=== PATIENT | female | born 1955 | race Caucasian/White ===

== ENCOUNTER 2016-08-21 19:41 | Emergency (ER) | payer MEDICARE ==
[~2016-08-21] VITALS: Ht 160 cm; Wt 80.6 kg
[~2016-08-21 19:41] MED LIST: ALBU8I INH; ASPI1TAB7 PO; BUME1TAB PO; CALC0.5C6 PO; CLON0.5T PO; COZA100T PO; ERGO50000 PO; FLOV44AE INH; GABA100C4 PO; GENT0.1C TOP; ISOS60 PO; LANT500 CHEW; LEVO50TA4 PO; METO100T9 PO; OMEP20TA PO; ONDA4TAB7 PO; OXYC1SOL5 PO; RENACAP2 PO; SERT-129 PO; SODI650T PO; VERA1TAB17 PO; Z.0.OXYGENDME NC; ZOLP10TA3 PO
[2016-08-21 19:47] VITALS: BP 125/87; PULSE 85; RESP 16; TEMP 98.1; O2SAT 98
[2016-08-21] MEDS ORDERED: LANT500 CHEW (20:08)
[2016-08-21] MEDS ORDERED: LEVO50TA4 PO (20:08)
[2016-08-21] MEDS ORDERED: GABA100C4 PO (20:08)
[2016-08-21] MEDS ORDERED: OMEP20CA2 (20:08)
[2016-08-21] MEDS ORDERED: ERGO1CAP30 PO (20:08)
[2016-08-21] MEDS ORDERED: CALC0.5C6 PO (20:08)
[2016-08-21] MEDS ORDERED: VERA1TAB17 PO (20:08)
[2016-08-21] MEDS ORDERED: ASPI1TAB69 PO (20:08)
[2016-08-21] MEDS ORDERED: ZOLP10TA3 PO (20:08)
[2016-08-21] MEDS ORDERED: CLON0.5T PO (20:08)
[2016-08-21] MEDS ORDERED: ISOS60TA PO (20:08)
[2016-08-21] MEDS ORDERED: ZOFR4TAB3 SL (20:08)
[2016-08-21] MEDS ORDERED: LOSA100T PO (20:08)
[2016-08-21] MEDS ORDERED: FLUTI44I INH (20:08)
[2016-08-21] MEDS ORDERED: SODI650T PO (20:08)
[2016-08-21] MEDS ORDERED: OXYC1TAB36 PO (20:08)
[2016-08-21] MEDS ORDERED: VITACAP7 PO (20:08)
[2016-08-21] MEDS ORDERED: METO100T9 PO (20:08)
[2016-08-21] MEDS ORDERED: BUME2TAB PO (20:08)
[2016-08-21] MEDS ORDERED: SERT-129 PO (20:08)
[2016-08-21] MEDS ORDERED: ALBUAER3 INH (20:08)
[2016-08-21] MEDS ORDERED: BACT2OIN TOPICAL (20:13)
--- NOTE | 2016-08-21 20:15 | PD ---
HPI Chief Complaint: Laceration/Skin Injury Time Seen by Provider: 20:05 Travel History International Travel<30 days: No Contact w/Intl Traveler<30days: No Traveled to known affect area: No History of Present Illness HPI 61-year-old female presents to the emergency room for evaluation of dog scratch to her right dorsal forearm that occurred 2 days ago. Patient states her dog scratched her and she immediately washed it with soap and water. She has been applying leftover gentamicin ointment. States today she noticed a large black spot and some yellow pus coming out of it which concerned her. She is on dialysis every day for polycystic kidney disease. Patient denies fever, chills , nausea, and vomiting. PFSH Past Medical History Hx Anticoagulant Therapy: Yes (ASA) Asthma: No Anxiety: No Depression: No Cancer: No Cardiovascular Problems: Yes High Cholesterol: Yes Chemotherapy: No Congestive Heart Failure: Yes COPD: Yes Diabetes: No Dialysis: Yes (PERITONEAL DIALYSIS) Diminished Hearing: No Endocrine: Yes Gastrointestinal Disorders: Yes (GERD) GERD: Yes Genitourinary: No Hepatitis: No Hiatal Hernia: No Hypertension: Yes Immune Disorder: No Musculoskeletal: Yes (BACK PAIN) Neurologic: No Psychiatric: Yes (CLAUSTROPHOBIA) Reproductive: No Respiratory: No Radiation Therapy: No Renal Failure: Yes (on dialysis) Thyroid Disease: Yes Tetanus Vaccination: > 5 Years Influenza Vaccination: No ?: Not Menopausal: Yes : 2 Para: 2 Past Surgical History Abdominal Surgery: Yes (PERITONEAL DIALYSIS CATH) AICD: No Cholecystectomy: Yes Joint Replacement: No Oral Surgery: Yes (SINUS SURGERY) Pacemaker: No Tonsillectomy: Yes Other Surgery: Yes (CHIN RECONSTRUCTION) Social History Alcohol Use: No Tobacco Use: No Substance Use: No Allergies-Medications (Allergen,Severity, Reaction): Coded Allergies: No Known Allergies (Verified , 08/21/16) Reported Meds & Prescriptions Reported Meds & Active Scripts Active Ventolin Hfa (Albuterol Sulfate) 8 Gm Aero 1 Puff INH Q6 PRN * SHAKE WELL BEFORE USE * Fosrenol (Lanthanum Carbonate) 500 Mg Chew 500 Mg CHEW TID 30 Days Oxygen (O2) (Oxygendme) Device 2 L NC CONTINUOUS Oxygen Concentrator Portable Gaseous 2 L/min via Nasal Cannula Continuous For 99 months Bumetanide 1 Mg Tab 2 Mg PO BID Imdur 60 Mg (Isosorbide Mononitrate) 60 Mg Tabcr 60 Mg PO DAILY@07 Oxycodone/Acetaminophen 10 mg/325 mg 10 mg/325 mg Tab 1 Tab PO Q6H PRN Clonazepam 0.5 Mg Tab 0.5 Mg PO HS 30 Days Reported Flovent Hfa (Fluticasone Propionate) 44 Mcg Aer 2 Puff INH BID Verapamil Hcl Er (Verapamil Hcl) 240 Mg Tab 240 Mg PO DAILY Aspirin 81 mg Tab (Aspirin) 81 Mg Tab 81 Mg PO DAILY Zolpidem Tartrate 10 Mg Tab 10 Mg PO HS Omeprazole 20 mg (Omeprazole) 20 Mg Tab 20 Mg PO BID Gentamicin Sulfate (Gentamicin Sulfate (Topical)) 0.1 % Cre 1 Applic TOP DAILY Apply to port site daily with drsg change Metoprolol Succinate ER 100 mg (Metoprolol Succinate) 100 Mg Tab 100 Mg PO DAILY Rocaltrol (Calcitriol) 0.5 Mcg Cap 0.5 Mcg PO DAILY Levothyroxine 50 mcg (Levothyroxine Sodium) 50 Mcg Tab 50 Mcg PO DAILY Ondansetron Odt (Ondansetron HCl) 4 Mg Tab 4 Mg PO Q8H PRN Cozaar (Losartan Potassium) 100 Mg Tab 100 Mg PO DAILY Sodium Bicarbonate 650 Mg Tab 10 Gr PO BID Renal (B-Complex W/ C & Folic Acid) Softgel Cap 1 Cap PO DAILY Vitamin D / Drisdol 50,000 Units (Ergocalciferol) 50,000 Units Cap 1 Cap PO TWICE A MONTH & 15 Gabapentin 100 Mg Cap 100 Mg PO BID Sertraline 100 mg (Sertraline HCl) 100 Mg Tab 150 Mg PO DAILY Review of Systems Except as stated in HPI: all other systems reviewed are Neg Physical Exam Narrative GENERAL: Well-nourished, well-developed female in no acute distress. Afebrile. Ambulatory. SKIN: Focused skin assessment warm/dry. There is a 1 cm superficial laceration to the right dorsal forearm. No surrounding erythema, lymphangitis, increased warmth, or induration. No obvious drainage. There is a large blood clot at the exit of the wound. HEAD: Normocephalic. EYES: No scleral icterus. No injection or drainage. NECK: Supple, trachea midline. No JVD or lymphadenopathy. CARDIOVASCULAR: Regular rate and rhythm without murmurs, gallops, or rubs. RESPIRATORY: Breath sounds equal bilaterally. No accessory muscle use. PSYCHIATRIC: No delusional thought processes. No hallucinations. Data Data Last Documented VS Vital Signs Date Time Temp Pulse Resp B/P Pulse Ox O2 Delivery O2 Flow Rate FiO2 08/21/16 19:47 98.1 85 16 125/87 98 MDM Medical Decision Making Medical Screen Exam Complete: Yes Emergency Medical Condition: Yes Medical Record Reviewed: Yes Differential Diagnosis Dog scratch versus cellulitis versus wound infection versus laceration Narrative Course 61-year-old female presents to the emergency room for evaluation of a dog scratch to her right dorsal forearm that occurred 2 days ago. Patient is concerned for infection because she saw some yellow pus coming out of it earlier today. She is afebrile well-appearing in the emergency room. Medicine stable. There is a 1 cm superficial scratch to the right dorsal forearm without surrounding erythema, induration, edema, increased warmth, or lymphangitis. There is no obvious drainage. Patient has end-stage renal disease and is on dialysis daily. Because of this, we will avoid oral antibiotics. Patient will be placed on mupirocin and told to follow up with her primary care physician or return for worsening symptoms. She understands and agrees to plan. Diagnosis Primary Impression: Dog scratch Referrals: Primary Care Physician Patient Instructions: Cellulitis (ED), General Instructions Additional Instructions: Rest and drink plenty of fluids. Keep wound clean and dry. Apply mupirocin ointment twice daily. Follow-up with a primary care physician. Return to the emergency room for worsening symptoms. Med/Other Pt SpecificInfo: Prescription(s) given Disposition: 01 DISCHARGE HOME Condition: Stable Tamia Abbasi August 21, 2016 20:15
== END 2016-08-21 20:25 | disposition home or self-care (01) ==
LOC: PHEFT 19:41
DX: S59.911A Unspecified injury of right forearm, initial encounter (principal); I50.9 Heart failure, unspecified; I10 Essential (primary) hypertension; N19 Unspecified kidney failure; Z99.2 Dependence on renal dialysis; X58.XXXA Exposure to other specified factors, initial encounter
CPT/HCPCS: 99282

== ENCOUNTER 2016-09-12 16:37 | Inpatient (IN) | payer MEDICARE, MEDICAID ==
[~2016-09-12] VITALS: Ht 160 cm; Wt 81.4 kg
[~2016-09-12 16:37] MED LIST changes: -ALBU8I INH; +ALBUAER3 INH; +ASPI1TAB69 PO; -ASPI1TAB7 PO; +BACT2OIN TOPICAL; -BUME1TAB PO; +BUME2TAB PO; -COZA100T PO; +ERGO1CAP30 PO; -ERGO50000 PO; -FLOV44AE INH; +FLUTI44I INH; -GENT0.1C TOP; -ISOS60 PO; +ISOS60TA PO; +LOSA100T PO; +OMEP20CA2; -OMEP20TA PO; -ONDA4TAB7 PO; -OXYC1SOL5 PO; +OXYC1TAB36 PO; -RENACAP2 PO; +VITACAP7 PO; -Z.0.OXYGENDME NC; +ZOFR4TAB3 SL
[2016-09-12 16:39] VITALS: BP 162/88; PULSE 106; RESP 36; TEMP 99.3; O2SAT 97
--- NOTE | 2016-09-12 16:49 | PD ---
Physical Exam Date Seen by Provider: Sep 12, 2016 Time Seen by Provider: 16:46 Data Data Last Documented VS Vital Signs Date Time Temp Pulse Resp B/P Pulse Ox O2 Delivery O2 Flow Rate FiO2 09/12/16 16:39 99.3 106 36 162/88 97 Room Air Orders Electrocardiogram (09/12/16 ) [facility] Supervised Visit with SHILPI: No Narrative Course 61 YO F with complaint of SOB x 3 days. Endorses nonproductive cough, chest tightness with deep breathing. Speaking in full sentences, no extra work of breathing, O2 sats 97% ORA in triage. EKG ordered. Vitals reviewed. Awaiting bed placement. Peyton Javier Sep 12, 2016 16:48
[2016-09-12] MEDS ORDERED: SODIUM CHLORIDE 0.9% FLUSH 10 ML FLUSH IVF PRN (17:30)
--- NOTE | 2016-09-12 17:39 | PD ---
HPI Chief Complaint: Respiratory Symptoms Time Seen by Provider: 17:34 Travel History International Travel<30 days: No Contact w/Intl Traveler<30days: No Traveled to known affect area: No History of Present Illness HPI Patient comes in complaining of shortness of breath 3 days and chest tightness that began yesterday. Patient reports dyspnea on exertion and with laying flat. Symptoms improved with resting and sitting up. Patient states this feels similar to when she was feeling short of breath in January for missing her peritoneal dialysis, however patient denies missing any of her dialysis with the exception of one time last month. Patient reports associated mild cough. Patient reports she takes a baby aspirin night but has not took it today. Patient denies any known fevers, nausea, vomiting, diarrhea, abdominal pain, headaches, back pain. Patient reports she does not make urine. Patient is in between primary care doctors currently secondary to insurance. Patient continues to see her spare fixer Dr. Green. Patient reports she does have an old inhaler that she tried with no improvement of her symptoms, but is uncertain why she had the inhaler or how old it was. 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 Camilo. [facility] Past Medical History Hx Anticoagulant Therapy: Yes (ASA) Asthma: No Anxiety: No Depression: No Cancer: No Cardiovascular Problems: Yes High Cholesterol: Yes Chemotherapy: No Congestive Heart Failure: Yes COPD: Yes Diabetes: No Dialysis: Yes (PERITONEAL DIALYSIS) Diminished Hearing: No Endocrine: Yes Gastrointestinal Disorders: Yes (GERD) GERD: Yes Genitourinary: No Hepatitis: No Hiatal Hernia: No Hypertension: Yes Immune Disorder: No Musculoskeletal: Yes (BACK PAIN) Neurologic: No Psychiatric: Yes (CLAUSTROPHOBIA) Reproductive: No Respiratory: No Radiation Therapy: No Renal Failure: Yes (on dialysis) Thyroid Disease: Yes Menopausal: Yes : 2 Para: 2 Past Surgical History Abdominal Surgery: Yes (PERITONEAL DIALYSIS CATH) AICD: No Cholecystectomy: Yes Joint Replacement: No Oral Surgery: Yes (SINUS SURGERY) Pacemaker: No Tonsillectomy: Yes Other Surgery: Yes (CHIN RECONSTRUCTION) Social History Alcohol Use: No Tobacco Use: No Substance Use: No Allergies-Medications (Allergen,Severity, Reaction): Coded Allergies: No Known Allergies (Verified , 09/12/16) Reported Meds & Prescriptions Reported Meds & Active Scripts Active Reported Aspirin 81 Mg Chew 81 Mg CHEW DAILY Zolpidem (Zolpidem Tartrate) 10 Mg Tab 10 Mg PO HS PRN Verapamil ER 24 HR (Verapamil HCl) 240 Mg Tab 240 Mg PO HS Sodium Bicarbonate 650 Mg Tab 650 Mg PO BIDPC Sertraline (Sertraline HCl) 100 Mg Tab 100 Mg PO DAILY Oxycodone-Acetaminophen 10-325 mg Tab 1 Tab PO Q6H PRN Zofran Odt (Ondansetron Odt) 4 Mg Tab 4 Mg SL Q8HR PRN Omeprazole 20 Mg Cap Metoprolol Succinate ER 24 HR (Metoprolol Succinate) 100 Mg Tab 100 Mg PO DAILY Losartan (Losartan Potassium) 100 Mg Tab 100 Mg PO DAILY Levothyroxine (Levothyroxine Sodium) 50 Mcg Tab 50 Mcg PO DAILY Fosrenol (Lanthanum Carbonate) 500 Mg Tab 500 Mg CHEW TIDPC Isosorbide Mononitrate ER (Isosorbide Mononitrate) 60 Mg Tab 60 Mg PO DAILY Gabapentin 100 Mg Cap 100 Mg PO BID Flovent Hfa 10.6 GM Inh (Fluticasone Propionate) 44 Mcg/Act Inh 2 Puff INH BID Use daily at the same time. Ergocalciferol 50,000 Unit Cap 50,000 Units PO TWICE A MONTH Clonazepam 0.5 Mg Tab 0.5 Mg PO HS Calcitriol 0.5 Mcg Cap 0.5 Mcg PO DAILY Bumetanide 2 Mg Tab 2 Mg PO BID B Complex (B-Complex Vitamins) 1 Cap 1 Cap PO DAILY Proair Hfa 8.5 GM Inh (Albuterol Sulfate) 90 Mcg/Act Aer 2 Puff INH Q6H PRN 108 mcg/actuation Review of Systems Except as stated in HPI: all other systems reviewed are Neg Physical Exam Narrative GENERAL: Well-developed, overly nourished, in no acute distress, and non-ill appearing. SKIN: Focused skin assessment warm and dry. HEAD: Atraumatic. Normocephalic. EYES: Pupils equal and round. EOMI. No scleral icterus. No injection or drainage. ENT: No nasal bleeding or discharge. Mucous membranes pink and moist. NECK: Trachea midline. Supple. No nuclear rigidity. CARDIOVASCULAR: Regular rate and rhythm. No murmur appreciated. RESPIRATORY: No accessory muscle use. No respiratory distress. Clear to auscultation. Breath sounds equal bilaterally. Patient speaking in full sentences without difficulty. MUSCULOSKELETAL: No obvious deformities. No clubbing. No cyanosis. No edema. Full range of motion. NEUROLOGICAL: Awake and alert. No obvious cranial nerve deficits. Motor grossly within normal limits. Normal speech. PSYCHIATRIC: Appropriate mood and affect; insight and judgment normal. Data Data Last Documented VS Vital Signs Date Time Temp Pulse Resp B/P Pulse Ox O2 Delivery O2 Flow Rate FiO2 09/12/16 19:26 96 18 162/82 97 Room Air 09/12/16 18:20 2.00 09/12/16 16:39 99.3 Orders Electrocardiogram (09/12/16 ) Complete Blood Count With Diff (09/12/16 17:28) Basic Metabolic Panel (Bmp) (09/12/16 17:28) B-Type Natriuretic Peptide (09/12/16 17:28) Act Partial Throm Time (Ptt) (09/12/16 17:28) Prothrombin Time / Inr (Pt) (09/12/16 17:28) Magnesium (Mg) (09/12/16 17:28) Ckmb (Isoenzyme) Profile (09/12/16 17:28) Troponin I (09/12/16 17:28) Iv Access Insert/Monitor (09/12/16 17:28) Ecg Monitoring (09/12/16 17:28) Oximetry (09/12/16 17:28) Oxygen Administration (09/12/16 17:28) Chest, Single Ap (09/12/16 17:28) Sodium Chloride 0.9% Flush (Ns Flush) (09/12/16 17:30) Aspirin Chew (Aspirin Chew) (09/12/16 17:45) Albuterol-Ipratropium Neb (Duoneb Neb) (09/12/16 17:45) CKMB (09/12/16 17:50) CKMB% (09/12/16 17:50) Admit Order (Ed Use Only) (09/12/16 19:31) Labs Laboratory Tests Test 09/12/16 17:50 White Blood Count 7.7 TH/MM3 Red Blood Count 2.83 MIL/MM3 Hemoglobin 8.6 GM/DL Hematocrit 25.9 % Mean Corpuscular Volume 91.6 FL Mean Corpuscular Hemoglobin 30.5 PG Mean Corpuscular Hemoglobin 33.3 % Concent Red Cell Distribution Width 16.6 % Platelet Count 167 TH/MM3 Mean Platelet Volume 9.4 FL Neutrophils (%) (Auto) 64.5 % Lymphocytes (%) (Auto) 14.4 % Monocytes (%) (Auto) 8.3 % Eosinophils (%) (Auto) 11.9 % Basophils (%) (Auto) 0.9 % Neutrophils # (Auto) 4.9 TH/MM3 Lymphocytes # (Auto) 1.1 TH/MM3 Monocytes # (Auto) 0.6 TH/MM3 Eosinophils # (Auto) 0.9 TH/MM3 Basophils # (Auto) 0.1 TH/MM3 CBC Comment DIFF FINAL Differential Comment Prothrombin Time 11.2 SEC Prothromb Time International 1.0 RATIO Ratio Activated Partial 25.7 SEC Thromboplast Time Sodium Level 139 MEQ/L Potassium Level 4.0 MEQ/L Chloride Level 100 MEQ/L Carbon Dioxide Level 27.5 MEQ/L Anion Gap 12 MEQ/L Blood Urea Nitrogen 47 MG/DL Creatinine 11.63 MG/DL Estimat Glomerular Filtration 3 ML/MIN Rate Random Glucose 116 MG/DL Calcium Level 9.2 MG/DL Magnesium Level 1.9 MG/DL Total Creatine Kinase 111 U/L Creatine Kinase MB 2.4 NG/ML Troponin I 0.03 NG/ML B-Type Natriuretic Peptide 4551 PG/ML MDM Medical Decision Making Medical Screen Exam Complete: Yes Emergency Medical Condition: Yes Interpretation(s) EKG reviewed by Dr. Rosales shows sinus rhythm with ventricular rate 95. No STEMI. Chest x-ray read by radiologist shows: Cardiomegaly with small bilateral pleural effusions. Minimal basilar airspace disease. Pacer lead overlies right ventricle. Differential Diagnosis CHF exacerbation, pneumonia, acute coronary syndrome, pneumothorax, fluid overload, pleural effusion, other Narrative Course Patient was seen and examined. IV was established. Initial appropriate radiological studies were ordered. Patient was placed on a offset plate maker given baby aspirin and nebulizer treatment. 1829 patient reassessed reports improvement of symptoms status post nebulizer treatment. Discussed chest x-ray findings with patient. Awaiting lab results. Discussed all findings and plan of care with patient she was agreeable for admission to the hospital. All questions were answered. Discussed patient with Dr. Bhatia, who is in agreement with plan of care and disposition. Patient remained stable throughout ED course. Physician Communication Physician Communication [address] Forman, who is agreeable to admit the patient. [address] Cheek, spare fixer on-call for Dr. Green, states he will put in orders for peritoneal dialysis. Diagnosis Primary Impression: Dyspnea Qualified Code: R06.00 - Dyspnea, unspecified type Admitting Information Admitting Physician Requests: Observation Condition: Stable Tanner Garcia Sep 12, 2016 17:39
[2016-09-12] MEDS ORDERED: RESP: ALBUTEROL 2.5 MG/IPRATROPIUM 0.5 MG NEB (SCH) INH ONE (17:45)
[2016-09-12] MEDS ORDERED: ASPIRIN 81 MG CHEW TAB PO ONE (17:45)
[2016-09-12 17:54] VITALS: O2SAT 100
[2016-09-12] MEDS ORDERED: ASPI81CH CHEW (18:02)
[2016-09-12 18:20] VITALS: O2SAT 100
[2016-09-12 18:25] LABS: AUTOMATED NEUTROPHIL # 4.9 TH/MM3 (1.8-7.7); BASOPHIL # 0.1 TH/MM3 (0-0.2); BASOPHIL % 0.9 % (0.0-2.0); EOSINOPHIL # 0.9 TH/MM3 (0-0.4); EOSINOPHIL % 11.9 % (0.0-4.0); HEMATOCRIT 25.9 % (35.0-46.0); HEMO FLAGS DIFF FINAL; LYMPH % 14.4 % (9.0-44.0); LYMPHOCYTE # 1.1 TH/MM3 (1.0-4.8); MEAN CELL VOLUME 91.6 FL (80.0-100.0); MEAN CORPUSCULAR HEMOGLOBIN 30.5 PG (27.0-34.0); MEAN CORPUSCULAR HGB CONC 33.3 % (32.0-36.0); MONO % 8.3 % (0.0-8.0); NEUT % 64.5 % (16.0-70.0); PLATELET COUNT 167 TH/MM3 (150-450); RED BLOOD COUNT 2.83 MIL/MM3 (4.00-5.30); RED CELL DISTRIBUTION WIDTH 16.6 % (11.6-17.2); WHITE BLOOD COUNT 7.7 TH/MM3 (4.0-11.0)
[2016-09-12 18:26] LABS: APTT (PATIENT) 25.7 SEC (24.3-30.1); PROTHROMBIN TIME - PATIENT 11.2 SEC (9.8-11.6)
[2016-09-12 18:30] LABS: ANION GAP 12 MEQ/L (5-15); BICARBONATE 27.5 MEQ/L (21.0-32.0); BLOOD UREA NITROGEN 47 MG/DL (7-18); CHLORIDE 100 MEQ/L (98-107); GLOMERULAR FILTRATION RATE 3 ML/MIN (>89); MAGNESIUM 1.9 MG/DL (1.5-2.5); SODIUM (NA) 139 MEQ/L (136-145)
--- NOTE | 2016-09-12 18:30 | RADRPT ---
EXAM DATE/TIME: 09/12/2016 18:18 [place] COMPARISON: CHEST SINGLE AP, January 17, 2016, 8:08. INDICATIONS : Shortness of breath MEDICAL HISTORY : None. Hypertension. Congestive heart failure. renal failure, GERD, SURGICAL HISTORY : Defibrillator ENCOUNTER: Initial ACUITY: 1 day PAIN SCORE: 0/10 LOCATION: Bilateral chest FINDINGS: A single view of the chest demonstrates pacer lead overlying right ventricle. Cardiomegaly. Small eff usions. Minimal basilar airspace disease improved from January 2016 comparison. No pneumothorax. CONCLUSION: 1. Cardiomegaly with small bilateral pleural effusions. Minimal basilar airspace disease. Pacer lead overlies right ventricle. Lazarus Cortez MD on September 12, 2016 at 18:27 Board Certified Radiologist. This report was verified electronically.
[2016-09-12 18:32] VITALS: BP 158/85; PULSE 96; RESP 20; O2SAT 95
[2016-09-12 18:34] LABS: CREATINE KINASE 111 U/L (26-192)
[2016-09-12 18:55] LABS: CKMB 2.4 NG/ML (0.5-3.6)
[2016-09-12 19:26] VITALS: BP 162/82; PULSE 96; RESP 18; O2SAT 97
[2016-09-12] MEDS ORDERED: ACETAMINOPHEN/HYDROcodone 325 MG/5 MG TAB PO PRN (20:15)
[2016-09-12] MEDS ORDERED: LACTULOSE SYRUP 20 GM/30 ML CUP PO PRN (20:15)
[2016-09-12] MEDS ORDERED: SENNOSIDES 8.6 MG TAB PO PRN (20:15)
[2016-09-12] MEDS ORDERED: ZOLPIDEM TARTRATE 10 MG TAB PO PRN (20:15)
[2016-09-12] MEDS ORDERED: MORPHINE SULFATE 4 MG/ML INJ IV PRN (20:15)
[2016-09-12] MEDS ORDERED: BISACODYL 10 MG SUPP RECTAL PRN (20:15)
[2016-09-12] MEDS ORDERED: FUROSEMIDE 40 MG/4 ML VIAL IV PUSH ONE (20:15)
[2016-09-12] MEDS ORDERED: MAGNESIUM HYDROXIDE SUSP 30 ML CUP PO PRN (20:15)
[2016-09-12] MEDS ORDERED: SODIUM CHLORIDE 0.9% FLUSH 10 ML FLUSH IV FLUSH PRN (20:15)
[2016-09-12] MEDS ORDERED: ALBUTEROL SULFATE 90 MCG/ACT HFA 8 GM INHALER INH PRN (20:15)
--- NOTE | 2016-09-12 20:15 | HHI.HP ---
[facility] No Primary Care Physician Admission Diagnosis dyspnea Diagnoses: (1) ESRD (end stage renal disease) on dialysis Diagnosis: Principal (2) CHF (congestive heart failure) Diagnosis: Principal (3) HTN (hypertension) Diagnosis: Principal (4) COPD (chronic obstructive pulmonary disease) Diagnosis: Principal Travel History International Travel<30 Days: No Contact w/Intl Traveler <30 Da: No Traveled to Known Affected Are: No History of Present Illness This is a 61-year-old female with a PMH of HTN, Hyperlipidemia, COPD, ESRD on PD and CAD who presented to the ER with complaints of increasing SOB for approx 3 days. Denies any changes to PD regimen, compliant w/ PD, no missed dialysis. Denies fever, chills, sick contacts or chest pain, does report chest tightness however only with episodes of SOB. On arrival, BP 158/85, HR 96, O2 sat 95% on RA, Afebrile. CBC essentially unremarkable. Chemistry at baseline. Creatinine 11.63, previously 11.47 on 01/19/16. Troponin negative. BNP 4551. CXR with cardiomegaly and small bilateral pleural effusions. Follows with Dr. Green as outpatient, consult placed by ER physician to resume PD. Review of Systems Except as stated in HPI: all other systems reviewed are Neg ROS: 14 point review of systems otherwise negative. Past Family Social History Past Medical History PMH: HTN, Hyperlipidemia, COPD, ESRD on PD and CAD Past Surgical History PAST SURGICAL HISTORY: PD Catheter, Cholecystectomy, Tonsillectomy, Chin Reconstruction Allergies: Coded Allergies: No Known Allergies (Verified , 09/12/16) Family History PAST FAMILY HISTORY: Reviewed. No h/o DM or CAD Social History PAST SOCIAL HISTORY: Negative for alcohol, tobacco or drugs. Physical Exam Vital Signs Vital Signs Date Time Temp Pulse Resp B/P Pulse Ox O2 Delivery O2 Flow Rate FiO2 09/12/16 19:26 96 18 162/82 97 Room Air 09/12/16 18:32 96 20 158/85 95 09/12/16 18:20 100 Nasal Cannula 2.00 09/12/16 17:54 100 Nasal Cannula 2 09/12/16 17:54 100 Nasal Cannula 2 09/12/16 16:39 99.3 106 36 162/88 97 Room Air Physical Exam PE: GENERAL: Middle-aged female in no acute distress. HEENT: PERRLA, EOMI. No scleral icterus or conjunctival pallor. No lid lag or facial droop. CARDIOVASCULAR: Regular rate and rhythm. No obvious murmurs to auscultation. No chest tenderness to palpation. RESPIRATORY: No obvious rhonchi or wheezing. Clear to auscultation. Breath sounds equal bilaterally. GASTROINTESTINAL: Abdomen soft, non-tender, nondistended. BS normal. MUSCULOSKELETAL: Extremities without clubbing, cyanosis, or edema. No obvious deformities. NEUROLOGICAL: Awake, alert and oriented x4. No focal neurologic deficits. Moving both upper and lower extremities spontaneously. Laboratory Laboratory Tests Test 09/12/16 17:50 White Blood Count 7.7 Red Blood Count 2.83 Hemoglobin 8.6 Hematocrit 25.9 Mean Corpuscular Volume 91.6 Mean Corpuscular Hemoglobin 30.5 Mean Corpuscular Hemoglobin 33.3 Concent Red Cell Distribution Width 16.6 Platelet Count 167 Mean Platelet Volume 9.4 Neutrophils (%) (Auto) 64.5 Lymphocytes (%) (Auto) 14.4 Monocytes (%) (Auto) 8.3 Eosinophils (%) (Auto) 11.9 Basophils (%) (Auto) 0.9 Neutrophils # (Auto) 4.9 Lymphocytes # (Auto) 1.1 Monocytes # (Auto) 0.6 Eosinophils # (Auto) 0.9 Basophils # (Auto) 0.1 CBC Comment DIFF FINAL Differential Comment Prothrombin Time 11.2 Prothromb Time International 1.0 Ratio Activated Partial 25.7 Thromboplast Time Sodium Level 139 Potassium Level 4.0 Chloride Level 100 Carbon Dioxide Level 27.5 Anion Gap 12 Blood Urea Nitrogen 47 Creatinine 11.63 Estimat Glomerular Filtration 3 Rate Random Glucose 116 Calcium Level 9.2 Magnesium Level 1.9 Total Creatine Kinase 111 Creatine Kinase MB 2.4 Troponin I 0.03 B-Type Natriuretic Peptide 4551 Result Diagram: 09/12/16 17509/12/16 175 Assessment and Plan Problem List: (1) ESRD (end stage renal disease) on dialysis ICD Code: N18.6 Status: Acute (2) CHF (congestive heart failure) ICD Code: I50.9 Status: Acute (3) COPD (chronic obstructive pulmonary disease) ICD Code: J44.9 Status: Acute (4) HTN (hypertension) ICD Code: I10 Status: Acute Assessment and Plan A/P: 1. ESRD on PD: reports compliance w/ PD, progressive SOB w/ exertion, + orthopnea. Follows w/ Dr. Green as outpatient, consult placed by ER doc for continuation of PD in light of fluid overload. Creatinine at baseline. 2. CHF: Acute on Chronic. Echo 11/03/15 w/ EF 20-25%. BNP 4551. CXR w/ cardiomegaly, small bilateral pleural effusions, images reviewed by me. On Bumex at home, however pt reports minimal urine output. Will need dialysis to correct fluid overload state. Initial trop negative, check serial cardiac enzymes to eval for underlying ischemia. 3. COPD: Chronic Respiratory Failure. Resume home DuoNeb/MDI. CXR w/ no acute infiltrate. 4. HTN: Uncontrolled. BP 160-180's, likely compounded by fluid overload. Resume home medications. Monitor BP. 5. DVT Prophylaxis: SCD/Teds. 6. Social work for DC planning as needed. 7. Case discussed at length with ER physician. Problem Qualifiers (1) CHF (congestive heart failure): Qualified Code: I50.9 - Acute congestive heart failure, unspecified congestive heart failure type Felicia Forman MD Sep 12, 2016 20:15
--- NOTE | 2016-09-12 20:21 | PD ---
Physical Exam Narrative GENERAL: Well-nourished, well-developed patient. SKIN: Warm and dry. HEAD: Normocephalic and atraumatic. EYES: No injection or drainage. ENT: No nasal drainage noted. NECK: Supple, trachea midline. CARDIOVASCULAR: Regular rate and rhythm RESPIRATORY: Breath sounds equal bilaterally at apices. No accessory muscle use. GASTROINTESTINAL: Abdomen soft, non-tender, nondistended. NEUROLOGICAL: Awake and alert. Moves all extremities. Normal speech. Data Data Last Documented VS Vital Signs Date Time Temp Pulse Resp B/P Pulse Ox O2 Delivery O2 Flow Rate FiO2 09/12/16 19:26 96 18 162/82 97 Room Air 09/12/16 18:20 2.00 09/12/16 16:39 99.3 Orders Electrocardiogram (09/12/16 ) Complete Blood Count With Diff (09/12/16 17:28) Basic Metabolic Panel (Bmp) (09/12/16 17:28) B-Type Natriuretic Peptide (09/12/16 17:28) Act Partial Throm Time (Ptt) (09/12/16 17:28) Prothrombin Time / Inr (Pt) (09/12/16 17:28) Magnesium (Mg) (09/12/16 17:28) Ckmb (Isoenzyme) Profile (09/12/16 17:28) Troponin I (09/12/16 17:28) Iv Access Insert/Monitor (09/12/16 17:28) Ecg Monitoring (09/12/16 17:28) Oximetry (09/12/16 17:28) Oxygen Administration (09/12/16 17:28) Chest, Single Ap (09/12/16 17:28) Sodium Chloride 0.9% Flush (Ns Flush) (09/12/16 17:30) Aspirin Chew (Aspirin Chew) (09/12/16 17:45) Albuterol-Ipratropium Neb (Duoneb Neb) (09/12/16 17:45) CKMB (09/12/16 17:50) CKMB% (09/12/16 17:50) Admit Order (Ed Use Only) (09/12/16 19:31) Labs Laboratory Tests Test 09/12/16 17:50 White Blood Count 7.7 TH/MM3 Red Blood Count 2.83 MIL/MM3 Hemoglobin 8.6 GM/DL Hematocrit 25.9 % Mean Corpuscular Volume 91.6 FL Mean Corpuscular Hemoglobin 30.5 PG Mean Corpuscular Hemoglobin 33.3 % Concent Red Cell Distribution Width 16.6 % Platelet Count 167 TH/MM3 Mean Platelet Volume 9.4 FL Neutrophils (%) (Auto) 64.5 % Lymphocytes (%) (Auto) 14.4 % Monocytes (%) (Auto) 8.3 % Eosinophils (%) (Auto) 11.9 % Basophils (%) (Auto) 0.9 % Neutrophils # (Auto) 4.9 TH/MM3 Lymphocytes # (Auto) 1.1 TH/MM3 Monocytes # (Auto) 0.6 TH/MM3 Eosinophils # (Auto) 0.9 TH/MM3 Basophils # (Auto) 0.1 TH/MM3 CBC Comment DIFF FINAL Differential Comment Prothrombin Time 11.2 SEC Prothromb Time International 1.0 RATIO Ratio Activated Partial 25.7 SEC Thromboplast Time Sodium Level 139 MEQ/L Potassium Level 4.0 MEQ/L Chloride Level 100 MEQ/L Carbon Dioxide Level 27.5 MEQ/L Anion Gap 12 MEQ/L Blood Urea Nitrogen 47 MG/DL Creatinine 11.63 MG/DL Estimat Glomerular Filtration 3 ML/MIN Rate Random Glucose 116 MG/DL Calcium Level 9.2 MG/DL Magnesium Level 1.9 MG/DL Total Creatine Kinase 111 U/L Creatine Kinase MB 2.4 NG/ML Troponin I 0.03 NG/ML B-Type Natriuretic Peptide 4551 PG/ML [facility] Supervised Visit with SHILPI: Yes Interpretation(s) CBC & BMP Diagram 09/12/16 17:50 Last 24 hours Impressions Chest X-Ray 09/12/16 1728 Signed Impressions: Service Date/Time: Monday, September 12, 2016 18:18 - CONCLUSION: 1. Cardiomegaly with small bilateral pleural effusions. Minimal basilar airspace disease. Pacer lead overlies right ventricle. Lazarus Cortez MD Narrative Course I, Dr. kimble, have reviewed the advance practice practitioner's documentation and am in agreement, met with the patient face to face, made the diagnosis, and the medical decision making was done by me. *My assessment and Findings: 61-year-old female presents with chest pain and shortness of breath. Prior hospitalization with pulmonary edema and intubation. BNP significantly elevated. Patient agrees to admission in the hospital for further care Diagnosis Primary Impression: Chest pain Qualified Code: R07.9 - Chest pain, unspecified type Additional Impressions: ESRD (end stage renal disease) on dialysis CHF (congestive heart failure) Qualified Code: I50.9 - Acute congestive heart failure, unspecified congestive heart failure type Lety Kimble MD Sep 12, 2016 20:21
[2016-09-12] MEDS ORDERED: ALBUTEROL SULFATE 90 MCG/ACT HFA 18 GM INHALER INH PRN (21:00)
[2016-09-12] MEDS ORDERED: SODIUM CHLORIDE 0.9% 10 ML VIAL IV PRN (21:15)
[2016-09-12] MEDS ORDERED: HEPARIN SODIUM - IV 10,000 UNITS/10 ML VIAL IV FLUSH PRN (21:15)
[2016-09-12 21:30] VITALS: BP 180/91; PULSE 103; PULSE 98; RESP 20; TEMP 98.3; O2SAT 100
[2016-09-12] MEDS: FLUTICASONE PROPIONATE 44 MCG/ACT 10.6 GM INHALER INH SCH (22:36)
[2016-09-12] MEDS: clonazePAM 0.5 MG TAB PO SCH (22:37)
[2016-09-12] MEDS: SODIUM CHLORIDE 0.9% FLUSH 10 ML FLUSH IV FLUSH SCH (22:37)
[2016-09-12] MEDS: VERAPAMIL HCL 240 MG SUSTAINED RELEASE TAB PO SCH (22:37)
[2016-09-12] MEDS: DOCUSATE SODIUM 50 MG/SENNA 8.6 MG TAB PO SCH (22:37)
[2016-09-13] VITALS (9 sets, daily range): BP systolic 126–166; BP diastolic 70–100; PULSE 84–101; RESP 16–20; TEMP 96.5–98.4; O2SAT 95–100
[2016-09-13] MEDS: LEVOTHYROXINE SODIUM 50 MCG TAB PO SCH (05:12)
[2016-09-13 07:43] LABS: AUTOMATED NEUTROPHIL # 4.9 TH/MM3 (1.8-7.7); BASOPHIL # 0.1 TH/MM3 (0-0.2); EOSINOPHIL # 0.9 TH/MM3 (0-0.4); EOSINOPHIL % 11.4 % (0.0-4.0); HEMATOCRIT 24.6 % (35.0-46.0); HEMO FLAGS DIFF FINAL; LYMPH % 14.2 % (9.0-44.0); LYMPHOCYTE # 1.1 TH/MM3 (1.0-4.8); MEAN CELL VOLUME 90.5 FL (80.0-100.0); MEAN CORPUSCULAR HEMOGLOBIN 31.3 PG (27.0-34.0); MEAN CORPUSCULAR HGB CONC 34.5 % (32.0-36.0); MONO % 8.3 % (0.0-8.0); NEUT % 65.1 % (16.0-70.0); PLATELET COUNT 148 TH/MM3 (150-450); RED BLOOD COUNT 2.72 MIL/MM3 (4.00-5.30); RED CELL DISTRIBUTION WIDTH 16.9 % (11.6-17.2); WHITE BLOOD COUNT 7.6 TH/MM3 (4.0-11.0)
[2016-09-13 08:05] LABS: ANION GAP 14 MEQ/L (5-15); AST (GOT) 11 U/L (15-37); BICARBONATE 26.4 MEQ/L (21.0-32.0); BLOOD UREA NITROGEN 46 MG/DL (7-18); CHLORIDE 98 MEQ/L (98-107); GLOMERULAR FILTRATION RATE 3 ML/MIN (>89); POTASSIUM 3.5 MEQ/L (3.5-5.1); SODIUM (NA) 138 MEQ/L (136-145)
[2016-09-13 08:06] LABS: ALT (GPT) 29 U/L (10-53)
[2016-09-13 08:08] LABS: ALKALINE PHOSPHATASE 112 U/L (45-117); TOTAL BILIRUBIN ADULT 0.4 MG/DL (0.2-1.0)
[2016-09-13] MEDS ORDERED: NON-FORMULARY DRUG (Metoprolol Succinate ER 24 HR 100 MG) PO SCH (09:00)
[2016-09-13] MEDS ORDERED: NON-FORMULARY DRUG (B-Complex Vitamins (B Complex) 1 CAP) PO SCH (09:00)
[2016-09-13] MEDS: FLUTICASONE PROPIONATE 44 MCG/ACT 10.6 GM INHALER INH SCH ×2 (09:47→20:19)
[2016-09-13] MEDS: SODIUM CHLORIDE 0.9% FLUSH 10 ML FLUSH IV FLUSH SCH ×2 (09:47→21:00)
[2016-09-13] MEDS: CALCITRIOL 0.25 MCG CAP PO SCH (09:47)
[2016-09-13] MEDS: LOSARTAN 50 MG TAB PO SCH (09:48)
[2016-09-13] MEDS: SODIUM BICARBONATE 650 MG TAB PO SCH ×2 (09:48→17:39)
[2016-09-13] MEDS: ASPIRIN 81 MG CHEW TAB CHEW SCH (09:48)
[2016-09-13] MEDS: METOPROLOL SUCCINATE 50 MG EXTENDED RELEASE TAB PO SCH (09:48)
[2016-09-13] MEDS: GABAPENTIN 100 MG CAP PO SCH (09:48)
[2016-09-13] MEDS: DOCUSATE SODIUM 50 MG/SENNA 8.6 MG TAB PO SCH ×2 (09:48→20:18)
[2016-09-13] MEDS: VITAMIN B COMPLEX/VIT C TAB PO SCH (09:48)
[2016-09-13] MEDS: ISOSORBIDE MONONITRATE 60 MG TAB PO SCH (09:48)
[2016-09-13] MEDS: SERTRALINE HCL 100 MG TAB PO SCH (09:49)
--- NOTE | 2016-09-13 10:16 | HHI.PR ---
Subjective Remarks Follow up for SOB, fluid overload, CHF exacerbation. The patient reports mild improvement compared to yesterday. However she just ambulated to the restroom and now significantly short of breath. She reports a cough, occasionally productive of clear-yellow sputum. Denies fevers. She reports her entire chest just feels "sore", worse with coughing and deep inspiration. She reports orthopnea, unable to lie flat. She reports lower extremity edema which she believes is improving, however she has noticed her left leg has been more swollen than the right leg for many months now. She has never been evaluated for DVT. She has no other medical complaints at this time. Objective Vitals Vital Signs Date Time Temp Pulse Resp B/P Pulse Ox O2 Delivery O2 Flow Rate FiO2 09/13/16 08:01 97.9 98 18 137/76 100 09/13/16 04:11 98.4 101 18 166/100 100 161/84 09/13/16 01:34 20 99 09/13/16 00:24 98.4 100 19 162/88 99 09/12/16 21:30 98.3 98 20 180/91 100 09/12/16 21:30 103 09/12/16 19:26 96 18 162/82 97 Room Air 09/12/16 18:32 96 20 158/85 95 09/12/16 18:20 100 Nasal Cannula 2.00 09/12/16 17:54 100 Nasal Cannula 2 09/12/16 17:54 100 Nasal Cannula 2 09/12/16 16:39 99.3 106 36 162/88 97 Room Air I/O 09/12/16 09/12/16 09/12/16 09/13/16 09/13/16 09/13/16 07:00 15:00 23:00 07:00 15:00 23:00 Intake Total 980 ml Output Total 667 ml Balance 980 ml -667 ml Intake Oral 980 ml Output Peritoneal Fluid 667 ml # Voids 2 Result Diagram: 09/13/16 0719 09/13/16 0719 Imaging Last Impressions Chest X-Ray 09/12/16 1728 Signed Impressions: Service Date/Time: Monday, September 12, 2016 18:18 - CONCLUSION: 1. Cardiomegaly with small bilateral pleural effusions. Minimal basilar airspace disease. Pacer lead overlies right ventricle. Lazarus Cortez MD Objective Remarks GENERAL: Well-nourished, well-developed very pleasant female patient in [facility]. SKIN: Warm and dry. No rash. HEENT: Normocephalic. Atraumatic. Pupils equal and round. Mucous membranes pink and moist. NECK: Supple. Trachea midline. CARDIOVASCULAR: Regular rate and rhythm. S1, S2 noted. No murmur appreciated. RESPIRATORY: No accessory muscle use. Breath sounds diminished at bilateral bases, otherwise clear to auscultation. Breath sounds equal bilaterally. GASTROINTESTINAL: Abdomen soft, non-tender, nondistended. Normoactive bowel sounds x4. MUSCULOSKELETAL: No obvious deformities. Bilateral lower extremities with trace edema, however Left leg noticeable larger than the Right leg. Bilateral calves nontender to palpation. NEUROLOGICAL: Awake and alert. No obvious cranial nerve deficits. Motor grossly within normal limits. Normal speech. PSYCHIATRIC: Appropriate mood and affect; insight and judgment normal. Medications and IVs Current Medications Medications (Trade) Dose Ordered Sig/Emma Route Start Time Stop Time Status Last Admin (NS Flush) 2 ml UNSCH PRN IV FLUSH 09/12/16 20:15 (NS Flush) 2 ml BID IV FLUSH 09/12/16 21:00 09/12/16 22:37 (Tylenol) 650 mg Q6H PRN PO 09/12/16 20:15 ([place] 5-325 Mg) 1 tab Q4H PRN PO 09/12/16 20:15 (Morphine Inj) 2 mg Q3H PRN IV 09/12/16 20:15 (Di-Colace) 1 tab BID PO 09/12/16 21:00 09/12/16 22:37 (Milk Of Magnesia Liq) 30 ml Q12H PRN PO 09/12/16 20:15 (Senokot) 17.2 mg Q12H PRN PO 09/12/16 20:15 (Dulcolax Supp) 10 mg DAILY PRN RECTAL 09/12/16 20:15 (Lactulose Liq) 30 ml DAILY PRN PO 09/12/16 20:15 (Aspirin Chew) 81 mg DAILY CHEW 09/13/16 09:00 (Rocaltrol) 0.5 mcg DAILY PO 09/13/16 09:00 (KlonoPIN) 0.5 mg HS PO 09/12/16 21:00 09/12/16 22:37 (Flovent Hfa 44 Mcg Inh) 2 puff BID INH 09/12/16 21:00 09/12/16 22:36 (Neurontin) 100 mg DAILY PO 09/13/16 09:00 (Imdur) 60 mg DAILY PO 09/13/16 09:00 (Fosrenol Chew) 500 mg TIDPC CHEW 09/13/16 09:30 (Synthroid) 50 mcg DAILY@06 PO 09/13/16 06:00 09/13/16 05:12 (Cozaar) 100 mg DAILY PO 09/13/16 09:00 (Zoloft) 100 mg DAILY PO 09/13/16 09:00 (Sodium Bicarbonate) 650 mg BIDPC PO 09/13/16 09:00 (Isoptin Sr) 240 mg HS PO 09/12/16 21:00 09/12/16 22:37 (Ambien) 10 mg HS PRN PO 09/12/16 20:15 (Ventolin Hfa Inh) 2 puff Q6H PRN INH 09/12/16 21:00 ([place] C) 1 tab DAILY PO 09/13/16 09:00 (Toprol Xl) 100 mg DAILY PO 09/13/16 09:00 A/P Problem List: (1) ESRD (end stage renal disease) on dialysis ICD Code: N18.6 Status: Acute (2) CHF (congestive heart failure) ICD Code: I50.9 Status: Acute (3) COPD (chronic obstructive pulmonary disease) ICD Code: J44.9 Status: Acute (4) HTN (hypertension) ICD Code: I10 Status: Acute Assessment and Plan 61-year-old female with a PMH of HTN, Hyperlipidemia, COPD, ESRD on PD and CAD who presented to the ER with complaints of increasing SOB for approx 3 days. Denies any changes to PD regimen, compliant w/ PD, no missed dialysis. Fluid Overload, ESRD on PD: reports compliance w/ PD, progressive SOB w/ exertion, +orthopnea. Follows w/ Dr. Green as outpatient, consult placed by ER doc for continuation of PD in light of fluid overload. Creatinine at baseline. Acute Exacerbation of Chronic Nonischemic Systolic CHF: Echo 11/03/15 w/ EF 20-25 %. BNP 4551. CXR w/ cardiomegaly, small bilateral pleural effusions, images reviewed by me. Has AICD placed . Troponins 0.03 x2. Patient denies being on Bumex or Lasix at home. Continue dialysis to correct fluid overload state. Consider giving IV Bumex however will defer to nephrology. Patient follows with repairer [employer] systems and [employer] Dr. Jo Camilo and has upcoming appt this week. Check limited echo to assess EF. LLE Edema: Left leg > Right leg. Check Doppler U/S to rule out DVT. COPD: Chronic Respiratory Failure. Resume home DuoNeb/MDI. CXR w/ no acute infiltrate. HTN: Uncontrolled. BP 160-180's, likely compounded by fluid overload. Resume home medications. Monitor BP, improving. DVT Prophylaxis: SCD/Teds. Discharge Planning Not yet ready for discharge. Pending further clinical improvement. Discharge hopefully in 1-2 days. Problem Qualifiers (1) CHF (congestive heart failure): Qualified Code: I50.9 - Acute congestive heart failure, unspecified congestive heart failure type Laine Vines PA-C Sep 13, 2016 10:15 am
[2016-09-13] MEDS: LANTHANUM CARBONATE 500 MG CHEWABLE TABLET CHEW SCH ×3 (10:39→17:39)
--- NOTE | 2016-09-13 11:07 | RADRPT ---
EXAM DATE/TIME: 09/13/2016 10:39 [place] COMPARISON: No previous studies available for comparison. INDICATIONS : Left leg swelling. MEDICAL HISTORY : Hypercholesterolemia. Renal calculi. Thyroid disease. Left cataract. HTN. Defib. Sleep apnea. DEMARCUS D. Stage IV renal failure. Polycystic kidneys. SURGICAL HISTORY : Tonsillectomy. Cholecystectomy. Sinus surgery. Peritoneal dialysis cath. Cervical fusions. Blood tr ansfusions. ENCOUNTER: Initial ACUITY: 1 year PAIN SCORE: 4/10 LOCATION: Left leg. TECHNIQUE: Venous ultrasound of the leg was performed from the inguinal ligament to the proximal calf. Real-hilton e, color Doppler and spectral tracing, compression and augmentation techniques were used. FINDINGS: There is normal compressibility of the deep venous system from the inguinal region to the proximal ca lf. No echogenic clot is seen in the lumen of the common femoral, femoral, popliteal, and posterior tibial veins. There is a normal response of the venous system to proximal and distal augmentation an d respiration. CONCLUSION: Negative for deep venous thrombosis. Nagi Collier MD FACR on September 13, 2016 at 11:03 Board Certified Radiologist. This report was verified electronically.
--- NOTE | 2016-09-13 16:14 | ECHRPT ---
Indication: Heart failure, unspecified CONCLUSIONS Moderately dilated left ventricle. The left ventricular systolic function is severely reduced with an estimated ejection fraction less than 20%. The right ventricle is mildly dilated. The right ventricular systoilc function is mildly decreased. The left atrial size is mildly dilated. The right atrial size is mildly dilated. The interatrial septum not well visualized. Mild mitral annular calcification. Mild mitral valve regurgitation. The aortic valve is not well visualized. Aortic valve sclerosis is present. The tricuspid valve is not well visualized. There is mild tricuspid valve regurgitation. There is estimated moderate pulmonary hypertension present (range 50-60 mmHg). There is mild tricuspid valve regurgitation. The pulmonary valve is not well visualized. The inferior vena cava was not well visualized. BP: 137 / 76 HR: 89 Rhythm: MEASUREMENTS (Male / Female) Normal Values Technical Quality:Fair 2D ECHO LV Diastolic Diameter PLAX 5.7 cm 4.2 - 5.9 / 3.9 - 5.3 cm LV Systolic Diameter PLAX 5.3 cm IVS Diastolic Thickness 1.3 cm 0.6 - 1.0 / 0.6 - 0.9 cm LVPW Diastolic Thickness 1.1 cm 0.6 - 1.0 / 0.6 - 0.9 cm LV Relative Wall Thickness 0.4 RV Internal Dim ED PLAX 3.1 cm DOPPLER TR Peak Velocity 331.0 cm/s TR Peak Gradient 43.8 mmHg FINDINGS LEFT VENTRICLE Moderately dilated left ventricle. The left ventricular systolic function is severely reduced with an estimated ejection fraction less than 20%. RIGHT VENTRICLE The right ventricle is mildly dilated. The right ventricular systoilc function is mildly decreased. LEFT ATRIUM The left atrial size is mildly dilated. RIGHT ATRIUM The right atrial size is mildly dilated. ATRIAL SEPTUM The interatrial septum not well visualized. AORTA The aortic root and proximal ascending aorta are normal in size on limited imaging. MITRAL VALVE Mild mitral annular calcification. Mild mitral valve regurgitation. AORTIC VALVE The aortic valve is not well visualized. Aortic valve sclerosis is present. TRICUSPID VALVE The tricuspid valve is not well visualized. There is mild tricuspid valve regurgitation. There is estimated moderate pulmonary hypertension present (range 50-60 mmHg). There is mild tricuspid valve regurgitation. PULMONARY VALVE The pulmonary valve is not well visualized. VESSELS The inferior vena cava was not well visualized. PERICARDIUM No pericardial effusion. Dallas Ernst MD (Electronically Signed) Final Date:13 September 2016 16:13
[2016-09-13] MEDS: ACETAMINOPHEN 325 MG TAB PO PRN (19:31)
--- NOTE | 2016-09-13 19:42 | MB ---
cc: RADHA CASTELLON MD DATE OF CONSULTATION 09/13/16 REASON FOR CONSULTATION End-stage renal disease on peritoneal dialysis, came with fluid overload status. HISTORY OF PRESENT ILLNESS This is a 61-year-old female with past medical history of hypertension, ischemic heart disease, congestive heart failure, chronic obstructive pulmonary disease, end-stage renal disease on peritoneal dialysis, came to the hospital with complaint of worsening shortness of breath. I was called to see the patient because of being on peritoneal dialysis. The patient has been following with Dr. Green and she was told to call ___, was gradual worsening of her shortness of breath for the last few days associated with cough which is mainly dry. There is no chest pain. No palpitation. She claims to be compliant with her dialysis treatment and at home she has been using 2.5% solution with some time using 1.5% solution. She denies any nausea or vomiting. There is no history of diarrhea. No history of fever and she passes a very small amount of urine. She has been following with Dr. Green and he is on vacation so I am covering for him. PAST MEDICAL HISTORY Hypertension, hyperlipidemia, chronic obstructive pulmonary disease, end-stage renal disease on peritoneal dialysis, ischemic heart disease. PAST SURGICAL HISTORY Cholecystectomy, tonsillectomy, peritoneal dialysis catheter placement. REVIEW OF SYSTEMS There is no history of fever. She has gradual worsening of shortness of breath with cough which is mainly dry. There is no chest pain or palpitations. No nausea or vomiting. There is no history of diarrhea. SOCIAL HISTORY The patient is . There is no history of smoking or alcoholism. Family history Noncontributory. ALLERGIES She has no known drug allergies. MEDICATIONS Currently she is on the following medications: 1. Di-Colace 1 tablet b.i.d. 2. Fluticasone 2 puffs b.i.d. 3. Sodium bicarbonate 650 b.i.d. 4. Aspirin 81 milligrams once a day. 5. Calcitriol 0.5 micrograms daily. 6. Neurontin 100 milligrams daily. 7. Isosorbide 60 milligrams once a day. 8. Losartan 100 milligrams daily. 9. Zoloft 100 milligrams once a day. 10. Multivitamin 1 tablet daily. 11. Toprol 100 milligrams once a day. 12. Synthroid 50 micrograms daily. 13. Klonopin 0.5 milligrams daily. 14. Verapamil 240 milligrams q.h.s. 15. Fosrenol 500 milligrams t.i.d. 16. [facility] as needed. 17. Dulcolax as needed. 18. Ventolin as needed. PHYSICAL EXAMINATION GENERAL: On examination the patient is awake, alert. She is not in acute distress. VITAL SIGNS: The last blood pressure 126/80, temperature is 98, oxygen saturation 99-100%. HEENT: Pupils equally reacting to light. Nonicteric sclera, conjunctiva pale. NECK: Supple. JVD is slightly elevated. LUNGS: The patient has bilateral decreased air entry with basilar rales and scattered wheezing. CARDIOVASCULAR: S1-S2. ___ rhythm. ABDOMEN: The abdomen is distended, soft lax. There is no tenderness. Bowel sounds positive. EXTREMITIES: There is 1+ leg edema. INVESTIGATION WBC count 7.5, hemoglobin 8.5, platelet count 148, sodium 138, potassium 3.5, chloride 98, bicarb 36.4, BUN 46, creatinine 0.2, glucose 121, AST 11, ALT is 29, protein is 6.3, albumin of 2.8. Urinalysis not done during this admission. IMAGING STUDIES The patient has chest x-ray done yesterday evening which shows cardiomegaly with small pleural effusion bilaterally. Ultrasound of the lower leg was done which was negative for deep vein thrombosis, also has echocardiogram done which shows moderately dilated left ventricle with some severely reduced function. Estimated GFR of 20%. ASSESSMENT/PLAN 1. End-stage renal disease on peritoneal dialysis. 2. Fluid overload status, history of congestive heart failure. 3. Anemia. 4. Hypertension. The patient has been started on peritoneal dialysis last night and she has her breathing is slightly better but she is still orthopneic and has fluid overload status. Need to restrict the fluid intake. She is not passing much urine. on diuretics at present, will try more concentration PD solution with 4.25. I called the nurse to use 4.25% and 2.5%. Will follow the ultra filtration. Thank you for the consultation. The patient will be followed by Dr. Green from tomorrow. MD SOO Lock/MANOHAR /4:47 PM /7:07 PM MTDD
[2016-09-13] MEDS: VERAPAMIL HCL 240 MG SUSTAINED RELEASE TAB PO SCH (20:18)
[2016-09-13] MEDS: clonazePAM 0.5 MG TAB PO SCH (20:18)
[2016-09-14 00:14] VITALS: BP 100/67; PULSE 82; RESP 16; TEMP 96.8; O2SAT 99
[2016-09-14] MEDS: ACETAMINOPHEN 325 MG TAB PO PRN (02:36)
[2016-09-14] MEDS: LEVOTHYROXINE SODIUM 50 MCG TAB PO SCH (05:11)
[2016-09-14 05:17] VITALS: BP 108/58; PULSE 89; RESP 16; TEMP 97.8; O2SAT 97
[2016-09-14 08:38] VITALS: BP 125/76; PULSE 70; RESP 18; TEMP 97.8; O2SAT 96
[2016-09-14] MEDS: SODIUM CHLORIDE 0.9% FLUSH 10 ML FLUSH IV FLUSH SCH ×2 (09:03→21:59)
[2016-09-14] MEDS: ASPIRIN 81 MG CHEW TAB CHEW SCH (09:03)
[2016-09-14] MEDS: FLUTICASONE PROPIONATE 44 MCG/ACT 10.6 GM INHALER INH SCH ×2 (09:03→22:01)
[2016-09-14] MEDS: ISOSORBIDE MONONITRATE 60 MG TAB PO SCH (09:04)
[2016-09-14] MEDS: VITAMIN B COMPLEX/VIT C TAB PO SCH (09:04)
[2016-09-14] MEDS: CALCITRIOL 0.25 MCG CAP PO SCH (09:04)
[2016-09-14] MEDS: GABAPENTIN 100 MG CAP PO SCH (09:04)
[2016-09-14] MEDS: LOSARTAN 50 MG TAB PO SCH (09:04)
[2016-09-14] MEDS: DOCUSATE SODIUM 50 MG/SENNA 8.6 MG TAB PO SCH ×2 (09:04→21:55)
[2016-09-14] MEDS: SODIUM BICARBONATE 650 MG TAB PO SCH ×2 (09:05→18:48)
[2016-09-14] MEDS: SERTRALINE HCL 100 MG TAB PO SCH (09:05)
[2016-09-14] MEDS: METOPROLOL SUCCINATE 50 MG EXTENDED RELEASE TAB PO SCH (09:05)
[2016-09-14] MEDS: LANTHANUM CARBONATE 500 MG CHEWABLE TABLET CHEW SCH ×3 (09:09→18:30)
--- NOTE | 2016-09-14 10:05 | EKG ---
Date Performed: 09/12/2016 Time Performed: 16:52:44 PTAGE: 61 years EKG: Sinus rhythm ST DEVIATION AND MODERATE T-WAVE ABNORMALITY, CONSIDER LATERAL ISCHEMIA ABNORMAL ECG PREVIOUS TRACING : 01/14/2016 18.50 DOCTOR: Derrick Waters Interpretating Date/Time 09/14/2016 09:51:57
--- NOTE | 2016-09-14 11:07 | HHI.PR ---
Subjective Remarks Follow up for SOB, fluid overload, CHF exacerbation. The patient reports minimal improvement compared to yesterday, still short of breath, worse with exertion. She states she's not making much urine still however she is making more here than she did at home. Denies any chest pain. She reports a nonproductive cough. Denies fevers/chills. Leg swelling improved. O2 sat stable on room air. She has no other medical complaints at this time. Objective Vitals Vital Signs Date Time Temp Pulse Resp B/P Pulse Ox O2 Delivery O2 Flow Rate FiO2 09/14/16 08:38 97.8 70 18 125/76 96 09/14/16 05:17 97.8 89 16 108/58 97 09/14/16 00:14 96.8 82 16 100/67 99 09/13/16 20:23 96.5 87 16 139/89 100 09/13/16 19:41 84 09/13/16 16:05 98.0 90 18 126/80 95 09/13/16 11:45 97.9 90 18 126/70 96 I/O 09/13/16 09/13/16 09/13/16 09/14/16 09/14/16 09/14/16 07:00 15:00 23:00 07:00 15:00 23:00 Intake Total 980 ml Output Total 667 ml Balance 980 ml -667 ml Intake Oral 980 ml Output Peritoneal Fluid 667 ml # Voids 2 Result Diagram: 09/13/16 0719 09/13/16 0719 Imaging Last Impressions Lower Extremity Ultrasound 09/13/16 0000 Signed Impressions: Service Date/Time: Tuesday, September 13, 2016 10:39 - CONCLUSION: Negative for deep venous thrombosis. Nagi Collier MD FACR Chest X-Ray 09/12/16 4788 Signed Impressions: Service Date/Time: Monday, September 12, 2016 18:18 - CONCLUSION: 1. Cardiomegaly with small bilateral pleural effusions. Minimal basilar airspace disease. Pacer lead overlies right ventricle. Lazarus Cortez MD Objective Remarks GENERAL: Well-nourished, well-developed very pleasant female patient in [facility]. SKIN: Warm and dry. No rash. HEENT: Normocephalic. Atraumatic. Pupils equal and round. Mucous membranes pink and moist. NECK: Supple. Trachea midline. CARDIOVASCULAR: Regular rate and rhythm. S1, S2 noted. No murmur appreciated. RESPIRATORY: No accessory muscle use. Breath sounds diminished at right base today, otherwise clear to auscultation. Breath sounds equal bilaterally. GASTROINTESTINAL: Abdomen soft, non-tender, nondistended. Normoactive bowel sounds x4. MUSCULOSKELETAL: No obvious deformities. Bilateral lower extremities with trace edema, however Left leg noticeable larger than the Right leg. Bilateral calves nontender to palpation. NEUROLOGICAL: Awake and alert. No obvious cranial nerve deficits. Motor grossly within normal limits. Normal speech. PSYCHIATRIC: Appropriate mood and affect; insight and judgment normal. Medications and IVs Current Medications Medications (Trade) Dose Ordered Sig/Emma Route Start Time Stop Time Status Last Admin (NS Flush) 2 ml UNSCH PRN IV FLUSH 09/12/16 20:15 (NS Flush) 2 ml BID IV FLUSH 09/12/16 21:00 09/14/16 09:03 (Tylenol) 650 mg Q6H PRN PO 09/12/16 20:15 09/14/16 02:36 ([place] 5-325 Mg) 1 tab Q4H PRN PO 09/12/16 20:15 (Morphine Inj) 2 mg Q3H PRN IV 09/12/16 20:15 (Di-Colace) 1 tab BID PO 09/12/16 21:00 09/14/16 09:04 (Milk Of Magnesia Liq) 30 ml Q12H PRN PO 09/12/16 20:15 (Senokot) 17.2 mg Q12H PRN PO 09/12/16 20:15 (Dulcolax Supp) 10 mg DAILY PRN RECTAL 09/12/16 20:15 (Lactulose Liq) 30 ml DAILY PRN PO 09/12/16 20:15 (Aspirin Chew) 81 mg DAILY CHEW 09/13/16 09:00 09/14/16 09:03 (Rocaltrol) 0.5 mcg DAILY PO 09/13/16 09:00 09/14/16 09:04 (KlonoPIN) 0.5 mg HS PO 09/12/16 21:00 09/13/16 20:18 (Flovent Hfa 44 Mcg Inh) 2 puff BID INH 09/12/16 21:00 09/14/16 09:03 (Neurontin) 100 mg DAILY PO 09/13/16 09:00 09/14/16 09:04 (Imdur) 60 mg DAILY PO 09/13/16 09:00 09/14/16 09:04 (Fosrenol Chew) 500 mg TIDPC CHEW 09/13/16 09:30 09/14/16 09:09 (Synthroid) 50 mcg DAILY@06 PO 09/13/16 06:00 09/14/16 05:11 (Cozaar) 100 mg DAILY PO 09/13/16 09:00 09/14/16 09:04 (Zoloft) 100 mg DAILY PO 09/13/16 09:00 09/14/16 09:05 (Sodium Bicarbonate) 650 mg BIDPC PO 09/13/16 09:00 09/14/16 09:05 (Isoptin Sr) 240 mg HS PO 09/12/16 21:00 09/13/16 20:18 (Ambien) 10 mg HS PRN PO 09/12/16 20:15 (Ventolin Hfa Inh) 2 puff Q6H PRN INH 09/12/16 21:00 (Allbee C) 1 tab DAILY PO 09/13/16 09:00 09/14/16 09:04 (Toprol Xl) 100 mg DAILY PO 09/13/16 09:00 09/14/16 09:05 A/P Problem List: (1) ESRD (end stage renal disease) on dialysis ICD Code: N18.6 Status: Acute (2) CHF (congestive heart failure) ICD Code: I50.9 Status: Acute (3) COPD (chronic obstructive pulmonary disease) ICD Code: J44.9 Status: Acute (4) HTN (hypertension) ICD Code: I10 Status: Acute Assessment and Plan 61-year-old female with a PMH of HTN, Hyperlipidemia, COPD, ESRD on PD and CAD who presented to the ER with complaints of increasing SOB for approx 3 days. Denies any changes to PD regimen, compliant w/ PD, no missed dialysis. Fluid Overload, ESRD on PD: reports compliance w/ PD, progressive SOB w/ exertion, +orthopnea. Follows w/ Dr. Green as outpatient, consult placed, adjusted peritoneal dialysis. Creatinine at baseline. Acute Exacerbation of Chronic Systolic CHF: Echo 11/03/15 w/ EF 20-25%. BNP 4551. CXR w/ cardiomegaly, small bilateral pleural effusions. AICD placed . Troponins 0.03 x2. Patient denies being on Bumex or Lasix at home. Continue dialysis to correct fluid overload state. Consider giving IV Bumex however will defer to nephrology. Limited echo shows severely reduced systolic function with EF 20%. Symptoms slowly improving. Patient follows with credit card control clerk Dr. Jo Camilo and has upcoming appt this 09/17, will provide copy of echo report at discharge, discussed with the patient who agrees with the plan. 1515hrs: RN reports patient's adamant about seeing her credit card control clerk; refusing to go to inpatient room until seen by credit card control clerk. Consult placed to Dr. Camilo. LLE Edema: Left leg > Right leg. Doppler U/S negative for DVT. COPD: Chronic Respiratory Failure. Resumed home DuoNeb/MDI. CXR w/ no acute infiltrate. HTN: Uncontrolled. BP 160-180's, likely compounded by fluid overload. Resume home medications. Monitor BP, improving. DVT Prophylaxis: SCD/Teds. Discharge Planning Not yet ready for discharge. Pending further clinical improvement and clearance from nephrology. Attending Statement Seen in her bedroom in the morning, discussed with REGI Vines following specialist recommendations. Problem Qualifiers (1) CHF (congestive heart failure): Qualified Code: I50.9 - Acute congestive heart failure, unspecified congestive heart failure type Laine Vines PA-C Sep 14, 2016 11:07 Jose Pang MD Sep 14, 2016 18:09
[2016-09-14 16:00] VITALS: BP 128/86; PULSE 88; RESP 20; TEMP 96.2; O2SAT 98
--- NOTE | 2016-09-14 17:12 | HHI.NPPN ---
Subjective History of Present Illness 61-year-old female with a history of multiple medical problems including a severe cardiomyopathy, intrinsic pulmonary disease, coronary disease now presenting with shortness of breath. Ejection fraction by echocardiogram this admission appears to have deteriorated being less than 20%. Interval History Patient indicated shortness of breath has improved somewhat but still present. Review of Systems Respiratory Lungs: SOB Objective Data Data 09/13/16 09/14/16 19:00 07:00 Output Total 667 ml Balance -667 ml Output Peritoneal Fluid 667 ml Vital Signs Date Time Temp Pulse Resp B/P Pulse Ox O2 Delivery O2 Flow Rate FiO2 09/14/16 08:38 97.8 70 18 125/76 96 09/14/16 05:17 97.8 89 16 108/58 97 09/14/16 00:14 96.8 82 16 100/67 99 09/13/16 20:23 96.5 87 16 139/89 100 09/13/16 19:41 84 -: 09/13/16 0719 09/13/16 0719 Imaging Last 48 hours Impressions Lower Extremity Ultrasound 09/13/16 0000 Signed Impressions: Service Date/Time: Tuesday, September 13, 2016 10:39 - CONCLUSION: Negative for deep venous thrombosis. Nagi Collier MD FACR Chest X-Ray 09/12/16 1728 Signed Impressions: Service Date/Time: Monday, September 12, 2016 18:18 - CONCLUSION: 1. Cardiomegaly with small bilateral pleural effusions. Minimal basilar airspace disease. Pacer lead overlies right ventricle. Lazarus Cortez MD Tubes & Lines: Tenckhoff Catheter Medication Review Current Medications Sodium Chloride (NS Flush) 2 ml UNSCH PRN IVF FLUSH AFTER USING IV ACCESS; Start 09/12/16 at 17:30; Stop 09/12/16 at 20:40; Status DC Aspirin (Aspirin Chew) 81 mg ONCE ONCE PO ; Start 09/12/16 at 17:45; Stop at 17:46; Status DC Albuterol/ Ipratropium (Duoneb Neb) 1 ampule ONCE ONCE INH Last administered on 09/12/16t 18:20; Start 09/12/16 at 17:45; Stop 09/12/16 at 17:46; Status DC Furosemide (Lasix Inj) 40 mg ONCE ONCE IV PUSH ; Start 09/12/16 at 20:15; Stop 09/12/16 at 20:53; Status DC Sodium Chloride (NS Flush) 2 ml UNSCH PRN IV FLUSH FLUSH AFTER USING IV ACCESS ; Start 09/12/16 at 20:15 Sodium Chloride (NS Flush) 2 ml BID IV FLUSH Last administered on 09/14/16 09: 03; Start 09/12/16 at 21:00 Acetaminophen (Tylenol) 650 mg Q6H PRN PO FEVER/PAIN SCALE 1 TO 2 Last administered on 09/14/16 02:36; Start 09/12/16 at 20:15 Acetaminophen/ Hydrocodone Bitart ([place] 5-325 Mg) 1 tab Q4H PRN PO PAIN SCALE 3 TO 5; Start 09/12/16 at 20:15 Morphine Sulfate (Morphine Inj) 2 mg Q3H PRN IV Pain 6-10; Start 09/12/16 at 20: 15 Senna/Docusate Sodium (Di-Colace) 1 tab BID PO Last administered on 09:04; Start 09/12/16 at 21:00 Magnesium Hydroxide (Milk Of Magnesia Liq) 30 ml Q12H PRN PO MILD - MODERATE CONSTIPATION; Start 09/12/16 at 20:15 Sennosides (Senokot) 17.2 mg Q12H PRN PO MODERATE - SEVERE CONSTIPATION; Start 09/12/16 at 20:15 Bisacodyl (Dulcolax Supp) 10 mg DAILY PRN RECTAL SEVERE CONSITIPATION; Start at 20:15 Lactulose (Lactulose Liq) 30 ml DAILY PRN PO SEVERE CONSITIPATION; Start at 20:15 Albuterol Sulfate (Proair Hfa Inh) 2 puff Q6H PRN INH SHORTNESS OF BREATH; Start 09/12/16 at 20:15; Status UNV Aspirin (Aspirin Chew) 81 mg DAILY CHEW Last administered on 09/14/16 09:03; Start 09/13/16 at 09:00 Calcitriol (Rocaltrol) 0.5 mcg DAILY PO Last administered on 09/14/16 09:04; Start 09/13/16 at 09:00 Clonazepam (KlonoPIN) 0.5 mg HS PO Last administered on 09/13/16 20:18; Start 09/12/16 at 21:00 Fluticasone Propionate (Flovent Hfa 44 Mcg Inh) 2 puff BID INH Last administered on 09/14/16 09:03; Start 09/12/16 at 21:00 Gabapentin (Neurontin) 100 mg DAILY PO Last administered on 09/14/16 09:04; Start 09/13/16 at 09:00 Isosorbide Mononitrate (Imdur) 60 mg DAILY PO Last administered on 09/14/16 09 :04; Start 09/13/16 at 09:00 Lanthanum Carbonate (Fosrenol Chew) 500 mg TIDPC CHEW Last administered on 09/14 13:36; Start 09/13/16 at 09:30 Levothyroxine Sodium (Synthroid) 50 mcg DAILY@06 PO Last administered on 05:11; Start 09/13/16 at 06:00 Losartan Potassium (Cozaar) 100 mg DAILY PO Last administered on 09/14/16 09: 04; Start 09/13/16 at 09:00 Sertraline HCl (Zoloft) 100 mg DAILY PO Last administered on 09/14/16 09:05; Start 09/13/16 at 09:00 Sodium Bicarbonate (Sodium Bicarbonate) 650 mg BIDPC PO Last administered on 09:05; Start 09/13/16 at 09:00 Verapamil HCl (Isoptin Sr) 240 mg HS PO Last administered on 09/13/16 20:18; Start 09/12/16 at 21:00 Zolpidem Tartrate (Ambien) 10 mg HS PRN PO INSOMNIA; Start 09/12/16 at 20:15 Non-Formulary Medication 1 cap DAILY PO NS; Start 09/13/16 at 09:00; Status UNV Non-Formulary Medication 100 mg DAILY PO ; Start 09/13/16 at 09:00; Status UNV Albuterol Sulfate (Ventolin Hfa Inh) 2 puff Q6H PRN INH SHORTNESS OF BREATH; Start 09/12/16 at 21:00 Vitamin B Complex/ Vitamin C (Allbee C) 1 tab DAILY PO Last administered on 09:04; Start 09/13/16 at 09:00 Metoprolol Succinate (Toprol Xl) 100 mg DAILY PO Last administered on t 09:05; Start 09/13/16 at 09:00 Sodium Chloride (NS Inj) WITH DIALYSIS PRN IV SEE LABEL COMMENTS; Start at 21:15 Heparin Sodium (Porcine) (Heparin Inj) Add 1000 units of Hepa... WITH DIALYSIS PRN IV FLUSH SEE LABEL COMMENTS; Start 09/12/16 at 21:15 Physical Exam General Appearance: Well Nourished, No Acute Distress, Comfortable Pulmonary Resp Exam: Clear Bilaterally, Breath Sounds Equal, No Distress Cardiology CV Exam: Regular, Normal Sinus Rhythm Gastrointestinal/Abdomen GI Exam: Soft, Non-Tender Integumentary Skin Exam: Clear, Warm, Dry Neurologic Neuro Exam: Alert, Awake Psychiatric Psych Exam: Appropriate Responses Assessment/Plan Discussed Condition With: Patient Problem List: (1) ESRD (end stage renal disease) on dialysis Plan: Patient is ultrafiltrating well with about 3000 MLS UF overnight. Continue 4.25/2.5 solution one more night for additional ultrafiltration with last fill of icodextrin. Avoid gadolinium in the setting of end-stage renal disease. (2) CHF (congestive heart failure) Plan: Multifactorial primarily related to her severe cardiomyopathy. Await cardiology input. Patient's long-term prognosis unfortunately appears to be poor given severity of myocardial dysfunction. (3) Cardiomyopathy Plan: As above. (4) HTN (hypertension) Plan: Continue Cozaar for afterload reduction. (5) Anemia of renal disease Plan: Check iron saturation. Procrit as ordered. Problem Qualifiers (1) CHF (congestive heart failure): Qualified Code: I50.9 - Acute congestive heart failure, unspecified congestive heart failure type Chandni Green MD Sep 14, 2016 17:12
[2016-09-14] MEDS ORDERED: POTASSIUM CHLORIDE 10 MEQ CONTROLLED RELEASE TAB PO ONE (17:15)
[2016-09-14] MEDS ORDERED: EPOETIN ALFA 10,000 UNITS/ML VIAL SQ ONE (18:00)
--- NOTE | 2016-09-14 19:12 | MB ---
cc: ADRIEN OLIVA DATE OF CONSULTATION: 09/14/2016. HISTORY OF PRESENT ILLNESS: Ms. Mccord is a 61-year-old white female, a patient of Dr. Jo Camilo, with history of nonischemic cardiomyopathy and congestive heart failure. She has had increased shortness of breath and peripheral edema. She is on peritoneal dialysis. She has had mild chest tightness with shortness of breath but no clear angina. She had remote history of cardiac catheterization which reportedly showed no significant coronary artery disease. Her peritoneal dialysis was resumed here and adjusted but she is still complaining of shortness of breath. PAST MEDICAL HISTORY: Positive for: 1. Hypertension. 2. Dyslipidemia. 3. COPD. 4. End-stage renal disease on peritoneal dialysis. 5. History of cholecystectomy. 6. Tonsillectomy. 7. Facial surgery. 8. Polycystic kidney disease. MEDICATIONS: Medications include: 1. Epogen. 2. Fosrenol 3. Baby aspirin. 4. Calcitriol. 5. Gabapentin. 6. Imdur 60 milligrams a day. 7. Losartan 100 milligrams a day. 8. Zoloft. 9. Sodium bicarbonate. 10. Vitamin B. 11. Metoprolol 100 milligrams a day. 12. Synthroid. 13. Di-Colace. 14. Klonopin. 15. Verapamil. 16. Flovent. 17. Albuterol PRN. ALLERGIES: NONE. SOCIAL HISTORY: The patient does not smoke. She does not drink alcohol. FAMILY HISTORY: Negative for heart disease. REVIEW OF SYSTEMS: The review of systems is otherwise negative. PHYSICAL EXAMINATION: VITAL SIGNS: Blood pressure 128/86, pulse 88 and regular. HEAD, EYES, EARS, NOSE, THROAT: Negative. NECK: 2+ carotid upstrokes, no bruits. LUNGS: A few bibasilar crackles. HEART: Regular with no murmurs, rubs or gallops. ABDOMEN: Abdomen soft. No bruits. EXTREMITIES: With 1+ pitting pretibial edema. 1 to 2+ distal pulses. NEUROLOGIC: Grossly nonfocal. EKG was reviewed and showed normal sinus rhythm with normal axis intervals, diffuse nonspecific ST-T changes. LABORATORY DATA: Hemoglobin 8.5. Potassium 3.5, creatinine 11.2, AST 11, ALT 29. Troponin 0.03 x3. CK-MB 2.4. BNP 4051. Echocardiogram showed severe left ventricular dysfunction with an ejection fraction of less than 20%, severe global hypokinesis, mild right ventricle dysfunction, four-chamber enlargement, mild mitral regurgitation, mild tricuspid regurgitation and moderate pulmonary hypertension. DIAGNOSIS: 1. Acute exacerbation of chronic systolic congestive heart failure. 2. Nonischemic cardiomyopathy with severe left ventricular systolic dysfunction. 3. End-stage renal disease on peritoneal dialysis. 4. COPD. 5. Hypertension. 6. History of ICD placement. DISPOSITION: Ms. Mccord will be monitored on telemetry. She appears to be fluid overloaded and her peritoneal dialysis will be resumed and adjusted by Dr. Cheek. I recommend to continue therapy for congestive heart failure including beta james and ARB. Dr. Camilo, her primary assemblies and installations inspector, will take over her care tomorrow. MD OSCAR León/BRANDON /5:35 PM /7:05 PM JULIO
[2016-09-14 20:00] VITALS: BP 130/80; PULSE 83; RESP 19; TEMP 97.4; O2SAT 97
[2016-09-14 20:20] VITALS: PULSE 82
[2016-09-14] MEDS: VERAPAMIL HCL 240 MG SUSTAINED RELEASE TAB PO SCH (21:58)
[2016-09-14] MEDS: clonazePAM 0.5 MG TAB PO SCH (21:59)
[2016-09-15] VITALS (11 sets, daily range): BP systolic 97–129; BP diastolic 55–74; PULSE 75–89; RESP 18–20; TEMP 96.8–97.7; O2SAT 96–97
[2016-09-15] MEDS: LEVOTHYROXINE SODIUM 50 MCG TAB PO SCH (05:35)
[2016-09-15 08:26] LABS: AUTOMATED NEUTROPHIL # 4.4 TH/MM3 (1.8-7.7); BASOPHIL # 0.1 TH/MM3 (0-0.2); BASOPHIL % 1.2 % (0.0-2.0); EOSINOPHIL # 0.7 TH/MM3 (0-0.4); EOSINOPHIL % 9.5 % (0.0-4.0); HEMATOCRIT 25.3 % (35.0-46.0); HEMO FLAGS DIFF FINAL; LYMPHOCYTE # 1.2 TH/MM3 (1.0-4.8); MEAN CELL VOLUME 90.9 FL (80.0-100.0); MEAN CORPUSCULAR HEMOGLOBIN 30.6 PG (27.0-34.0); MEAN CORPUSCULAR HGB CONC 33.6 % (32.0-36.0); NEUT % 64.3 % (16.0-70.0); PLATELET COUNT 179 TH/MM3 (150-450); RED BLOOD COUNT 2.79 MIL/MM3 (4.00-5.30); RED CELL DISTRIBUTION WIDTH 17.4 % (11.6-17.2); WHITE BLOOD COUNT 6.9 TH/MM3 (4.0-11.0)
[2016-09-15] MEDS: CALCITRIOL 0.25 MCG CAP PO SCH (08:43)
[2016-09-15] MEDS: FLUTICASONE PROPIONATE 44 MCG/ACT 10.6 GM INHALER INH SCH ×2 (08:43→21:41)
[2016-09-15] MEDS: METOPROLOL SUCCINATE 50 MG EXTENDED RELEASE TAB PO SCH (08:43)
[2016-09-15 08:44] LABS: ANION GAP 9 MEQ/L (5-15); BICARBONATE 29.6 MEQ/L (21.0-32.0); BLOOD UREA NITROGEN 46 MG/DL (7-18); CHLORIDE 97 MEQ/L (98-107); GLOMERULAR FILTRATION RATE 4 ML/MIN (>89); MAGNESIUM 1.9 MG/DL (1.5-2.5); POTASSIUM 4.1 MEQ/L (3.5-5.1); SODIUM (NA) 136 MEQ/L (136-145)
[2016-09-15] MEDS: SODIUM BICARBONATE 650 MG TAB PO SCH ×2 (08:44→17:08)
[2016-09-15] MEDS: VITAMIN B COMPLEX/VIT C TAB PO SCH (08:44)
[2016-09-15] MEDS: DOCUSATE SODIUM 50 MG/SENNA 8.6 MG TAB PO SCH ×2 (08:44→21:00)
[2016-09-15] MEDS: LANTHANUM CARBONATE 500 MG CHEWABLE TABLET CHEW SCH ×3 (08:44→17:08)
[2016-09-15] MEDS: SERTRALINE HCL 100 MG TAB PO SCH (08:44)
[2016-09-15] MEDS: ISOSORBIDE MONONITRATE 60 MG TAB PO SCH (08:44)
[2016-09-15] MEDS: LOSARTAN 50 MG TAB PO SCH (08:45)
[2016-09-15] MEDS: GABAPENTIN 100 MG CAP PO SCH (08:45)
[2016-09-15] MEDS: ASPIRIN 81 MG CHEW TAB CHEW SCH (08:45)
[2016-09-15 08:49] LABS: FERRITIN 1272 NG/ML (8-252); TRANSFERRIN IRON PROFILE 169 MG/DL (200-360)
[2016-09-15] MEDS: SODIUM CHLORIDE 0.9% FLUSH 10 ML FLUSH IV FLUSH SCH ×2 (08:52→21:43)
--- NOTE | 2016-09-15 11:24 | HHI.NPPN ---
Subjective History of Present Illness 61-year-old female with a history of multiple medical problems including a severe cardiomyopathy, intrinsic pulmonary disease, coronary disease now presenting with shortness of breath. Ejection fraction by echocardiogram this admission appears to have deteriorated being less than 20%. Interval History Patient indicated that she was still having some shortness of breath. No chest pain. Review of Systems Respiratory Lungs: SOB Objective Data Data 09/14/16 09/15/16 18:59 06:59 Intake Total 480 ml 360 ml Output Total 3103 ml Balance -2623 ml 360 ml Intake Oral 480 ml 360 ml Output Peritoneal Fluid 3103 ml # Voids 2 2 # Bowel Movements 1 Vital Signs Date Time Temp Pulse Resp B/P Pulse Ox O2 Delivery O2 Flow Rate FiO2 09/15/16 10:16 97 09/15/16 08:23 83 09/15/16 08:00 97.0 80 20 97/64 96 09/15/16 04:00 96.8 85 19 129/66 97 09/15/16 00:00 97.1 83 18 120/70 96 09/15/16 00:00 96 09/14/16 20:20 82 09/14/16 20:00 97.4 83 19 130/80 97 09/14/16 16:00 96.2 88 20 128/86 98 -: 09/15/16 0718 09/15/16 0718 Tubes & Lines: Tenckhoff Catheter Physical Exam General Appearance: Well Nourished, No Acute Distress, Comfortable Pulmonary Resp Exam: Clear Bilaterally, Breath Sounds Equal, No Distress Cardiology CV Exam: Regular, Normal Sinus Rhythm Gastrointestinal/Abdomen GI Exam: Soft, Non-Tender Integumentary Skin Exam: Clear, Warm, Dry Neurologic Neuro Exam: Alert, Awake Psychiatric Psych Exam: Appropriate Responses Assessment/Plan Discussed Condition With: Patient Problem List: (1) ESRD (end stage renal disease) on dialysis Plan: Ultrafiltration of approximately 1800 MLS overnight. Patient's volume status appears to have improved clinically. No peripheral edema. Uncertain if the patient's dyspnea will resolve completely despite achieving euvolemic as the patient does have intrinsic pulmonary disease also. Await opinion from her primary conference manager regarding her severe cardiomyopathy with an ejection fraction said to be less than 20%. Avoid gadolinium in the setting of end-stage renal disease. (2) CHF (congestive heart failure) Plan: Multifactorial primarily related to her severe cardiomyopathy. Await cardiology input. Patient's long-term prognosis unfortunately appears to be poor given severity of myocardial dysfunction. (3) Cardiomyopathy Plan: As above. (4) HTN (hypertension) Plan: Continue Cozaar for afterload reduction. (5) Anemia of renal disease Plan: And saturation appears to be adequate. Continue Procrit. (6) Vitamin D deficiency Plan: Ergocalciferol 50,000 units weekly. (7) Malnutrition Plan: Albumin level is low. Patient encouraged to increase her dietary protein intake. We'll order Nepro also. Problem Qualifiers (1) CHF (congestive heart failure): Qualified Code: I50.9 - Acute congestive heart failure, unspecified congestive heart failure type Chandni Green MD Sep 15, 2016 11:24
--- NOTE | 2016-09-15 12:42 | HHI.PR ---
Subjective Remarks very interactive, appears comfortable but states still gets short of breath with ambulation d/w her results tolerating PD very well- very reliable Objective Vitals Vital Signs Date Time Temp Pulse Resp B/P Pulse Ox O2 Delivery O2 Flow Rate FiO2 09/15/16 10:16 97 09/15/16 08:23 83 09/15/16 08:00 97.0 80 20 97/64 96 09/15/16 04:00 96.8 85 19 129/66 97 09/15/16 00:00 97.1 83 18 120/70 96 09/15/16 00:00 96 09/14/16 20:20 82 09/14/16 20:00 97.4 83 19 130/80 97 09/14/16 16:00 96.2 88 20 128/86 98 I/O 09/14/16 09/14/16 09/14/16 09/15/16 09/15/16 09/15/16 07:00 15:00 23:00 07:00 15:00 23:00 Intake Total 480 ml 240 ml 120 ml Output Total 3103 ml 1499 ml Balance -2623 ml 240 ml 120 ml -1499 ml Intake Oral 480 ml 240 ml 120 ml Output Peritoneal Fluid 3103 ml 1499 ml # Voids 2 1 1 # Bowel Movements 1 Result Diagram: 09/15/16 0718 09/15/16 0718 Imaging Last Impressions Lower Extremity Ultrasound 09/13/16 0000 Signed Impressions: Service Date/Time: Tuesday, September 13, 2016 10:39 - CONCLUSION: Negative for deep venous thrombosis. Nagi Collier MD FACR Chest X-Ray 09/12/16 1728 Signed Impressions: Service Date/Time: Monday, September 12, 2016 18:18 - CONCLUSION: 1. Cardiomegaly with small bilateral pleural effusions. Minimal basilar airspace disease. Pacer lead overlies right ventricle. Lazarus Cortez MD Objective Remarks awake and alert, not in acute distress anicteric decreased breath sounds, no rales regular rhythm abdomen soft, nontender extremities + edema, TEDs in place neuro exam- non focal A/P Problem List: (1) ESRD (end stage renal disease) on dialysis ICD Code: N18.6 Status: Acute (2) CHF (congestive heart failure) ICD Code: I50.9 Status: Acute (3) COPD (chronic obstructive pulmonary disease) ICD Code: J44.9 Status: Acute (4) HTN (hypertension) ICD Code: I10 Status: Acute Assessment and Plan 61-year-old female with a PMH of HTN, Hyperlipidemia, COPD, ESRD on PD and CAD who presented to the ER with complaints of increasing SOB for approx 3 days. Denies any changes to PD regimen, compliant w/ PD, no missed dialysis. Fluid Overload, ESRD on PD: reports compliance w/ PD, progressive SOB w/ exertion, +orthopnea. - clinically improving continue on peritoneal dialysis. Creatinine at baseline. DR Green ff along with us. BMP in am Acute Exacerbation of Chronic Systolic CHF: Echo 11/03/15 w/ EF 20-25%. BNP 4551. CXR w/ cardiomegaly, small bilateral pleural effusions. AICD placed . Troponins 0.03 x2. Patient denies being on Bumex or Lasix at home. Continue dialysis to correct fluid overload state. . Limited echo shows severely reduced systolic function with EF 20%. Symptoms slowly improving. Patient follows with plaster mold maker Dr. Jo Camilo and has upcoming appt this 09/17, will provide copy of echo report at discharge, discussed with the patient who agrees with the plan. seen by Dr. Aguilar- over the weekend - Consult placed to Dr. Camilo. LLE Edema: Left leg > Right leg. Improved. Doppler U/S negative for DVT. COPD: Chronic Respiratory Failure. Resumed home DuoNeb/MDI. CXR w/ no acute infiltrate. HTN: better readings. continue current medications. Monitor BP, improving. Anemia of chronic kidney disease. Epogen DVT Prophylaxis: SCD/Teds. Discharge Planning Not yet ready for discharge. Pending further clinical improvement and clearance from nephrology. Problem Qualifiers (1) CHF (congestive heart failure): Qualified Code: I50.9 - Acute congestive heart failure, unspecified congestive heart failure type Francesca Oviedo MD Sep 15, 2016 12:42 Francesca Oviedo MD Sep 15, 2016 12:42
[2016-09-15] MEDS ORDERED: ERGOCALCIFEROL (VIT D2) 50,000 UNIT CAP PO SCH (13:00)
[2016-09-15] MEDS: clonazePAM 0.5 MG TAB PO SCH (21:40)
[2016-09-15] MEDS: VERAPAMIL HCL 240 MG SUSTAINED RELEASE TAB PO SCH (21:40)
[2016-09-16] VITALS (8 sets, daily range): BP systolic 108–121; BP diastolic 69–73; PULSE 71–81; RESP 18–20; TEMP 96.6–97.6; O2SAT 93–100
[2016-09-16] MEDS: LEVOTHYROXINE SODIUM 50 MCG TAB PO SCH (05:52)
[2016-09-16] MEDS: CALCITRIOL 0.25 MCG CAP PO SCH (08:20)
[2016-09-16] MEDS: LOSARTAN 50 MG TAB PO SCH (08:20)
[2016-09-16] MEDS: ISOSORBIDE MONONITRATE 60 MG TAB PO SCH (08:20)
[2016-09-16] MEDS: VITAMIN B COMPLEX/VIT C TAB PO SCH (08:20)
[2016-09-16] MEDS: DOCUSATE SODIUM 50 MG/SENNA 8.6 MG TAB PO SCH ×2 (08:20→21:00)
[2016-09-16] MEDS: ASPIRIN 81 MG CHEW TAB CHEW SCH (08:21)
[2016-09-16] MEDS: GABAPENTIN 100 MG CAP PO SCH (08:21)
[2016-09-16] MEDS: FLUTICASONE PROPIONATE 44 MCG/ACT 10.6 GM INHALER INH SCH ×2 (08:21→21:00)
[2016-09-16] MEDS: SERTRALINE HCL 100 MG TAB PO SCH (08:21)
[2016-09-16] MEDS: METOPROLOL SUCCINATE 50 MG EXTENDED RELEASE TAB PO SCH (08:21)
[2016-09-16] MEDS: SODIUM BICARBONATE 650 MG TAB PO SCH ×2 (08:21→17:31)
[2016-09-16] MEDS: SODIUM CHLORIDE 0.9% FLUSH 10 ML FLUSH IV FLUSH SCH ×2 (08:23→21:00)
[2016-09-16] MEDS: LANTHANUM CARBONATE 500 MG CHEWABLE TABLET CHEW SCH ×3 (08:26→17:32)
--- NOTE | 2016-09-16 09:05 | HHI.NPPN ---
Subjective History of Present Illness 61-year-old female with a history of multiple medical problems including a severe cardiomyopathy, intrinsic pulmonary disease, coronary disease now presenting with shortness of breath. Ejection fraction by echocardiogram this admission appears to have deteriorated being less than 20%. Interval History Pt sitting up in chair eating breakfast and watching TV. On RA. Says she is feeling about the same. Still [place], but none at rest. Reports that she had a defibrillator event last night. Confirmed with RN that she had a 10 beat run of V tach, however, the patient was asymptomatic and remained sleeping thru event. Awaiting consult with Dr. Camilo. Review of Systems Respiratory Lungs: SOB (on exertion) Objective Data Data 09/15/16 09/16/16 19:00 07:00 Intake Total 960 ml Output Total 1499 ml Balance -539 ml Intake Oral 960 ml Output Peritoneal Fluid 1499 ml # Voids 8 Vital Signs Date Time Temp Pulse Resp B/P Pulse Ox O2 Delivery O2 Flow Rate FiO2 09/16/16 04:45 97.6 79 18 121/70 93 09/16/16 00:31 97.5 77 18 113/72 96 09/15/16 21:42 89 09/15/16 21:37 75 121/72 09/15/16 21:08 21 09/15/16 20:50 97.1 75 18 109/69 96 09/15/16 20:22 75 09/15/16 16:00 97.7 81 18 110/74 96 09/15/16 12:00 97.2 81 20 102/55 96 09/15/16 10:16 97 -: 09/15/16 0718 09/15/16 0718 Imaging Last Impressions Lower Extremity Ultrasound 09/13/16 0000 Signed Impressions: Service Date/Time: Tuesday, September 13, 2016 10:39 - CONCLUSION: Negative for deep venous thrombosis. Nagi Collier MD FACR Chest X-Ray 09/12/16 1728 Signed Impressions: Service Date/Time: Monday, September 12, 2016 18:18 - CONCLUSION: 1. Cardiomegaly with small bilateral pleural effusions. Minimal basilar airspace disease. Pacer lead overlies right ventricle. Lazarus Cortez MD Tubes & Lines: Tenckhoff Catheter Medication Review Current Medications Medications (Trade) Dose Ordered Sig/Emma Route Start Time Stop Time Status Last Admin (NS Flush) 2 ml UNSCH PRN IV FLUSH 09/12/16 20:15 (NS Flush) 2 ml BID IV FLUSH 09/12/16 21:00 09/16/16 08:23 (Tylenol) 650 mg Q6H PRN PO 09/12/16 20:15 09/14/16 02:36 ([place]ford 5-325 Mg) 1 tab Q4H PRN PO 09/12/16 20:15 09/15/16 17:20 (Morphine Inj) 2 mg Q3H PRN IV 09/12/16 20:15 (Di-Colace) 1 tab BID PO 09/12/16 21:00 09/16/16 08:20 (Milk Of Magnesia Liq) 30 ml Q12H PRN PO 09/12/16 20:15 (Senokot) 17.2 mg Q12H PRN PO 09/12/16 20:15 (Dulcolax Supp) 10 mg DAILY PRN RECTAL 09/12/16 20:15 (Lactulose Liq) 30 ml DAILY PRN PO 09/12/16 20:15 (Aspirin Chew) 81 mg DAILY CHEW 09/13/16 09:00 09/16/16 08:21 (Rocaltrol) 0.5 mcg DAILY PO 09/13/16 09:00 09/16/16 08:20 (KlonoPIN) 0.5 mg HS PO 09/12/16 21:00 09/15/16 21:40 (Flovent Hfa 44 Mcg Inh) 2 puff BID INH 09/12/16 21:00 09/16/16 08:21 (Neurontin) 100 mg DAILY PO 09/13/16 09:00 09/16/16 08:21 (Imdur) 60 mg DAILY PO 09/13/16 09:00 09/16/16 08:20 (Fosrenol Chew) 500 mg TIDPC CHEW 09/13/16 09:30 09/16/16 08:26 (Synthroid) 50 mcg DAILY@06 PO 09/13/16 06:00 09/16/16 05:52 (Cozaar) 100 mg DAILY PO 09/13/16 09:00 09/16/16 08:20 (Zoloft) 100 mg DAILY PO 09/13/16 09:00 09/16/16 08:21 (Sodium Bicarbonate) 650 mg BIDPC PO 09/13/16 09:00 09/16/16 08:21 (Isoptin Sr) 240 mg HS PO 09/12/16 21:00 09/15/16 21:40 (Ambien) 10 mg HS PRN PO 09/12/16 20:15 (Ventolin Hfa Inh) 2 puff Q6H PRN INH 09/12/16 21:00 (Allbee C) 1 tab DAILY PO 09/13/16 09:00 09/16/16 08:20 (Toprol Xl) 100 mg DAILY PO 09/13/16 09:00 09/16/16 08:21 (Drisdol) 50,000 units Q7D PO 09/15/16 13:00 09/15/16 17:08 Physical Exam General Appearance: Well Nourished, No Acute Distress, Comfortable Pulmonary Resp Exam: Clear Bilaterally, Breath Sounds Equal, No Distress Cardiology CV Exam: Regular, Normal Sinus Rhythm Gastrointestinal/Abdomen GI Exam: Soft, Non-Tender Integumentary Skin Exam: Clear, Warm, Dry Extremeties Extremities Exam: No Edema Neurologic Neuro Exam: Alert, Awake Psychiatric Psych Exam: Appropriate Responses Assessment/Plan Discussed Condition With: Patient Problem List: (1) ESRD (end stage renal disease) on dialysis Plan: Patient's volume status appears to have improved clinically. No peripheral edema. Continue with daily PD of 2.5% solution with last fill of icodextrin. UF just above 500mL last evening. Avoid gadolinium in the setting of end-stage renal disease. (2) CHF (congestive heart failure) Plan: Reported EF of <20% Awaiting consultation with Dr. Camilo Volume status much improved. Patient's long-term prognosis unfortunately appears to be poor given severity of myocardial dysfunction. (3) Dyspnea Plan: Improving, but still present with exertion. As above, her volume status is euvolemic. Noted that she had 10 beat run of V tach last evening. Uncertain if the patient's dyspnea will resolve completely despite achieving euvolemia as the patient does have intrinsic pulmonary disease also. (4) HTN (hypertension) Plan: Continue Cozaar for afterload reduction. (5) Anemia of renal disease Plan: Continue Procrit. (6) Vitamin D deficiency Plan: Continue Ergocalciferol 50,000 units weekly. (7) Malnutrition Plan: Albumin level is low. Patient encouraged to increase her dietary protein intake. Nepro as supplementation Problem Qualifiers (1) CHF (congestive heart failure): Qualified Code: I50.9 - Acute congestive heart failure, unspecified congestive heart failure type Sada Izaguirre Sep 16, 2016 09:05
[2016-09-16 12:10] LABS: BICARBONATE 29.1 MEQ/L (21.0-32.0); POTASSIUM 4.2 MEQ/L (3.5-5.1)
--- NOTE | 2016-09-16 14:07 | HHI.PR ---
Subjective Remarks no complains of palpitations, nausea or vomiting last evening- fired- runs of VT- asymptomatic Objective Vitals Vital Signs Date Time Temp Pulse Resp B/P Pulse Ox O2 Delivery O2 Flow Rate FiO2 09/16/16 12:55 96.6 76 20 116/70 98 09/16/16 08:19 80 09/16/16 08:00 96.6 81 20 108/71 98 09/16/16 04:45 97.6 79 18 121/70 93 09/16/16 00:31 97.5 77 18 113/72 96 09/15/16 21:42 89 09/15/16 21:37 75 121/72 09/15/16 21:08 21 09/15/16 20:50 97.1 75 18 109/69 96 09/15/16 20:22 75 09/15/16 16:00 97.7 81 18 110/74 96 I/O 09/15/16 09/15/16 09/15/16 09/16/16 09/16/16 09/16/16 07:00 15:00 23:00 07:00 15:00 23:00 Intake Total 120 ml 960 ml Output Total 1499 ml 516 ml Balance 120 ml -1499 ml 960 ml -516 ml Intake Oral 120 ml 960 ml Output Peritoneal Fluid 1499 ml 516 ml # Voids 1 8 Result Diagram: 09/15/16 0718 09/16/16 1119 Imaging Last Impressions Lower Extremity Ultrasound 09/13/16 0000 Signed Impressions: Service Date/Time: Tuesday, September 13, 2016 10:39 - CONCLUSION: Negative for deep venous thrombosis. Nagi Collier MD FACR Chest X-Ray 09/12/16 1728 Signed Impressions: Service Date/Time: Monday, September 12, 2016 18:18 - CONCLUSION: 1. Cardiomegaly with small bilateral pleural effusions. Minimal basilar airspace disease. Pacer lead overlies right ventricle. Lazarus Cortez MD Objective Remarks awake and alert, not in acute distress anicteric decreased breath sounds, no rales regular rhythm abdomen soft, nontender, good bowel sounds extremities decreased edema- trace neuro exam- non focal A/P Problem List: (1) ESRD (end stage renal disease) on dialysis ICD Code: N18.6 Status: Acute (2) CHF (congestive heart failure) ICD Code: I50.9 Status: Acute (3) COPD (chronic obstructive pulmonary disease) ICD Code: J44.9 Status: Acute (4) HTN (hypertension) ICD Code: I10 Status: Acute Assessment and Plan 61-year-old female with a PMH of HTN, Hyperlipidemia, COPD, ESRD on PD and CAD who presented to the ER with complaints of increasing SOB for approx 3 days. Denies any changes to PD regimen, compliant w/ PD, no missed dialysis. Fluid Overload, ESRD on PD: continue on peritoneal dialysis. Creatinine at baseline. DR Green ff along with us. Acute Exacerbation of Chronic Systolic CHF: Echo 11/03/15 w/ EF 20-25%. BNP 4551. CXR w/ cardiomegaly, small bilateral pleural effusions. AICD placed . Troponins 0.03 x2. Patient denies being on Bumex or Lasix at home. Continue dialysis to correct fluid overload state. Limited echo shows severely reduced systolic function with EF 20%. Symptoms slowly improving. Patient follows with household manager Dr. Jo Camilo and has upcoming appt this 09/17, will provide copy of echo report at discharge, discussed with the patient who agrees with the plan. Episodes of firing K good, on BB. ASA Consult placed to Dr. Camilo. ? need OAC LLE Edema: Improved. Doppler U/S negative for DVT. patient up and ambulating COPD: Chronic Respiratory Failure. Resumed home DuoNeb/MDI. CXR w/ no acute infiltrate. HTN: better readings. continue current medications. Monitor BP, improving. Anemia of chronic kidney disease. Epogen DVT Prophylaxis: SCD/Teds. Discharge Planning Not yet ready for discharge. Pending further clinical improvement and clearance from nephrology. Problem Qualifiers (1) CHF (congestive heart failure): Qualified Code: I50.9 - Acute congestive heart failure, unspecified congestive heart failure type Francesca Oviedo MD Sep 16, 2016 14:07 Francesca Oviedo MD Sep 16, 2016 14:07
[2016-09-16] MEDS: VERAPAMIL HCL 240 MG SUSTAINED RELEASE TAB PO SCH (21:00)
[2016-09-16] MEDS: clonazePAM 0.5 MG TAB PO SCH (21:00)
[2016-09-17 00:27] VITALS: BP 122/62; PULSE 83; RESP 16; TEMP 98.4; O2SAT 96
[2016-09-17 04:00] VITALS: BP 119/67; PULSE 93; RESP 16; TEMP 98.4; O2SAT 96
[2016-09-17] MEDS: LEVOTHYROXINE SODIUM 50 MCG TAB PO SCH (05:22)
[2016-09-17 08:00] VITALS: PULSE 85
[2016-09-17 08:06] LABS: HEMATOCRIT 24.3 % (35.0-46.0); MEAN CELL VOLUME 91.6 FL (80.0-100.0); MEAN CORPUSCULAR HEMOGLOBIN 30.3 PG (27.0-34.0); PLATELET COUNT 157 TH/MM3 (150-450); RED BLOOD COUNT 2.66 MIL/MM3 (4.00-5.30); REVIEW FLAG FINAL; WHITE BLOOD COUNT 6.5 TH/MM3 (4.0-11.0)
[2016-09-17 08:29] LABS: BICARBONATE 27.2 MEQ/L (21.0-32.0); POTASSIUM 4.2 MEQ/L (3.5-5.1)
[2016-09-17 08:55] VITALS: BP_SYST 104; BP_SYST 141; BP_DIAS 70; BP_DIAS 72; PULSE 103; TEMP 97; O2SAT 100
[2016-09-17] MEDS: LOSARTAN 50 MG TAB PO SCH (09:21)
[2016-09-17] MEDS: GABAPENTIN 100 MG CAP PO SCH (09:21)
[2016-09-17] MEDS: SERTRALINE HCL 100 MG TAB PO SCH (09:21)
[2016-09-17] MEDS: LANTHANUM CARBONATE 500 MG CHEWABLE TABLET CHEW SCH (09:21)
[2016-09-17] MEDS: METOPROLOL SUCCINATE 50 MG EXTENDED RELEASE TAB PO SCH (09:21)
[2016-09-17] MEDS: DOCUSATE SODIUM 50 MG/SENNA 8.6 MG TAB PO SCH (09:21)
[2016-09-17] MEDS: SODIUM BICARBONATE 650 MG TAB PO SCH (09:21)
[2016-09-17] MEDS: VITAMIN B COMPLEX/VIT C TAB PO SCH (09:21)
[2016-09-17] MEDS: ISOSORBIDE MONONITRATE 60 MG TAB PO SCH (09:21)
[2016-09-17] MEDS: SODIUM CHLORIDE 0.9% FLUSH 10 ML FLUSH IV FLUSH SCH (09:22)
[2016-09-17] MEDS: ASPIRIN 81 MG CHEW TAB CHEW SCH (09:22)
[2016-09-17] MEDS: FLUTICASONE PROPIONATE 44 MCG/ACT 10.6 GM INHALER INH SCH (09:22)
[2016-09-17] MEDS: CALCITRIOL 0.25 MCG CAP PO SCH (09:22)
[2016-09-17 09:30] VITALS: BP 110/72
[2016-09-17] MEDS ORDERED: ERGO1CAP30 PO (11:14)
--- NOTE | 2016-09-17 11:16 | HHI.DS ---
Discharge Summary Admission Date Sep 14, 2016 at 12:00 Discharge Date: Sep 17, 2016 Admitting Diagnosis dyspnea (1) ESRD (end stage renal disease) on dialysis ICD Code: N18.6 Diagnosis: Principal (2) CHF (congestive heart failure) ICD Code: I50.9 Diagnosis: Principal (3) COPD (chronic obstructive pulmonary disease) ICD Code: J44.9 Diagnosis: Secondary (4) HTN (hypertension) ICD Code: I10 Diagnosis: Secondary Procedures dialysis Brief History - From Admission This is a 61-year-old female with a PMH of HTN, Hyperlipidemia, COPD, ESRD on PD and CAD who presented to the ER with complaints of increasing SOB for approx 3 days. Denies any changes to PD regimen, compliant w/ PD, no missed dialysis. Denies fever, chills, sick contacts or chest pain, does report chest tightness however only with episodes of SOB. On arrival, BP 158/85, HR 96, O2 sat 95% on RA, Afebrile. CBC essentially unremarkable. Chemistry at baseline. Creatinine 11.63, previously 11.47 on 01/19/16. Troponin negative. BNP 4551. CXR with cardiomegaly and small bilateral pleural effusions. Follows with Dr. Green as outpatient, consult placed by ER physician to resume PD. CBC/BMP: 09/17/16 0718 09/17/16 0718 Significant Findings Laboratory Tests Test 09/15/16 09/16/16 09/17/16 07:18 11:19 07:18 Red Blood Count 2.79 MIL/MM3 2.66 MIL/MM3 (4.00-5.30) (4.00-5.30) Hemoglobin 8.5 GM/DL 8.0 GM/DL (11.6-15.3) (11.6-15.3) Hematocrit 25.3 % 24.3 % (35.0-46.0) (35.0-46.0) Red Cell Distribution Width 17.4 % (11.6-17.2) Eosinophils (%) (Auto) 9.5 % (0.0-4.0) Eosinophils # (Auto) 0.7 TH/MM3 (0-0.4) Chloride Level 97 MEQ/L 93 MEQ/L 93 MEQ/L (98-107) (98-107) (98-107) Blood Urea Nitrogen 46 MG/DL (7-18) 41 MG/DL (7-18) 41 MG/DL (7-18) Creatinine 11.08 MG/DL 10.74 MG/DL 10.43 MG/DL (0.50-1.00) (0.50-1.00) (0.50-1.00) Estimat Glomerular Filtration 4 ML/MIN (>89) 4 ML/MIN (>89) 4 ML/MIN (>89) Rate Total Iron Binding Capacity 237 MCG/DL (250-450) Ferritin 1272 NG/ML (8-252) Albumin 2.9 GM/DL 2.7 GM/DL (3.4-5.0) (3.4-5.0) 25-Hydroxy Vitamin D Total 18.4 ng/ML (30-100) Parathyroid Hormone (Intact) 564.2 PG/ML (12.4-76.8) Sodium Level 133 MEQ/L 133 MEQ/L (136-145) (136-145) Random Glucose 120 MG/DL (74-106) Imaging Last Impressions Lower Extremity Ultrasound 09/13/16 0000 Signed Impressions: Service Date/Time: Tuesday, September 13, 2016 10:39 - CONCLUSION: Negative for deep venous thrombosis. Nagi Collier MD FACR Chest X-Ray 09/12/16 1728 Signed Impressions: Service Date/Time: Monday, September 12, 2016 18:18 - CONCLUSION: 1. Cardiomegaly with small bilateral pleural effusions. Minimal basilar airspace disease. Pacer lead overlies right ventricle. Lazarus Cortez MD PE at Discharge awake and alert, not in acute distress anicteric decreased breath sounds, no rales regular rhythm abdomen soft, nontender, good bowel sounds extremities decreased edema- trace neuro exam- non focal Pt update on day of discharge rate controlled, no arrhythmias overnight ambulating well, no chest pains or shortness of breath very knowledgeable with PD states ahs a very supoortive Hospital Course 61-year-old female with a PMH of HTN, Hyperlipidemia, COPD, ESRD on PD and CAD who presented to the ER with complaints of increasing SOB for approx 3 days. Denies any changes to PD regimen, compliant w/ PD, no missed dialysis. Fluid Overload, ESRD on PD: continue on peritoneal dialysis. Creatinine at baseline. DR Green ff along with us. Acute Exacerbation of Chronic Systolic CHF: Echo 11/03/15 w/ EF 20-25%. BNP 4551. CXR w/ cardiomegaly, small bilateral pleural effusions. AICD placed . Troponins 0.03 x2. Patient denies being on Bumex or Lasix at home. Continue dialysis to correct fluid overload state. Limited echo shows severely reduced systolic function with EF 20%. Symptoms slowly improving. Patient follows with electrical appliance preparer Dr. Jo Camilo and has upcoming appt this 09/17, will provide copy of echo report at discharge, discussed with the patient who agrees with the plan. Episodes of firing K good, on BB. ASA Consult placed to Dr. Camilo. ? need OAC LLE Edema: Improved. Doppler U/S negative for DVT. patient up and ambulating COPD: Chronic Respiratory Failure. Resumed home DuoNeb/MDI. CXR w/ no acute infiltrate. HTN: better readings. continue current medications. Monitor BP, improving. Anemia of chronic kidney disease. Epogen DC today if arranged Pt Condition on Discharge: Stable Discharge Disposition: Discharge Home Discharge Time: <= 30 minutes Discharge Instructions DIET: Follow Instructions for: Heart Healthy Diet, Renal Failure Diet Speech Therapy-Diet Recommends: Regular Activities you can perform: Weight Bearing as Tim Activities to Avoid: Strenuous Activity Follow up Referrals: Cardiology - Next Day with Jo Camilo MD Nephrology - 2-3 Days with CINTHIA New Medications: Ergocalciferol (Ergocalciferol) 50,000 Unit Cap 42193 UNITS PO Q7D ESRD #10 CAP Continued Medications: Albuterol 8.5 GM Inh (Proair Hfa 8.5 GM Inh) 90 Mcg/Act Aer 2 PUFF INH Q6H 108 mcg/actuation PRN SHORTNESS OF BREATH #1 Ref 0 INHALER Aspirin (Aspirin) 81 Mg Chew 81 MG CHEW DAILY Ref 0 TAB B-Complex Vitamins (B Complex) 1 Cap 1 CAP PO DAILY Nutritional Supplement #30 Ref 0 CAP Calcitriol (Calcitriol) 0.5 Mcg Cap 0.5 MCG PO DAILY Calcium Supplement #30 Ref 0 CAP Clonazepam (Clonazepam) 0.5 Mg Tab 0.5 MG PO HS #60 Ref 0 TAB Fluticasone 10.6 GM Inh (Flovent Hfa 10.6 GM Inh) 44 Mcg/Act Inh 2 PUFF INH BID Use daily at the same time. Asthma Management #1 Ref 0 INHALER Gabapentin (Gabapentin) 100 Mg Cap 100 MG PO BID #60 Ref 0 CAP Isosorbide Mononitrate ER (Isosorbide Mononitrate ER) 60 Mg Tab 60 MG PO DAILY Prevent Chest Pain #30 Ref 0 TAB Lanthanum (Fosrenol) 500 Mg Tab 500 MG CHEW TIDPC Reduce Phosphorous #90 Ref 0 TAB Levothyroxine (Levothyroxine) 50 Mcg Tab 50 MCG PO DAILY Thyroid #30 Ref 0 TAB Losartan (Losartan) 100 Mg Tab 100 MG PO DAILY Blood Pressure Management #30 Ref 0 TAB Metoprolol Succinate ER 24 HR (Metoprolol Succinate ER 24 HR) 100 Mg Tab 100 MG PO DAILY #30 Ref 0 TAB Omeprazole (Omeprazole) 20 Mg Cap Ondansetron Odt (Zofran Odt) 4 Mg Tab 4 MG SL Q8HR PRN Nausea/Vomiting #30 Ref 0 TAB Sertraline (Sertraline) 100 Mg Tab 100 MG PO DAILY #30 Ref 0 TAB Sodium Bicarbonate (Sodium Bicarbonate) 650 Mg Tab 650 MG PO BIDPC #60 Ref 0 TAB Verapamil ER 24 HR (Verapamil ER 24 HR) 240 Mg Tab 240 MG PO HS #30 Ref 0 TAB Discontinued Medications: Bumetanide (Bumetanide) 2 Mg Tab 2 MG PO BID Ref 0 TAB Ergocalciferol (Ergocalciferol) 50,000 Unit Cap 83359 UNITS PO twice a month Nutritional Supplement #30 Ref 0 CAP Oxycodone-Acetaminophen (Oxycodone-Acetaminophen) 10-325 mg Tab 1 TAB PO Q6H PRN PAIN Ref 0 TAB Zolpidem (Zolpidem) 10 Mg Tab 10 MG PO HS PRN INSOMNIA Ref 0 TAB Francesca vOiedo MD Sep 17, 2016 11:16
[2016-09-17 12:00] VITALS: BP 102/70; PULSE 81; RESP 17; TEMP 97.7; O2SAT 96
== END 2016-09-17 13:25 | disposition home or self-care (01) | DRG 291 ==
LOC: NEPC 16:37 → NEDA 19:32 → NEPHCDU 21:11 → OBSVTOIN 09-14 12:00 → HOCB 09-14 15:40
PROVIDERS: ADMIT Internal Medicine; ATTEND Internal Medicine
PROC: 3E1M39Z Irrigation of Peritoneal Cavity using Dialysate, Percutaneous Approach (ICD-10-PCS; principal; 2016-09-12)
DX: I13.2 Hypertensive heart and chronic kidney disease with heart failure and with stage 5 chronic kidney disease, or end stage renal disease (principal); N18.6 End stage renal disease; I47.2 Ventricular tachycardia; J96.10 Chronic respiratory failure, unspecified whether with hypoxia or hypercapnia; I50.23 Acute on chronic systolic (congestive) heart failure; E46 Unspecified protein-calorie malnutrition; E55.9 Vitamin D deficiency, unspecified; J44.9 Chronic obstructive pulmonary disease, unspecified; K21.9 Gastro-esophageal reflux disease without esophagitis; F40.240 Claustrophobia; E78.5 Hyperlipidemia, unspecified; I42.9 Cardiomyopathy, unspecified; D63.1 Anemia in chronic kidney disease; E07.9 Disorder of thyroid, unspecified; I25.10 Atherosclerotic heart disease of native coronary artery without angina pectoris; Z99.2 Dependence on renal dialysis; Z79.82 Long term (current) use of aspirin; Z95.810 Presence of automatic (implantable) cardiac defibrillator
CPT/HCPCS: 71010; 80048; 80053; 80069; 82040; 82306; 82550; 82552; 82728; 83540; 83550; 83735; 83880; 83970; 84484; 85025; 85027; 85610; 85730; 90935; 90945; 93005; 93308; 93971; 94620; 94664; G0257; G0378; Q4081

== ENCOUNTER → 2016-11-20 | Outpatient (CLI) | payer MEDICARE, MEDICAID ==
[~2016-11-20] MED LIST changes: +AMBI10TA PO; -ASPI1TAB69 PO; +ASPI81CH CHEW; -BACT2OIN TOPICAL; -BUME2TAB PO; +CART120C PO; +CLIN1CAP5 PO; -OMEP20CA2; +OMEP20CA2 PO; -OXYC1TAB36 PO; +POLYTRIM EACH EYE; +SEVEL800 PO; -ZOLP10TA3 PO
[2016-11-20 12:02] LABS: AUTOMATED NEUTROPHIL # 4.6 TH/MM3 (1.8-7.7); BASOPHIL # 0.1 TH/MM3 (0-0.2); BASOPHIL % 1.2 % (0.0-2.0); EOSINOPHIL # 0.8 TH/MM3 (0-0.4); EOSINOPHIL % 11.4 % (0.0-4.0); HEMATOCRIT 25.2 % (35.0-46.0); HEMO FLAGS DIFF FINAL; LYMPH % 13.5 % (9.0-44.0); MEAN CELL VOLUME 94.7 FL (80.0-100.0); MEAN CORPUSCULAR HEMOGLOBIN 31.4 PG (27.0-34.0); MEAN CORPUSCULAR HGB CONC 33.2 % (32.0-36.0); MONO % 10.6 % (0.0-8.0); NEUT % 63.3 % (16.0-70.0); PLATELET COUNT 182 TH/MM3 (150-450); RED BLOOD COUNT 2.66 MIL/MM3 (4.00-5.30); WHITE BLOOD COUNT 7.3 TH/MM3 (4.0-11.0)
[2016-11-20 12:20] LABS: APTT (PATIENT) 28.3 SEC (24.3-30.1); PROTHROMBIN TIME - PATIENT 11.5 SEC (9.8-11.6)
[2016-11-20 12:22] LABS: ANION GAP 10 MEQ/L (5-15); AST (GOT) 12 U/L (15-37); BICARBONATE 29.6 MEQ/L (21.0-32.0); BLOOD UREA NITROGEN 46 MG/DL (7-18); CHLORIDE 96 MEQ/L (98-107); GLOMERULAR FILTRATION RATE 3 ML/MIN (>89); GLUCOSE,FASTING 93 MG/DL (74-99); SODIUM (NA) 136 MEQ/L (136-145)
[2016-11-20 12:25] LABS: ALKALINE PHOSPHATASE 123 U/L (45-117); ALT (GPT) 22 U/L (10-53); TOTAL BILIRUBIN ADULT 0.5 MG/DL (0.2-1.0)
--- NOTE | 2016-11-20 13:37 | RADRPT ---
EXAM DATE/TIME: 11/20/2016 12:24 [facility] COMPARISON: CHEST PA & LAT, November 03, 2015, 13:37. INDICATIONS : Evaluate for pneumonia, pneumothorax, or communicable disease. Pre-op D&C. MEDICAL HISTORY : Hypercholesterolemia. Renal calculi. Thyroid disease. Left cataract. HTN. Defib. Sleep apnea. G ERD. Stage IV renal failure. Polycystic kidneys. SURGICAL HISTORY : Tonsillectomy. Cholecystectomy. Sinus surgery. Peritoneal dialysis cath. Cervical fusions. Blood t ransfusions. Defibrillator. ENCOUNTER: Initial ACUITY: 1 day PAIN SCORE: 0/10 LOCATION: Bilateral chest FINDINGS: The heart is mildly prominent. There is a small left pleural effusion. A left subclavian single cici d pacemaker has its tip in the right ventricle. No pneumothorax is noted. The lungs are clear. CONCLUSION: 1. Left subclavian single lead pacemaker has its tip in the right ventricle. There is no pneumothora x. 2. Small left pleural effusion. 3. Cardiomegaly. Marvin Cloud MD on November 20, 2016 at 13:10 Board Certified Radiologist. This report was verified electronically.
== END ==
LOC: CPRE 11:31
PROVIDERS: ATTEND Obstetrics & Gynecology Gynecologic Oncology
DX: R19.09 Other intra-abdominal and pelvic swelling, mass and lump (principal); Z01.812 Encounter for preprocedural laboratory examination; Z01.818 Encounter for other preprocedural examination
CPT/HCPCS: 36415; 71020; 80053; 85025; 85610; 85730

== ENCOUNTER → 2016-12-02 | Day surgery (SDC) | payer MEDICARE, MEDICAID ==
[~2016-12-02] VITALS: Ht 160 cm; Wt 77.3 kg
[~2016-12-02] MED LIST changes: +CHLORHEXIDINE GLUCONATE 2 % 1 PACK (2 CLOTHS) TOPICAL PRN; +DO NOT ADM ANY ANTICOAGULANT DRUGS PRN; +FAMOTIDINE 20 MG/2 ML VIAL ONE; +INSULIN HUMAN REGULAR 1,000 UNITS/10 ML VIAL SQ PRN; +KETAMINE HCL 500 MG/5 ML VIAL ONE; +LACTATED RINGER'S 1000 ML IV PRN; -METO100T9 PO; +ONDANSETRON HCL 4 MG/2 ML VIAL IV PUSH ONE; +POVIDONE IODINE 5% (ANTISEPSIS KIT) 4 APPLICATIONS EACH NARE PRN; +PROPOFOL 200 MG/20 ML AMP IV ONE; +SILVER NITR/POTASSIUM NITRATE APPLICATORS TOPICAL ONE; -VERA1TAB17 PO; +oxyCODONE/ACETAMINOPHEN 5 MG/325 MG TAB PO PRN
[2016-12-02 15:55] VITALS: BP 129/77; PULSE 77; RESP 16; TEMP 98.2; O2SAT 97
--- NOTE | 2016-12-02 22:35 | MP ---
cc: CHYNA MANZANARES MD, R. JOHN RAO, SURYA P. MD DATE OF SURGERY 12/02/2016 PREOPERATIVE DIAGNOSIS Postmenopausal bleeding POSTOPERATIVE DIAGNOSIS Postmenopausal bleeding PROCEDURE Examination under anesthesia, fractional dilation and curettage. SURGEON Brittney Manzanares MD [employer] [place] help desk assistant Anesthesia laryngeal mask anesthesia ESTIMATED BLOOD LOSS Less than 20 mL HISTORY A 68-year-old female who was initially referred to me for what was thought to be complex bilateral pelvic masses and also has some intermittent postmenopausal bleeding. Additional issues are her chronic disease including polycystic renal disease that requires nightly peritoneal dialysis with associated anemia of chronic illness to what extent it is worsened by postmenopausal bleeding is unclear. She has had imaging that suggests that what was initially interpreted on ultrasound as bilateral adnexal masses were actually the lower edges of her markedly enlarged and abnormal appearing polycystic kidneys and there was only a small cyst associated with an ovary that had a benign appearance. Nevertheless, she still has some intermittent postmenopausal bleeding and anemia. We recommended endometrial sampling. She is seen in the preop holding area where these findings are again reviewed. Questions were answered. She expressed good understanding and agreed. FINDINGS On exam, there is no appreciably enlarged inguinal lymph nodes. External genitalia without mass or lesion. She has a very prominent rectocele, minimal cystocele. The uterine cavity sounds to 7 cm and there is scant tissue from the endocervix and the endometrium. No polypoid tissue. No obvious neoplastic change. The cervix grossly appears normal and the cervix is small. There is no obvious parametrial nodularity or thickening. PROCEDURE IN DETAIL She was taken to the operating room placed in dorsal lithotomy position after laryngeal mask anesthesia was administered. Time-out was undertaken. She was identified by sight recognition and hospital ID bracelet and the proposed procedure was reviewed and confirmed. She was examined under anesthesia with the findings as described above. She was prepped and draped sterile fashion. Cervix was grasped, uterine cavity sounded. Cervix dilated, endocervical curetting was performed with multiple passes. Tissue combined as endocervical curetting. The amount of tissue was scant. Next, the endometrium was curetted circumferentially, multiple passes, tissue combined as endometrial curettings. Essentially all surfaces of the uterus were gritty with scant tissue obtained. No neoplastic appearing changes. No polypoid tissue. Tenaculum was removed from the cervix. The sites rendered hemostatic with silver nitrate. There were no remaining foreign objects in the vagina. Preliminary final counts were correct. She was returned to dorsal supine position and was pending reversal of anesthesia when I left the operating room to precede her to the Post Anesthesia Care Unit. MD MIHAI Monroy/ /1:50 PM /10:23 PM
== END | disposition home or self-care (01) ==
LOC: HSDC 10:36
PROVIDERS: ATTEND Obstetrics & Gynecology Gynecologic Oncology
DX: N95.0 Postmenopausal bleeding (principal); I12.9 Hypertensive chronic kidney disease with stage 1 through stage 4 chronic kidney disease, or unspecified chronic kidney disease; N18.9 Chronic kidney disease, unspecified; D63.1 Anemia in chronic kidney disease; Q61.3 Polycystic kidney, unspecified; I25.10 Atherosclerotic heart disease of native coronary artery without angina pectoris; J44.9 Chronic obstructive pulmonary disease, unspecified; K21.9 Gastro-esophageal reflux disease without esophagitis; F41.9 Anxiety disorder, unspecified; Z95.810 Presence of automatic (implantable) cardiac defibrillator; Z95.5 Presence of coronary angioplasty implant and graft; Z99.2 Dependence on renal dialysis; Z79.899 Other long term (current) drug therapy
CPT/HCPCS: 00940; 58120; 84132; 86850; 86900; 86901; 88305; J2405; J3010

== ENCOUNTER 2017-01-21 19:43 | Emergency (ER) | payer MEDICARE, MEDICAID ==
[~2017-01-21 19:43] MED LIST changes: -AMBI10TA PO; -CART120C PO; -CHLORHEXIDINE GLUCONATE 2 % 1 PACK (2 CLOTHS) TOPICAL PRN; -CLIN1CAP5 PO; -DO NOT ADM ANY ANTICOAGULANT DRUGS PRN; -FAMOTIDINE 20 MG/2 ML VIAL ONE; -INSULIN HUMAN REGULAR 1,000 UNITS/10 ML VIAL SQ PRN; -KETAMINE HCL 500 MG/5 ML VIAL ONE; -LACTATED RINGER'S 1000 ML IV PRN; -ONDANSETRON HCL 4 MG/2 ML VIAL IV PUSH ONE; -POLYTRIM EACH EYE; -POVIDONE IODINE 5% (ANTISEPSIS KIT) 4 APPLICATIONS EACH NARE PRN; -PROPOFOL 200 MG/20 ML AMP IV ONE; -SEVEL800 PO; -SILVER NITR/POTASSIUM NITRATE APPLICATORS TOPICAL ONE; -oxyCODONE/ACETAMINOPHEN 5 MG/325 MG TAB PO PRN
[2017-01-21 19:53] VITALS: BP 145/82; PULSE 84; RESP 20; TEMP 97.8; O2SAT 99
[2017-01-21] MEDS ORDERED: SEVEL800 PO (21:04)
[2017-01-21] MEDS ORDERED: AMBI10TA PO (21:04)
[2017-01-21] MEDS ORDERED: CART120C PO (21:04)
[2017-01-21] MEDS ORDERED: CLINDAMYCIN 150 MG CAP PO ONE (21:30)
[2017-01-21] MEDS ORDERED: POLYTRIM EACH EYE (21:33)
[2017-01-21] MEDS ORDERED: CLIN1CAP5 PO (21:33)
--- NOTE | 2017-01-21 21:33 | PD ---
HPI Chief Complaint: Eye Problems/Injury Time Seen by Provider: 21:18 Travel History International Travel<30 days: No Contact w/Intl Traveler<30days: No Traveled to known affect area: No History of Present Illness HPI 61-year-old female complains of pain and redness swelling around the right eye and also the left eye. Patient states that the symptoms started several days ago. Patient states that the symptoms are worse on the right eye. Patient states that she has crusty discharge from both eyes in the morning. Patient denies any visual change. Patient denies any headache. Patient denies any fever chills. Patient has history of end-stage renal disease on peritoneal dialysis daily. Patient also has history hypertension. PFSH Past Medical History Hx Anticoagulant Therapy: Yes (ASA) Asthma: No Blood Disorders: No Anxiety: No Depression: Yes Heart Rhythm Problems: Yes (defib) Cardiovascular Problems: Yes (htn/ defib/ high chloestrol,stent) High Cholesterol: Yes Chemotherapy: No Chest Pain: No Congestive Heart Failure: No COPD: No Diabetes: No Dialysis: Yes (PERITONEAL DIALYSIS) Diminished Hearing: No Endocrine: Yes Gastrointestinal Disorders: Yes (GERD) GERD: Yes Hepatitis: No Hiatal Hernia: No Hypertension: Yes Immune Disorder: Yes (FIBROMYALGIA) Implanted Vascular Access Dvce: Yes Musculoskeletal: Yes (BACK PAIN x 2 cervical & lumbar) Neurologic: Yes (NECK PAIN) Psychiatric: Yes (CLAUSTROPHOBIA) Reproductive: No Respiratory: Yes (CPAP, SLEEP APNEA , USES A MACHINE) Radiation Therapy: No Renal Failure: Yes (on dialysis) Sleep Apnea: Yes Thyroid Disease: Yes Tetanus Vaccination: < 5 Years Influenza Vaccination: No Menopausal: Yes : 2 Para: 2 Past Surgical History Abdominal Surgery: Yes (PERITONEAL DIALYSIS CATH) AICD: Yes (BIOTRONIK) Body Medical Devices: AICD, STENT, DIALYSIS CATH Cardiac Surgery: Yes (AICD, 1 CARDIAC STENT) Cholecystectomy: Yes Joint Replacement: No Oral Surgery: Yes (SINUS SURGERY) Pacemaker: Yes Tonsillectomy: Yes Other Surgery: Yes (CHIN RECONSTRUCTION/ 2back sx/ gallbladder/ port dialysis/ defib) Social History Alcohol Use: No Tobacco Use: No Substance Use: No Allergies-Medications (Allergen,Severity, Reaction): Coded Allergies: No Known Allergies (Verified , 12/02/16) Reported Meds & Prescriptions Reported Meds & Active Scripts Active Reported Ambien (Zolpidem Tartrate) 10 Mg Tab 10 Mg PO HS PRN Renvela (Sevelamer Carbonate) 800 Mg Tab 800 Mg PO TID Cartia Xt (Diltiazem ER 24 HR) 120 Mg Caper 120 Mg PO DAILY Aspirin 81 Mg Chew 81 Mg CHEW HS Sertraline (Sertraline HCl) 100 Mg Tab 100 Mg PO DAILY Zofran Odt (Ondansetron Odt) 4 Mg Tab 4 Mg SL Q8HR PRN Omeprazole 20 Mg Cap 20 Mg PO DAILY Losartan (Losartan Potassium) 100 Mg Tab 100 Mg PO DAILY Levothyroxine (Levothyroxine Sodium) 50 Mcg Tab 50 Mcg PO DAILY Isosorbide Mononitrate ER (Isosorbide Mononitrate) 60 Mg Tab 60 Mg PO DAILY Gabapentin 100 Mg Cap 100 Mg PO BID Clonazepam 0.5 Mg Tab 0.5 Mg PO HS Calcitriol 0.5 Mcg Cap 0.5 Mcg PO DAILY B Complex (B-Complex Vitamins) 1 Cap 1 Cap PO DAILY Review of Systems General / Constitutional: No: Fever Eyes: Positive: Drainage, No: Visual changes HENT: No: Headaches Cardiovascular: No: Chest Pain or Discomfort Respiratory: No: Shortness of Breath Gastrointestinal: No: Abdominal Pain Genitourinary: No: Dysuria Musculoskeletal: No: Pain Skin: No Rash Neurologic: No: Weakness Psychiatric: No: Depression Endocrine: No: Polydipsia Hematologic/Lymphatic: No: Easy Bruising Physical Exam Narrative GENERAL: Well-nourished, well-developed patient. SKIN: Focused skin assessment warm/dry. HEAD: Normocephalic. EYES: No scleral icterus. No injection or drainage. Patient has mild redness swelling tenderness periorbital area of the right eye. Patient has no redness no swelling no tenderness periorbital area of the left eye. NECK: Supple, trachea midline. No JVD or lymphadenopathy. CARDIOVASCULAR: Regular rate and rhythm without murmurs, gallops, or rubs. RESPIRATORY: Breath sounds equal bilaterally. No accessory muscle use. GASTROINTESTINAL: Abdomen soft, non-tender, nondistended. MUSCULOSKELETAL: No cyanosis, or edema. BACK: Nontender without obvious deformity. No CVA tenderness. Neurologic exam normal. Data Data Last Documented VS Vital Signs Date Time Temp Pulse Resp B/P (MAP) Pulse Ox O2 Delivery O2 Flow Rate FiO2 01/21/17 19:53 97.8 84 20 145/82 (103) 99 Orders Orders Clindamycin (Cleocin) (01/21/17 21:30) MDM Medical Decision Making Medical Screen Exam Complete: Yes Emergency Medical Condition: Yes Differential Diagnosis Differential diagnosis including conjunctivitis, preseptal cellulitis, orbital cellulitis, stye. Narrative Course 61-year-old female with bilateral eye discharge and redness swelling tenderness periorbital area right eye . Clindamycin 300 mg by mouth given. Diagnosis Primary Impression: Periorbital cellulitis Qualified Codes: L03.213 - Periorbital cellulitis Additional Impression: Conjunctivitis Qualified Codes: H10.33 - Unspecified acute conjunctivitis, bilateral Additional Instructions: Polytrim ophthalmic solution as directed. Clindamycin as directed. Follow-up with personal physician and floor coverings salesperson. Return if persistent problem or worse. Med/Other Pt SpecificInfo: Prescription(s) given Scripts Clindamycin (Clindamycin) 150 Mg Cap 150 MG PO Q6H for Infection, #40 CAP 0 Refills Prov: Joshua Mccullough MD 01/21/17 [Polytrim Ophth] No Conflict Check 1 DROP EACH EYE QID, #1 Prov: Joshua Mccullough MD 01/21/17 Disposition: 01 DISCHARGE HOME Condition: Stable Joshua Mccullough MD Jan 21, 2017 21:33
== END 2017-01-21 21:42 | disposition home or self-care (01) ==
LOC: PHED 19:43 → PHEFT 21:42
DX: L03.213 Periorbital cellulitis (principal); H10.33 Unspecified acute conjunctivitis, bilateral; I12.0 Hypertensive chronic kidney disease with stage 5 chronic kidney disease or end stage renal disease; N18.6 End stage renal disease; Z99.2 Dependence on renal dialysis
CPT/HCPCS: 99284

== ENCOUNTER 2017-01-25 08:57 | Emergency (ER) | payer MEDICARE, MEDICAID ==
[~2017-01-25] VITALS: Ht 160 cm; Wt 81.0 kg
[~2017-01-25 08:57] MED LIST changes: -ALBUAER3 INH; +AMBI10TA PO; +CART120C PO; +CLIN1CAP5 PO; -ERGO1CAP30 PO; -FLUTI44I INH; -LANT500 CHEW; +POLYTRIM EACH EYE; +SEVEL800 PO; -SODI650T PO
[2017-01-25 09:03] VITALS: BP 158/88; PULSE 84; RESP 18; TEMP 98.4; O2SAT 99
--- NOTE | 2017-01-25 09:33 | PD ---
HPI Chief Complaint: Flare Man Problem Time Seen by Provider: 09:32 Travel History International Travel<30 days: No Contact w/Intl Traveler<30days: No Traveled to known affect area: No History of Present Illness HPI 61-year-old female patient who is currently on peritoneal dialysis, did her dialysis last night, presents to the ER today because she states that her dialysis catheter had fallen apart. She denies any pain or any other issues. She states that the same thing happened [address] Green had replaced it. She had called Dr. Green's office but has not received a call back yet. Modifying Factors: None Associated Signs & Symptoms: Dialysis catheter fell apart Risk Factors: None PFSH Past Medical History Hx Anticoagulant Therapy: Yes (ASA) Asthma: No Blood Disorders: No Anxiety: No Depression: Yes Heart Rhythm Problems: Yes (defib) Cardiovascular Problems: Yes High Cholesterol: Yes Chemotherapy: No Chest Pain: No Congestive Heart Failure: No COPD: No Diabetes: No Dialysis: Yes (PERITONEAL DIALYSIS) Diminished Hearing: No Endocrine: Yes Gastrointestinal Disorders: Yes GERD: Yes Hepatitis: No Hiatal Hernia: No Hypertension: Yes Immune Disorder: Yes (FIBROMYALGIA) Implanted Vascular Access Dvce: Yes Musculoskeletal: Yes (CHRONIC PAIN, FIBROMYALGIA) Neurologic: Yes Psychiatric: Yes (CLAUSTROPHOBIA) Reproductive: No Respiratory: Yes (CPAP, SLEEP APNEA , USES A MACHINE) Radiation Therapy: No Renal Failure: Yes (on dialysis) Sleep Apnea: Yes Thyroid Disease: Yes Menopausal: Yes : 2 Para: 2 Past Surgical History Abdominal Surgery: Yes (PERITONEAL DIALYSIS CATH) AICD: Yes (BIOTRONIK) Body Medical Devices: AICD, STENT, DIALYSIS CATH Cardiac Surgery: Yes (AICD, 1 CARDIAC STENT) Cholecystectomy: Yes Joint Replacement: No Oral Surgery: Yes (SINUS SURGERY) Pacemaker: Yes Tonsillectomy: Yes Other Surgery: Yes (CHIN RECONSTRUCTION) Social History Alcohol Use: No Tobacco Use: No Substance Use: No Allergies-Medications (Allergen,Severity, Reaction): Coded Allergies: No Known Allergies (Verified , 01/25/17) Reported Meds & Prescriptions Reported Meds & Active Scripts Active Clindamycin (Clindamycin HCl) 150 Mg Cap 150 Mg PO Q6H [Polytrim Ophth] 1 Drop EACH EYE QID Reported Ambien (Zolpidem Tartrate) 10 Mg Tab 10 Mg PO HS PRN Renvela (Sevelamer Carbonate) 800 Mg Tab 800 Mg PO TID Cartia Xt (Diltiazem ER 24 HR) 120 Mg Caper 120 Mg PO DAILY Aspirin 81 Mg Chew 81 Mg CHEW HS Sertraline (Sertraline HCl) 100 Mg Tab 100 Mg PO DAILY Zofran Odt (Ondansetron Odt) 4 Mg Tab 4 Mg SL Q8HR PRN Omeprazole 20 Mg Cap 20 Mg PO DAILY Losartan (Losartan Potassium) 100 Mg Tab 100 Mg PO DAILY Levothyroxine (Levothyroxine Sodium) 50 Mcg Tab 50 Mcg PO DAILY Isosorbide Mononitrate ER (Isosorbide Mononitrate) 60 Mg Tab 60 Mg PO DAILY Gabapentin 100 Mg Cap 100 Mg PO BID Clonazepam 0.5 Mg Tab 0.5 Mg PO HS Calcitriol 0.5 Mcg Cap 0.5 Mcg PO DAILY B Complex (B-Complex Vitamins) 1 Cap 1 Cap PO DAILY Review of Systems Except as stated in HPI: all other systems reviewed are Neg Physical Exam Narrative GENERAL: Well-developed elderly white female patient currently in no acute distress. Awake and oriented 3. SKIN: Focused skin assessment warm/dry. HEAD: Atraumatic. Normocephalic. EYES: Pupils equal and round. No scleral icterus. No injection or drainage. ENT: No nasal bleeding or discharge. Mucous membranes pink and moist. NECK: Trachea midline. No JVD. CARDIOVASCULAR: Regular rate and rhythm. No murmur appreciated. RESPIRATORY: No accessory muscle use. Clear to auscultation. Breath sounds equal bilaterally. GASTROINTESTINAL: Abdomen soft, non-tender, nondistended. Hepatic and splenic margins not palpable. Peritoneal dialysis catheter appears to be in place but there is part of the catheter that the patient also brings in. MUSCULOSKELETAL: No obvious deformities. No clubbing. No cyanosis. No edema. NEUROLOGICAL: Awake and alert. No obvious cranial nerve deficits. Motor grossly within normal limits. Normal speech. PSYCHIATRIC: Appropriate mood and affect; insight and judgment normal. Data Data Last Documented VS Vital Signs Date Time Temp Pulse Resp B/P (MAP) Pulse Ox O2 Delivery O2 Flow Rate FiO2 01/25/17 09:16 Room Air 01/25/17 09:03 98.4 84 18 158/88 (111) 99 Orders Orders Vancomycin Inj (Vancomycin Inj) (01/25/17 11:30) Ceftazidime Inj (Fortaz Inj) (01/25/17 11:30) Ed Discharge Order (01/25/17 12:17) MDM Medical Decision Making Medical Screen Exam Complete: Yes Emergency Medical Condition: Yes Medical Record Reviewed: Yes Differential Diagnosis Peritoneal dialysis catheter issues Narrative Course Case was discussed with Dr. Green, patient's renal doctor, who had talked to the dialysis nurse and she was able to replace the peritoneal dialysis part. She was given antibiotics during this process and plan would be to release the patient would follow-up to Dr. Green regarding this issue. Return for new issues as needed. The plan was discussed with her and she states understanding. Diagnosis Primary Impression: Peritoneal dialysis catheter dysfunction Disposition: 01 DISCHARGE HOME Condition: Stable Kajal Nazario MD Jan 25, 2017 09:33
[2017-01-25] MEDS ORDERED: VANCOMYCIN HCL 1000 MG VIAL OTHER ONE (11:30)
== END 2017-01-25 13:03 | disposition home or self-care (01) ==
LOC: NEPE 08:57
DX: T85.898A Other specified complication of other internal prosthetic devices, implants and grafts, initial encounter (principal); N18.9 Chronic kidney disease, unspecified; I12.9 Hypertensive chronic kidney disease with stage 1 through stage 4 chronic kidney disease, or unspecified chronic kidney disease; F32.9 Major depressive disorder, single episode, unspecified; E78.00 Pure hypercholesterolemia, unspecified; K21.9 Gastro-esophageal reflux disease without esophagitis; I10 Essential (primary) hypertension; M79.7 Fibromyalgia; Z79.82 Long term (current) use of aspirin
CPT/HCPCS: 96374; 96375; 99284; J0713; J3370; 90935

== ENCOUNTER 2017-02-06 18:17 | Emergency (ER) | payer MEDICARE, MEDICAID ==
[~2017-02-06] VITALS: Ht 160 cm; Wt 80.0 kg
[~2017-02-06 18:17] MED LIST changes: +ASPI-516 CHEW; -ASPI81CH CHEW; +CALC0.5C PO; -CALC0.5C6 PO; +CLIN150C14 PO; -CLIN1CAP5 PO
[2017-02-06 18:22] VITALS: BP 139/89; PULSE 90; RESP 15; TEMP 97.8; O2SAT 97
[2017-02-06 20:11] LABS: AUTOMATED NEUTROPHIL # 3.8 TH/MM3 (1.8-7.7); BASOPHIL # 0.1 TH/MM3 (0-0.2); BASOPHIL % 1.3 % (0.0-2.0); EOSINOPHIL # 0.7 TH/MM3 (0-0.4); HEMATOCRIT 31.6 % (35.0-46.0); HEMO FLAGS DIFF FINAL; LYMPH % 19.7 % (9.0-44.0); LYMPHOCYTE # 1.3 TH/MM3 (1.0-4.8); MEAN CELL VOLUME 93.8 FL (80.0-100.0); MEAN CORPUSCULAR HEMOGLOBIN 30.8 PG (27.0-34.0); MEAN CORPUSCULAR HGB CONC 32.8 % (32.0-36.0); PLATELET COUNT 180 TH/MM3 (150-450); RED BLOOD COUNT 3.36 MIL/MM3 (4.00-5.30); WHITE BLOOD COUNT 6.5 TH/MM3 (4.0-11.0)
--- NOTE | 2017-02-06 20:20 | PD ---
HPI Chief Complaint: Cold / Flu Symptoms Time Seen by Provider: 19:41 Travel History International Travel<30 days: No Contact w/Intl Traveler<30days: No Traveled to known affect area: No History of Present Illness HPI 61-year-old white female presents to emergency department for evaluation of cough and shortness of breath. She states that she's been sick now for the past 4 days. She has had some yellow sputum. She states that she does not feel as if she is sick. She denies any lung disease. No asthma or COPD. She has never smoked. She does state that she has end-stage renal disease and is on peritoneal dialysis. She also has heart disease and arrhythmia and has a AICD. She mentioned to her doctor yesterday during her appointment that she was having the symptoms and she was told to treat it symptomatically. The patient presents today for evaluation. Patient does admit to chronic mild pedal edema which is unchanged from her usual state. She denies any fever or chills. No earache, sore throat, runny nose, chest pain, palpitations, nausea, vomiting, abdominal pain or urinary symptoms. Symptoms are [id number]. No alleviating factors. PFSH Past Medical History Hx Anticoagulant Therapy: Yes (ASA) Asthma: No Blood Disorders: No Anxiety: No Depression: Yes Heart Rhythm Problems: Yes (defib) Cardiovascular Problems: Yes High Cholesterol: Yes Chemotherapy: No Chest Pain: No Congestive Heart Failure: No COPD: No Diabetes: No Dialysis: Yes (PERITONEAL DIALYSIS) Diminished Hearing: No Endocrine: Yes Gastrointestinal Disorders: Yes GERD: Yes Hepatitis: No Hiatal Hernia: No Hypertension: Yes Immune Disorder: Yes (FIBROMYALGIA) Implanted Vascular Access Dvce: Yes Medical other: No Musculoskeletal: Yes (CHRONIC PAIN, FIBROMYALGIA) Neurologic: Yes Psychiatric: Yes (CLAUSTROPHOBIA) Reproductive: No Respiratory: Yes (CPAP, SLEEP APNEA , USES A MACHINE) Immunizations Current: Yes Radiation Therapy: No Renal Failure: Yes (on dialysis) Sleep Apnea: Yes Thyroid Disease: Yes Tetanus Vaccination: < 5 Years Influenza Vaccination: No Menopausal: Yes : 2 Para: 2 Past Surgical History Abdominal Surgery: Yes (PERITONEAL DIALYSIS CATH) AICD: Yes (BIOTRONIK) Body Medical Devices: AICD, STENT, DIALYSIS CATH Cardiac Surgery: Yes (AICD, 1 CARDIAC STENT) Cholecystectomy: Yes Joint Replacement: No Oral Surgery: Yes (SINUS SURGERY) Pacemaker: Yes Tonsillectomy: Yes Other Surgery: Yes (CHIN RECONSTRUCTION) Social History Alcohol Use: No Tobacco Use: No Substance Use: No Allergies-Medications (Allergen,Severity, Reaction): Coded Allergies: No Known Allergies (Verified Adverse Reaction, Unknown, 02/06/17) Reported Meds & Prescriptions Reported Meds & Active Scripts Active Doxycycline Hyclate 100 Mg Cap 100 Mg PO BID Clindamycin (Clindamycin HCl) 150 Mg Cap 150 Mg PO Q6H [Polytrim Ophth] 1 Drop EACH EYE QID Reported Ambien (Zolpidem Tartrate) 10 Mg Tab 10 Mg PO HS PRN Renvela (Sevelamer Carbonate) 800 Mg Tab 800 Mg PO TID Cartia Xt (Diltiazem ER 24 HR) 120 Mg Caper 120 Mg PO DAILY Aspirin 81 Mg Chew 81 Mg CHEW HS Sertraline (Sertraline HCl) 100 Mg Tab 100 Mg PO DAILY Zofran Odt (Ondansetron Odt) 4 Mg Tab 4 Mg SL Q8HR PRN Omeprazole 20 Mg Cap 20 Mg PO DAILY Losartan (Losartan Potassium) 100 Mg Tab 100 Mg PO DAILY Levothyroxine (Levothyroxine Sodium) 50 Mcg Tab 50 Mcg PO DAILY Isosorbide Mononitrate ER (Isosorbide Mononitrate) 60 Mg Tab 60 Mg PO DAILY Gabapentin 100 Mg Cap 100 Mg PO BID Clonazepam 0.5 Mg Tab 0.5 Mg PO HS Calcitriol 0.5 Mcg Cap 0.5 Mcg PO DAILY B Complex (B-Complex Vitamins) 1 Cap 1 Cap PO DAILY Review of Systems General / Constitutional: No: Fever, Chills Eyes: No: Photophobia, Visual changes HENT: No: Headaches, Sore Throat, Congestion Cardiovascular: No: Chest Pain or Discomfort, Irregular Rhythm Respiratory: Positive: Cough, Shortness of Breath, Other (yellow sputum) Gastrointestinal: No: Nausea, Vomiting, Abdominal Pain Genitourinary: No: Dysuria Musculoskeletal: No: Pain Skin: No Rash Neurologic: No: Weakness Psychiatric: No: Depression Endocrine: No: Polydipsia Hematologic/Lymphatic: No: Easy Bruising Physical Exam Narrative GENERAL: Well-developed, well-nourished in no acute distress. Nontoxic appearing. HEAD: Normocephalic, atraumatic. EYES: Pupils equal round and reactive. Extraocular motions intact. No scleral icterus. No injection or drainage. ENT: TMs clear without erythema. The external auditory canals clear. Nose: clear . Posterior pharynx is pink and moist. No tonsillar edema or exudate. Uvula midline. Airway patent. NECK: Trachea midline.Supple, nontender, moves head freely. No central bony tenderness or spasm. CARDIOVASCULAR: Regular rate and rhythm without murmurs, gallops, or rubs. RESPIRATORY: Clear to auscultation. Breath sounds equal bilaterally. No wheezes , rales, or rhonchi. GASTROINTESTINAL: Abdomen soft, non-tender, distended with apparent no fluid. Patient has a peritoneal catheter in the lower abdomen no hepato-splenomegaly, or palpable masses. No guarding. EXTREMITIES: No clubbing, cyanosis, positive +1 pedal edema. No joint tenderness , effusion noted. BACK: Nontender without deformity or crepitance. No flank tenderness. Data Data Last Documented VS Vital Signs Date Time Temp Pulse Resp B/P (MAP) Pulse Ox O2 Delivery O2 Flow Rate FiO2 02/06/17 18:22 97.8 90 15 139/89 (106) 97 Orders Orders Complete Blood Count With Diff (02/06/17 19:48) Basic Metabolic Panel (Bmp) (02/06/17 19:48) Chest, Pa & Lat (02/06/17 19:48) Ed Discharge Order (02/06/17 20:35) Doxycycline (Vibramycin) (02/06/17 20:45) Labs Laboratory Tests Test 02/06/17 20:00 White Blood Count 6.5 TH/MM3 Red Blood Count 3.36 MIL/MM3 Hemoglobin 10.4 GM/DL Hematocrit 31.6 % Mean Corpuscular Volume 93.8 FL Mean Corpuscular Hemoglobin 30.8 PG Mean Corpuscular Hemoglobin Concent 32.8 % Red Cell Distribution Width 18.0 % Platelet Count 180 TH/MM3 Mean Platelet Volume 8.4 FL Neutrophils (%) (Auto) 59.0 % Lymphocytes (%) (Auto) 19.7 % Monocytes (%) (Auto) 9.0 % Eosinophils (%) (Auto) 11.0 % Basophils (%) (Auto) 1.3 % Neutrophils # (Auto) 3.8 TH/MM3 Lymphocytes # (Auto) 1.3 TH/MM3 Monocytes # (Auto) 0.6 TH/MM3 Eosinophils # (Auto) 0.7 TH/MM3 Basophils # (Auto) 0.1 TH/MM3 CBC Comment DIFF FINAL Differential Comment Blood Urea Nitrogen 38 MG/DL Creatinine 9.73 MG/DL Random Glucose 98 MG/DL Calcium Level 9.4 MG/DL Sodium Level 134 MEQ/L Potassium Level 5.0 MEQ/L Chloride Level 95 MEQ/L Carbon Dioxide Level 30.1 MEQ/L Anion Gap 9 MEQ/L Estimat Glomerular Filtration Rate 4 ML/MIN [facility] [place] Medical Decision Making Medical Screen Exam Complete: Yes Emergency Medical Condition: Yes Medical Record Reviewed: Yes Interpretation(s) Last 24 hours Impressions Chest X-Ray 02/06/171947 Signed Impressions: CBC & BMP Diagram 02/06/17 20:00 Calcium Level 9.4 Service Date/Time: Monday, February 06, 2017 20:02 - CONCLUSION: Stable examination. Continued blunting left hemidiaphragm . Pacemaker. Derrick García MD Differential Diagnosis MDM: High Differential diagnoses: Pneumonia, bronchitis, URI, asthma, RAD, worsening electrolytes, CHF Narrative Course Patient's chest x-ray shows no acute infiltrate. Her renal function is stable. Her electrolytes are within limits. Patient is given doxycycline 100 mg by mouth. She'll be treated for bronchitis. Diagnosis Primary Impression: Bronchitis Patient Instructions: General Instructions Additional Instructions: Rest. Increase fluids. [id number] cough medicine. Contact her doctor to determine which type you can take. Doxycycline. Followup with your DrOumar in one week. Return to the ER for any problems. Med/Other Pt SpecificInfo: Prescription(s) given Scripts Doxycycline Hyclate (Doxycycline Hyclate) 100 Mg Cap 100 MG PO BID for Infection, #14 CAP 0 Refills Prov: Shaan Renee MD 02/06/17 Disposition: DISCHARGE HOME Condition: Stable Lazarus Lopez Feb 06, 2017 20:20
--- NOTE | 2017-02-06 20:26 | RADRPT ---
EXAM DATE/TIME: 02/06/2017 20:02 [facility] COMPARISON: No previous studies available for comparison. INDICATIONS : Shortness of breath. MEDICAL HISTORY : Hypertension. Hypercholesterolemia. Renal calculi. Thyroid disease. Left cataract. Defib. Sleep apnea. GERD. Stage IV renal failure. Polycystic kidneys. SURGICAL HISTORY : Tonsillectomy. Cholecystectomy. Sinus surgery. Peritoneal dialysis cath. Cervical fusions. Blood winkler sfusions. Defibrillator. ENCOUNTER: Initial ACUITY: 3 days PAIN SCORE: 0/10 LOCATION: Bilateral chest FINDINGS: PA and lateral views of the chest demonstrate the lungs to be symmetrically aerated without evidence of mass or infiltrate . Left hemidiaphragm remains blunted. The right hemidiaphragm is slightly eleva inocente. The upper lungs are clear. Left subclavian single lead pacer in good position The cardiomediasti nal contours are unremarkable. Osseous structures are intact. CONCLUSION: Stable examination. Continued blunting left hemidiaphragm . Pacemaker. Derrick García MD on February 06, 2017 at 20:23 Board Certified Radiologist. This report was verified electronically.
[2017-02-06 20:28] LABS: BICARBONATE 30.1 MEQ/L (21.0-32.0)
[2017-02-06] MEDS ORDERED: DOXY100C PO (20:37)
[2017-02-06] MEDS ORDERED: DOXYCYCLINE HYCLATE 100 MG CAP PO ONE (20:45)
== END 2017-02-06 20:54 | disposition home or self-care (01) ==
LOC: NEPK 18:17
DX: J40 Bronchitis, not specified as acute or chronic (principal); I12.0 Hypertensive chronic kidney disease with stage 5 chronic kidney disease or end stage renal disease; N18.6 End stage renal disease; E78.00 Pure hypercholesterolemia, unspecified; K21.9 Gastro-esophageal reflux disease without esophagitis; M79.7 Fibromyalgia; E07.9 Disorder of thyroid, unspecified; F40.240 Claustrophobia; Z99.2 Dependence on renal dialysis
CPT/HCPCS: 71020; 80048; 85025; 99284

== ENCOUNTER 2017-03-21 15:48 | Observation (INO) | payer MEDICARE, MEDICAID ==
[~2017-03-21] VITALS: Ht 160 cm; Wt 78.0 kg
[~2017-03-21 15:48] MED LIST changes: +DOXY100C PO
[2017-03-21 15:54] VITALS: BP 196/110; PULSE 111; RESP 26; TEMP 98.7; O2SAT 97
[2017-03-21 16:17] VITALS: BP 155/107; PULSE 104; RESP 22; O2SAT 100
[2017-03-21] MEDS ORDERED: RESP: ALBUTEROL 2.5 MG/IPRATROPIUM 0.5 MG NEB (SCH) INH ONE (16:30)
[2017-03-21] MEDS ORDERED: ASPIRIN 81 MG CHEW TAB CHEW ONE (16:30)
[2017-03-21] MEDS ORDERED: SODIUM CHLORIDE 0.9% FLUSH 10 ML FLUSH IVF PRN (16:30)
--- NOTE | 2017-03-21 16:31 | PD ---
HPI Chief Complaint: Respiratory Distress Time Seen by Provider: 16:01 Travel History International Travel<30 days: No Contact w/Intl Traveler<30days: No Traveled to known affect area: No History of Present Illness HPI 61-year-old female with a PMH of HTN, Hyperlipidemia, COPD, ESRD on PD and CAD presents to the emergency department for shortness of breath, chest pressure/ tightness, cough, congestion. Patient states her symptoms started approximately 2 weeks ago. She states that she has seen her primary care physician who did chest x-ray, did not find anything wrong. Patient states she recently had a cardiac workup by her junior network engineer. Patient states that she was sent here today due to increasing shortness of breath. Patient is tachypneic on exam. She is on peritoneal dialysis. She denies any abdominal pain. No nausea, vomiting, diarrhea. She denies any fevers or chills. She states the chest pressure is 7/10 with radiates down to the lower chest wall. No associated symptoms. Moderate severity. No exacerbating or alleviating factors. PFSH Past Medical History Hx Anticoagulant Therapy: Yes (ASA) Asthma: No Blood Disorders: No Anxiety: No Depression: Yes Heart Rhythm Problems: Yes (defib) Cardiovascular Problems: Yes High Cholesterol: Yes Chemotherapy: No Chest Pain: No Congestive Heart Failure: No COPD: No Diabetes: No Dialysis: Yes (PERITONEAL DIALYSIS) Diminished Hearing: No Endocrine: Yes Gastrointestinal Disorders: Yes GERD: Yes Hepatitis: No Hiatal Hernia: No Hypertension: Yes Immune Disorder: Yes (FIBROMYALGIA) Implanted Vascular Access Dvce: Yes Kidney Stones: Yes (POLYCYSTIC KIDNEY DISEASE) Musculoskeletal: Yes (CHRONIC PAIN, FIBROMYALGIA) Neurologic: Yes Psychiatric: Yes (CLAUSTROPHOBIA) Reproductive: No Respiratory: Yes (CPAP, SLEEP APNEA , USES A MACHINE) Immunizations Current: Yes Radiation Therapy: No Renal Failure: Yes (on dialysis) Sleep Apnea: Yes Thyroid Disease: Yes ?: Not Menopausal: Yes : 2 Para: 2 Past Surgical History Abdominal Surgery: Yes (PERITONEAL DIALYSIS CATH) AICD: Yes (BIOTRONIK) Body Medical Devices: AICD, STENT, DIALYSIS CATH Cardiac Surgery: Yes (AICD, 1 CARDIAC STENT) Cholecystectomy: Yes Joint Replacement: No Oral Surgery: Yes (SINUS SURGERY) Pacemaker: Yes Tonsillectomy: Yes Other Surgery: Yes (CHIN RECONSTRUCTION) Social History Alcohol Use: No Tobacco Use: No Substance Use: No Allergies-Medications (Allergen,Severity, Reaction): Coded Allergies: No Known Allergies (Verified Adverse Reaction, Unknown, 03/21/17) Reported Meds & Prescriptions Reported Meds & Active Scripts Active [Polytrim Ophth] 1 Drop EACH EYE QID Reported Ambien (Zolpidem Tartrate) 10 Mg Tab 10 Mg PO HS PRN Renvela (Sevelamer Carbonate) 800 Mg Tab 800 Mg PO TID Cartia Xt (Diltiazem ER 24 HR) 120 Mg Caper 120 Mg PO DAILY Aspirin 81 Mg Chew 81 Mg CHEW HS Sertraline (Sertraline HCl) 100 Mg Tab 100 Mg PO DAILY Zofran Odt (Ondansetron Odt) 4 Mg Tab 4 Mg SL Q8HR PRN Omeprazole 20 Mg Cap 20 Mg PO DAILY Losartan (Losartan Potassium) 100 Mg Tab 100 Mg PO DAILY Levothyroxine (Levothyroxine Sodium) 50 Mcg Tab 50 Mcg PO DAILY Isosorbide Mononitrate ER (Isosorbide Mononitrate) 60 Mg Tab 60 Mg PO DAILY Gabapentin 100 Mg Cap 100 Mg PO BID Clonazepam 0.5 Mg Tab 0.5 Mg PO HS Calcitriol 0.5 Mcg Cap 0.5 Mcg PO DAILY B Complex (B-Complex Vitamins) 1 Cap 1 Cap PO DAILY Review of Systems Except as stated in HPI: all other systems reviewed are Neg Physical Exam Narrative GENERAL: Well-nourished, well-developed female patient, afebrile. SKIN: Focused skin assessment warm/dry. HEAD: Normocephalic. Atraumatic. EYES: No scleral icterus. No injection or drainage. NECK: Supple, trachea midline. No JVD or lymphadenopathy. CARDIOVASCULAR: Regular rate and rhythm without murmurs, gallops, or rubs. RESPIRATORY: Breath sounds equal bilaterally. No accessory muscle use. Patient is tachypneic. Lung sounds are clear to auscultation. GASTROINTESTINAL: Abdomen soft, non-tender, nondistended. No abdominal pain to palpation. MUSCULOSKELETAL: No cyanosis, or edema. BACK: Nontender without obvious deformity. No CVA tenderness. Data Data Last Documented VS Vital Signs Date Time Temp Pulse Resp B/P (MAP) Pulse Ox O2 Delivery O2 Flow Rate FiO2 03/21/17 19:18 114 20 166/109 (128) 98 Nasal Cannula 2.00 03/21/17 15:54 98.7 Orders Orders Electrocardiogram (03/21/17 ) Complete Blood Count With Diff (03/21/17 16:22) Comprehensive Metabolic Panel (03/21/17 16:) B-Type Natriuretic Peptide (03/21/17 16:22) Act Partial Throm Time (Ptt) (03/21/17 16:22) Prothrombin Time / Inr (Pt) (03/21/17 16:22) Magnesium (Mg) (03/21/17 16:22) Ckmb (Isoenzyme) Profile (03/21/17 16:22) Troponin I (03/21/17 16:22) Iv Access Insert/Monitor (03/21/17 16:22) Electrocardiogram (03/21/17 16:22) Ecg Monitoring (03/21/17 16:) Oximetry (03/21/17 16:22) Oxygen Administration (03/21/17 16:22) Chest, Single Ap (03/21/17 16:22) Sodium Chloride 0.9% Flush (Ns Flush) (03/21/17 16:30) Albuterol-Ipratropium Neb (Duoneb Neb) (03/21/17 16:30) Aspirin Chew (Aspirin Chew) (03/21/17 16:30) Influenzae A/B Antigen (03/21/17 16:31) CKMB (03/21/17 16:53) CKMB% (03/21/17 16:53) Furosemide Inj (Lasix Inj) (03/21/17 19:30) Admit Order (Ed Use Only) (03/21/17 19:25) Labs Laboratory Tests Test 03/21/17 16:53 White Blood Count 7.3 TH/MM3 Red Blood Count 3.42 MIL/MM3 Hemoglobin 10.4 GM/DL Hematocrit 31.7 % Mean Corpuscular Volume 92.8 FL Mean Corpuscular Hemoglobin 30.6 PG Mean Corpuscular Hemoglobin Concent 32.9 % Red Cell Distribution Width 17.3 % Platelet Count 167 TH/MM3 Mean Platelet Volume 8.7 FL Neutrophils (%) (Auto) 69.2 % Lymphocytes (%) (Auto) 14.9 % Monocytes (%) (Auto) 10.0 % Eosinophils (%) (Auto) 4.7 % Basophils (%) (Auto) 1.2 % Neutrophils # (Auto) 5.0 TH/MM3 Lymphocytes # (Auto) 1.1 TH/MM3 Monocytes # (Auto) 0.7 TH/MM3 Eosinophils # (Auto) 0.3 TH/MM3 Basophils # (Auto) 0.1 TH/MM3 CBC Comment DIFF FINAL Differential Comment Prothrombin Time 11.8 SEC Prothromb Time International Ratio 1.2 RATIO Activated Partial Thromboplast Time 26.4 SEC Blood Urea Nitrogen 36 MG/DL Creatinine 9.95 MG/DL Random Glucose 97 MG/DL Total Protein 6.6 GM/DL Albumin 2.8 GM/DL Calcium Level 9.2 MG/DL Magnesium Level 1.8 MG/DL Alkaline Phosphatase 154 U/L Aspartate Amino Transf (AST/SGOT) 18 U/L Alanine Aminotransferase (ALT/SGPT) 44 U/L Total Bilirubin 0.5 MG/DL Sodium Level 136 MEQ/L Potassium Level 4.3 MEQ/L Chloride Level 98 MEQ/L Carbon Dioxide Level 30.1 MEQ/L Anion Gap 8 MEQ/L Estimat Glomerular Filtration Rate 4 ML/MIN Total Creatine Kinase 192 U/L Creatine Kinase MB 3.7 NG/ML Troponin I 0.05 NG/ML B-Type Natriuretic Peptide 4141 PG/ML MDM Medical Decision Making Medical Screen Exam Complete: Yes Emergency Medical Condition: Yes Medical Record Reviewed: Yes Interpretation(s) chest x-ray - CONCLUSION: 1. Probable mild congestive heart failure. Differential Diagnosis CHF exacerbation vs. COPD exacerbation vs. PNA vs. URI vs. ACS vs. PE Narrative Course 61 year old female presents to the emergency department for evaluation of SOB, chest pressure, cough, congestion for 2 weeks. EKG shows sinus tachycardia, HR 101, no acute ST changes. CBC, CMP, BNP, CK, Troponin, Magnesium, PTT, PT/INR, influenza are ordered and pending. Chest x-ray is ordered and pending. Patient is given DuoNeb x1, ASA 162 mg PO. CBC shows slight anemia hemoglobin 10.4, hematocrit 31.7. CMP shows elevated BUN and creatinine of 36/9.95. BNP is 4141. CK is 192. Troponin is 0.05. Magnesium is 1.8. Coags show no acute abnormality. Influenza is negative. Chest x-ray shows probable mild congestive heart failure. Upon reexamination, patient is still tachypneic and complaining of dyspnea. Patient is given Lasix 40 mg IV. [facility] is paged for admission. Patient's licensed certified orthotist, Dr. Green, will be notified. Dr. Green was notified about patient's admission. Diagnosis Primary Impression: CHF (congestive heart failure) Qualified Codes: I50.9 - Heart failure, unspecified Additional Impression: Dyspnea Qualified Codes: R06.00 - Dyspnea, unspecified Admitting Information Admitting Physician Requests: Observation Valorie Pena Mar 21, 2017 16:31
--- NOTE | 2017-03-21 17:02 | RADRPT ---
EXAM DATE/TIME: 03/21/2017 16:47 [facility] COMPARISON: CHEST SINGLE AP, September 12, 2016, 18:18. INDICATIONS : Short of breath. MEDICAL HISTORY : Cardiovascular disease. SURGICAL HISTORY : Pacemaker. ENCOUNTER: Initial ACUITY: 1 day PAIN SCORE: 7/10 LOCATION: Bilateral chest FINDINGS: There is global cardiomegaly. Pacer lead overlies right ventricle. Mild basilar edema pattern and sma ll effusions. No pneumothorax. CONCLUSION: 1. Probable mild congestive heart failure. Lazarus Cortez MD on March 21, 2017 at 16:59 Board Certified Radiologist. This report was verified electronically.
[2017-03-21 17:21] LABS: BASOPHIL # 0.1 TH/MM3 (0-0.2); BASOPHIL % 1.2 % (0.0-2.0); EOSINOPHIL # 0.3 TH/MM3 (0-0.4); EOSINOPHIL % 4.7 % (0.0-4.0); HEMATOCRIT 31.7 % (35.0-46.0); HEMO FLAGS DIFF FINAL; LYMPH % 14.9 % (9.0-44.0); LYMPHOCYTE # 1.1 TH/MM3 (1.0-4.8); MEAN CELL VOLUME 92.8 FL (80.0-100.0); MEAN CORPUSCULAR HEMOGLOBIN 30.6 PG (27.0-34.0); MEAN CORPUSCULAR HGB CONC 32.9 % (32.0-36.0); NEUT % 69.2 % (16.0-70.0); PLATELET COUNT 167 TH/MM3 (150-450); RED BLOOD COUNT 3.42 MIL/MM3 (4.00-5.30); RED CELL DISTRIBUTION WIDTH 17.3 % (11.6-17.2); WHITE BLOOD COUNT 7.3 TH/MM3 (4.0-11.0)
[2017-03-21 17:28] LABS: APTT (PATIENT) 26.4 SEC (24.3-30.1); INTERNATIONAL NORMALIZED RATIO 1.2 RATIO; PROTHROMBIN TIME - PATIENT 11.8 SEC (9.8-11.6)
[2017-03-21 17:46] LABS: ANION GAP 8 MEQ/L (5-15); AST (GOT) 18 U/L (15-37); BICARBONATE 30.1 MEQ/L (21.0-32.0); BLOOD UREA NITROGEN 36 MG/DL (7-18); CHLORIDE 98 MEQ/L (98-107); GLOMERULAR FILTRATION RATE 4 ML/MIN (>89); MAGNESIUM 1.8 MG/DL (1.5-2.5); POTASSIUM 4.3 MEQ/L (3.5-5.1); SODIUM (NA) 136 MEQ/L (136-145)
[2017-03-21 17:51] LABS: ALKALINE PHOSPHATASE 154 U/L (45-117); ALT (GPT) 44 U/L (10-53); CREATINE KINASE 192 U/L (26-192); TOTAL BILIRUBIN ADULT 0.5 MG/DL (0.2-1.0)
[2017-03-21 18:03] LABS: CKMB 3.7 NG/ML (0.5-3.6)
[2017-03-21 19:18] VITALS: BP 166/109; PULSE 114; RESP 20; O2SAT 98
[2017-03-21] MEDS ORDERED: FUROSEMIDE 40 MG/4 ML VIAL IV PUSH ONE (19:30)
[2017-03-21] MEDS ORDERED: MAGNESIUM HYDROXIDE SUSP 30 ML CUP PO PRN (19:30)
[2017-03-21] MEDS ORDERED: SENNOSIDES 8.6 MG TAB PO PRN (19:30)
[2017-03-21] MEDS ORDERED: LACTULOSE SYRUP 20 GM/30 ML CUP PO PRN (19:30)
[2017-03-21] MEDS ORDERED: ACETAMINOPHEN 325 MG TAB PO PRN (19:30)
[2017-03-21] MEDS ORDERED: SODIUM CHLORIDE 0.9% FLUSH 10 ML FLUSH IV FLUSH PRN (19:30)
[2017-03-21] MEDS ORDERED: ACETAMINOPHEN/HYDROcodone 325 MG/5 MG TAB PO PRN (19:30)
[2017-03-21] MEDS ORDERED: ZOLPIDEM TARTRATE 10 MG TAB PO PRN (19:30)
[2017-03-21] MEDS ORDERED: ONDANSETRON HCL 4 MG/2 ML VIAL IVP PRN (19:30)
[2017-03-21] MEDS ORDERED: BISACODYL 10 MG SUPP RECTAL PRN (19:30)
--- NOTE | 2017-03-21 19:33 | HHI.HP ---
[facility] Snow Capone M.D. Admission Diagnosis CHF exacerbation; dyspnea; peritoneal dialysis Diagnoses: (1) CHF (congestive heart failure) (2) Chest pain Diagnosis: Principal (3) ESRD (end stage renal disease) on dialysis Diagnosis: Principal (4) HTN (hypertension) Diagnosis: Principal Travel History International Travel<30 Days: No Contact w/Intl Traveler <30 Da: No Traveled to Known Affected Are: No History of Present Illness This is a 61-year-old female with a PMH of Depression, HTN, Hyperlipidemia, COPD , CHF (Echo 09/13/16 w/ EF 20-25%), CAD and ESRD on PD who presented to the ER w / complaints of SOB and chest pain for approx 2 wks. States symptoms have been intermittent. Was seen by PCP and had outpatient CXR which was reportedly negative. On Peritoneal Dialysis with no complications, follows w/ Dr. Cheek. Denies fever, chills or sick contacts. On arrival, BP 196/110, HR 111, O2 sat 97% on RA, Afebrile. CBC unremarkable. Chemistry essentially baseline. Creatinine 9.95, previously 9.73 on 02/06/17. Troponin 0.05. BNP 4141. INR 1.2. CXR with probable mild congestive heart failure. S/p Lasix and DuoNeb in ER w/ some improvement, however persistent SOB. Chest pain now resolved. Review of Systems Except as stated in HPI: all other systems reviewed are Neg ROS: 14 point review of systems otherwise negative. Past Family Social History Past Medical History PMH: Depression, HTN, Hyperlipidemia, COPD, CHF (Echo 09/13/16 w/ EF 20-25%), CAD and ESRD on PD Past Surgical History PAST SURGICAL HISTORY: PD Catheter, AICD (Biotronik), Cholecystectomy Suad Tonsillectomy, Chin Reconstruction Allergies: Coded Allergies: No Known Allergies (Verified Adverse Reaction, Unknown, 03/21/17) Family History PAST FAMILY HISTORY: Reviewed. No h/o DM or CAD Social History PAST SOCIAL HISTORY: Negative for alcohol, tobacco or drugs. Physical Exam Vital Signs Vital Signs Date Time Temp Pulse Resp B/P (MAP) Pulse Ox O2 Delivery O2 Flow Rate FiO2 03/21/17 19:18 114 20 166/109 (128) 98 Nasal Cannula 2.00 03/21/17 16:56 98 Nasal Cannula 2.00 03/21/17 16:17 104 22 155/107 (123) 100 Nasal Cannula 2.00 03/21/17 16:05 107 23 100 03/21/17 15:54 98.7 111 26 196/110 (138) 97 Physical Exam PE: GENERAL: Middle-aged white female in no acute distress. Some SOB with speech HEENT: PERRLA, EOMI. No scleral icterus or conjunctival pallor. No lid lag or facial droop. CARDIOVASCULAR: Regular rate and rhythm. No obvious murmurs to auscultation. No chest tenderness to palpation. RESPIRATORY: No obvious rhonchi or wheezing. Clear to auscultation. Breath sounds equal bilaterally. GASTROINTESTINAL: Abdomen soft, non-tender, nondistended. BS normal. MUSCULOSKELETAL: Extremities without clubbing, cyanosis, or edema. No obvious deformities. NEUROLOGICAL: Awake, alert and oriented x4. No focal neurologic deficits. Moving both upper and lower extremities spontaneously. Laboratory Laboratory Tests Test 03/21/17 16:53 White Blood Count 7.3 Red Blood Count 3.42 Hemoglobin 10.4 Hematocrit 31.7 Mean Corpuscular Volume 92.8 Mean Corpuscular Hemoglobin 30.6 Mean Corpuscular Hemoglobin Concent 32.9 Red Cell Distribution Width 17.3 Platelet Count 167 Mean Platelet Volume 8.7 Neutrophils (%) (Auto) 69.2 Lymphocytes (%) (Auto) 14.9 Monocytes (%) (Auto) 10.0 Eosinophils (%) (Auto) 4.7 Basophils (%) (Auto) 1.2 Neutrophils # (Auto) 5.0 Lymphocytes # (Auto) 1.1 Monocytes # (Auto) 0.7 Eosinophils # (Auto) 0.3 Basophils # (Auto) 0.1 CBC Comment DIFF FINAL Differential Comment Prothrombin Time 11.8 Prothromb Time International Ratio 1.2 Activated Partial Thromboplast Time 26.4 Blood Urea Nitrogen 36 Creatinine 9.95 Random Glucose 97 Total Protein 6.6 Albumin 2.8 Calcium Level 9.2 Magnesium Level 1.8 Alkaline Phosphatase 154 Aspartate Amino Transf (AST/SGOT) 18 Alanine Aminotransferase (ALT/SGPT) 44 Total Bilirubin 0.5 Sodium Level 136 Potassium Level 4.3 Chloride Level 98 Carbon Dioxide Level 30.1 Anion Gap 8 Estimat Glomerular Filtration Rate 4 Total Creatine Kinase 192 Creatine Kinase MB 3.7 Troponin I 0.05 B-Type Natriuretic Peptide 4141 Date/Time Source Procedure Growth Status 03/21/17 17:34 Nasal Aspirate Influenza Types A,B Antigen (ANSHU) - Final NEGATIVE FOR FLU A AND B ANTIGEN.... Complete Result Diagram: 03/21/17 16503/21/17 165 Caprini VTE Risk Assessment Caprin VTE Risk Assessment: No/Low Risk (score <= 1) Caprini Risk Assessment Model Point Value = 1 Point Value = 2 Point Value = 3 Point Value = 5 Age 41-60 Minor surgery BMI > 25 kg/m2 Swollen legs Varicose veins or History of unexplained or recurrent spontaneous Oral contraceptives or hormone replacement Sepsis (< 1 month) Serious lung disease, including pneumonia (< 1 month) Abnormal pulmonary function Acute myocardial infarction Congestive heart failure (< 1 month) History of inflammatory bowel disease Medical patient at bed rest Age 61-74 Arthroscopic surgery Major open surgery (> 45 min) Laparoscopic surgery (> 45 min) Malignancy Confined to bed (> 72 hours) Immobilizing plaster cast Central venous access Age >= 75 History of VTE Family history of VTE Factor V Leiden Prothrombin [id number] Lupus anticoagulant Anticardiolipin antibodies Elevated serum homocysteine Heparin-induced thrombocytopenia Other congenital or acquired thrombophilia Stroke (< 1 month) Elective arthroplasty Hip, pelvis, or leg fracture Acute spinal cord injury (< 1 month) Prophylaxis Regimen Total Risk Factor Score Risk Level Prophylaxis Regimen 0-1 Low Early ambulation 2 Moderate Order ONE of the following: *Sequential Compression Device (SCD) *Heparin 5000 units SQ BID 3-4 Higher Order ONE of the following medications: *Heparin 5000 units SQ TID *Enoxaparin/Lovenox 40 mg SQ daily (WT < 150 kg, CrCl > 30 mL/min) *Enoxaparin/Lovenox 30 mg SQ daily (WT < 150 kg, CrCl > 10-29 mL/min) *Enoxaparin/Lovenox 30 mg SQ BID (WT < 150 kg, CrCl > 30 mL/min) AND/OR *Sequential Compression Device (SCD) 5 or more Highest Order ONE of the following medications: *Heparin 5000 units SQ TID (Preferred with Epidurals) *Enoxaparin/Lovenox 40 mg SQ daily (WT < 150 kg, CrCl > 30 mL/min) *Enoxaparin/Lovenox 30 mg SQ daily (WT < 150 kg, CrCl > 10-29 mL/min) *Enoxaparin/Lovenox 30 mg SQ BID (WT < 150 kg, CrCl > 30 mL/min) AND *Sequential Compression Device (SCD) Assessment and Plan Problem List: (1) CHF (congestive heart failure) ICD Code: I50.9 - Heart failure, unspecified Status: Acute (2) Chest pain ICD Code: R07.9 - Chest pain, unspecified Status: Acute (3) ESRD (end stage renal disease) on dialysis ICD Code: N18.6 - End stage renal failure on dialysis; Z99.2 - Dependence on renal dialysis Status: Acute (4) HTN (hypertension) ICD Code: I10 - Essential (primary) hypertension Status: Acute Assessment and Plan A/P: 1. CHF: Acute on Chronic. Systolic. Echo 09/13/16 w/ EF 20-25%, s/p AICD. BNP 4141, CXR w/ probable mild congestive heart failure, images reviewed by me. S/p Lasix in ER, monitor I/O, continue w/ diuresis, resume home medications. 2. Chest Pain: Trop 0.05, EKG w/ no acute ischemia. Currently chest pain free. Check serial trop, resume home medications, ASA, Morphine prn. 3. ESRD on PD: Follows w/ Dr. Cheek as outpatient, will consult to resume PD. 4. HTN: BP 190's on arrival, likely compounded by SOB/chest pain, currently 160's. Monitor BP, resume home medications. 5. DVT Prophylaxis: Heparin sq 6. Social work for d/c planning as needed. 7. Case discussed w/ ER physician at length. Problem Qualifiers (1) CHF (congestive heart failure): Qualified Codes: I50.9 - Heart failure, unspecified Felicia Forman MD Mar 21, 2017 19:33
[2017-03-21] MEDS ORDERED: MORPHINE SULFATE 2 MG/ML INJ IV PRN (19:45)
[2017-03-21] MEDS: ASPIRIN 81 MG CHEW TAB CHEW SCH (21:00)
[2017-03-21] MEDS ORDERED: RESP: ALBUTEROL 2.5 MG/IPRATROPIUM 0.5 MG NEB (PRN) NEB (21:00)
[2017-03-21] MEDS: SODIUM CHLORIDE 0.9% FLUSH 10 ML FLUSH IV FLUSH SCH (21:00)
[2017-03-21] MEDS: clonazePAM 0.5 MG TAB PO SCH (21:19)
[2017-03-21] MEDS: GABAPENTIN 100 MG CAP PO SCH (21:20)
--- NOTE | 2017-03-21 21:36 | EKG ---
Date Performed: 03/21/2017 Time Performed: 16:27:17 PTAGE: 61 years EKG: SINUS TACHYCARDIA, POOR R WAVE PROGRESSION, NONSPECIFIC T WAVE ABNORMALITIES ABNORMAL ECG PREVIOUS TRACING : 09/12/2016 16.52 No significant change from previous tracing noted. DOCTOR: Ovidio Mcdonough Interpretating Date/Time 03/21/2017 21:35:29
[2017-03-21] MEDS: DOCUSATE SODIUM 50 MG/SENNA 8.6 MG TAB PO SCH (21:45)
[2017-03-21 21:54] VITALS: BP 150/99; PULSE 107; RESP 17; TEMP 98; O2SAT 98
[2017-03-21 22:15] VITALS: PULSE 111
[2017-03-22] VITALS (11 sets, daily range): BP systolic 132–166; BP diastolic 82–97; PULSE 91–106; RESP 17–24; TEMP 98–98.3; O2SAT 96–99
[2017-03-22] MEDS: LEVOTHYROXINE SODIUM 50 MCG TAB PO SCH (06:15)
[2017-03-22 07:41] LABS: AUTOMATED NEUTROPHIL # 3.3 TH/MM3 (1.8-7.7); BASOPHIL # 0.1 TH/MM3 (0-0.2); BASOPHIL % 1.3 % (0.0-2.0); EOSINOPHIL # 0.4 TH/MM3 (0-0.4); EOSINOPHIL % 6.9 % (0.0-4.0); HEMATOCRIT 31.6 % (35.0-46.0); HEMO FLAGS DIFF FINAL; LYMPH % 19.6 % (9.0-44.0); MEAN CELL VOLUME 92.9 FL (80.0-100.0); MEAN CORPUSCULAR HEMOGLOBIN 30.6 PG (27.0-34.0); MEAN CORPUSCULAR HGB CONC 32.9 % (32.0-36.0); MONO % 10.9 % (0.0-8.0); NEUT % 61.3 % (16.0-70.0); PLATELET COUNT 154 TH/MM3 (150-450); RED BLOOD COUNT 3.41 MIL/MM3 (4.00-5.30); RED CELL DISTRIBUTION WIDTH 17.3 % (11.6-17.2); WHITE BLOOD COUNT 5.3 TH/MM3 (4.0-11.0)
[2017-03-22] MEDS: SEVELAMER CARBONATE 800 MG TAB PO SCH ×3 (08:00→18:08)
[2017-03-22 08:11] LABS: ALT (GPT) 37 U/L (10-53); ANION GAP 10 MEQ/L (5-15); AST (GOT) 14 U/L (15-37); BICARBONATE 28.1 MEQ/L (21.0-32.0); BLOOD UREA NITROGEN 35 MG/DL (7-18); CHLORIDE 98 MEQ/L (98-107); GLOMERULAR FILTRATION RATE 4 ML/MIN (>89); SODIUM (NA) 136 MEQ/L (136-145)
[2017-03-22 08:14] LABS: ALKALINE PHOSPHATASE 152 U/L (45-117); TOTAL BILIRUBIN ADULT 0.6 MG/DL (0.2-1.0)
[2017-03-22] MEDS ORDERED: FUROSEMIDE 20 MG/2 ML VIAL IV PUSH SCH (09:00)
[2017-03-22] MEDS ORDERED: METOPROLOL SUCCINATE 50 MG EXTENDED RELEASE TAB PO ONE (09:30)
--- NOTE | 2017-03-22 09:36 | HHI.PR ---
Subjective Remarks Follow up on patient with CHF exacerbation, ESRD on PD. Patient seen and examined. Patient states she is breathing a little better today. Patient follows with Dr. Green as outpatient. Patient has oxygen at home but states she does not use it and she does not know why she doesn't. Reports he episodes of chest pain this morning it is since resolved. She describes the chest pain as sharp occurring midsternum radiating into left side of her chest and down her left arm as well as around to her back always proceeded with shortness of breath. Not exacerbated with exertion. Patient states she was prescribed nitroglycerin by her community service officer Dr. Tavares but has not picked up the medication as of yet. She did not receive nitroglycerin in our ED. Patient reports increased swelling in her legs and feet for the past several days but has improved since admission. She reports cough with yellowish sputum production. She states she has never smoked. Objective Vitals Vital Signs Date Time Temp Pulse Resp B/P (MAP) Pulse Ox O2 Delivery O2 Flow Rate FiO2 03/22/17 07:30 98.3 103 20 166/97 (120) 98 03/22/17 04:00 100 03/22/17 03:36 98.0 106 17 157/91 (113) 97 03/22/17 00:42 98.1 102 17 142/85 (104) 96 03/22/17 00:05 105 03/21/17 22:15 111 03/21/17 21:54 98.0 107 17 150/99 (116) 98 03/21/17 21:45 03/21/17 19:18 114 20 166/109 (128) 98 Nasal Cannula 2.00 03/21/17 16:56 98 Nasal Cannula 2.00 03/21/17 16:17 104 22 155/107 (123) 100 Nasal Cannula 2.00 03/21/17 16:05 107 23 100 03/21/17 15:54 98.7 111 26 196/110 (138) 97 Result Diagram: 03/22/17 0615 03/22/17 0615 Imaging Last Impressions Chest X-Ray 03/21/17 1622 Signed Impressions: Service Date/Time: Tuesday, March 21, 2017 16:47 - CONCLUSION: 1. Probable mild congestive heart failure. Lazarus Cortez MD Objective Remarks GENERAL: Well-nourished, well-developed female patient in NAD. Awake and alert. Sitting on side of bed eating breakfast. Does not appear dyspneic, appears comfortable. SKIN: Warm and dry. HEAD: Normocephalic. Atraumatic. EYES: EOMI. No scleral icterus. No injection or drainage. ENT: No nasal bleeding or discharge. Mucous membranes pink and moist. NECK: Trachea midline. CARDIOVASCULAR: Tachycardic. S1, S2 noted. No murmur appreciated. RESPIRATORY: Nonlabored. Fair air entry. Crackles noted left lung base. GASTROINTESTINAL: Abdomen soft, non-tender, nondistended. Normoactive bowel sounds x4. MUSCULOSKELETAL: No obvious deformities. Extremities without clubbing or cyanosis. Trace edema BLEs. NEUROLOGICAL: Awake and alert. Able to move all extremities spontaneously. Nonfocal.. Normal speech. PSYCHIATRIC: Appropriate mood and affect; insight and judgment normal. Medications and IVs Current Medications Medications (Trade) Dose Ordered Sig/Emma Route Start Time Stop Time Status Last Admin (NS Flush) 2 ml UNSCH PRN IV FLUSH 03/21/17 19:30 (NS Flush) 2 ml BID IV FLUSH 03/21/17 21:00 03/21/17 21:00 (Zofran Inj) 4 mg Q6H PRN IVP 03/21/17 19:30 (Heparin Inj) 5,000 units Q12H SQ 03/22/17 09:00 (Tylenol) 650 mg Q6H PRN PO 03/21/17 19:30 (Pyatt 5-325 Mg) 1 tab Q4H PRN PO 03/21/17 19:30 (Morphine Inj) 2 mg Q3H PRN IV 03/21/17 19:45 (Di-Colace) 1 tab BID PO 03/21/17 21:00 03/21/17 21:45 (Milk Of Magnesia Liq) 30 ml Q12H PRN PO 03/21/17 19:30 (Senokot) 17.2 mg Q12H PRN PO 03/21/17 19:30 (Dulcolax Supp) 10 mg DAILY PRN RECTAL 03/21/17 19:30 (Lactulose Liq) 30 ml DAILY PRN PO 03/21/17 19:30 (Aspirin Chew) 81 mg HS CHEW 03/21/17 21:00 (Rocaltrol) 0.5 mcg DAILY PO 03/22/17 09:00 (KlonoPIN) 0.5 mg HS PO 03/21/17 21:00 03/21/17 21:19 (Cardizem Cd) 120 mg DAILY PO 03/22/17 09:00 (Neurontin) 100 mg BID PO 03/21/17 21:00 03/21/17 21:20 (Imdur) 60 mg DAILY PO 03/22/17 09:00 (Synthroid) 50 mcg DAILY@0600 PO 03/22/17 06:00 03/22/17 06:15 (Cozaar) 100 mg DAILY PO 03/22/17 09:00 (Zoloft) 100 mg DAILY PO 03/22/17 09:00 (Renvela) 800 mg TIDAC PO 03/22/17 08:00 (Ambien) 10 mg HS PRN PO 03/21/17 19:30 (Nephrocaps) 1 cap DAILY PO 03/22/17 09:00 (Protonix) 20 mg DAILY PO 03/22/17 09:00 (Duoneb Neb) 1 ampule Q4HR NEB PRN NEB 03/21/17 21:00 (Lasix Inj) 20 mg BID@09,18 IV PUSH 03/22/17 09:00 A/P Problem List: (1) CHF (congestive heart failure) ICD Code: I50.9 - Heart failure, unspecified Status: Acute (2) Chest pain ICD Code: R07.9 - Chest pain, unspecified Status: Acute (3) ESRD (end stage renal disease) on dialysis ICD Code: N18.6 - End stage renal failure on dialysis; Z99.2 - Dependence on renal dialysis Status: Chronic (4) HTN (hypertension) ICD Code: I10 - Essential (primary) hypertension Status: Acute Assessment and Plan 61-year-old female with a PMH of Depression, HTN, Hyperlipidemia, CHF (Echo 09/13 w/ EF 20-25%), CAD and ESRD on PD who presented to the ER w/ complaints of SOB and chest pain for approx 2 wks. Acute on chronic systolic CHF - echo 09/13/16 EF 20-25%, s/p AICD - patient follows with Dr. Tavares as outpatient - CXR showing mild CHF. BNP 4141 - fluid and salt restricted diet - strict I&Os - Continue to monitor respiratory status - Patient has oxygen at home but does not use Chest pain CAD - Suspect demand ischemia - Troponins stable, 0.053. EKG with no ischemic changes noted. - Patient currently chest pain-free - ASA daily Hypertension Tachycardic - requested nursing staff update med reconciliation as patient on medications at home not listed - Continue patient on diltiazem 120 mg daily, Imdur 60 mg daily, losartan 100 mg daily - Will resume patient's Toprol-XL 100mg daily not listed on med rec - Continue to monitor BP and heart rate, adjust treatment accordingly ESRD on PD Compliance reported per patient - Nephrology consulted, appreciate assistance - Cr up today. Will defer to nephrology - Avoid nephrotoxic agents - obtain phosphorus level - continue on Renvela and Calcitriol Hypothyroidism - Continue patient on home dose of Synthroid - Check TSH level Anemia, normocytic, normochromic - Suspect secondary to chronic disease - Stable DVT prophylaxis - Heparin sq Stress with patient, nursing staff and Dr. Pina Discharge Planning Discharge pending clinical improvement and Nephrology clearance Attending Statement The exam, history, and the medical decision-making described in the above note were completed with the assistance of the mid-level provider. I reviewed and agree with the findings presented. I attest that I had a [id number] encounter with the patient on the same day, and personally performed and documented my assessment and findings in the medical record. All of her shortness of breathing Patient denies any shortness of breathing or cough. She has no complaints. Patient admits to increasing her salt her diet. Gen NAD Abd soft NDNT Resp CTA B/L Dyspnea secondary to volume overload On peritoneal dialysis Symptoms has resolved. [employer] consulted. Patient cleared by crane hoist or lift operator can be discharge to home since she is clinically stable and asymptomatic. Problem Qualifiers (1) CHF (congestive heart failure): Qualified Codes: I50.9 - Heart failure, unspecified Serenity Watt Mar 22, 2017 09:36 Lisa Pina MD Mar 22, 2017 12:05
[2017-03-22] MEDS: DILTIAZEM-CD 120 MG CAP ER PO SCH (10:35)
[2017-03-22] MEDS: ISOSORBIDE MONONITRATE 60 MG TAB PO SCH (10:36)
[2017-03-22] MEDS: PANTOPRAZOLE SOD 20 MG DELAYED RELEASE TAB PO SCH (10:37)
[2017-03-22] MEDS: DOCUSATE SODIUM 50 MG/SENNA 8.6 MG TAB PO SCH ×2 (10:37→21:57)
[2017-03-22] MEDS: SERTRALINE HCL 100 MG TAB PO SCH (10:38)
[2017-03-22] MEDS: HEPARIN SODIUM - SQ 10,000 UNITS/ML VIAL SQ SCH ×2 (10:38→21:57)
[2017-03-22] MEDS: GABAPENTIN 100 MG CAP PO SCH ×2 (10:39→21:57)
[2017-03-22] MEDS: SODIUM CHLORIDE 0.9% FLUSH 10 ML FLUSH IV FLUSH SCH ×2 (10:43→22:18)
[2017-03-22] MEDS: VITAMIN B CMPLX/VITC/FOLIC AC CAP PO SCH (10:58)
[2017-03-22] MEDS: CALCITRIOL 0.25 MCG CAP PO SCH (10:59)
[2017-03-22] MEDS: LOSARTAN 50 MG TAB PO SCH (10:59)
--- NOTE | 2017-03-22 14:40 | PD.CONS ---
HPI Consult Requested By Reason for Consult End-stage renal disease. Patient on peritoneal dialysis. Primary Care Physician Snow Capone M.D. History of Present Illness 61-year-old female with a history of multiple medical problems including severe nonischemic cardiomyopathy with an ejection fraction said to be less than 20%, intrinsic pulmonary disease not present with a history of increasing shortness of breath or lower extremity edema. Patient admits that she has been somewhat noncompliant with his sodium chloride restriction. States that she has been being compliant with her dialysis however. No chest pain. Review of Systems Constitutional: COMPLAINS OF: Fatigue, Weight gain Endocrine: DENIES: Abnorml menstrual pattern, Heat/cold intolerance, Polydipsia , Polyuria, Polyphagia Respiratory: COMPLAINS OF: Shortness of breath, DENIES: Apneas, Cough, Snoring , Wheezing, Hemoptysis, Sputum production Cardiovascular: COMPLAINS OF: Dyspnea on Exertion, Lower Extremity Edema, Orthopnea, DENIES: Chest pain, Palpitations, Syncope, PND, Claudication Gastrointestinal: DENIES: Abdominal pain, Black stools, Bloody stools, Constipation, Diarrhea, Nausea, Vomiting, Difficulty Swallowing, Anorexia Musculoskeletal: DENIES: Joint pain, Muscle aches, Stiffness, Joint Swelling, Back pain, Neck pain Past Family Social History Allergies: Coded Allergies: No Known Allergies (Verified Adverse Reaction, Unknown, 03/21/17) Past Medical History Past Medical History End-stage renal disease with patient being on peritoneal dialysis. Pancreatitis in the past. Coronary disease. Hypertension. Hypothyroidism. Depression. Anemia renal disease. Intrinsic pulmonary disease. Paralyzed vocal cord. Severe nonischemic cardiomyopathy. Echocardiogram dated September 13, 2016 indicated an ejection fraction of less than 20%. Past Surgical History ICD placement. Placement of a peritoneal dialysis catheter. Cholecystectomy and tonsillectomy per records. Reported Medications Reported Meds & Active Scripts Active [Polytrim Ophth] 1 Drop EACH EYE QID Reported Ambien (Zolpidem Tartrate) 10 Mg Tab 10 Mg PO HS PRN Renvela (Sevelamer Carbonate) 800 Mg Tab 800 Mg PO TID Cartia Xt (Diltiazem ER 24 HR) 120 Mg Caper 120 Mg PO DAILY Aspirin 81 Mg Chew 81 Mg CHEW HS Sertraline (Sertraline HCl) 100 Mg Tab 100 Mg PO DAILY Zofran Odt (Ondansetron Odt) 4 Mg Tab 4 Mg SL Q8HR PRN Omeprazole 20 Mg Cap 20 Mg PO DAILY Losartan (Losartan Potassium) 100 Mg Tab 100 Mg PO DAILY Levothyroxine (Levothyroxine Sodium) 50 Mcg Tab 50 Mcg PO DAILY Isosorbide Mononitrate ER (Isosorbide Mononitrate) 60 Mg Tab 60 Mg PO DAILY Gabapentin 100 Mg Cap 100 Mg PO BID Clonazepam 0.5 Mg Tab 0.5 Mg PO HS Calcitriol 0.5 Mcg Cap 0.5 Mcg PO DAILY B Complex (B-Complex Vitamins) 1 Cap 1 Cap PO DAILY Active Ordered Medications Current Medications Sodium Chloride (NS Flush) 2 ml UNSCH PRN IVF FLUSH AFTER USING IV ACCESS; Start 03/21/17 at 16:30; Stop 03/21/17 at 20:58; Status DC Albuterol/ Ipratropium (Duoneb Neb) 1 ampule ONCE ONCE INH Last administered on 03/21/17 16:54; Start 03/21/17 at 16:30; Stop 03/21/17 at 16:31; Status DC Aspirin (Aspirin Chew) 162 mg ONCE ONCE CHEW Last administered on 03/21/17 16:55; Start 03/21/17 at 16:30; Stop 03/21/17 at 16:31; Status DC Furosemide (Lasix Inj) 40 mg ONCE ONCE IV PUSH Last administered on 19:29; Start 03/21/17 at 19:30; Stop 03/21/17 at 19:31; Status DC Sodium Chloride (NS Flush) 2 ml UNSCH PRN IV FLUSH FLUSH AFTER USING IV ACCESS ; Start 03/21/17 at 19:30 Sodium Chloride (NS Flush) 2 ml BID IV FLUSH Last administered on 03/22/17 10 :43; Start 03/21/17 at 21:00 Ondansetron HCl (Zofran Inj) 4 mg Q6H PRN IVP NAUSEA OR VOMITING; Start at 19:30 Heparin Sodium (Porcine) (Heparin Inj) 5,000 units Q12H SQ Last administered on 03/22/17 10:38; Start 03/22/17 at 09:00 Acetaminophen (Tylenol) 650 mg Q6H PRN PO FEVER/PAIN SCALE 1 TO 2; Start 03/21 at 19:30 Acetaminophen/ Hydrocodone Bitart ([place] 5-325 Mg) 1 tab Q4H PRN PO PAIN SCALE 3 TO 5; Start 03/21/17 at 19:30 Morphine Sulfate (Morphine Inj) 2 mg Q3H PRN IV PAIN 6-10; Start 03/21/17 at 19:45 Senna/Docusate Sodium (Di-Colace) 1 tab BID PO Last administered on 10:37; Start 03/21/17 at 21:00 Magnesium Hydroxide (Milk Of Magnesia Liq) 30 ml Q12H PRN PO Mild constipation ; Start 03/21/17 at 19:30 Sennosides (Senokot) 17.2 mg Q12H PRN PO Moderate constipation; Start at 19:30 Bisacodyl (Dulcolax Supp) 10 mg DAILY PRN RECTAL SEVERE CONSITIPATION; Start 03/21/17 at 19:30 Lactulose (Lactulose Liq) 30 ml DAILY PRN PO SEVERE CONSITIPATION; Start 03/21 at 19:30 Aspirin (Aspirin Chew) 81 mg HS CHEW ; Start 03/21/17 at 21:00 Calcitriol (Rocaltrol) 0.5 mcg DAILY PO Last administered on 03/22/17 10:59; Start 03/22/17 at 09:00 Clonazepam (KlonoPIN) 0.5 mg HS PO Last administered on 03/21/17 21:19; Start 03/21/17 at 21:00 Diltiazem HCl (Cardizem Cd) 120 mg DAILY PO Last administered on 03/22/17 10: 35; Start 03/22/17 at 09:00 Gabapentin (Neurontin) 100 mg BID PO Last administered on 03/22/17 10:39; Start 03/21/17 at 21:00 Isosorbide Mononitrate (Imdur) 60 mg DAILY PO Last administered on 03/22/17 10:36; Start 03/22/17 at 09:00 Levothyroxine Sodium (Synthroid) 50 mcg DAILY@0600 PO Last administered on 06:15; Start 03/22/17 at 06:00 Losartan Potassium (Cozaar) 100 mg DAILY PO Last administered on 03/22/17 10: 59; Start 03/22/17 at 09:00 Sertraline HCl (Zoloft) 100 mg DAILY PO Last administered on 03/22/17 10:38; Start 03/22/17 at 09:00 Sevelamer Carbonate (Renvela) 800 mg TIDAC PO Last administered on 03/22/17 13:37; Start 03/22/17 at 08:00 Zolpidem Tartrate (Ambien) 10 mg HS PRN PO INSOMNIA; Start 03/21/17 at 19:30 Vitamin B Complex/ Vit C/Folic Acid (Nephrocaps) 1 cap DAILY PO Last administered on 03/22/17 10:58; Start 03/22/17 at 09:00 Pantoprazole Sodium (Protonix) 20 mg DAILY PO Last administered on 03/22/17 10:37; Start 03/22/17 at 09:00 Albuterol/ Ipratropium (Duoneb Neb) 1 ampule Q4HR NEB PRN NEB SOB/WHEEZING; Start 03/21/17 at 21:00 Furosemide (Lasix Inj) 20 mg BID@,18 IV PUSH Last administered on 03/22/17 10:35; Start 03/22/17 at 09:00; Stop 03/22/17 at 11:58; Status DC Metoprolol Succinate (Toprol Xl) 100 mg ONCE ONCE PO Last administered on 10:36; Start 03/22/17 at 09:30; Stop 03/22/17 at 09:42; Status DC Metoprolol Succinate (Toprol Xl) 100 mg DAILY PO ; Start 03/23/17 at 09:00 Family History Noncontributory to current complaint. Social History [place] history of alcohol or tobacco abuse. Physical Exam Vital Signs Vital Signs Date Time Temp Pulse Resp B/P (MAP) Pulse Ox O2 Delivery O2 Flow Rate FiO2 03/22/17 12:24 98.2 101 24 154/94 (114) 98 03/22/17 07:30 98.3 103 20 166/97 (120) 98 03/22/17 04:00 100 03/22/17 03:36 98.0 106 17 157/91 (113) 97 03/22/17 00:42 98.1 102 17 142/85 (104) 96 03/22/17 00:05 105 03/21/17 22:15 111 03/21/17 21:54 98.0 107 17 150/99 (116) 98 03/21/17 21:45 03/21/17 19:18 114 20 166/109 (128) 98 Nasal Cannula 2.00 03/21/17 16:56 98 Nasal Cannula 2.00 03/21/17 16:17 104 22 155/107 (123) 100 Nasal Cannula 2.00 03/21/17 16:05 107 23 100 03/21/17 15:54 98.7 111 26 196/110 (138) 97 Physical Exam GENERAL: Patient is a mildly dyspneic at rest. SKIN: Warm and dry. HEAD: Normocephalic. EYES: No scleral icterus. No injection or drainage. NECK: Supple, trachea midline. No JVD or lymphadenopathy. CARDIOVASCULAR: Regular rate and rhythm without murmurs, gallops, or rubs. RESPIRATORY: Breath sounds equal bilaterally. Diminished in bases. No accessory muscle use. GASTROINTESTINAL: Abdomen soft, non-tender, nondistended. MUSCULOSKELETAL: No cyanosis, 2+ pitting edema extending one third of the way the legs bilaterally. BACK: Nontender without obvious deformity. No CVA tenderness. Laboratory Laboratory Tests Test 03/21/17 16:53 03/22/17 00:25 03/22/17 06:15 White Blood Count 7.3 5.3 Red Blood Count 3.42 3.41 Hemoglobin 10.4 10.4 Hematocrit 31.7 31.6 Mean Corpuscular Volume 92.8 92.9 Mean Corpuscular Hemoglobin 30.6 30.6 Mean Corpuscular Hemoglobin Concent 32.9 32.9 Red Cell Distribution Width 17.3 17.3 Platelet Count 167 154 Mean Platelet Volume 8.7 8.8 Neutrophils (%) (Auto) 69.2 61.3 Lymphocytes (%) (Auto) 14.9 19.6 Monocytes (%) (Auto) 10.0 10.9 Eosinophils (%) (Auto) 4.7 6.9 Basophils (%) (Auto) 1.2 1.3 Neutrophils # (Auto) 5.0 3.3 Lymphocytes # (Auto) 1.1 1.0 Monocytes # (Auto) 0.7 0.6 Eosinophils # (Auto) 0.3 0.4 Basophils # (Auto) 0.1 0.1 CBC Comment DIFF FINAL DIFF FINAL Differential Comment Prothrombin Time 11.8 Prothromb Time International Ratio 1.2 Activated Partial Thromboplast Time 26.4 Blood Urea Nitrogen 36 35 Creatinine 9.95 10.15 Random Glucose 97 110 Total Protein 6.6 6.4 Albumin 2.8 2.8 Calcium Level 9.2 9.3 Magnesium Level 1.8 Alkaline Phosphatase 154 152 Aspartate Amino Transf (AST/SGOT) 18 14 Alanine Aminotransferase (ALT/SGPT) 44 37 Total Bilirubin 0.5 0.6 Sodium Level 136 136 Potassium Level 4.3 4.0 Chloride Level 98 98 Carbon Dioxide Level 30.1 28.1 Anion Gap 8 10 Estimat Glomerular Filtration Rate 4 4 Total Creatine Kinase 192 Creatine Kinase MB 3.7 Troponin I 0.05 0.05 0.05 B-Type Natriuretic Peptide 4141 Phosphorus Level 6.0 Thyroid Stimulating Hormone 3rd Gen 5.190 Date/Time Source Procedure Growth Status 03/21/17 17:34 Nasal Aspirate Influenza Types A,B Antigen (ANSHU) - Final NEGATIVE FOR FLU A AND B ANTIGEN.... Complete Result Diagram: 03/22/1761403/22/1715 Assessment and Plan Problem List: (1) ESRD (end stage renal disease) on dialysis ICD Codes: N18.6 - End stage renal failure on dialysis; Z99.2 - Dependence on renal dialysis Status: Chronic Plan: Patient still has evidence of significant fluid retention despite some ultrafiltration overnight. I will utilize 4.25% dialysis solutions tonight and icodextrin for last filled to try and improve ultrafiltration. Patient was counseled regarding need for compliance with dietary sodium chloride especially in view of her severe cardiac disease as indicated above with an ejection fraction said to be below 20% by echocardiogram last September. Avoid gadolinium. Medication should be adjusted for the patient's end-stage renal disease when indicated. (2) Cardiomyopathy, dilated, nonischemic ICD Codes: I42.0 - Dilated cardiomyopathy Status: Chronic Plan: Long-term prognosis of patient appears to be poor. (3) Anemia of renal disease ICD Codes: D63.1 - Anemia in chronic kidney disease Status: Chronic (4) Hyperphosphatemia ICD Codes: E83.39 - Other disorders of phosphorus metabolism Status: Chronic Plan: Continue phosphate binders, Renvela as ordered. (5) HTN (hypertension) ICD Codes: I10 - Essential (primary) hypertension Status: Acute (6) COPD (chronic obstructive pulmonary disease) ICD Codes: J44.9 - Chronic obstructive pulmonary disease, unspecified Status: Chronic Chandni Green MD Mar 22, 2017 14:40
[2017-03-22] MEDS ORDERED: SODIUM CHLORIDE 0.9% FLUSH 10 ML FLUSH IV FLUSH PRN (14:45)
[2017-03-22] MEDS ORDERED: HEPARIN SODIUM - IV 10,000 UNITS/10 ML VIAL XX PRN (14:45)
[2017-03-22] MEDS: clonazePAM 0.5 MG TAB PO SCH (21:57)
[2017-03-22] MEDS: ASPIRIN 81 MG CHEW TAB CHEW SCH (21:58)
[2017-03-23 03:52] VITALS: PULSE 93
[2017-03-23 04:01] VITALS: BP 150/85; PULSE 92; RESP 18; TEMP 98.1; O2SAT 96
[2017-03-23 05:37] VITALS: PULSE 93
[2017-03-23 05:39] VITALS: PULSE 84
[2017-03-23] MEDS: SEVELAMER CARBONATE 800 MG TAB PO SCH (06:05)
[2017-03-23] MEDS: LEVOTHYROXINE SODIUM 50 MCG TAB PO SCH (06:05)
--- NOTE | 2017-03-23 07:24 | HHI.PR ---
Subjective Remarks Follow up on patient with CHF exacerbation, ESRD on PD. Patient seen and examined. Patient reports feeling tired after change in PD last night. She also reports SOB with minimal exertion. Discussed with patient using her home oxygen with ambulation. Her O2 sats have been 96-97% on room air. Advised patient she may need supplemental oxygen with activity. Patient denies any complaints of chest pain. She denies any nausea, vomiting or abdominal pain. Reiterated to patient importance of maintaining a heart healthy low salt diet and weighing herself daily. Objective Vitals Vital Signs Date Time Temp Pulse Resp B/P (MAP) Pulse Ox O2 Delivery O2 Flow Rate FiO2 03/23/17 05:39 84 03/23/17 05:37 93 03/23/17 04:01 98.1 92 18 150/85 (106) 96 03/23/17 03:52 93 03/22/17 23:45 98.1 91 20 135/82 (99) 97 03/22/17 22:44 97 21 03/22/17 20:27 98.1 97 18 150/96 (114) 99 03/22/17 15:41 98.2 97 20 132/82 (99) 96 03/22/17 12:24 98.2 101 24 154/94 (114) 98 03/22/17 08:00 99 03/22/17 07:30 98.3 103 20 166/97 (120) 98 I/O 03/22/17 03/22/17 03/22/17 03/23/17 03/23/17 03/23/17 07:00 15:00 23:00 07:00 15:00 23:00 Output Total 1277 ml Balance -1277 ml Output Peritoneal Fluid 1277 ml # Voids 1 # Bowel Movements 2 Result Diagram: 03/22/17 0615 03/22/17 0615 Imaging Last Impressions Chest X-Ray 03/21/17 1622 Signed Impressions: Service Date/Time: Tuesday, March 21, 2017 16:47 - CONCLUSION: 1. Probable mild congestive heart failure. Lazarus Cortez MD Objective Remarks GENERAL: Well-nourished, well-developed female patient in NAD. Awake and alert. Sitting on side of bed. SKIN: Warm and dry. HEAD: Normocephalic. Atraumatic. EYES: EOMI. No scleral icterus. No injection or drainage. ENT: No nasal bleeding or discharge. Mucous membranes pink and moist. NECK: Trachea midline. CARDIOVASCULAR: Regular rate and rhythm. S1, S2 noted. No murmur appreciated. RESPIRATORY: Nonlabored. Fair air entry. Clear to auscultation GASTROINTESTINAL: Abdomen soft, non-tender, nondistended. Normoactive bowel sounds x4. MUSCULOSKELETAL: No obvious deformities. Extremities without clubbing, cyanosis or edema. NEUROLOGICAL: Awake and alert. Able to move all extremities spontaneously. Nonfocal. Normal speech. PSYCHIATRIC: Appropriate mood and affect; insight and judgment normal. Medications and IVs Current Medications Medications (Trade) Dose Ordered Sig/Emma Route Start Time Stop Time Status Last Admin (NS Flush) 2 ml UNSCH PRN IV FLUSH 03/21/17 19:30 (NS Flush) 2 ml BID IV FLUSH 03/21/17 21:00 03/22/17 22:18 (Zofran Inj) 4 mg Q6H PRN IVP 03/21/17 19:30 (Heparin Inj) 5,000 units Q12H SQ 03/22/17 09:00 03/22/17 21:57 (Tylenol) 650 mg Q6H PRN PO 03/21/17 19:30 ([place] 5-325 Mg) 1 tab Q4H PRN PO 03/21/17 19:30 (Morphine Inj) 2 mg Q3H PRN IV 03/21/17 19:45 (Di-Colace) 1 tab BID PO 03/21/17 21:00 03/22/17 21:57 (Milk Of Magnesia Liq) 30 ml Q12H PRN PO 03/21/17 19:30 (Senokot) 17.2 mg Q12H PRN PO 03/21/17 19:30 (Dulcolax Supp) 10 mg DAILY PRN RECTAL 03/21/17 19:30 (Lactulose Liq) 30 ml DAILY PRN PO 03/21/17 19:30 (Aspirin Chew) 81 mg HS CHEW 03/21/17 21:00 03/22/17 21:58 (Rocaltrol) 0.5 mcg DAILY PO 03/22/17 09:00 03/22/17 10:59 (KlonoPIN) 0.5 mg HS PO 03/21/17 21:00 03/22/17 21:57 (Cardizem Cd) 120 mg DAILY PO 03/22/17 09:00 03/22/17 10:35 (Neurontin) 100 mg BID PO 03/21/17 21:00 03/22/17 21:57 (Imdur) 60 mg DAILY PO 03/22/17 09:00 03/22/17 10:36 (Synthroid) 50 mcg DAILY@0600 PO 03/22/17 06:00 03/23/17 06:05 (Cozaar) 100 mg DAILY PO 03/22/17 09:00 03/22/17 10:59 (Zoloft) 100 mg DAILY PO 03/22/17 09:00 03/22/17 10:38 (Renvela) 800 mg TIDAC PO 03/22/17 08:00 03/23/17 06:05 (Ambien) 10 mg HS PRN PO 03/21/17 19:30 (Nephrocaps) 1 cap DAILY PO 03/22/17 09:00 03/22/17 10:58 (Protonix) 20 mg DAILY PO 03/22/17 09:00 03/22/17 10:37 (Duoneb Neb) 1 ampule Q4HR NEB PRN NEB 03/21/17 21:00 (Toprol Xl) 100 mg DAILY PO 03/23/17 09:00 (Heparin Inj) 1,000 units WITH DIALYSIS PRN XX 03/22/17 14:45 (NS Flush) 10 ml UNSCH PRN IV FLUSH 03/22/17 14:45 A/P Problem List: (1) CHF (congestive heart failure) ICD Code: I50.9 - Heart failure, unspecified Status: Acute (2) Chest pain ICD Code: R07.9 - Chest pain, unspecified Status: Acute (3) ESRD (end stage renal disease) on dialysis ICD Code: N18.6 - End stage renal failure on dialysis; Z99.2 - Dependence on renal dialysis Status: Chronic (4) HTN (hypertension) ICD Code: I10 - Essential (primary) hypertension Status: Acute Assessment and Plan 61-year-old female with a PMH of Depression, HTN, Hyperlipidemia, CHF (Echo 09/13 w/ EF 20-25%), CAD and ESRD on PD who presented to the ER w/ complaints of SOB and chest pain for approx 2 wks. Acute on chronic systolic CHF, improved - echo 09/13/16 EF 20-25%, s/p AICD - patient follows with Dr. Tavares as outpatient - CXR showing mild CHF. BNP 4141 - fluid and salt restricted diet - the patient importance of maintaining heart healthy salt/his fluid restricted diet. Daily weights. - strict I&Os - Continue to monitor respiratory status - Patient has oxygen at home but does not use - advised patient on using home oxygen with activity Chest pain CAD - No recurrence this morning - Suspect demand ischemia - Troponins stable, 0.053. EKG with no ischemic changes noted. - ASA daily Hypertension Tachycardia, resolved - Continue patient on diltiazem 120 mg daily, Imdur 60 mg daily, losartan 100 mg daily and Toprol XL 100mg daily - Continue to monitor BP and heart rate, adjust treatment accordingly ESRD on PD Compliance reported per patient - Nephrology consulted, appreciate assistance - Avoid nephrotoxic agents - continue on Renvela and Calcitriol Hyperphosphatemia - Deferred to nephrology Hypothyroidism - Continue patient on home dose of Synthroid - TSH level ok Anemia, normocytic, normochromic - Suspect secondary to chronic disease - Stable DVT prophylaxis - Heparin sq Discussed with patient, nursing staff and Dr. Pina Discharge patient to home Condition on discharge: Improved Heart healthy, low-salt, fluid restricted Diet as tolerated Ad Jessica activity Rx written: resume home medications Follow-up with primary care physician, wall steamer Dr. Tavares and tree scout Dr. Green Discharge Planning Discharge pending Nephrology clearance Problem Qualifiers (1) CHF (congestive heart failure): Qualified Codes: I50.9 - Heart failure, unspecified (2) HTN (hypertension): Qualified Codes: I10 - Essential (primary) hypertension Se[facility]ity [facility] Mar 23, 2017 07:24
[2017-03-23 08:12] VITALS: PULSE 90
[2017-03-23 08:50] VITALS: BP 152/95; PULSE 86; RESP 18; TEMP 97.6; O2SAT 96
[2017-03-23] MEDS ORDERED: METO1TAB9 PO (08:58)
[2017-03-23] MEDS ORDERED: METOPROLOL SUCCINATE 50 MG EXTENDED RELEASE TAB PO SCH (09:00)
--- NOTE | 2017-03-23 09:00 | HHI.DCPOC ---
Discharge Care Plan Diagnosis: (1) Anemia of renal disease (2) ESRD (end stage renal disease) on dialysis (3) Hyperphosphatemia (4) HTN (hypertension) (5) CHF (congestive heart failure) (6) Chest pain (7) Dyspnea (8) Cardiomyopathy, dilated, nonischemic Goals to Promote Your Health * To prevent worsening of your condition and complications * To maintain your health at the optimal level Directions to Meet Your Goals Recommend low salt, fluid restricted, renal failure diet Follow up with PCP, account services analyst Dr. Tavares and wad lubricator Dr. Green Take your medications as prescribed Follow your dietary instruction Follow activity as directed Keep your appointments as scheduled Take your immunizations and boosters as scheduled If your symptoms worsen call your PCP, if no PCP go to Urgent Care Center or Emergency Room Smoking is Dangerous to Your Health. Avoid second hand smoke Call the 24-hour hour crisis hotline for domestic abuse at [facility] Mar 23, 2017 09:00
[2017-03-23 09:27] LABS: BICARBONATE 29.4 MEQ/L (21.0-32.0); POTASSIUM 4.4 MEQ/L (3.5-5.1)
[2017-03-23] MEDS: SERTRALINE HCL 100 MG TAB PO SCH (09:30)
[2017-03-23] MEDS: VITAMIN B CMPLX/VITC/FOLIC AC CAP PO SCH (09:30)
[2017-03-23] MEDS: DOCUSATE SODIUM 50 MG/SENNA 8.6 MG TAB PO SCH (09:30)
[2017-03-23] MEDS: HEPARIN SODIUM - SQ 10,000 UNITS/ML VIAL SQ SCH (09:30)
[2017-03-23] MEDS: GABAPENTIN 100 MG CAP PO SCH (09:31)
[2017-03-23] MEDS: PANTOPRAZOLE SOD 20 MG DELAYED RELEASE TAB PO SCH (09:31)
[2017-03-23] MEDS: CALCITRIOL 0.25 MCG CAP PO SCH (09:31)
[2017-03-23] MEDS: ISOSORBIDE MONONITRATE 60 MG TAB PO SCH (09:31)
[2017-03-23] MEDS: LOSARTAN 50 MG TAB PO SCH (09:31)
[2017-03-23] MEDS: DILTIAZEM-CD 120 MG CAP ER PO SCH (09:31)
[2017-03-23] MEDS: SODIUM CHLORIDE 0.9% FLUSH 10 ML FLUSH IV FLUSH SCH (09:32)
--- NOTE | 2017-03-23 10:01 | HHI.NPPN ---
Subjective History of Present Illness 61-year-old female with a history of multiple medical problems including severe nonischemic cardiomyopathy with an ejection fraction said to be less than 20%, intrinsic pulmonary disease not present with a history of increasing shortness of breath or lower extremity edema. Patient admits that she has been somewhat noncompliant with his sodium chloride restriction. States that she has been being compliant with her dialysis however. No chest pain. Interval History Patient indicated that she was feeling better today. Objective Data Data 03/23/17 03/24/17 19:00 07:00 Output Total 1478 ml Balance -1478 ml Output Peritoneal Fluid 1478 ml Vital Signs Date Time Temp Pulse Resp B/P (MAP) Pulse Ox O2 Delivery O2 Flow Rate FiO2 03/23/17 08:50 97.6 86 18 152/95 (114) 96 03/23/17 05:39 84 03/23/17 05:37 93 03/23/17 04:01 98.1 92 18 150/85 (106) 96 03/23/17 03:52 93 03/22/17 23:45 98.1 91 20 135/82 (99) 97 03/22/17 22:44 97 21 03/22/17 20:27 98.1 97 18 150/96 (114) 99 03/22/17 15:41 98.2 97 20 132/82 (99) 96 03/22/17 12:24 98.2 101 24 154/94 (114) 98 -: 03/22/17 0615 03/23/17 0844 Physical Exam General Appearance: Well Nourished, No Acute Distress, Comfortable Eyes Eye Exam: Sclera White Pulmonary Resp Exam: Clear Bilaterally, Breath Sounds Equal, No Distress Cardiology CV Exam: Regular, Normal Sinus Rhythm Gastrointestinal/Abdomen GI Exam: Soft, Non-Tender Integumentary Skin Exam: Warm, Normal Turgor Extremeties Extremities Exam: Trace Edema Assessment/Plan Discussed Condition With: Patient Problem List: (1) ESRD (end stage renal disease) on dialysis ICD Codes: N18.6 - End stage renal failure on dialysis; Z99.2 - Dependence on renal dialysis Status: Chronic Plan: Patient's volume status is much improved. Patient appears to be stable for discharge from a renal point of view. I will follow up in the outpatient peritoneal dialysis clinic tomorrow as discussed with her. Patient was counseled regarding need for compliance with dietary sodium chloride especially in view of her severe cardiac disease as indicated above with an ejection fraction said to be below 20% by echocardiogram last September. Avoid gadolinium. Medication should be adjusted for the patient's end-stage renal disease when indicated. (2) Cardiomyopathy, dilated, nonischemic ICD Codes: I42.0 - Dilated cardiomyopathy Status: Chronic Plan: Long-term prognosis of patient appears to be poor. (3) Anemia of renal disease ICD Codes: D63.1 - Anemia in chronic kidney disease Status: Chronic (4) Hyperphosphatemia ICD Codes: E83.39 - Other disorders of phosphorus metabolism Status: Chronic Plan: Continue phosphate binders, Renvela as ordered. (5) HTN (hypertension) ICD Codes: I10 - Essential (primary) hypertension Status: Acute (6) COPD (chronic obstructive pulmonary disease) ICD Codes: J44.9 - Chronic obstructive pulmonary disease, unspecified Status: Chronic Problem Qualifiers (1) HTN (hypertension): Qualified Codes: I10 - Essential (primary) hypertension Chandni Green MD Mar 23, 2017 10:01
== END 2017-03-23 12:21 | disposition home or self-care (01) ==
LOC: NEPC 15:48 → NEDA 19:29 → NEPFCDU 21:29
PROVIDERS: ADMIT Family Medicine; ATTEND Family Medicine
DX: I50.23 Acute on chronic systolic (congestive) heart failure (principal); I13.2 Hypertensive heart and chronic kidney disease with heart failure and with stage 5 chronic kidney disease, or end stage renal disease; N18.6 End stage renal disease; E83.39 Other disorders of phosphorus metabolism; D63.1 Anemia in chronic kidney disease; I42.0 Dilated cardiomyopathy; I25.10 Atherosclerotic heart disease of native coronary artery without angina pectoris; J44.9 Chronic obstructive pulmonary disease, unspecified; E03.9 Hypothyroidism, unspecified; E78.5 Hyperlipidemia, unspecified; K21.9 Gastro-esophageal reflux disease without esophagitis; G47.30 Sleep apnea, unspecified; M79.7 Fibromyalgia; F40.240 Claustrophobia; Z79.82 Long term (current) use of aspirin; Z79.899 Other long term (current) drug therapy; Z87.442 Personal history of urinary calculi; Z87.891 Personal history of nicotine dependence; Z99.2 Dependence on renal dialysis; Z99.81 Dependence on supplemental oxygen; Z95.810 Presence of automatic (implantable) cardiac defibrillator
CPT/HCPCS: 71010; 80048; 80053; 82550; 82552; 83735; 83880; 84100; 84443; 84484; 85025; 85610; 85730; 87804; 93005; 94664; 96372; 96374; 96376; 97162; 99285; G0257; G0378; G8987; G8988; J1644; J1940; 90945

== ENCOUNTER 2017-04-17 18:24 | Inpatient (IN) | payer MEDICARE, MEDICAID ==
[~2017-04-17] VITALS: Ht 160 cm; Wt 82.0 kg
[~2017-04-17 18:24] MED LIST changes: -CLIN150C14 PO; -DOXY100C PO; +METO1TAB9 PO
[2017-04-17 18:29] VITALS: BP 162/106; PULSE 112; RESP 20; TEMP 100.4; O2SAT 94
--- NOTE | 2017-04-17 19:50 | RADRPT ---
EXAM DATE/TIME: 04/17/2017 18:56 [facility] COMPARISON: CHEST PA & LAT, February 06, 2017, 20:02. INDICATIONS : Patient complains of shortness of breath and wheezing. MEDICAL HISTORY : Hypertension. Chronic obstructive pulmonary disease. Cardiovascular disease. SURGICAL HISTORY : Pacemaker. Cardiac stent. ENCOUNTER: Initial ACUITY: 3 days PAIN SCORE: 0/10 LOCATION: chest FINDINGS: PA and lateral views of the chest. AICD remains in place. Mild cardiac silhouette enlargement. Mild p ulmonary vascular congestion. Small bilateral pleural effusions unchanged. Mild patchy left lung base opacity unchanged. CONCLUSION: No significant interval change with persistent mild pulmonary vascular congestion, small bilateral pl eural effusions and mild patchy left lung base opacity. Cesar Lopez MD on April 17, 2017 at 19:47 Board Certified Radiologist. This report was verified electronically.
[2017-04-17 23:04] LABS: AUTOMATED NEUTROPHIL # 4.3 TH/MM3 (1.8-7.7); BASOPHIL # 0.1 TH/MM3 (0-0.2); BASOPHIL % 1.3 % (0.0-2.0); EOSINOPHIL # 0.4 TH/MM3 (0-0.4); EOSINOPHIL % 6.8 % (0.0-4.0); HEMATOCRIT 34.6 % (35.0-46.0); HEMOGLOBIN 11.6 GM/DL (11.6-15.3); LYMPH % 12.1 % (9.0-44.0); LYMPHOCYTE # 0.8 TH/MM3 (1.0-4.8); MEAN CELL VOLUME 90.9 FL (80.0-100.0); MEAN CORPUSCULAR HEMOGLOBIN 30.4 PG (27.0-34.0); MEAN CORPUSCULAR HGB CONC 33.5 % (32.0-36.0); MEAN PLATELET VOLUME 7.8 FL (7.0-11.0); MONOCYTE # 0.7 TH/MM3 (0-0.9); NEUT % 68.8 % (16.0-70.0); PLATELET COUNT 170 TH/MM3 (150-450); RED BLOOD COUNT 3.81 MIL/MM3 (4.00-5.30); RED CELL DISTRIBUTION WIDTH 16.2 % (11.6-17.2); WHITE BLOOD COUNT 6.3 TH/MM3 (4.0-11.0)
[2017-04-17 23:07] VITALS: BP 164/96; PULSE 107; RESP 18; TEMP 98.3; O2SAT 96
[2017-04-17 23:31] LABS: INTERNATIONAL NORMALIZED RATIO 1.1 RATIO; PROTHROMBIN TIME - PATIENT 11.2 SEC (9.8-11.6)
[2017-04-17 23:32] LABS: BLOOD UREA NITROGEN 40 MG/DL (7-18); CALCIUM 9.2 MG/DL (8.5-10.1); CHLORIDE 96 MEQ/L (98-107); GLOMERULAR FILTRATION RATE 4 ML/MIN (>89); GLUCOSE,RANDOM 88 MG/DL (74-106); MAGNESIUM 1.8 MG/DL (1.5-2.5); SODIUM (NA) 134 MEQ/L (136-145)
[2017-04-17 23:34] LABS: TROPONIN I 0.06 NG/ML (0.02-0.05)
--- NOTE | 2017-04-17 23:44 | PD ---
HPI Chief Complaint: Respiratory Distress Time Seen by Provider: 23:05 Travel History International Travel<30 days: No Contact w/Intl Traveler<30days: No Traveled to known affect area: No History of Present Illness HPI 61 year-old female presents to the emergency department for complaint of shortness of breath and cough productive of yellow sputum 3 days. Patient states she was not aware she'll fever until she arrived to the emergency department was told of her temperature elevation. Patient has history of recurrent CHF ejection fraction of 15% pacemaker defibrillator and end-stage renal disease and performs peritoneal dialysis nightly. Patient does not report orthopnea but has noted lower extremity and pedal edema. No hemoptysis, no pink sputum. Patient denies any episodes of being shocked by her defibrillator. Patient states defibrillator was recently investigated during last hospitalization. Dr. Green is her bisque brusher. Patient denies chest pain. PFSH Past Medical History Narrative Medical Dyslipidemia end-stage renal disease peritoneal dialysis CHF EF 15% pacemaker defibrillator cardiac catheterization with stent times one Hx Anticoagulant Therapy: Yes (ASA) Asthma: No Blood Disorders: No Anxiety: No Depression: Yes Heart Rhythm Problems: Yes (defib) Cardiovascular Problems: Yes (HTN, CHF) High Cholesterol: Yes Chemotherapy: No Chest Pain: No Congestive Heart Failure: No COPD: No Diabetes: No Dialysis: Yes (PERITONEAL DIALYSIS) Diminished Hearing: No Endocrine: Yes Gastrointestinal Disorders: Yes GERD: Yes Hepatitis: No Hiatal Hernia: No Hypertension: Yes Immune Disorder: Yes (FIBROMYALGIA) Implanted Vascular Access Dvce: Yes Kidney Stones: Yes (POLYCYSTIC KIDNEY DISEASE) Musculoskeletal: Yes (CHRONIC PAIN, FIBROMYALGIA) Neurologic: Yes Psychiatric: Yes (CLAUSTROPHOBIA) Reproductive: No Respiratory: Yes Immunizations Current: Yes Radiation Therapy: No Renal Failure: Yes (on dialysis) Sleep Apnea: Yes (CPAP) Thyroid Disease: Yes Menopausal: Yes : 2 Para: 2 Past Surgical History Abdominal Surgery: Yes (PERITONEAL DIALYSIS CATH) AICD: Yes (BIOTRONIK) Body Medical Devices: AICD, STENT, DIALYSIS CATH Cardiac Surgery: Yes (AICD, 1 CARDIAC STENT) Cholecystectomy: Yes Joint Replacement: No Oral Surgery: Yes (SINUS SURGERY) Pacemaker: Yes Tonsillectomy: Yes Other Surgery: Yes (CHIN RECONSTRUCTION) Social History Alcohol Use: No Tobacco Use: No Substance Use: No Allergies-Medications (Allergen,Severity, Reaction): Coded Allergies: No Known Allergies (Verified Adverse Reaction, Unknown, 03/21/17) Reported Meds & Prescriptions Reported Meds & Active Scripts Active Metoprolol Succinate ER 24 HR (Metoprolol Succinate) 50 Mg Tab 100 Mg PO DAILY Reported Ambien (Zolpidem Tartrate) 10 Mg Tab 10 Mg PO HS PRN Renvela (Sevelamer Carbonate) 800 Mg Tab 800 Mg PO TID Aspirin 81 Mg Chew 81 Mg CHEW HS Sertraline (Sertraline HCl) 100 Mg Tab 100 Mg PO DAILY Zofran Odt (Ondansetron Odt) 4 Mg Tab 4 Mg SL Q8HR PRN Omeprazole 20 Mg Cap 20 Mg PO DAILY Losartan (Losartan Potassium) 100 Mg Tab 100 Mg PO DAILY Levothyroxine (Levothyroxine Sodium) 50 Mcg Tab 50 Mcg PO DAILY Isosorbide Mononitrate ER (Isosorbide Mononitrate) 60 Mg Tab 60 Mg PO DAILY Gabapentin 100 Mg Cap 100 Mg PO BID Clonazepam 0.5 Mg Tab 0.5 Mg PO HS Calcitriol 0.5 Mcg Cap 0.5 Mcg PO DAILY Review of Systems Except as stated in HPI: all other systems reviewed are Neg Physical Exam Narrative GENERAL: Well-developed pleasant female in no acute distress no respiratory distress SKIN: Warm and dry. HEAD: Normocephalic. EYES: No scleral icterus. No injection or drainage. NECK: Supple, trachea midline. No JVD or lymphadenopathy. CARDIOVASCULAR: Increased Regular rate and rhythm without murmurs, gallops, or rubs. RESPIRATORY: Breath sounds equal bilaterally. Bibasilar crackles left greater than right. No accessory muscle use. GASTROINTESTINAL: Abdomen soft, non-tender, nondistended. MUSCULOSKELETAL: No cyanosis, mild pedal edema bilaterally. BACK: Nontender without obvious deformity. No CVA tenderness. Data Data Last Documented VS Vital Signs Date Time Temp Pulse Resp B/P (MAP) Pulse Ox O2 Delivery O2 Flow Rate FiO2 04/17/17 23:07 98.3 107 18 164/96 (118) 96 Room Air Orders Orders Complete Blood Count With Diff (04/17/17 18:37) Basic Metabolic Panel (Bmp) (04/17/17 18:37) B-Type Natriuretic Peptide (04/17/17 18:37) Act Partial Throm Time (Ptt) (04/17/17 18:37) Prothrombin Time / Inr (Pt) (04/17/17 18:37) Magnesium (Mg) (04/17/17 18:37) Ckmb (Isoenzyme) Profile (04/17/17 18:37) Troponin I (04/17/17 18:37) Influenzae A/B Antigen (04/17/17 18:37) Chest, Pa & Lat (04/17/17 18:37) Lactic Acid Sepsis Protocol (04/17/17 18:37) Furosemide Inj (Lasix Inj) (04/17/17 23:45) Albuterol-Ipratropium Neb (Duoneb Neb) (04/17/17 23:45) CKMB (04/17/17 22:36) CKMB% (04/17/17 22:36) Ceftriaxone Inj (Rocephin Inj) (04/18/17 01:00) Azithromycin Inj (Zithromax Inj) (04/18/17 01:00) Admit Order (Ed Use Only) (04/18/17 ) Client Onboarding Analyst / Telemetry [id number].[id number] (04/18/17 01:14) Activity Oob With Assistance (04/18/17 01:14) Notify Dr: Other (04/18/17 01:14) Labs Laboratory Tests Test 04/17/17 22:36 White Blood Count 6.3 TH/MM3 Red Blood Count 3.81 MIL/MM3 Hemoglobin 11.6 GM/DL Hematocrit 34.6 % Mean Corpuscular Volume 90.9 FL Mean Corpuscular Hemoglobin 30.4 PG Mean Corpuscular Hemoglobin Concent 33.5 % Red Cell Distribution Width 16.2 % Platelet Count 170 TH/MM3 Mean Platelet Volume 7.8 FL Neutrophils (%) (Auto) 68.8 % Lymphocytes (%) (Auto) 12.1 % Monocytes (%) (Auto) 11.0 % Eosinophils (%) (Auto) 6.8 % Basophils (%) (Auto) 1.3 % Neutrophils # (Auto) 4.3 TH/MM3 Lymphocytes # (Auto) 0.8 TH/MM3 Monocytes # (Auto) 0.7 TH/MM3 Eosinophils # (Auto) 0.4 TH/MM3 Basophils # (Auto) 0.1 TH/MM3 CBC Comment DIFF FINAL Differential Comment Prothrombin Time 11.2 SEC Prothromb Time International Ratio 1.1 RATIO Activated Partial Thromboplast Time 26.0 SEC Blood Urea Nitrogen 40 MG/DL Creatinine 11.00 MG/DL Random Glucose 88 MG/DL Calcium Level 9.2 MG/DL Magnesium Level 1.8 MG/DL Sodium Level 134 MEQ/L Potassium Level 4.5 MEQ/L Chloride Level 96 MEQ/L Carbon Dioxide Level 30.0 MEQ/L Anion Gap 8 MEQ/L Estimat Glomerular Filtration Rate 4 ML/MIN Lactic Acid Level 1.9 mmol/L Total Creatine Kinase 155 U/L Creatine Kinase MB 2.5 NG/ML Troponin I 0.06 NG/ML B-Type Natriuretic Peptide GREATER THAN 5000 PG/ML MDM Medical Decision Making Medical Screen Exam Complete: Yes Emergency Medical Condition: Yes Medical Record Reviewed: Yes Interpretation(s) Troponin I: 0.06 mildly elevated Last Impressions Chest X-Ray 04/17/177 Signed Impressions: Service Date/Time: Monday, April 17, 2017 18:56 - CONCLUSION: No significant interval change with persistent mild pulmonary vascular congestion, small bilateral pleural effusions and mild patchy left lung base opacity. Cesar Lopez MD CBC & BMP Diagram 04/17/17 22:36 Calcium Level 9.2, Magnesium Level 1.8 Vital Signs Date Time Temp Pulse Resp B/P (MAP) Pulse Ox O2 Delivery O2 Flow Rate FiO2 04/17/17 23:07 98.3 107 18 164/96 (118) 96 Room Air 04/17/17 18:29 100.4 112 20 162/106 (124) 94 Differential Diagnosis Pneumonia, CHF, ACS, sepsis Narrative Course Patient placed on monitor with continuous pulse oximetry revealed specimens collected and sent for resulting Chest x-ray performed and is consistent with lower lobe infiltrate; concern for CHF Total white cell count is normal however patient does have fever as well as increased heart rate is regular rate and respiratory rate is not elevated however patient does meet clinical criteria for sepsis Patient will be admitted for ongoing antibiotic therapy; patient is an end- stage renal disease patient requiring hemodialysis Patient's case discussed with medicine service for admission Sepsis Criteria SIRS Criteria (2 or more): Heart rate over 90 Sepsis Criteria (SIRS+source): Infect source susp/known (lung) Physician Communication Physician Communication discussed with Dr Forman-- admit Diagnosis Primary Impression: Pulmonary infiltrate on chest x-ray Additional Impressions: CHF (congestive heart failure) ESRD (end stage renal disease) on dialysis Peritoneal dialysis catheter in place Admitting Information Admitting Physician Requests: Admit Sade Cummins MD Apr 17, 2017 23:44
[2017-04-17] MEDS ORDERED: FUROSEMIDE 40 MG/4 ML VIAL IV PUSH ONE (23:45)
[2017-04-17] MEDS ORDERED: RESP: ALBUTEROL 2.5 MG/IPRATROPIUM 0.5 MG NEB (SCH) NEB ONE (23:45)
[2017-04-18] VITALS (17 sets, daily range): BP systolic 131–163; BP diastolic 76–100; PULSE 90–120; RESP 18–20; TEMP 98–99.2; O2SAT 95–99
[2017-04-18] MEDS ORDERED: AZITHROMYCIN INJ 500 MG in SODIUM CHLOR 0.9% 250 ML INJ 250 ML IV ONE (01:00)
[2017-04-18] MEDS ORDERED: cefTRIAXone INJ 1,000 MG in SODIUM CHLORIDE 0.9% INJ 100 ML IV ONE (01:00)
[2017-04-18] MEDS ORDERED: MAGNESIUM HYDROXIDE SUSP 30 ML CUP PO PRN (01:30)
[2017-04-18] MEDS ORDERED: LACTULOSE SYRUP 20 GM/30 ML CUP PO PRN (01:30)
[2017-04-18] MEDS ORDERED: MORPHINE SULFATE 2 MG/ML INJ IV PUSH PRN (01:30)
[2017-04-18] MEDS ORDERED: BISACODYL 10 MG SUPP RECTAL PRN (01:30)
[2017-04-18] MEDS ORDERED: SODIUM CHLORIDE 0.9% FLUSH 10 ML FLUSH IV FLUSH PRN ×2 (01:30→14:15)
[2017-04-18] MEDS ORDERED: ACETAMINOPHEN 325 MG TAB PO PRN (01:30)
[2017-04-18] MEDS ORDERED: ACETAMINOPHEN/HYDROcodone 325 MG/5 MG TAB PO PRN (01:30)
[2017-04-18] MEDS ORDERED: RESP: ALBUTEROL 2.5 MG/IPRATROPIUM 0.5 MG NEB (PRN) NEB (01:30)
[2017-04-18] MEDS ORDERED: ONDANSETRON HCL 4 MG/2 ML VIAL IVP PRN (01:30)
[2017-04-18] MEDS ORDERED: SENNOSIDES 8.6 MG TAB PO PRN (01:30)
--- NOTE | 2017-04-18 03:15 | HHI.HP ---
HPI Service [facility] Primary Care Physician Snow Capone M.D. Admission Diagnosis LLL infiltrate; chf; ESRD-peritoneal dialysis Diagnoses: (1) Sepsis Diagnosis: Principal (2) PNA (pneumonia) Diagnosis: Principal (3) Elevated troponin Diagnosis: Principal (4) CHF (congestive heart failure) Diagnosis: Principal (5) ESRD on peritoneal dialysis Diagnosis: Principal Travel History International Travel<30 Days: No Contact w/Intl Traveler <30 Da: No Traveled to Known Affected Are: No History of Present Illness This is a 61-year-old female with a PMH of HTN, Hyperlipidemia, CHF (Echo w/ EF 20-25%), AICD, CAD, Fibromyalgia, PCKD, Chronic Pain and ESRD on PD who presented to the ER w/ complaints of SOB and cough x2-3 days. Notes productive cough w/ yellow-colored sputum. Denies fever, chills, chest pain or sick contacts. Reports SOB, intermittent, worse w/ exertion, moderate severity. On arrival, BP 162/106, HR 112, O2 sat 94% on RA, Temp 100.4. CBC unremarkable. Creatinine 11, producing 10.44 on 03/23/17. Lactic Acid normal. Troponin 0.06. BNP >5000. INR 1.1. CXR with persistent pulmonary vascular congestion, small bilateral pleural effusions and patchy left lung base opacity. S/p Blood Cultures, Rocephin/Zithro IV in ER. Review of Systems Except as stated in HPI: all other systems reviewed are Neg ROS: 14 point review of systems otherwise negative. Past Family Social History Past Medical History PMH: HTN, Hyperlipidemia, CHF (Echo 11/05/15 w/ EF 20-25%), AICD, CAD, Fibromyalgia, PCKD, Chronic Pain and ESRD on PD Past Surgical History PAST SURGICAL HISTORY: PD Catheter, Biotronik AICD, Cholecystectomy, Sinus Surgery, Tonsillectomy, Chin Reconstruction Allergies: Coded Allergies: No Known Allergies (Verified Adverse Reaction, Unknown, 03/21/17) Family History PAST FAMILY HISTORY: Reviewed. No h/o DM or CAD Social History PAST SOCIAL HISTORY: Negative for alcohol, tobacco or drugs. Physical Exam Vital Signs Vital Signs Date Time Temp Pulse Resp B/P (MAP) Pulse Ox O2 Delivery O2 Flow Rate FiO2 04/18/17 02:29 04/18/17 01:59 117 18 163/92 (115) 96 Room Air 04/18/17 01:48 96 04/17/17 23:07 98.3 107 18 164/96 (118) 96 Room Air 04/17/17 18:29 100.4 112 20 162/106 (124) 94 Physical Exam PE: GENERAL: Pleasant middle-aged white female in no acute distress. Intermittent hacking cough. HEENT: PERRLA, EOMI. No scleral icterus or conjunctival pallor. No lid lag or facial droop. CARDIOVASCULAR: Regular rate and rhythm. No obvious murmurs to auscultation. No chest tenderness to palpation. RESPIRATORY: No obvious rhonchi or wheezing. Crackles at bases bilaterally. Breath sounds equal bilaterally. GASTROINTESTINAL: Abdomen soft, non-tender, nondistended. BS normal. MUSCULOSKELETAL: Extremities without clubbing, cyanosis, or edema. No obvious deformities. NEUROLOGICAL: Awake, alert and oriented x4. No focal neurologic deficits. Moving both upper and lower extremities spontaneously. Laboratory Laboratory Tests Test 04/17/17 22:36 White Blood Count 6.3 Red Blood Count 3.81 Hemoglobin 11.6 Hematocrit 34.6 Mean Corpuscular Volume 90.9 Mean Corpuscular Hemoglobin 30.4 Mean Corpuscular Hemoglobin Concent 33.5 Red Cell Distribution Width 16.2 Platelet Count 170 Mean Platelet Volume 7.8 Neutrophils (%) (Auto) 68.8 Lymphocytes (%) (Auto) 12.1 Monocytes (%) (Auto) 11.0 Eosinophils (%) (Auto) 6.8 Basophils (%) (Auto) 1.3 Neutrophils # (Auto) 4.3 Lymphocytes # (Auto) 0.8 Monocytes # (Auto) 0.7 Eosinophils # (Auto) 0.4 Basophils # (Auto) 0.1 CBC Comment DIFF FINAL Differential Comment Prothrombin Time 11.2 Prothromb Time International Ratio 1.1 Activated Partial Thromboplast Time 26.0 Blood Urea Nitrogen 40 Creatinine 11.00 Random Glucose 88 Calcium Level 9.2 Magnesium Level 1.8 Sodium Level 134 Potassium Level 4.5 Chloride Level 96 Carbon Dioxide Level 30.0 Anion Gap 8 Estimat Glomerular Filtration Rate 4 Lactic Acid Level 1.9 Total Creatine Kinase 155 Creatine Kinase MB 2.5 Troponin I 0.06 B-Type Natriuretic Peptide GREATER THAN 5000 Date/Time Source Procedure Growth Status 04/18/17 01:40 Blood Peripheral Aerobic Blood Culture Pending Received 04/18/17 01:40 Blood Peripheral Anaerobic Blood Culture Pending Received 04/17/17 22:36 Nasal Aspirate Influenza Types A,B Antigen (ANSHU) - Final NEGATIVE FOR FLU A AND B ANTIGEN.... Complete Result Diagram: 04/17/17223504/17/172235 Caprini VTE Risk Assessment Caprini VTE Risk Assessment: No/Low Risk (score <= 1) Caprini Risk Assessment Model Point Value = 1 Point Value = 2 Point Value = 3 Point Value = 5 Age 41-60 Minor surgery BMI > 25 kg/m2 Swollen legs Varicose veins or History of unexplained or recurrent spontaneous Oral contraceptives or hormone replacement Sepsis (< 1 month) Serious lung disease, including pneumonia (< 1 month) Abnormal pulmonary function Acute myocardial infarction Congestive heart failure (< 1 month) History of inflammatory bowel disease Medical patient at bed rest Age 61-74 Arthroscopic surgery Major open surgery (> 45 min) Laparoscopic surgery (> 45 min) Malignancy Confined to bed (> 72 hours) Immobilizing plaster cast Central venous access Age >= 75 History of VTE Family history of VTE Factor V Leiden Prothrombin [id number] Lupus anticoagulant Anticardiolipin antibodies Elevated serum homocysteine Heparin-induced thrombocytopenia Other congenital or acquired thrombophilia Stroke (< 1 month) Elective arthroplasty Hip, pelvis, or leg fracture Acute spinal cord injury (< 1 month) Prophylaxis Regimen Total Risk Factor Score Risk Level Prophylaxis Regimen 0-1 Low Early ambulation 2 Moderate Order ONE of the following: *Sequential Compression Device (SCD) *Heparin 5000 units SQ BID 3-4 Higher Order ONE of the following medications: *Heparin 5000 units SQ TID *Enoxaparin/Lovenox 40 mg SQ daily (WT < 150 kg, CrCl > 30 mL/min) *Enoxaparin/Lovenox 30 mg SQ daily (WT < 150 kg, CrCl > 10-29 mL/min) *Enoxaparin/Lovenox 30 mg SQ BID (WT < 150 kg, CrCl > 30 mL/min) AND/OR *Sequential Compression Device (SCD) 5 or more Highest Order ONE of the following medications: *Heparin 5000 units SQ TID (Preferred with Epidurals) *Enoxaparin/Lovenox 40 mg SQ daily (WT < 150 kg, CrCl > 30 mL/min) *Enoxaparin/Lovenox 30 mg SQ daily (WT < 150 kg, CrCl > 10-29 mL/min) *Enoxaparin/Lovenox 30 mg SQ BID (WT < 150 kg, CrCl > 30 mL/min) AND *Sequential Compression Device (SCD) Assessment and Plan Problem List: (1) Sepsis ICD Code: A41.9 - Sepsis, unspecified organism (2) PNA (pneumonia) ICD Code: J18.9 - Pneumonia, unspecified organism (3) Elevated troponin ICD Code: R74.8 - Abnormal levels of other serum enzymes (4) CHF (congestive heart failure) ICD Code: I50.9 - Heart failure, unspecified (5) ESRD on peritoneal dialysis ICD Code: N18.6 - End stage renal disease; Z99.2 - Dependence on renal dialysis Assessment and Plan A/P: 1. Sepsis: Temp 100.4, HR 112, Source-PNA. S/p Blood Cultures, IV Rocephin/ Zithro. Follow up blood cultures, check Sputum cultures, continue w/ IV Abx, caution w/ IVF in light of Acute CHF 2. PNA: CXR w/ LLL PNA, images reviewed by me. Continue w/ IV Rocephin/ Zithro as above, DuoNeb prn, Mucinex. Check Sputum Cultures. 3. Elevated Trop: Trop 0.06, no c/o chest pain, possibly secondary to renal failure. Admit for further cardiac work up, place on telemetry, check w/ serial cardiac enzymes for trend, NTG/Morphine as needed. 4. CHF: Acute on Chronic. Systolic. Echo 11/05/15 w/ EF 20-25%, BNP >5000, CXR w/ bilateral pleural effusions, images reviewed by me, caution w/ IVF for Sepsis. Monitor I/O. 5. ESRD on PD: Follows w/ Dr. Green as outpatient, will consult for arrangements to continue w/ PD. 6. DVT Prophylaxis: SCD/Teds. 7. Social work for d/c planning as needed. 8. Labs/imaging/records reviewed by me, case discussed at length w/ ER physician. Physician Certification 2 Midnight Certification Type: Admission for Inpatient Services Order for Inpatient Services The services are ordered in accordance with Medicare regulations or non- Medicare payer requirements, as applicable. In the case of services not specified as inpatient-only, they are appropriately provided as inpatient services in accordance with the 2-midnight benchmark. Estimated LOS (days): 2 days is the estimated time the patient will need to remain in the hospital, assuming treatment plan goals are met and no additional complications. Post-Hospital Plan: Not yet determined Felicia Forman MD Apr 18, 2017 03:15
[2017-04-18] MEDS: LEVOTHYROXINE SODIUM 50 MCG TAB PO SCH (05:49)
[2017-04-18] MEDS: METOPROLOL SUCCINATE 50 MG EXTENDED RELEASE TAB PO SCH (08:24)
[2017-04-18] MEDS: VITAMIN B CMPLX/VITC/FOLIC AC CAP PO SCH (08:24)
[2017-04-18] MEDS: guaiFENesin E.R. 600 MG TAB PO SCH ×2 (08:24→21:05)
[2017-04-18] MEDS: CALCITRIOL 0.25 MCG CAP PO SCH (08:27)
[2017-04-18] MEDS: ISOSORBIDE MONONITRATE 60 MG TAB PO SCH (08:28)
[2017-04-18] MEDS: LOSARTAN 50 MG TAB PO SCH (08:28)
[2017-04-18] MEDS: GABAPENTIN 100 MG CAP PO SCH ×2 (08:28→21:05)
[2017-04-18] MEDS: PANTOPRAZOLE SOD 20 MG DELAYED RELEASE TAB PO SCH (08:28)
[2017-04-18] MEDS: SERTRALINE HCL 100 MG TAB PO SCH (08:29)
[2017-04-18] MEDS: SODIUM CHLORIDE 0.9% FLUSH 10 ML FLUSH IV FLUSH SCH ×2 (08:29→21:04)
[2017-04-18] MEDS: DOCUSATE SODIUM 50 MG/SENNA 8.6 MG TAB PO SCH ×2 (08:29→21:05)
[2017-04-18] MEDS: DILTIAZEM-CD 120 MG CAP ER PO SCH (08:29)
[2017-04-18] MEDS: SEVELAMER CARBONATE 800 MG TAB PO SCH ×3 (08:36→16:14)
--- NOTE | 2017-04-18 09:25 | HHI.PR ---
Subjective Remarks Patient admitted today 04/18/17 Follow up note for today. This is a pleasant 61 y/o female with Hypertension, Hyperlipidemia, CHF, Echocardiogram from November 05 2015 with EF 20-25%, AICD, CAD, Fibromyalgia, PCKD, Chronic Pain and ESRD on PD who presented to the ER w/ complaints of SOB and cough x2-3 days. Notes productive cough w/ yellow-colored sputum. Denies fever, chills, chest pain or sick contacts. Reports SOB, intermittent, worse w/ exertion, moderate severity. Creatinine 11, producing 10.44 on . Lactic Acid normal. Troponin 0.06. BNP >5000. INR 1.1. CXR with persistent pulmonary vascular congestion, small bilateral pleural effusions and patchy left lung base opacity. S/p Blood Cultures, Rocephin/Zithro IV in ER. Objective Vital Signs Date Time Temp Pulse Resp B/P (MAP) Pulse Ox O2 Delivery O2 Flow Rate FiO2 04/18/17 07:21 110 04/18/17 06:00 114 04/18/17 05:00 118 04/18/17 04:00 120 04/18/17 03:13 117 04/18/17 03:13 99.2 110 18 152/96 (114) 96 04/18/17 02:29 04/18/17 01:59 117 18 163/92 (115) 96 Room Air 04/18/17 01:48 96 04/17/17 23:07 98.3 107 18 164/96 (118) 96 Room Air 04/17/17 18:29 100.4 112 20 162/106 (124) 94 I/O 04/17/17 04/17/17 04/17/17 04/18/17 04/18/17 04/18/17 07:00 15:00 23:00 07:00 15:00 23:00 Intake Total 600 ml Output Total 0 ml Balance 600 ml Intake Oral 250 ml IV Total 350 ml Output Urine Total 0 ml # Bowel Movements 0 Result Diagram: 04/17/17223504/17/172235 Imaging Last Impressions Chest X-Ray 04/17/17 1837 Signed Impressions: Service Date/Time: Monday, April 17, 2017 18:56 - CONCLUSION: No significant interval change with persistent mild pulmonary vascular congestion, small bilateral pleural effusions and mild patchy left lung base opacity. Cesar Lopez MD Procedures None Other Results Laboratory Tests Test 04/17/17 22:36 04/18/17 08:24 White Blood Count 6.3 TH/MM3 Red Blood Count 3.81 MIL/MM3 Hemoglobin 11.6 GM/DL Hematocrit 34.6 % Mean Corpuscular Volume 90.9 FL Mean Corpuscular Hemoglobin 30.4 PG Mean Corpuscular Hemoglobin Concent 33.5 % Red Cell Distribution Width 16.2 % Platelet Count 170 TH/MM3 Mean Platelet Volume 7.8 FL Neutrophils (%) (Auto) 68.8 % Lymphocytes (%) (Auto) 12.1 % Monocytes (%) (Auto) 11.0 % Eosinophils (%) (Auto) 6.8 % Basophils (%) (Auto) 1.3 % Neutrophils # (Auto) 4.3 TH/MM3 Lymphocytes # (Auto) 0.8 TH/MM3 Monocytes # (Auto) 0.7 TH/MM3 Eosinophils # (Auto) 0.4 TH/MM3 Basophils # (Auto) 0.1 TH/MM3 CBC Comment DIFF FINAL Differential Comment Prothrombin Time 11.2 SEC Prothromb Time International Ratio 1.1 RATIO Activated Partial Thromboplast Time 26.0 SEC Blood Urea Nitrogen 40 MG/DL Creatinine 11.00 MG/DL Random Glucose 88 MG/DL Calcium Level 9.2 MG/DL Magnesium Level 1.8 MG/DL Sodium Level 134 MEQ/L Potassium Level 4.5 MEQ/L Chloride Level 96 MEQ/L Carbon Dioxide Level 30.0 MEQ/L Anion Gap 8 MEQ/L Estimat Glomerular Filtration Rate 4 ML/MIN Lactic Acid Level 1.9 mmol/L Total Creatine Kinase 155 U/L Creatine Kinase MB 2.5 NG/ML B-Type Natriuretic Peptide GREATER THAN 5000 PG/ML Objective Remarks GENERAL: Pleasant middle-aged white female in no acute distress. Intermittent hacking cough. HEENT: PERRLA, EOMI. No scleral icterus or conjunctival pallor. No lid lag or facial droop. CARDIOVASCULAR: Regular rate and rhythm. No obvious murmurs to auscultation. No chest tenderness to palpation. RESPIRATORY: No obvious rhonchi or wheezing. Crackles at bases bilaterally. Breath sounds equal bilaterally. GASTROINTESTINAL: Abdomen soft, non-tender, nondistended. BS normal. MUSCULOSKELETAL: Extremities without clubbing, cyanosis, or edema. No obvious deformities. NEUROLOGICAL: Awake, alert and oriented x4. No focal neurologic deficits. Moving both upper and lower extremities spontaneously. Medications and IVs Current Medications Medications (Trade) Dose Ordered Sig/Emma Route Start Time Stop Time Status Last Admin (Duoneb Neb) 1 ampule Q4HR NEB PRN NEB 04/18/17 01:30 (Mucinex Er) 1,200 mg BID PO 04/18/17 09:00 04/18/17 08:24 (NS Flush) 2 ml UNSCH PRN IV FLUSH 04/18/17 01:30 (NS Flush) 2 ml BID IV FLUSH 04/18/17 09:00 04/18/17 08:29 (Zofran Inj) 4 mg Q6H PRN IVP 04/18/17 01:30 (Tylenol) 650 mg Q6H PRN PO 04/18/17 01:30 (Friendly 5-325 Mg) 1 tab Q4H PRN PO 04/18/17 01:30 (Morphine Inj) 2 mg Q3H PRN IV PUSH 04/18/17 01:30 (Di-Colace) 1 tab BID PO 04/18/17 09:00 04/18/17 08:29 (Milk Of Magnesia Liq) 30 ml Q12H PRN PO 04/18/17 01:30 (Senokot) 17.2 mg Q12H PRN PO 04/18/17 01:30 (Dulcolax Supp) 10 mg DAILY PRN RECTAL 04/18/17 01:30 (Lactulose Liq) 30 ml DAILY PRN PO 04/18/17 01:30 (Aspirin Chew) 81 mg HS CHEW 04/18/17 21:00 (Rocaltrol) 0.5 mcg DAILY PO 04/18/17 09:00 04/18/17 08:27 (KlonoPIN) 0.5 mg HS PO 04/18/17 21:00 (Cardizem Cd) 120 mg DAILY PO 04/18/17 09:00 04/18/17 08:29 (Neurontin) 100 mg BID PO 04/18/17 09:00 04/18/17 08:28 (Imdur) 60 mg DAILY PO 04/18/17 09:00 04/18/17 08:28 (Synthroid) 50 mcg DAILY@0600 PO 04/18/17 06:00 04/18/17 05:49 (Cozaar) 100 mg DAILY PO 04/18/17 09:00 04/18/17 08:28 (Toprol Xl) 100 mg DAILY PO 04/18/17 09:00 04/18/17 08:24 (Zoloft) 100 mg DAILY PO 04/18/17 09:00 04/18/17 08:29 (Renvela) 800 mg TIDAC PO 04/18/17 08:00 04/18/17 08:36 (Ambien) 10 mg HS PRN PO 04/18/17 01:30 (Nephrocaps) 1 cap DAILY PO 04/18/17 09:00 04/18/17 08:24 (Protonix) 20 mg DAILY PO 04/18/17 09:00 04/18/17 08:28 A/P Assessment and Plan 1. SIRS doubt Sepsis, she had temperature of 100.4, tachycardia, S/p Blood Cultures, IV Rocephin/Zithro. Follow up blood cultures, check Sputum cultures, I think this is related to Volume Overload. 2. Questionable Pneumonia CXR w/ LLL PNA, Continue w/ IV Rocephin/Zithro as above, DuoNeb prn, Mucinex. Check Sputum Cultures. 3. Elevated Trop: Trop 0.06, no c/o chest pain, possibly secondary to renal failure. Admit for further cardiac work up, place on telemetry, check w/ serial cardiac enzymes for trend, NTG/Morphine as needed. 4. CHF: Acute on Chronic. Systolic. Echo 11/05/15 w/ EF 20-25%, BNP >5000, CXR w/ bilateral pleural effusions, secondary to volume overload. 5. ESRD on PD: Follows w/ Dr. Green as outpatient, will consult for arrangements to continue w/ PD. 6. COPD stable continue Bronchodilator, Mucinex and incentive spirometry. DVT Prophylaxis: SCD/Teds. Social work for d/c planning as needed. Discharge Planning Once cleared by nephrology specialist. Jose Pang MD Apr 18, 2017 09:25
[2017-04-18] MEDS ORDERED: HEPARIN SODIUM - IV 10,000 UNITS/10 ML VIAL XX PRN (14:15)
--- NOTE | 2017-04-18 16:41 | PD.CONS ---
HPI Consult Requested By Reason for Consult End-stage renal disease. Congestive heart failure. Primary Care Physician Snow Capone M.D. History of Present Illness 61-year-old female unfortunately has multiple medical problems including a severe cardiomyopathy, end-stage renal disease on maintenance peritoneal dialysis, intrinsic pulmonary disease now presenting with increasing shortness of breath and yellow sputum. Chest x-ray indicating mild pulmonary congestion. BNP was greater than 5000. Patient denies noncompliance with dialysis. Clear peritoneal fluid by history.. Review of Systems Constitutional: COMPLAINS OF: Fatigue, DENIES: Diaphoretic episodes, Fever, Weight gain, Weight loss, Chills, Dizziness, Change in appetite, Night Sweats Endocrine: COMPLAINS OF: Heat/cold intolerance Respiratory: COMPLAINS OF: Cough, Shortness of breath, DENIES: Apneas, Snoring , Wheezing, Hemoptysis, Sputum production Cardiovascular: COMPLAINS OF: Dyspnea on Exertion, Lower Extremity Edema, DENIES: Chest pain, Palpitations, Syncope, PND, Orthopnea, Claudication Gastrointestinal: DENIES: Abdominal pain, Black stools, Bloody stools, Constipation, Diarrhea, Nausea, Vomiting, Difficulty Swallowing, Anorexia Musculoskeletal: COMPLAINS OF: Joint pain, DENIES: Muscle aches, Stiffness, Joint Swelling, Back pain, Neck pain Neurologic: DENIES: Localized weakness Past Family Social History Allergies: Coded Allergies: No Known Allergies (Verified Adverse Reaction, Unknown, 03/21/17) Past Medical History End-stage renal disease with patient being on peritoneal dialysis. Pancreatitis in the past. Coronary disease. Hypertension. Hypothyroidism. Depression. Anemia renal disease. Intrinsic pulmonary disease. Paralyzed vocal cord. Severe nonischemic cardiomyopathy. Echocardiogram dated September 13, 2016 indicated an ejection fraction of less than 20%. Past Surgical History ICD placement. Placement of a peritoneal dialysis catheter. Cholecystectomy and tonsillectomy per records. Reported Medications Reported Meds & Active Scripts Active Metoprolol Succinate ER 24 HR (Metoprolol Succinate) 50 Mg Tab 100 Mg PO DAILY Reported Ambien (Zolpidem Tartrate) 10 Mg Tab 10 Mg PO HS PRN Renvela (Sevelamer Carbonate) 800 Mg Tab 800 Mg PO TID Aspirin 81 Mg Chew 81 Mg CHEW HS Sertraline (Sertraline HCl) 100 Mg Tab 100 Mg PO DAILY Zofran Odt (Ondansetron Odt) 4 Mg Tab 4 Mg SL Q8HR PRN Omeprazole 20 Mg Cap 20 Mg PO DAILY Losartan (Losartan Potassium) 100 Mg Tab 100 Mg PO DAILY Levothyroxine (Levothyroxine Sodium) 50 Mcg Tab 50 Mcg PO DAILY Isosorbide Mononitrate ER (Isosorbide Mononitrate) 60 Mg Tab 60 Mg PO DAILY Gabapentin 100 Mg Cap 100 Mg PO BID Clonazepam 0.5 Mg Tab 0.5 Mg PO HS Calcitriol 0.5 Mcg Cap 0.5 Mcg PO DAILY Active Ordered Medications Current Medications Furosemide (Lasix Inj) 40 mg ONCE ONCE IV PUSH Last administered on 04/18/17at 00:17; Start 04/17/17 at 23:45; Stop 04/17/17 at 23:49; Status DC Albuterol/ Ipratropium (Duoneb Neb) 1 ampule ONCE ONCE NEB Last administered on 04/18/17at 00:04; Start 04/17/17 at 23:45; Stop 04/17/17 at 23:49; Status DC Ceftriaxone Sodium 1000 mg/ Sodium Chloride 100 ml @ 200 mls/hr ONCE ONCE IV Last administered on 04/18/17at 01:59; Start 04/18/17 at 01:00; Stop 04/18/17 at 01:29; Status DC Azithromycin 500 mg/Sodium Chloride 250 ml @ 250 mls/hr ONCE ONCE IV Last administered on 04/18/17at 02:51; Start 04/18/17 at 01:00; Stop 04/18/17 at 01:59 ; Status DC Albuterol/ Ipratropium (Duoneb Neb) 1 ampule Q4HR NEB PRN NEB SOB/WHEEZING; Start 04/18/17 at 01:30 Guaifenesin (Mucinex Er) 1,200 mg BID PO Last administered on 04/18/17at 08:24; Start 04/18/17 at 09:00 Sodium Chloride (NS Flush) 2 ml UNSCH PRN IV FLUSH FLUSH AFTER USING IV ACCESS ; Start 04/18/17 at 01:30 Sodium Chloride (NS Flush) 2 ml BID IV FLUSH Last administered on 04/18/17at 08: 29; Start 04/18/17 at 09:00 Ondansetron HCl (Zofran Inj) 4 mg Q6H PRN IVP NAUSEA OR VOMITING; Start at 01:30 Acetaminophen (Tylenol) 650 mg Q6H PRN PO FEVER/PAIN SCALE 1 TO 2; Start at 01:30 Acetaminophen/ Hydrocodone Bitart ([place] 5-325 Mg) 1 tab Q4H PRN PO PAIN SCALE 3 TO 5; Start 04/18/17 at 01:30 Morphine Sulfate (Morphine Inj) 2 mg Q3H PRN IV PUSH Pain 6-10; Start 04/18/17 at 01:30 Senna/Docusate Sodium (Di-Colace) 1 tab BID PO Last administered on at 08:29; Start 04/18/17 at 09:00 Magnesium Hydroxide (Milk Of Magnesia Liq) 30 ml Q12H PRN PO Mild constipation ; Start 04/18/17 at 01:30 Sennosides (Senokot) 17.2 mg Q12H PRN PO Moderate constipation; Start 04/18/17 at 01:30 Bisacodyl (Dulcolax Supp) 10 mg DAILY PRN RECTAL SEVERE CONSITIPATION; Start at 01:30 Lactulose (Lactulose Liq) 30 ml DAILY PRN PO SEVERE CONSITIPATION; Start at 01:30 Aspirin (Aspirin Chew) 81 mg HS CHEW ; Start 04/18/17 at 21:00 Calcitriol (Rocaltrol) 0.5 mcg DAILY PO Last administered on 04/18/17at 08:27; Start 04/18/17 at 09:00 Clonazepam (KlonoPIN) 0.5 mg HS PO ; Start 04/18/17 at 21:00 Diltiazem HCl (Cardizem Cd) 120 mg DAILY PO Last administered on 04/18/17at 08: 29; Start 04/18/17 at 09:00 Gabapentin (Neurontin) 100 mg BID PO Last administered on 04/18/17at 08:28; Start 04/18/17 at 09:00 Isosorbide Mononitrate (Imdur) 60 mg DAILY PO Last administered on 04/18/17at 08 :28; Start 04/18/17 at 09:00 Levothyroxine Sodium (Synthroid) 50 mcg DAILY@0600 PO Last administered on 04/18at 05:49; Start 04/18/17 at 06:00 Losartan Potassium (Cozaar) 100 mg DAILY PO Last administered on 04/18/17at 08: 28; Start 04/18/17 at 09:00 Metoprolol Succinate (Toprol Xl) 100 mg DAILY PO Last administered on at 08:24; Start 04/18/17 at 09:00 Sertraline HCl (Zoloft) 100 mg DAILY PO Last administered on 04/18/17at 08:29; Start 04/18/17 at 09:00 Sevelamer Carbonate (Renvela) 800 mg TIDAC PO Last administered on 04/18/17at 16 :14; Start 04/18/17 at 08:00 Zolpidem Tartrate (Ambien) 10 mg HS PRN PO INSOMNIA; Start 04/18/17 at 01:30 Vitamin B Complex/ Vit C/Folic Acid (Nephrocaps) 1 cap DAILY PO Last administered on 04/18/17at 08:24; Start 04/18/17 at 09:00 Pantoprazole Sodium (Protonix) 20 mg DAILY PO Last administered on 04/18/17at 08 :28; Start 04/18/17 at 09:00 Heparin Sodium (Porcine) (Heparin Inj) 1,000 units WITH DIALYSIS PRN XX SEE LABEL COMMENTS; Start 04/18/17 at 14:15 Sodium Chloride (NS Flush) 10 ml UNSCH PRN IV FLUSH SEE LABEL COMMENTS; Start 04/18/17 at 14:15 Family History Noncontributory to current complaint. Social History No history of illicit drug use. Physical Exam Vital Signs Vital Signs Date Time Temp Pulse Resp B/P (MAP) Pulse Ox O2 Delivery O2 Flow Rate FiO2 04/18/17 15:35 90 04/18/17 12:30 98.0 95 18 149/84 (105) 96 04/18/17 12:00 90 04/18/17 08:00 98.3 110 18 160/100 (120) 96 04/18/17 07:21 110 04/18/17 06:00 114 04/18/17 05:00 118 04/18/17 04:00 120 04/18/17 03:13 117 04/18/17 03:13 99.2 110 18 152/96 (114) 96 04/18/17 02:29 04/18/17 01:59 117 18 163/92 (115) 96 Room Air 04/18/17 01:48 96 04/17/17 23:07 98.3 107 18 164/96 (118) 96 Room Air 04/17/17 18:29 100.4 112 20 162/106 (124) 94 Physical Exam GENERAL: Obese female who appears to have some mild dyspnea. SKIN: Warm and dry. HEAD: Normocephalic. EYES: No scleral icterus. No injection or drainage. NECK: Supple, trachea midline. No JVD or lymphadenopathy. CARDIOVASCULAR: Regular rate and rhythm without murmurs, gallops, or rubs. RESPIRATORY: Breath sounds equal bilaterally. No accessory muscle use. Diminished breath sounds in bases but no josué wheezing rales or rhonchi. GASTROINTESTINAL: Abdomen soft, non-tender, nondistended. Patient did not have a dressing around her PD catheter site but no drainage noted. MUSCULOSKELETAL: No cyanosis, 1+ pitting edema ankles. BACK: Nontender without obvious deformity. No CVA tenderness. Laboratory Laboratory Tests Test 04/17/17 22:36 04/18/17 08:24 04/18/17 14:33 White Blood Count 6.3 Red Blood Count 3.81 Hemoglobin 11.6 Hematocrit 34.6 Mean Corpuscular Volume 90.9 Mean Corpuscular Hemoglobin 30.4 Mean Corpuscular Hemoglobin Concent 33.5 Red Cell Distribution Width 16.2 Platelet Count 170 Mean Platelet Volume 7.8 Neutrophils (%) (Auto) 68.8 Lymphocytes (%) (Auto) 12.1 Monocytes (%) (Auto) 11.0 Eosinophils (%) (Auto) 6.8 Basophils (%) (Auto) 1.3 Neutrophils # (Auto) 4.3 Lymphocytes # (Auto) 0.8 Monocytes # (Auto) 0.7 Eosinophils # (Auto) 0.4 Basophils # (Auto) 0.1 CBC Comment DIFF FINAL Differential Comment Prothrombin Time 11.2 Prothromb Time International Ratio 1.1 Activated Partial Thromboplast Time 26.0 Blood Urea Nitrogen 40 Creatinine 11.00 Random Glucose 88 Calcium Level 9.2 Magnesium Level 1.8 Sodium Level 134 Potassium Level 4.5 Chloride Level 96 Carbon Dioxide Level 30.0 Anion Gap 8 Estimat Glomerular Filtration Rate 4 Lactic Acid Level 1.9 Total Creatine Kinase 155 Creatine Kinase MB 2.5 Troponin I 0.06 0.07 0.08 B-Type Natriuretic Peptide GREATER THAN 5000 Date/Time Source Procedure Growth Status 1/13/18 01:40 Blood Peripheral Aerobic Blood Culture Pending Received 04/18/17 01:40 Blood Peripheral Anaerobic Blood Culture Pending Received 04/18/17 12:30 Sputum Expectorated Sputum Gram Stain - Final Resulted 04/18/17 12:30 Sputum Expectorated Sputum Sputum Culture Pending Resulted Result Diagram: 04/17/17 2236 04/17/17 2236 Imaging Last 48 hours Impressions Chest X-Ray 04/17/17 1837 Signed Impressions: Service Date/Time: Monday, April 17, 2017 18:56 - CONCLUSION: No significant interval change with persistent mild pulmonary vascular congestion, small bilateral pleural effusions and mild patchy left lung base opacity. Cesar Lopez MD Assessment and Plan Problem List: (1) ESRD (end stage renal disease) on dialysis ICD Codes: N18.6 - End stage renal failure on dialysis; Z99.2 - Dependence on renal dialysis Status: Chronic Plan: There was a delay in notifying me that the patient was in the hospital as a wrong coremaker floor was consulted by the primary care physician and the nurse took it upon herself to contact me directly this afternoon. There is some evidence of fluid overload today. Suspect noncompliance with dietary salt restriction. Patient's severe cardiomyopathy the respiratory. I will continue peritoneal dialysis using a 4.25 and 2.5% solutions with icodextrin as last fill. Reassess volume status tomorrow. Peritoneal Fluid also be sent for Gram stain as well as cell count and culture. Medication should be adjusted for the patient's end-stage renal disease when indicated. Avoid gadolinium in the setting of her end-stage renal disease. (2) CHF (congestive heart failure) ICD Codes: I50.9 - Heart failure, unspecified Status: Chronic Plan: Unfortunately patient does have a severe cardiomyopathy with previous AICD placement. Patient's long-term prognosis most likely poor she also has a history of intrinsic pulmonary disease and end-stage renal disease. (3) Cardiomyopathy, dilated, nonischemic ICD Codes: I42.0 - Dilated cardiomyopathy Status: Chronic (4) HTN (hypertension) ICD Codes: I10 - Essential (primary) hypertension Status: Chronic Plan: Blood pressure will likely improve with fluid removal on dialysis however will reevaluate and adjust hypertensive medication if needed. (5) Anemia of renal disease ICD Codes: D63.1 - Anemia in chronic kidney disease Status: Chronic Plan: Patient's hemoglobin within acceptable range. Problem Qualifiers (1) CHF (congestive heart failure): (2) HTN (hypertension): Qualified Codes: I10 - Essential (primary) hypertension Chandni Green MD Apr 18, 2017 16:41
[2017-04-18 20:22] LABS: PERITONEAL LYMPHS 0 %; PERITONEAL MONOS 0 %; PERITONEAL POLYS(SEGS) 0 %; PERITONEAL RBC 0 /MM3 (0-0)
[2017-04-18] MEDS: ASPIRIN 81 MG CHEW TAB CHEW SCH (21:04)
[2017-04-18] MEDS: clonazePAM 0.5 MG TAB PO SCH (21:05)
[2017-04-19] VITALS (18 sets, daily range): BP systolic 131–148; BP diastolic 80–95; PULSE 85–94; RESP 16–20; TEMP 98.6–99; O2SAT 98–99
[2017-04-19] MEDS: ZOLPIDEM TARTRATE 10 MG TAB PO PRN ×2 (01:02→23:36)
[2017-04-19 05:26] LABS: AUTOMATED NEUTROPHIL # 3.5 TH/MM3 (1.8-7.7); BASOPHIL # 0.1 TH/MM3 (0-0.2); BASOPHIL % 1.3 % (0.0-2.0); EOSINOPHIL # 0.5 TH/MM3 (0-0.4); EOSINOPHIL % 7.9 % (0.0-4.0); HEMATOCRIT 29.8 % (35.0-46.0); HEMOGLOBIN 10.1 GM/DL (11.6-15.3); LYMPH % 13.5 % (9.0-44.0); LYMPHOCYTE # 0.8 TH/MM3 (1.0-4.8); MEAN CELL VOLUME 90.5 FL (80.0-100.0); MEAN CORPUSCULAR HEMOGLOBIN 30.8 PG (27.0-34.0); MEAN PLATELET VOLUME 8.2 FL (7.0-11.0); MONO % 15.5 % (0.0-8.0); MONOCYTE # 0.9 TH/MM3 (0-0.9); NEUT % 61.8 % (16.0-70.0); PLATELET COUNT 135 TH/MM3 (150-450); RED BLOOD COUNT 3.29 MIL/MM3 (4.00-5.30); RED CELL DISTRIBUTION WIDTH 16.1 % (11.6-17.2); WHITE BLOOD COUNT 5.7 TH/MM3 (4.0-11.0)
[2017-04-19 05:30] LABS: ALBUMIN 2.5 GM/DL (3.4-5.0); AST (GOT) 12 U/L (15-37); BICARBONATE 27.4 MEQ/L (21.0-32.0); BLOOD UREA NITROGEN 44 MG/DL (7-18); CALCIUM 8.7 MG/DL (8.5-10.1); CHLORIDE 96 MEQ/L (98-107); GLOMERULAR FILTRATION RATE 3 ML/MIN (>89); GLUCOSE,RANDOM 87 MG/DL (74-106); SODIUM (NA) 135 MEQ/L (136-145)
[2017-04-19 05:34] LABS: ALKALINE PHOSPHATASE 96 U/L (45-117); ALT (GPT) 15 U/L (10-53); TOTAL BILIRUBIN ADULT 0.6 MG/DL (0.2-1.0); TOTAL PROTEIN 6.4 GM/DL (6.4-8.2)
[2017-04-19 05:45] LABS: CREATININE 11.63 MG/DL (0.50-1.00)
[2017-04-19] MEDS: LEVOTHYROXINE SODIUM 50 MCG TAB PO SCH (06:14)
[2017-04-19] MEDS: CALCITRIOL 0.25 MCG CAP PO SCH (08:37)
[2017-04-19] MEDS: DOCUSATE SODIUM 50 MG/SENNA 8.6 MG TAB PO SCH ×2 (08:38→19:59)
[2017-04-19] MEDS: METOPROLOL SUCCINATE 50 MG EXTENDED RELEASE TAB PO SCH (08:38)
[2017-04-19] MEDS: guaiFENesin E.R. 600 MG TAB PO SCH ×2 (08:38→19:59)
[2017-04-19] MEDS: SERTRALINE HCL 100 MG TAB PO SCH (08:38)
[2017-04-19] MEDS: PANTOPRAZOLE SOD 20 MG DELAYED RELEASE TAB PO SCH (08:38)
[2017-04-19] MEDS: LOSARTAN 50 MG TAB PO SCH (08:38)
[2017-04-19] MEDS: GABAPENTIN 100 MG CAP PO SCH ×2 (08:38→19:59)
[2017-04-19] MEDS: ISOSORBIDE MONONITRATE 60 MG TAB PO SCH (08:38)
[2017-04-19] MEDS: SEVELAMER CARBONATE 800 MG TAB PO SCH ×3 (08:39→17:02)
[2017-04-19] MEDS: DILTIAZEM-CD 120 MG CAP ER PO SCH (08:39)
[2017-04-19] MEDS: VITAMIN B CMPLX/VITC/FOLIC AC CAP PO SCH (08:39)
--- NOTE | 2017-04-19 15:17 | HHI.PR ---
Subjective Remarks This is a pleasant 61 y/o female with Hypertension, Hyperlipidemia, CHF, Echocardiogram from November 05 2015 with EF 20-25%, AICD, CAD, Fibromyalgia, PCKD, Chronic Pain and ESRD on PD who presented to the ER w/ complaints of SOB and cough x2-3 days. Notes productive cough w/ yellow-colored sputum. Denies fever, chills, chest pain or sick contacts. Reports SOB, intermittent, worse w/ exertion, moderate severity. Creatinine 11, producing 10.44 on . Lactic Acid normal. Troponin 0.06. BNP >5000. INR 1.1. CXR with persistent pulmonary vascular congestion, small bilateral pleural effusions and patchy left lung base opacity. S/p Blood Cultures, Rocephin/Zithro IV in ER. 04/20: Stable in her bedroom, no nausea, vomit or diarrhea, improving Shortness of breath after initiating her peritoneal dialysis, nephrology specialist following Objective Vital Signs Date Time Temp Pulse Resp B/P (MAP) Pulse Ox O2 Delivery O2 Flow Rate FiO2 04/19/17 12:41 98.8 85 18 131/80 (97) 98 04/19/17 11:00 88 04/19/17 08:00 98.6 94 16 137/85 (102) 99 04/19/17 06:03 94 04/19/17 05:03 92 04/19/17 04:00 90 04/19/17 03:00 90 04/19/17 03:00 98.9 94 16 137/88 (104) 98 04/19/17 02:05 90 04/19/17 01:00 88 04/19/17 00:00 90 04/18/17 23:00 98.6 96 20 143/93 (110) 97 04/18/17 23:00 92 04/18/17 22:00 94 04/18/17 21:00 96 04/18/17 20:00 94 04/18/17 19:00 100 04/18/17 19:00 98.4 95 18 131/76 (94) 99 04/18/17 16:00 98.8 98 18 150/92 (111) 95 04/18/17 15:35 90 I/O 04/18/17 04/18/17 04/18/17 04/19/17 04/19/17 04/19/17 07:00 15:00 23:00 07:00 15:00 23:00 Intake Total 600 ml 240 ml Output Total 0 ml 0 ml 3718 ml Balance 600 ml 240 ml -3718 ml Intake Oral 250 ml 240 ml IV Total 350 ml Output Urine Total 0 ml 0 ml Hemodialysis 3718 ml # Bowel Movements 0 Result Diagram: 04/19/17 0433 04/19/17 0433 Imaging Last Impressions Chest X-Ray 04/17/17 1837 Signed Impressions: Service Date/Time: Monday, April 17, 2017 18:56 - CONCLUSION: No significant interval change with persistent mild pulmonary vascular congestion, small bilateral pleural effusions and mild patchy left lung base opacity. Cesar Lopez MD Procedures Peritoneal Dialysis. Other Results Laboratory Tests Test 04/17/17 22:36 04/18/17 14:33 04/18/17 16:50 04/19/17 04:33 Prothrombin Time 11.2 SEC Prothromb Time International Ratio 1.1 RATIO Activated Partial Thromboplast Time 26.0 SEC Lactic Acid Level 1.9 mmol/L Blood Urea Nitrogen 40 MG/DL 44 MG/DL Creatinine 11.00 MG/DL 11.63 MG/DL Random Glucose 88 MG/DL 87 MG/DL Calcium Level 9.2 MG/DL 8.7 MG/DL Magnesium Level 1.8 MG/DL Sodium Level 134 MEQ/L 135 MEQ/L Potassium Level 4.5 MEQ/L 4.5 MEQ/L Chloride Level 96 MEQ/L 96 MEQ/L Carbon Dioxide Level 30.0 MEQ/L 27.4 MEQ/L Total Creatine Kinase 155 U/L Creatine Kinase MB 2.5 NG/ML B-Type Natriuretic Peptide GREATER THAN 5000 PG/ML Troponin I 0.08 NG/ML Peritoneal Fluid WBC 0 /MM3 Peritoneal Fluid RBC 0 /MM3 Peritoneal Fluid Neutrophils 0 % Peritoneal Fluid Lymphocytes 0 % Peritoneal Fluid Monocytes 0 % White Blood Count 5.7 TH/MM3 Red Blood Count 3.29 MIL/MM3 Hemoglobin 10.1 GM/DL Hematocrit 29.8 % Mean Corpuscular Volume 90.5 FL Mean Corpuscular Hemoglobin 30.8 PG Mean Corpuscular Hemoglobin Concent 34.0 % Red Cell Distribution Width 16.1 % Platelet Count 135 TH/MM3 Mean Platelet Volume 8.2 FL Neutrophils (%) (Auto) 61.8 % Lymphocytes (%) (Auto) 13.5 % Monocytes (%) (Auto) 15.5 % Eosinophils (%) (Auto) 7.9 % Basophils (%) (Auto) 1.3 % Neutrophils # (Auto) 3.5 TH/MM3 Lymphocytes # (Auto) 0.8 TH/MM3 Monocytes # (Auto) 0.9 TH/MM3 Eosinophils # (Auto) 0.5 TH/MM3 Basophils # (Auto) 0.1 TH/MM3 CBC Comment DIFF FINAL Differential Comment Total Protein 6.4 GM/DL Albumin 2.5 GM/DL Alkaline Phosphatase 96 U/L Aspartate Amino Transf (AST/SGOT) 12 U/L Alanine Aminotransferase (ALT/SGPT) 15 U/L Total Bilirubin 0.6 MG/DL Anion Gap 12 MEQ/L Estimat Glomerular Filtration Rate 3 ML/MIN Objective Remarks GENERAL: Pleasant middle-aged white female in no acute distress. Intermittent hacking cough. HEENT: PERRLA, EOMI. No scleral icterus or conjunctival pallor. No lid lag or facial droop. CARDIOVASCULAR: Regular rate and rhythm. No obvious murmurs to auscultation. No chest tenderness to palpation. RESPIRATORY: No obvious rhonchi or wheezing. Crackles at bases bilaterally. Breath sounds equal bilaterally. GASTROINTESTINAL: Abdomen soft, non-tender, nondistended. BS normal. MUSCULOSKELETAL: Extremities without clubbing, cyanosis, or edema. No obvious deformities. NEUROLOGICAL: Awake, alert and oriented x4. No focal neurologic deficits. Moving both upper and lower extremities spontaneously. Medications and IVs Current Medications Medications (Trade) Dose Ordered Sig/Emma Route Start Time Stop Time Status Last Admin (Duoneb Neb) 1 ampule Q4HR NEB PRN NEB 04/18/17 01:30 (Mucinex Er) 1,200 mg BID PO 04/18/17 09:00 04/19/17 08:38 (NS Flush) 2 ml UNSCH PRN IV FLUSH 04/18/17 01:30 (NS Flush) 2 ml BID IV FLUSH 04/18/17 09:00 04/18/17 21:04 (Zofran Inj) 4 mg Q6H PRN IVP 04/18/17 01:30 (Tylenol) 650 mg Q6H PRN PO 04/18/17 01:30 ([place] 5-325 Mg) 1 tab Q4H PRN PO 04/18/17 01:30 (Morphine Inj) 2 mg Q3H PRN IV PUSH 04/18/17 01:30 (Di-Colace) 1 tab BID PO 04/18/17 09:00 04/19/17 08:38 (Milk Of Magnesia Liq) 30 ml Q12H PRN PO 04/18/17 01:30 (Senokot) 17.2 mg Q12H PRN PO 04/18/17 01:30 (Dulcolax Supp) 10 mg DAILY PRN RECTAL 04/18/17 01:30 (Lactulose Liq) 30 ml DAILY PRN PO 04/18/17 01:30 (Aspirin Chew) 81 mg HS CHEW 04/18/17 21:00 04/18/17 21:04 (Rocaltrol) 0.5 mcg DAILY PO 04/18/17 09:00 04/19/17 08:37 (KlonoPIN) 0.5 mg HS PO 04/18/17 21:00 04/18/17 21:05 (Cardizem Cd) 120 mg DAILY PO 04/18/17 09:00 04/19/17 08:39 (Neurontin) 100 mg BID PO 04/18/17 09:00 04/19/17 08:38 (Imdur) 60 mg DAILY PO 04/18/17 09:00 04/19/17 08:38 (Synthroid) 50 mcg DAILY@0600 PO 04/18/17 06:00 04/19/17 06:14 (Cozaar) 100 mg DAILY PO 04/18/17 09:00 04/19/17 08:38 (Toprol Xl) 100 mg DAILY PO 04/18/17 09:00 04/19/17 08:38 (Zoloft) 100 mg DAILY PO 04/18/17 09:00 04/19/17 08:38 (Renvela) 800 mg TIDAC PO 04/18/17 08:00 04/19/17 13:06 (Ambien) 10 mg HS PRN PO 04/18/17 01:30 04/19/17 01:02 (Nephrocaps) 1 cap DAILY PO 04/18/17 09:00 04/19/17 08:39 (Protonix) 20 mg DAILY PO 04/18/17 09:00 04/19/17 08:38 (Heparin Inj) 1,000 units WITH DIALYSIS PRN XX 04/18/17 14:15 (NS Flush) 10 ml UNSCH PRN IV FLUSH 04/18/17 14:15 A/P Assessment and Plan 1. SIRS doubt Sepsis, she had temperature of 100.4, tachycardia, S/p Blood Cultures, IV Rocephin/Zithro. cultures negative off antibiotics. 2. Questionable Pneumonia CXR w/ LLL PNA, Continue w/ IV Rocephin/Zithro as above, DuoNeb prn, Mucinex. Check Sputum Cultures. OFF antibiotics. 3. Equivocal Troponin elevation trending down with peritoneal dialysis. 4. CHF: Acute on Chronic. Systolic. Echo 11/05/15 w/ EF 20-25%, BNP >5000, CXR w/ bilateral pleural effusions, secondary to volume overload. Improving. 5. ESRD on PD: Follows w/ Dr. Green as outpatient, on Peritoneal Dialysis. 6. COPD stable continue Bronchodilator, Mucinex and incentive spirometry. DVT Prophylaxis: SCD/Teds. Social work for d/c planning as needed. Discharge Planning Once cleared by nephrology specialist. Jose Pang MD Apr 19, 2017 15:17
--- NOTE | 2017-04-19 17:38 | EKG ---
Date Performed: 04/18/2017 Time Performed: 17:17:34 PTAGE: 61 years EKG: Sinus rhythm Rightward axis Lateral ST-T changes may be due to myocardial ischemia Low QRS voltages in limb leads Abnormal ECG PREVIOUS TRACING 03/21/17 @ 16.27.17 DOCTOR: Diogenes Linares Interpretating Date/Time 04/19/2017 17:38:19
--- NOTE | 2017-04-19 18:19 | HHI.NPPN ---
Subjective History of Present Illness 61-year-old female unfortunately has multiple medical problems including a severe cardiomyopathy, end-stage renal disease on maintenance peritoneal dialysis, intrinsic pulmonary disease now presenting with increasing shortness of breath and yellow sputum. Chest x-ray indicating mild pulmonary congestion. BNP was greater than 5000. Interval History Sliding some shortness of breath. Tolerating dialysis well. Review of Systems Respiratory Lungs: SOB, Wheeze Objective Data Data 04/19/17 04/20/17 19:00 07:00 Output Total 3718 ml Balance -3718 ml Hemodialysis 3718 ml Vital Signs Date Time Temp Pulse Resp B/P (MAP) Pulse Ox O2 Delivery O2 Flow Rate FiO2 04/19/17 17:03 98.7 86 18 142/95 (111) 98 04/19/17 12:41 98.8 85 18 131/80 (97) 98 04/19/17 11:00 88 04/19/17 08:00 98.6 94 16 137/85 (102) 99 04/19/17 06:03 94 04/19/17 05:03 92 04/19/17 04:00 90 04/19/17 03:00 90 04/19/17 03:00 98.9 94 16 137/88 (104) 98 04/19/17 02:05 90 04/19/17 01:00 88 04/19/17 00:00 90 04/18/17 23:00 98.6 96 20 143/93 (110) 97 04/18/17 23:00 92 04/18/17 22:00 94 04/18/17 21:00 96 04/18/17 20:00 94 04/18/17 19:00 100 04/18/17 19:00 98.4 95 18 131/76 (94) 99 -: 04/19/17 0433 04/19/17 0433 Laboratory Tests Test 04/19/17 04:33 Red Blood Count 3.29 MIL/MM3 Hemoglobin 10.1 GM/DL Hematocrit 29.8 % Platelet Count 135 TH/MM3 Monocytes (%) (Auto) 15.5 % Eosinophils (%) (Auto) 7.9 % Lymphocytes # (Auto) 0.8 TH/MM3 Eosinophils # (Auto) 0.5 TH/MM3 Blood Urea Nitrogen 44 MG/DL Creatinine 11.63 MG/DL Albumin 2.5 GM/DL Aspartate Amino Transf (AST/SGOT) 12 U/L Sodium Level 135 MEQ/L Chloride Level 96 MEQ/L Estimat Glomerular Filtration Rate 3 ML/MIN Tubes & Lines: Tenckhoff Catheter Physical Exam General Appearance: No Acute Distress, Comfortable Pulmonary Resp Exam: No Distress, Decreased Bases (a few low pitched expiratory wheezes mid and lower zone.) Cardiology CV Exam: Regular, Normal Sinus Rhythm Gastrointestinal/Abdomen GI Exam: Soft, Non-Tender Integumentary Skin Exam: Clear, Warm, Normal Turgor Extremeties Extremities Exam: Trace Edema (ankles.) Assessment/Plan Discussed Condition With: Patient Problem List: (1) ESRD (end stage renal disease) on dialysis ICD Codes: N18.6 - End stage renal failure on dialysis; Z99.2 - Dependence on renal dialysis Status: Chronic Plan: Patient's volume status has improved. She also has some intrinsic pulmonary issues 2. Agree with initiating therapy with else all treatments. I will continue peritoneal dialysis using a 4.25 and 2.5% solutions with icodextrin as last fill. Reassess volume status tomorrow. No clinical signs of peritonitis with a 0 WBC count and no growth to date in the peritoneal dialysis fluid. Medication should be adjusted for the patient's end-stage renal disease when indicated. Avoid gadolinium in the setting of her end-stage renal disease. (2) CHF (congestive heart failure) ICD Codes: I50.9 - Heart failure, unspecified Status: Chronic Plan: Unfortunately patient does have a severe cardiomyopathy with previous AICD placement. Patient's long-term prognosis most likely poor she also has a history of intrinsic pulmonary disease and end-stage renal disease. (3) Cardiomyopathy, dilated, nonischemic ICD Codes: I42.0 - Dilated cardiomyopathy Status: Chronic (4) HTN (hypertension) ICD Codes: I10 - Essential (primary) hypertension Status: Chronic Plan: Blood pressure will likely improve with fluid removal on dialysis however will reevaluate and adjust hypertensive medication if needed. (5) Anemia of renal disease ICD Codes: D63.1 - Anemia in chronic kidney disease Status: Chronic Plan: Patient's hemoglobin within acceptable range. Plan Reassess volume status tomorrow. If improving respiratory status patient clear for discharge from a renal point of view tomorrow with follow-up with me in the peritoneal dialysis clinic. She will also require follow-up with a trail maintenance worker. Her current current trail maintenance worker apparently no longer has an office in [place] and she wishes to change providers. Problem Qualifiers (1) CHF (congestive heart failure): (2) HTN (hypertension): Qualified Codes: I10 - Essential (primary) hypertension Chandni Green MD Apr 19, 2017 18:19
[2017-04-19] MEDS: SODIUM CHLORIDE 0.9% FLUSH 10 ML FLUSH IV FLUSH SCH (19:58)
[2017-04-19] MEDS: clonazePAM 0.5 MG TAB PO SCH (19:59)
[2017-04-19] MEDS: ASPIRIN 81 MG CHEW TAB CHEW SCH (19:59)
[2017-04-20] VITALS (22 sets, daily range): BP systolic 129–148; BP diastolic 78–99; PULSE 84–101; RESP 18–22; TEMP 98.1–98.9; O2SAT 97–100
[2017-04-20] MEDS: LEVOTHYROXINE SODIUM 50 MCG TAB PO SCH (05:43)
[2017-04-20 07:32] LABS: ALBUMIN 2.5 GM/DL (3.4-5.0); BICARBONATE 25.1 MEQ/L (21.0-32.0); CALCIUM 9.2 MG/DL (8.5-10.1)
[2017-04-20 07:33] LABS: PHOSPHORUS 6.5 MG/DL (2.5-4.9)
[2017-04-20 07:42] LABS: CREATININE 11.7 MG/DL (0.50-1.00)
[2017-04-20] MEDS: RESP: ALBUTEROL 2.5 MG/IPRATROPIUM 0.5 MG NEB (SCH) NEB ×4 (08:06→19:37)
[2017-04-20] MEDS: guaiFENesin E.R. 600 MG TAB PO SCH ×2 (08:27→20:38)
[2017-04-20] MEDS: ISOSORBIDE MONONITRATE 60 MG TAB PO SCH (08:28)
[2017-04-20] MEDS: CALCITRIOL 0.25 MCG CAP PO SCH (08:28)
[2017-04-20] MEDS: LOSARTAN 50 MG TAB PO SCH (08:28)
[2017-04-20] MEDS: SERTRALINE HCL 100 MG TAB PO SCH (08:28)
[2017-04-20] MEDS: GABAPENTIN 100 MG CAP PO SCH ×2 (08:28→20:39)
[2017-04-20] MEDS: PANTOPRAZOLE SOD 20 MG DELAYED RELEASE TAB PO SCH (08:29)
[2017-04-20] MEDS: DILTIAZEM-CD 120 MG CAP ER PO SCH (08:29)
[2017-04-20] MEDS: METOPROLOL SUCCINATE 50 MG EXTENDED RELEASE TAB PO SCH (08:29)
[2017-04-20] MEDS: SEVELAMER CARBONATE 800 MG TAB PO SCH ×3 (09:06→16:13)
[2017-04-20] MEDS: VITAMIN B CMPLX/VITC/FOLIC AC CAP PO SCH (09:08)
[2017-04-20] MEDS: SODIUM CHLORIDE 0.9% FLUSH 10 ML FLUSH IV FLUSH SCH ×2 (09:09→20:38)
[2017-04-20] MEDS: DOCUSATE SODIUM 50 MG/SENNA 8.6 MG TAB PO SCH ×2 (09:16→20:38)
--- NOTE | 2017-04-20 12:11 | HHI.NPPN ---
Subjective History of Present Illness 61-year-old female unfortunately has multiple medical problems including a severe cardiomyopathy, end-stage renal disease on maintenance peritoneal dialysis, intrinsic pulmonary disease now presenting with increasing shortness of breath and yellow sputum. Chest x-ray indicating mild pulmonary congestion. BNP was greater than 5000. Interval History Patient still complaining of cough and yellow phlegm and some shortness of breath. Review of Systems Respiratory Lungs: SOB, Wheeze Objective Data Data 04/20/17 04/21/17 18:59 06:59 Output Total 763 ml Balance -763 ml Peritoneal Fluid 763 ml Vital Signs Date Time Temp Pulse Resp B/P (MAP) Pulse Ox O2 Delivery O2 Flow Rate FiO2 04/20/17 08:06 97 Nasal Cannula 2.00 04/20/17 07:41 97 Nasal Cannula 2.00 04/20/17 07:41 98.1 93 22 148/99 (115) 97 04/20/17 07:05 92 04/20/17 06:13 95 04/20/17 05:09 91 04/20/17 04:50 87 04/20/17 03:29 89 04/20/17 03:15 98.3 86 21 139/81 (100) 97 04/20/17 01:12 84 04/20/17 00:03 86 04/19/17 23:43 86 04/19/17 23:37 99.0 85 16 134/81 (98) 99 04/19/17 22:07 98 Room Air 04/19/17 22:02 90 04/19/17 21:36 87 04/19/17 20:22 86 04/19/17 19:57 98.7 87 20 148/92 (110) 99 04/19/17 17:03 98.7 86 18 142/95 (111) 98 04/19/17 13:00 92 04/19/17 12:41 98.8 85 18 131/80 (97) 98 -: 04/19/17 0433 04/20/17 0635 Tubes & Lines: Tenckhoff Catheter Physical Exam General Appearance: No Acute Distress, Comfortable Pulmonary Resp Exam: No Distress, Rhonchi (with coarse crackles primarily in the left base although per also present to lesser extent right base.), Decreased Bases ( a few low pitched expiratory wheezes mid and lower zone.) Cardiology CV Exam: Regular, Normal Sinus Rhythm Gastrointestinal/Abdomen GI Exam: Soft, Non-Tender Integumentary Skin Exam: Clear, Warm, Normal Turgor Extremeties Extremities Exam: Trace Edema (ankles.) Assessment/Plan Discussed Condition With: Patient Problem List: (1) ESRD (end stage renal disease) on dialysis ICD Codes: N18.6 - End stage renal failure on dialysis; Z99.2 - Dependence on renal dialysis Status: Chronic Plan: Patient's volume status has improved. She still has however significant pulmonary findings on clinical exam. Ultrafiltration rate marginal given tonicity of fluids being used. I will use all 4.25% solutions tonight to improve ultrafiltration with 1 dose of IV furosemide today. Await results of chest x-ray. Suspect patient has a combination of fluid retention with a pulmonary infection. Medication should be adjusted for the patient's end-stage renal disease when indicated. Avoid gadolinium in the setting of her end-stage renal disease. (2) CHF (congestive heart failure) ICD Codes: I50.9 - Heart failure, unspecified Status: Chronic Plan: Unfortunately patient does have a severe cardiomyopathy with previous AICD placement. Patient's long-term prognosis most likely poor she also has a history of intrinsic pulmonary disease and end-stage renal disease. (3) Cardiomyopathy, dilated, nonischemic ICD Codes: I42.0 - Dilated cardiomyopathy Status: Chronic (4) HTN (hypertension) ICD Codes: I10 - Essential (primary) hypertension Status: Chronic Plan: Blood pressure will likely improve with fluid removal on dialysis however will reevaluate and adjust hypertensive medication if needed. (5) Anemia of renal disease ICD Codes: D63.1 - Anemia in chronic kidney disease Status: Chronic Plan: Patient's hemoglobin within acceptable range. Plan Reassess volume status tomorrow. If improving respiratory status patient clear for discharge from a renal point of view tomorrow with follow-up with me in the peritoneal dialysis clinic. 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 Problem Qualifiers (1) CHF (congestive heart failure): (2) HTN (hypertension): Qualified Codes: I10 - Essential (primary) hypertension Chandni Green MD Apr 20, 2017 12:11
[2017-04-20] MEDS ORDERED: FUROSEMIDE 40 MG/4 ML VIAL IV PUSH ONE (12:15)
--- NOTE | 2017-04-20 14:35 | HHI.PR ---
Subjective Remarks This is a pleasant 61 y/o female with Hypertension, Hyperlipidemia, CHF, Echocardiogram from November 05 2015 with EF 20-25%, AICD, CAD, Fibromyalgia, PCKD, Chronic Pain and ESRD on PD who presented to the ER w/ complaints of SOB and cough x2-3 days. Notes productive cough w/ yellow-colored sputum. Denies fever, chills, chest pain or sick contacts. Reports SOB, intermittent, worse w/ exertion, moderate severity. Creatinine 11, producing 10.44 on . Lactic Acid normal. Troponin 0.06. BNP >5000. INR 1.1. CXR with persistent pulmonary vascular congestion, small bilateral pleural effusions and patchy left lung base opacity. S/p Blood Cultures, Rocephin/Zithro IV in ER. 04/20: Stable in her bedroom, no nausea, vomit or diarrhea, improving Shortness of breath after initiating her peritoneal dialysis, nephrology specialist following has crackles on left base, patient is afebrile with No Leukocytosis will re start antibiotics, Cefepime and Azithromycin and follow CXR to be done this afternoon as per Nephrology specialist recommended to optimize ultrafiltration and IV furosemide. no nausea, vomit or diarrhea. Objective Vital Signs Date Time Temp Pulse Resp B/P (MAP) Pulse Ox O2 Delivery O2 Flow Rate FiO2 04/20/17 13:00 90 04/20/17 12:00 86 04/20/17 12:00 98.4 99 21 137/90 (106) 99 04/20/17 10:29 88 04/20/17 09:00 90 04/20/17 08:06 97 Nasal Cannula 2.00 04/20/17 08:00 88 04/20/17 07:41 97 Nasal Cannula 2.00 04/20/17 07:41 98.1 93 22 148/99 (115) 97 04/20/17 07:05 92 04/20/17 06:13 95 04/20/17 05:09 91 04/20/17 04:50 87 04/20/17 03:29 89 04/20/17 03:15 98.3 86 21 139/81 (100) 97 04/20/17 01:12 84 04/20/17 00:03 86 04/19/17 23:43 86 04/19/17 23:37 99.0 85 16 134/81 (98) 99 04/19/17 22:07 98 Room Air 04/19/17 22:02 90 04/19/17 21:36 87 04/19/17 20:22 86 04/19/17 19:57 98.7 87 20 148/92 (110) 99 04/19/17 17:03 98.7 86 18 142/95 (111) 98 I/O 04/19/17 04/19/17 04/19/17 04/20/17 04/20/17 04/20/17 07:00 15:00 23:00 07:00 15:00 23:00 Intake Total 240 ml 480 ml Output Total 0 ml 3718 ml 1 ml 763 ml Balance 240 ml -3718 ml 479 ml -763 ml Intake Oral 240 ml 480 ml Output Urine Total 0 ml Stool Total 1 ml Peritoneal Fluid 763 ml Hemodialysis 3718 ml # Voids 3 Result Diagram: 04/19/17 0433 04/20/17 0635 Imaging Last Impressions Chest X-Ray 04/17/17 1837 Signed Impressions: Service Date/Time: Monday, April 17, 2017 18:56 - CONCLUSION: No significant interval change with persistent mild pulmonary vascular congestion, small bilateral pleural effusions and mild patchy left lung base opacity. Cesar Lopez MD Procedures Peritoneal Dialysis. Other Results Laboratory Tests Test 04/17/17 22:36 04/18/17 14:33 04/18/17 16:50 04/19/17 04:33 Prothrombin Time 11.2 SEC Prothromb Time International Ratio 1.1 RATIO Activated Partial Thromboplast Time 26.0 SEC Lactic Acid Level 1.9 mmol/L Blood Urea Nitrogen 40 MG/DL 44 MG/DL Creatinine 11.00 MG/DL 11.63 MG/DL Random Glucose 88 MG/DL 87 MG/DL Calcium Level 9.2 MG/DL 8.7 MG/DL Magnesium Level 1.8 MG/DL Sodium Level 134 MEQ/L 135 MEQ/L Potassium Level 4.5 MEQ/L 4.5 MEQ/L Chloride Level 96 MEQ/L 96 MEQ/L Carbon Dioxide Level 30.0 MEQ/L 27.4 MEQ/L Total Creatine Kinase 155 U/L Creatine Kinase MB 2.5 NG/ML B-Type Natriuretic Peptide GREATER THAN 5000 PG/ML Troponin I 0.08 NG/ML Peritoneal Fluid WBC 0 /MM3 Peritoneal Fluid RBC 0 /MM3 Peritoneal Fluid Neutrophils 0 % Peritoneal Fluid Lymphocytes 0 % Peritoneal Fluid Monocytes 0 % White Blood Count 5.7 TH/MM3 Red Blood Count 3.29 MIL/MM3 Hemoglobin 10.1 GM/DL Hematocrit 29.8 % Mean Corpuscular Volume 90.5 FL Mean Corpuscular Hemoglobin 30.8 PG Mean Corpuscular Hemoglobin Concent 34.0 % Red Cell Distribution Width 16.1 % Platelet Count 135 TH/MM3 Mean Platelet Volume 8.2 FL Neutrophils (%) (Auto) 61.8 % Lymphocytes (%) (Auto) 13.5 % Monocytes (%) (Auto) 15.5 % Eosinophils (%) (Auto) 7.9 % Basophils (%) (Auto) 1.3 % Neutrophils # (Auto) 3.5 TH/MM3 Lymphocytes # (Auto) 0.8 TH/MM3 Monocytes # (Auto) 0.9 TH/MM3 Eosinophils # (Auto) 0.5 TH/MM3 Basophils # (Auto) 0.1 TH/MM3 CBC Comment DIFF FINAL Differential Comment Total Protein 6.4 GM/DL Albumin 2.5 GM/DL Alkaline Phosphatase 96 U/L Aspartate Amino Transf (AST/SGOT) 12 U/L Alanine Aminotransferase (ALT/SGPT) 15 U/L Total Bilirubin 0.6 MG/DL Test 04/20/17 06:35 Blood Urea Nitrogen 43 MG/DL Creatinine 11.70 MG/DL Random Glucose 94 MG/DL Albumin 2.5 GM/DL Calcium Level 9.2 MG/DL Phosphorus Level 6.5 MG/DL Sodium Level 133 MEQ/L Potassium Level 4.4 MEQ/L Chloride Level 95 MEQ/L Carbon Dioxide Level 25.1 MEQ/L Anion Gap 13 MEQ/L Estimat Glomerular Filtration Rate 3 ML/MIN Objective Remarks GENERAL: No acute distress. HEENT: PERRLA, EOMI. No scleral icterus or conjunctival pallor. No lid lag or facial droop. CARDIOVASCULAR: Regular rate and rhythm. No obvious murmurs to auscultation. No chest tenderness to palpation. RESPIRATORY: decreased breath sounds bilateral, no wheezing, but has Crackles on left base. GASTROINTESTINAL: Abdomen soft, non-tender, nondistended. BS normal. MUSCULOSKELETAL: Extremities without clubbing, cyanosis,has Edema 2+ NEUROLOGICAL: Awake, alert and oriented, no focal deficits. Medications and IVs Current Medications Medications (Trade) Dose Ordered Sig/Emma Route Start Time Stop Time Status Last Admin (Mucinex Er) 1,200 mg BID PO 04/18/17 09:00 04/20/17 08:27 (NS Flush) 2 ml UNSCH PRN IV FLUSH 04/18/17 01:30 (NS Flush) 2 ml BID IV FLUSH 04/18/17 09:00 04/20/17 09:09 (Zofran Inj) 4 mg Q6H PRN IVP 04/18/17 01:30 (Tylenol) 650 mg Q6H PRN PO 04/18/17 01:30 ([place] 5-325 Mg) 1 tab Q4H PRN PO 04/18/17 01:30 (Morphine Inj) 2 mg Q3H PRN IV PUSH 04/18/17 01:30 (Di-Colace) 1 tab BID PO 04/18/17 09:00 04/20/17 09:16 (Milk Of Magnesia Liq) 30 ml Q12H PRN PO 04/18/17 01:30 (Senokot) 17.2 mg Q12H PRN PO 04/18/17 01:30 (Dulcolax Supp) 10 mg DAILY PRN RECTAL 04/18/17 01:30 (Lactulose Liq) 30 ml DAILY PRN PO 04/18/17 01:30 (Aspirin Chew) 81 mg HS CHEW 04/18/17 21:00 04/19/17 19:59 (Rocaltrol) 0.5 mcg DAILY PO 04/18/17 09:00 04/20/17 08:28 (KlonoPIN) 0.5 mg HS PO 04/18/17 21:00 04/19/17 19:59 (Cardizem Cd) 120 mg DAILY PO 04/18/17 09:00 04/20/17 08:29 (Neurontin) 100 mg BID PO 04/18/17 09:00 04/20/17 08:28 (Imdur) 60 mg DAILY PO 04/18/17 09:00 04/20/17 08:28 (Synthroid) 50 mcg DAILY@0600 PO 04/18/17 06:00 04/20/17 05:43 (Cozaar) 100 mg DAILY PO 04/18/17 09:00 04/20/17 08:28 (Toprol Xl) 100 mg DAILY PO 04/18/17 09:00 04/20/17 08:29 (Zoloft) 100 mg DAILY PO 04/18/17 09:00 04/20/17 08:28 (Renvela) 800 mg TIDAC PO 04/18/17 08:00 04/20/17 12:14 (Ambien) 10 mg HS PRN PO 04/18/17 01:30 04/19/17 23:36 (Nephrocaps) 1 cap DAILY PO 04/18/17 09:00 04/20/17 09:08 (Protonix) 20 mg DAILY PO 04/18/17 09:00 04/20/17 08:29 (Heparin Inj) 1,000 units WITH DIALYSIS PRN XX 04/18/17 14:15 (NS Flush) 10 ml UNSCH PRN IV FLUSH 04/18/17 14:15 (Duoneb Neb) 1 ampule QID NEB NEB 04/19/17 20:00 04/20/17 12:00 A/P Assessment and Plan 1. SIRS doubt Sepsis, but today has crackles on left base will ask for new CXR and re start antibiotics, Cefepime and Azithromycin, and follow. 2. Questionable Pneumonia CXR w/ LLL PNA, Continue w/ IV Rocephin/Zithro as above, DuoNeb prn, Mucinex. all cultures negative, re started antibiotics due to left lower crackles present, afebrile, no leukocytosis, asked for new CXR. 3. Equivocal Troponin elevation trending down with peritoneal dialysis. 4. CHF: Acute on Chronic. Systolic. Echo 11/05/15 w/ EF 20-25%, BNP >5000, CXR w/ bilateral pleural effusions, secondary to volume overload. Improving. 5. ESRD on PD: Follows w/ Dr. Green as outpatient, on Peritoneal Dialysis. optimized ultrafiltration and given Furosemide today. 6. COPD stable continue Bronchodilator, Mucinex and incentive spirometry. DVT Prophylaxis: SCD/Teds. Social work for d/c planning as needed. Discharge Planning Once cleared by nephrology specialist. Jose Pang MD Apr 20, 2017 14:35
--- NOTE | 2017-04-20 15:30 | RADRPT ---
EXAM DATE/TIME: 04/20/2017 15:02 [facility] COMPARISON: CHEST PA & LAT, April 17, 2017, 18:56. INDICATIONS : Evaluate pneumonia MEDICAL HISTORY : Hypertension. Chronic obstructive pulmonary disease. CardiovascularHypertension. Chronic obstructive pulmonary disease. Cardiovascular SURGICAL HISTORY : Pacemaker. Cardiac stent. ENCOUNTER: Subsequent ACUITY: 3 days PAIN SCORE: 0/10 LOCATION: Bilateral chest FINDINGS: Stable chest with unipolar pacemaker overlying left hemithorax and atherosclerotic cardiovascular dis ease with mild pulmonary vascular congestion and small bilateral pleural effusions. CONCLUSION: Stable chest Teddy Rm MD on April 20, 2017 at 15:26 Board Certified Radiologist. This report was verified electronically.
[2017-04-20] MEDS: CEFEPIME INJ 1,000 MG in SODIUM CHLORIDE 0.9% INJ 100 ML IV SCH (15:38)
[2017-04-20] MEDS: AZITHROMYCIN INJ 500 MG in SODIUM CHLOR 0.9% 250 ML INJ 250 ML IV SCH (16:13)
[2017-04-20] MEDS: clonazePAM 0.5 MG TAB PO SCH (20:39)
[2017-04-20] MEDS: ASPIRIN 81 MG CHEW TAB CHEW SCH (20:39)
[2017-04-20] MEDS: ZOLPIDEM TARTRATE 10 MG TAB PO PRN (22:35)
[2017-04-21] VITALS (10 sets, daily range): BP systolic 121–151; BP diastolic 73–97; PULSE 85–106; RESP 18–20; TEMP 97.6–98.5; O2SAT 94–99
[2017-04-21] MEDS: LEVOTHYROXINE SODIUM 50 MCG TAB PO SCH (06:30)
[2017-04-21] MEDS: RESP: ALBUTEROL 2.5 MG/IPRATROPIUM 0.5 MG NEB (SCH) NEB ×4 (08:53→20:50)
[2017-04-21] MEDS: CALCITRIOL 0.25 MCG CAP PO SCH (10:00)
[2017-04-21] MEDS: PANTOPRAZOLE SOD 20 MG DELAYED RELEASE TAB PO SCH (10:00)
[2017-04-21] MEDS: guaiFENesin E.R. 600 MG TAB PO SCH ×2 (10:00→20:43)
[2017-04-21] MEDS: LOSARTAN 50 MG TAB PO SCH (10:00)
[2017-04-21] MEDS: SEVELAMER CARBONATE 800 MG TAB PO SCH ×3 (10:00→18:16)
[2017-04-21] MEDS: METOPROLOL SUCCINATE 50 MG EXTENDED RELEASE TAB PO SCH (10:01)
[2017-04-21] MEDS: GABAPENTIN 100 MG CAP PO SCH ×2 (10:01→20:43)
[2017-04-21] MEDS: VITAMIN B CMPLX/VITC/FOLIC AC CAP PO SCH (10:01)
[2017-04-21] MEDS: ISOSORBIDE MONONITRATE 60 MG TAB PO SCH (10:01)
[2017-04-21] MEDS: DILTIAZEM-CD 120 MG CAP ER PO SCH (10:01)
[2017-04-21] MEDS: SERTRALINE HCL 100 MG TAB PO SCH (10:01)
[2017-04-21] MEDS: DOCUSATE SODIUM 50 MG/SENNA 8.6 MG TAB PO SCH ×2 (10:01→20:43)
[2017-04-21] MEDS: SODIUM CHLORIDE 0.9% FLUSH 10 ML FLUSH IV FLUSH SCH ×2 (10:02→20:44)
[2017-04-21] MEDS: CEFEPIME INJ 1,000 MG in SODIUM CHLORIDE 0.9% INJ 100 ML IV SCH (10:11)
--- NOTE | 2017-04-21 10:34 | HHI.NPPN ---
Subjective History of Present Illness 61-year-old female unfortunately has multiple medical problems including a severe cardiomyopathy, end-stage renal disease on maintenance peritoneal dialysis, intrinsic pulmonary disease now presenting with increasing shortness of breath and yellow sputum. Chest x-ray indicating mild pulmonary congestion. BNP was greater than 5000. Interval History Pt states she is feeling about the same today. UF last night was just above 1L. Started on abx yesterday as per primary team. (Sada Izaguirre) Review of Systems Respiratory Lungs: SOB, Cough, Wheeze (Sada Izaguirre) Objective Data Data 04/21/17 04/22/17 19:00 07:00 Output Total 1054 ml Balance -1054 ml Peritoneal Fluid 1054 ml Vital Signs Date Time Temp Pulse Resp B/P (MAP) Pulse Ox O2 Delivery O2 Flow Rate FiO2 04/21/17 08:56 99 Nasal Cannula 2.00 04/21/17 08:00 97.9 106 20 151/97 (115) 94 04/21/17 04:42 97.6 91 18 134/84 (101) 98 04/21/17 04:01 85 04/21/17 00:56 98.0 94 18 121/73 (89) 98 04/21/17 00:03 94 04/20/17 22:12 98 04/20/17 21:00 99 Nasal Cannula 2.00 04/20/17 20:51 98.3 100 18 129/78 (95) 99 04/20/17 20:00 98.9 101 20 144/96 (112) 100 04/20/17 20:00 100 04/20/17 19:37 99 Nasal Cannula 2.00 04/20/17 19:00 92 04/20/17 16:00 88 04/20/17 15:39 98.7 87 21 147/92 (110) 98 04/20/17 13:00 90 04/20/17 12:00 86 04/20/17 12:00 98.4 99 21 137/90 (106) 99 (Sada Izaguirre) -: 04/19/17 0433 04/20/17 0635 Imaging Last Impressions Chest X-Ray 04/20/17 0000 Signed Impressions: Service Date/Time: Thursday, April 20, 2017 15:02 - CONCLUSION: Stable chest Teddy Rm MD Tubes & Lines: Tenckhoff Catheter Medication Review Current Medications Medications (Trade) Dose Ordered Sig/Emma Route Start Time Stop Time Status Last Admin (Mucinex Er) 1,200 mg BID PO 04/18/17 09:00 04/21/17 10:00 (NS Flush) 2 ml UNSCH PRN IV FLUSH 04/18/17 01:30 (NS Flush) 2 ml BID IV FLUSH 04/18/17 09:00 04/21/17 10:02 (Zofran Inj) 4 mg Q6H PRN IVP 04/18/17 01:30 (Tylenol) 650 mg Q6H PRN PO 04/18/17 01:30 ([place] 5-325 Mg) 1 tab Q4H PRN PO 04/18/17 01:30 (Morphine Inj) 2 mg Q3H PRN IV PUSH 04/18/17 01:30 (Di-Colace) 1 tab BID PO 04/18/17 09:00 04/21/17 10:01 (Milk Of Magnesia Liq) 30 ml Q12H PRN PO 04/18/17 01:30 (Senokot) 17.2 mg Q12H PRN PO 04/18/17 01:30 (Dulcolax Supp) 10 mg DAILY PRN RECTAL 04/18/17 01:30 (Lactulose Liq) 30 ml DAILY PRN PO 04/18/17 01:30 (Aspirin Chew) 81 mg HS CHEW 04/18/17 21:00 04/20/17 20:39 (Rocaltrol) 0.5 mcg DAILY PO 04/18/17 09:00 04/21/17 10:00 (KlonoPIN) 0.5 mg HS PO 04/18/17 21:00 04/20/17 20:39 (Cardizem Cd) 120 mg DAILY PO 04/18/17 09:00 04/21/17 10:01 (Neurontin) 100 mg BID PO 04/18/17 09:00 04/21/17 10:01 (Imdur) 60 mg DAILY PO 04/18/17 09:00 04/21/17 10:01 (Synthroid) 50 mcg DAILY@0600 PO 04/18/17 06:00 04/21/17 06:30 (Cozaar) 100 mg DAILY PO 04/18/17 09:00 04/21/17 10:00 (Toprol Xl) 100 mg DAILY PO 04/18/17 09:00 04/21/17 10:01 (Zoloft) 100 mg DAILY PO 04/18/17 09:00 04/21/17 10:01 (Renvela) 800 mg TIDAC PO 04/18/17 08:00 04/21/17 10:00 (Ambien) 10 mg HS PRN PO 04/18/17 01:30 04/20/17 22:35 (Nephrocaps) 1 cap DAILY PO 04/18/17 09:00 04/21/17 10:01 (Protonix) 20 mg DAILY PO 04/18/17 09:00 04/21/17 10:00 (Heparin Inj) 1,000 units WITH DIALYSIS PRN XX 04/18/17 14:15 (NS Flush) 10 ml UNSCH PRN IV FLUSH 04/18/17 14:15 (Duoneb Neb) 1 ampule QID NEB NEB 04/19/17 20:00 04/21/17 08:53 Cefepime HCl 1000 mg/Sodium Chloride 100 ml @ 200 mls/hr DAILY IV 04/20/17 14:30 04/21/17 10:11 Azithromycin 500 mg/Sodium Chloride 250 ml @ 250 mls/hr Q24H IV 04/20/17 16:00 04/20/17 16:13 (Sada Izaguirre) Physical Exam General Appearance: No Acute Distress, Comfortable (Sada Izaguirre) Pulmonary Resp Exam: No Distress, Decreased Bases (exp wheezing appreciated throughout) (Sada Izaguirre) Cardiology CV Exam: Regular, Normal Sinus Rhythm (Sada Izaguirre) Gastrointestinal/Abdomen GI Exam: Soft, Non-Tender, Distended (but soft) (Sada Izaguirre) Integumentary Skin Exam: Clear, Warm, Normal Turgor (Sada Izaguirre) Extremeties Extremities Exam: No Edema (Sada Izaguirre) Neurologic Neuro Exam: Alert, Awake, Oriented (Sada Izaguirre) Psychiatric Psych Exam: Appropriate Responses (Sada Izaguirre) Assessment/Plan Discussed Condition With: Patient Problem List: (1) ESRD (end stage renal disease) on dialysis ICD Codes: N18.6 - End stage renal failure on dialysis; Z99.2 - Dependence on renal dialysis Status: Chronic Plan: Patient's volume status has improved with UF last night ~1L. Will change PD solutions to 2.5/2.5/4.25% tonight. Continue on abx as per primary team as appears she has some infection. On nebulizers as well. Resume Renvela with meals Medication should be adjusted for the patient's end-stage renal disease when indicated. Avoid gadolinium in the setting of her end-stage renal disease. (2) CHF (congestive heart failure) ICD Codes: I50.9 - Heart failure, unspecified Status: Chronic Plan: Unfortunately patient does have a severe cardiomyopathy with previous AICD placement. Patient's long-term prognosis most likely poor she also has a history of intrinsic pulmonary disease and end-stage renal disease. Volume status acceptable (3) Cardiomyopathy, dilated, nonischemic ICD Codes: I42.0 - Dilated cardiomyopathy Status: Chronic (4) HTN (hypertension) ICD Codes: I10 - Essential (primary) hypertension Status: Chronic Plan: BP improved. Monitor and adjust if needed (5) Anemia of renal disease ICD Codes: D63.1 - Anemia in chronic kidney disease Status: Chronic Plan: Patient's hemoglobin within acceptable range. (Sada Izaguirre) Plan The exam, history, and the medical decision-making described in the above note were completed with the assistance of the PAWei. I reviewed and agree with the findings presented. (Chandni Green MD) Problem Qualifiers (1) CHF (congestive heart failure): (2) HTN (hypertension): Qualified Codes: I10 - Essential (primary) hypertension Sada Izaguirre Apr 21, 2017 10:34 Chandni Green MD Apr 21, 2017 14:37
[2017-04-21] MEDS ORDERED: SEVELAMER CARBONATE 800 MG TAB PO SCH (12:00)
[2017-04-21 13:20] LABS: BICARBONATE 29.4 MEQ/L (21.0-32.0)
[2017-04-21 13:32] LABS: CREATININE 11.28 MG/DL (0.50-1.00)
--- NOTE | 2017-04-21 18:00 | HHI.PR ---
Subjective Remarks Patient still sob. c/o BL lower extremity edema still present. Denies fevers or chills Still coughing. Objective Vitals Vital Signs Date Time Temp Pulse Resp B/P (MAP) Pulse Ox O2 Delivery O2 Flow Rate FiO2 04/21/17 17:01 Nasal Cannula 2.00 04/21/17 16:56 85 04/21/17 12:00 98.5 104 20 138/88 (105) 99 04/21/17 08:56 99 Nasal Cannula 2.00 04/21/17 08:00 97.9 106 20 151/97 (115) 94 04/21/17 04:42 97.6 91 18 134/84 (101) 98 04/21/17 04:01 85 04/21/17 00:56 98.0 94 18 121/73 (89) 98 04/21/17 00:03 94 04/20/17 22:12 98 04/20/17 21:00 99 Nasal Cannula 2.00 04/20/17 20:51 98.3 100 18 129/78 (95) 99 04/20/17 20:00 98.9 101 20 144/96 (112) 100 04/20/17 20:00 100 04/20/17 19:37 99 Nasal Cannula 2.00 04/20/17 19:00 92 I/O 04/20/17 04/20/17 04/20/17 04/21/17 04/21/17 04/21/17 07:00 15:00 23:00 07:00 15:00 23:00 Intake Total 480 ml 1070 ml 240 ml Output Total 1 ml 763 ml 1054 ml Balance 479 ml -763 ml 1070 ml 240 ml -1054 ml Intake Oral 480 ml 720 ml 240 ml IV Total 350 ml Stool Total 1 ml Peritoneal Fluid 763 ml 1054 ml # Voids 2 # Bowel Movements 0 Result Diagram: 04/19/17 0433 04/21/17 1143 Imaging Last Impressions Chest X-Ray 04/20/17 0000 Signed Impressions: Service Date/Time: Thursday, April 20, 2017 15:02 - CONCLUSION: Stable chest Teddy Rm MD Objective Remarks GENERAL: No acute distress. HEENT: PERRLA, EOMI. No scleral icterus or conjunctival pallor. No lid lag or facial droop. CARDIOVASCULAR: Regular rate and rhythm. No obvious murmurs to auscultation. No chest tenderness to palpation. RESPIRATORY: decreased breath sounds bilateral, no wheezing, but has Crackles on left base. GASTROINTESTINAL: Abdomen soft, non-tender, nondistended. BS normal. MUSCULOSKELETAL: Extremities without clubbing, cyanosis,has Edema 2+ NEUROLOGICAL: Awake, alert and oriented, no focal deficits. Medications and IVs Current Medications Medications (Trade) Dose Ordered Sig/Emma Route Start Time Stop Time Status Last Admin (Mucinex Er) 1,200 mg BID PO 04/18/17 09:00 04/21/17 10:00 (NS Flush) 2 ml UNSCH PRN IV FLUSH 04/18/17 01:30 (NS Flush) 2 ml BID IV FLUSH 04/18/17 09:00 04/21/17 10:02 (Zofran Inj) 4 mg Q6H PRN IVP 04/18/17 01:30 (Tylenol) 650 mg Q6H PRN PO 04/18/17 01:30 ([place] 5-325 Mg) 1 tab Q4H PRN PO 04/18/17 01:30 (Morphine Inj) 2 mg Q3H PRN IV PUSH 04/18/17 01:30 (Di-Colace) 1 tab BID PO 04/18/17 09:00 04/21/17 10:01 (Milk Of Magnesia Liq) 30 ml Q12H PRN PO 04/18/17 01:30 (Senokot) 17.2 mg Q12H PRN PO 04/18/17 01:30 (Dulcolax Supp) 10 mg DAILY PRN RECTAL 04/18/17 01:30 (Lactulose Liq) 30 ml DAILY PRN PO 04/18/17 01:30 (Aspirin Chew) 81 mg HS CHEW 04/18/17 21:00 04/20/17 20:39 (Rocaltrol) 0.5 mcg DAILY PO 04/18/17 09:00 04/21/17 10:00 (KlonoPIN) 0.5 mg HS PO 04/18/17 21:00 04/20/17 20:39 (Cardizem Cd) 120 mg DAILY PO 04/18/17 09:00 04/21/17 10:01 (Neurontin) 100 mg BID PO 04/18/17 09:00 04/21/17 10:01 (Imdur) 60 mg DAILY PO 04/18/17 09:00 04/21/17 10:01 (Synthroid) 50 mcg DAILY@0600 PO 04/18/17 06:00 04/21/17 06:30 (Cozaar) 100 mg DAILY PO 04/18/17 09:00 04/21/17 10:00 (Toprol Xl) 100 mg DAILY PO 04/18/17 09:00 04/21/17 10:01 (Zoloft) 100 mg DAILY PO 04/18/17 09:00 04/21/17 10:01 (Renvela) 800 mg TIDAC PO 04/18/17 08:00 04/21/17 12:27 (Ambien) 10 mg HS PRN PO 04/18/17 01:30 04/20/17 22:35 (Nephrocaps) 1 cap DAILY PO 04/18/17 09:00 04/21/17 10:01 (Protonix) 20 mg DAILY PO 04/18/17 09:00 04/21/17 10:00 (Heparin Inj) 1,000 units WITH DIALYSIS PRN XX 04/18/17 14:15 (NS Flush) 10 ml UNSCH PRN IV FLUSH 04/18/17 14:15 (Duoneb Neb) 1 ampule QID NEB NEB 04/19/17 20:00 04/21/17 16:00 Cefepime HCl 1000 mg/Sodium Chloride 100 ml @ 200 mls/hr DAILY IV 04/20/17 14:30 04/21/17 10:11 Azithromycin 500 mg/Sodium Chloride 250 ml @ 250 mls/hr Q24H IV 04/20/17 16:00 04/20/17 16:13 A/P Problem List: (1) Sepsis ICD Code: A41.9 - Sepsis, unspecified organism (2) PNA (pneumonia) ICD Code: J18.9 - Pneumonia, unspecified organism (3) Elevated troponin ICD Code: R74.8 - Abnormal levels of other serum enzymes (4) CHF (congestive heart failure) ICD Code: I50.9 - Heart failure, unspecified Status: Chronic (5) ESRD on peritoneal dialysis ICD Code: N18.6 - End stage renal disease; Z99.2 - Dependence on renal dialysis Assessment and Plan 1. Sepsis: Temp 100.4, HR 112, Source-PNA. S/p Blood Cultures, IV Rocephin/ Zithro. Follow up blood cultures, check Sputum cultures, continue w/ IV Abx, caution w/ IVF in light of Acute CHF 04/21 sepsis clinically improving. Continue IV antibiotics, supplemental o2, duonebs. Sputum culture negative, blood culture is negative to date. 2. PNA: CXR w/ LLL PNA, images reviewed by me. Continue w/ IV Rocephin/ Zithro as above, DuoNeb prn, Mucinex. Check Sputum Cultures. 3. Elevated Trop: Trop 0.06, no c/o chest pain, possibly secondary to renal failure. Admit for further cardiac work up, place on telemetry, check w/ serial cardiac enzymes for trend, NTG/Morphine as needed. 04/21 Elevated troponin likely in the setting of renal failure. Patient is chest pain free. 4. CHF: Acute on Chronic. Systolic. Echo 11/05/15 w/ EF 20-25%, BNP >5000, CXR w/ bilateral pleural effusions, images reviewed by me, caution w/ IVF for Sepsis. Monitor I/O. 5. ESRD on PD: Follows w/ Dr. Green as outpatient, will consult for arrangements to continue w/ PD. 04/21 Patient undergoing PD with signs of volume overload still present. PD as per nephrology. 6. DVT Prophylaxis: SCD/Teds. Problem Qualifiers (1) CHF (congestive heart failure): Efe Acevedo MD Apr 21, 2017 18:00
[2017-04-21] MEDS: AZITHROMYCIN INJ 500 MG in SODIUM CHLOR 0.9% 250 ML INJ 250 ML IV SCH (18:16)
[2017-04-21] MEDS: ASPIRIN 81 MG CHEW TAB CHEW SCH (20:43)
[2017-04-21] MEDS: clonazePAM 0.5 MG TAB PO SCH (20:43)
[2017-04-22] VITALS (8 sets, daily range): BP systolic 121–141; BP diastolic 62–82; PULSE 85–105; RESP 16–21; TEMP 97.6–98.3; O2SAT 94–99
[2017-04-22] MEDS: LEVOTHYROXINE SODIUM 50 MCG TAB PO SCH (06:13)
[2017-04-22] MEDS: RESP: ALBUTEROL 2.5 MG/IPRATROPIUM 0.5 MG NEB (SCH) NEB ×4 (08:12→19:46)
[2017-04-22] MEDS: PANTOPRAZOLE SOD 20 MG DELAYED RELEASE TAB PO SCH (08:50)
[2017-04-22] MEDS: METOPROLOL SUCCINATE 50 MG EXTENDED RELEASE TAB PO SCH (08:50)
[2017-04-22] MEDS: guaiFENesin E.R. 600 MG TAB PO SCH ×2 (08:50→20:49)
[2017-04-22] MEDS: LOSARTAN 50 MG TAB PO SCH (08:50)
[2017-04-22] MEDS: CALCITRIOL 0.25 MCG CAP PO SCH (08:50)
[2017-04-22] MEDS: VITAMIN B CMPLX/VITC/FOLIC AC CAP PO SCH (08:50)
[2017-04-22] MEDS: SEVELAMER CARBONATE 800 MG TAB PO SCH ×3 (08:50→17:13)
[2017-04-22] MEDS: SERTRALINE HCL 100 MG TAB PO SCH (08:51)
[2017-04-22] MEDS: DILTIAZEM-CD 120 MG CAP ER PO SCH (08:51)
[2017-04-22] MEDS: CEFEPIME INJ 1,000 MG in SODIUM CHLORIDE 0.9% INJ 100 ML IV SCH (08:51)
[2017-04-22] MEDS: ISOSORBIDE MONONITRATE 60 MG TAB PO SCH (08:51)
[2017-04-22] MEDS: GABAPENTIN 100 MG CAP PO SCH ×2 (08:51→20:49)
[2017-04-22] MEDS: DOCUSATE SODIUM 50 MG/SENNA 8.6 MG TAB PO SCH ×2 (08:51→20:49)
[2017-04-22] MEDS: SODIUM CHLORIDE 0.9% FLUSH 10 ML FLUSH IV FLUSH SCH ×2 (08:51→20:50)
--- NOTE | 2017-04-22 15:28 | HHI.PR ---
Subjective Remarks patient c/o sob. Denies cp. afebrile. Objective Vitals Vital Signs Date Time Temp Pulse Resp B/P (MAP) Pulse Ox O2 Delivery O2 Flow Rate FiO2 04/22/17 12:00 97.7 104 20 123/75 (91) 94 04/22/17 08:45 Nasal Cannula 2.00 04/22/17 08:13 99 Nasal Cannula 2.00 04/22/17 08:00 98.3 94 20 125/62 (83) 98 04/22/17 04:00 98.0 88 19 139/69 (92) 97 04/22/17 04:00 87 04/22/17 00:00 97.7 87 21 141/82 (101) 94 04/22/17 00:00 85 04/21/17 20:00 Nasal Cannula 2.00 04/21/17 20:00 97.8 94 19 121/82 (95) 99 04/21/17 20:00 93 04/21/17 20:00 Nasal Cannula 2.00 04/21/17 17:01 Nasal Cannula 2.00 04/21/17 16:56 85 04/21/17 16:00 97.9 98 20 130/79 (96) 98 I/O 04/21/17 04/21/17 04/21/17 04/22/17 04/22/17 04/22/17 06:59 14:59 22:59 06:59 14:59 22:59 Intake Total 240 ml 600 ml 280 ml Output Total 1054 ml 1249 ml Balance 240 ml -1054 ml 600 ml 280 ml -1249 ml Intake Oral 240 ml 600 ml 280 ml Peritoneal Fluid 1054 ml Hemodialysis 1249 ml # Voids 2 2 4 # Bowel Movements 0 1 1 Result Diagram: 04/19/17 0433 04/21/17 1143 Imaging Last Impressions Chest X-Ray 04/20/17 0000 Signed Impressions: Service Date/Time: Thursday, April 20, 2017 15:02 - CONCLUSION: Stable chest Teddy Rm MD Objective Remarks GENERAL: No acute distress. HEENT: PERRLA, EOMI. No scleral icterus or conjunctival pallor. No lid lag or facial droop. CARDIOVASCULAR: Regular rate and rhythm. No obvious murmurs to auscultation. No chest tenderness to palpation. RESPIRATORY: Rales on the left base with diffuse bilateral expiratory wheezing on exam. GASTROINTESTINAL: Abdomen soft, non-tender, nondistended. BS normal. MUSCULOSKELETAL: Extremities without clubbing, cyanosis,has Edema 2+ NEUROLOGICAL: Awake, alert and oriented, no focal deficits. Procedures none Medications and IVs Current Medications Medications (Trade) Dose Ordered Sig/Emma Route Start Time Stop Time Status Last Admin (Mucinex Er) 1,200 mg BID PO 04/18/17 09:00 04/22/17 08:50 (NS Flush) 2 ml UNSCH PRN IV FLUSH 04/18/17 01:30 (NS Flush) 2 ml BID IV FLUSH 04/18/17 09:00 04/22/17 08:51 (Zofran Inj) 4 mg Q6H PRN IVP 04/18/17 01:30 (Tylenol) 650 mg Q6H PRN PO 04/18/17 01:30 ([place] 5-325 Mg) 1 tab Q4H PRN PO 04/18/17 01:30 (Morphine Inj) 2 mg Q3H PRN IV PUSH 04/18/17 01:30 (Di-Colace) 1 tab BID PO 04/18/17 09:00 04/22/17 08:51 (Milk Of Magnesia Liq) 30 ml Q12H PRN PO 04/18/17 01:30 (Senokot) 17.2 mg Q12H PRN PO 04/18/17 01:30 (Dulcolax Supp) 10 mg DAILY PRN RECTAL 04/18/17 01:30 (Lactulose Liq) 30 ml DAILY PRN PO 04/18/17 01:30 (Aspirin Chew) 81 mg HS CHEW 04/18/17 21:00 04/21/17 20:43 (Rocaltrol) 0.5 mcg DAILY PO 04/18/17 09:00 04/22/17 08:50 (KlonoPIN) 0.5 mg HS PO 04/18/17 21:00 04/21/17 20:43 (Cardizem Cd) 120 mg DAILY PO 04/18/17 09:00 04/22/17 08:51 (Neurontin) 100 mg BID PO 04/18/17 09:00 04/22/17 08:51 (Imdur) 60 mg DAILY PO 04/18/17 09:00 04/22/17 08:51 (Synthroid) 50 mcg DAILY@0600 PO 04/18/17 06:00 04/22/17 06:13 (Cozaar) 100 mg DAILY PO 04/18/17 09:00 04/22/17 08:50 (Toprol Xl) 100 mg DAILY PO 04/18/17 09:00 04/22/17 08:50 (Zoloft) 100 mg DAILY PO 04/18/17 09:00 04/22/17 08:51 (Renvela) 800 mg TIDAC PO 04/18/17 08:00 04/22/17 12:48 (Ambien) 10 mg HS PRN PO 04/18/17 01:30 04/20/17 22:35 (Nephrocaps) 1 cap DAILY PO 04/18/17 09:00 04/22/17 08:50 (Protonix) 20 mg DAILY PO 04/18/17 09:00 04/22/17 08:50 (Heparin Inj) 1,000 units WITH DIALYSIS PRN XX 04/18/17 14:15 (NS Flush) 10 ml UNSCH PRN IV FLUSH 04/18/17 14:15 (Duoneb Neb) 1 ampule QID NEB NEB 04/19/17 20:00 04/22/17 11:18 Cefepime HCl 1000 mg/Sodium Chloride 100 ml @ 200 mls/hr DAILY IV 04/20/17 14:30 04/22/17 08:51 Azithromycin 500 mg/Sodium Chloride 250 ml @ 250 mls/hr Q24H IV 04/20/17 16:00 04/21/17 18:16 A/P Problem List: (1) Sepsis ICD Code: A41.9 - Sepsis, unspecified organism (2) PNA (pneumonia) ICD Code: J18.9 - Pneumonia, unspecified organism (3) Elevated troponin ICD Code: R74.8 - Abnormal levels of other serum enzymes (4) CHF (congestive heart failure) ICD Code: I50.9 - Heart failure, unspecified Status: Chronic (5) ESRD on peritoneal dialysis ICD Code: N18.6 - End stage renal disease; Z99.2 - Dependence on renal dialysis (6) Reactive airway disease ICD Code: J45.909 - Unspecified asthma, uncomplicated Status: Acute Assessment and Plan 1. Sepsis: Temp 100.4, HR 112, Source-PNA. S/p Blood Cultures, IV Rocephin/ Zithro. Follow up blood cultures, check Sputum cultures, continue w/ IV Abx, caution w/ IVF in light of Acute CHF 04/22 sepsis clinically improving. Continue IV antibiotics, supplemental o2, duonebs. Sputum culture negative, blood culture is negative to date. 2. PNA: CXR w/ LLL PNA, images reviewed by me. Continue w/ IV Rocephin/ Zithro as above, DuoNeb prn, Mucinex. Check Sputum Cultures. 04/22 Patient is c/o sob and is wheezing. Will start on IV Solumedrol since there is BL wheezing on lung exam. Suspect reactive airay disease. 3. Elevated Trop: Trop 0.06, no c/o chest pain, possibly secondary to renal failure. Admit for further cardiac work up, place on telemetry, check w/ serial cardiac enzymes for trend, NTG/Morphine as needed. Elevated troponin likely in the setting of renal failure. Patient is chest pain free. 4. CHF: Acute on Chronic. Systolic. Echo 11/05/15 w/ EF 20-25%, BNP >5000, CXR w/ bilateral pleural effusions, images reviewed by me, caution w/ IVF for Sepsis. Monitor I/O. 5. ESRD on PD: Follows w/ Dr. Green as outpatient, will consult for arrangements to continue w/ PD. 04/21 Patient undergoing PD with signs of volume overload still present. PD as per nephrology. 6. DVT Prophylaxis: SCD/Teds. Discharge Planning Continue to monitor in the medical floor. Patient with wheezing and c/o sob. Started on IV Solumedrol. DC pending clinical improvement. Problem Qualifiers (1) CHF (congestive heart failure): (2) Reactive airway disease: Qualified Codes: J45.41 - Moderate persistent asthma with (acute) exacerbation Efe Acevedo MD Apr 22, 2017 15:28
--- NOTE | 2017-04-22 16:19 | HHI.NPPN ---
Subjective History of Present Illness 61-year-old female unfortunately has multiple medical problems including a severe cardiomyopathy, end-stage renal disease on maintenance peritoneal dialysis, intrinsic pulmonary disease now presenting with increasing shortness of breath and yellow sputum. Chest x-ray indicating mild pulmonary congestion. BNP was greater than 5000. Interval History Patient still experiencing some shortness of breath and wheezing. Review of Systems Respiratory Lungs: SOB, Cough, Wheeze Objective Data Data 04/22/17 04/23/17 19:00 07:00 Output Total 1249 ml Balance -1249 ml Hemodialysis 1249 ml Vital Signs Date Time Temp Pulse Resp B/P (MAP) Pulse Ox O2 Delivery O2 Flow Rate FiO2 04/22/17 16:06 94 Nasal Cannula 2.00 04/22/17 12:00 97.7 104 20 123/75 (91) 94 04/22/17 08:45 Nasal Cannula 2.00 04/22/17 08:13 99 Nasal Cannula 2.00 04/22/17 08:00 98.3 94 20 125/62 (83) 98 04/22/17 04:00 98.0 88 19 139/69 (92) 97 04/22/17 04:00 87 04/22/17 00:00 97.7 87 21 141/82 (101) 94 04/22/17 00:00 85 04/21/17 20:00 Nasal Cannula 2.00 04/21/17 20:00 97.8 94 19 121/82 (95) 99 04/21/17 20:00 93 04/21/17 20:00 Nasal Cannula 2.00 04/21/17 17:01 Nasal Cannula 2.00 04/21/17 16:56 85 -: 04/19/17 0433 04/21/17 1143 Tubes & Lines: Tenckhoff Catheter Physical Exam General Appearance: No Acute Distress, Comfortable Pulmonary Resp Exam: No Distress, Decreased Bases (few expiratory wheezes. Improved since yesterday.), Diminished Breath Sounds Cardiology CV Exam: Regular, Normal Sinus Rhythm Gastrointestinal/Abdomen GI Exam: Soft, Non-Tender, Distended (but soft) Integumentary Skin Exam: Clear, Warm, Normal Turgor Extremeties Extremities Exam: No Edema Neurologic Neuro Exam: Alert, Awake, Oriented Psychiatric Psych Exam: Appropriate Responses Assessment/Plan Discussed Condition With: Patient Problem List: (1) ESRD (end stage renal disease) on dialysis ICD Codes: N18.6 - End stage renal failure on dialysis; Z99.2 - Dependence on renal dialysis Status: Chronic Plan: Ultrafiltration improved however she does have 2+ pitting edema in the posterior leg. Will use all 4.5% solutions today to improve ultrafiltration further. Fluid restriction by mouth. Resume Renvela with meals Medication should be adjusted for the patient's end-stage renal disease when indicated. Avoid gadolinium in the setting of her end-stage renal disease. (2) CHF (congestive heart failure) ICD Codes: I50.9 - Heart failure, unspecified Status: Chronic Plan: Unfortunately patient does have a severe cardiomyopathy with previous AICD placement. Patient's long-term prognosis most likely poor she also has a history of intrinsic pulmonary disease and end-stage renal disease. Volume status acceptable (3) Cardiomyopathy, dilated, nonischemic ICD Codes: I42.0 - Dilated cardiomyopathy Status: Chronic (4) HTN (hypertension) ICD Codes: I10 - Essential (primary) hypertension Status: Chronic Plan: BP improved. Monitor and adjust if needed (5) Anemia of renal disease ICD Codes: D63.1 - Anemia in chronic kidney disease Status: Chronic Plan: Patient's hemoglobin within acceptable range. Problem Qualifiers (1) CHF (congestive heart failure): (2) HTN (hypertension): Qualified Codes: I10 - Essential (primary) hypertension Chandni Green MD Apr 22, 2017 16:19
[2017-04-22] MEDS: AZITHROMYCIN INJ 500 MG in SODIUM CHLOR 0.9% 250 ML INJ 250 ML IV SCH (17:13)
[2017-04-22] MEDS ORDERED: methylPREDNISolone SOD SUCC 125 MG/2 ML VIAL IV PUSH ONE (17:15)
[2017-04-22] MEDS: ASPIRIN 81 MG CHEW TAB CHEW SCH (20:49)
[2017-04-22] MEDS: clonazePAM 0.5 MG TAB PO SCH (20:49)
[2017-04-22] MEDS: ZOLPIDEM TARTRATE 10 MG TAB PO PRN (23:23)
[2017-04-22] MEDS: methylPREDNISolone SOD SUCC 40 MG/1 ML VIAL IV PUSH SCH (23:23)
[2017-04-23] VITALS (8 sets, daily range): BP systolic 104–151; BP diastolic 68–90; PULSE 87–100; RESP 16–20; TEMP 97.2–98.4; O2SAT 96–100
[2017-04-23] MEDS: methylPREDNISolone SOD SUCC 40 MG/1 ML VIAL IV PUSH SCH ×3 (06:06→21:01)
[2017-04-23] MEDS: LEVOTHYROXINE SODIUM 50 MCG TAB PO SCH (06:06)
[2017-04-23 08:10] LABS: AUTOMATED NEUTROPHIL # 4.5 TH/MM3 (1.8-7.7); BASOPHIL % 0.4 % (0.0-2.0); EOSINOPHIL % 0.1 % (0.0-4.0); HEMATOCRIT 30.8 % (35.0-46.0); HEMOGLOBIN 10.3 GM/DL (11.6-15.3); LYMPH % 7.7 % (9.0-44.0); LYMPHOCYTE # 0.4 TH/MM3 (1.0-4.8); MEAN CELL VOLUME 89.4 FL (80.0-100.0); MEAN CORPUSCULAR HEMOGLOBIN 29.9 PG (27.0-34.0); MEAN CORPUSCULAR HGB CONC 33.4 % (32.0-36.0); MEAN PLATELET VOLUME 8.5 FL (7.0-11.0); MONO % 1.9 % (0.0-8.0); MONOCYTE # 0.1 TH/MM3 (0-0.9); NEUT % 89.9 % (16.0-70.0); PLATELET COUNT 162 TH/MM3 (150-450); RED BLOOD COUNT 3.44 MIL/MM3 (4.00-5.30)
[2017-04-23 08:49] LABS: ALBUMIN 2.8 GM/DL (3.4-5.0); ALKALINE PHOSPHATASE 113 U/L (45-117); ALT (GPT) 21 U/L (10-53); AST (GOT) 11 U/L (15-37); BICARBONATE 27.3 MEQ/L (21.0-32.0); BLOOD UREA NITROGEN 42 MG/DL (7-18); CALCIUM 8.9 MG/DL (8.5-10.1); CHLORIDE 96 MEQ/L (98-107); GLOMERULAR FILTRATION RATE 4 ML/MIN (>89); GLUCOSE,RANDOM 128 MG/DL (74-106); MAGNESIUM 2.1 MG/DL (1.5-2.5); PHOSPHORUS 4.5 MG/DL (2.5-4.9); SODIUM (NA) 134 MEQ/L (136-145); TOTAL PROTEIN 6.7 GM/DL (6.4-8.2)
[2017-04-23] MEDS: LOSARTAN 50 MG TAB PO SCH (08:50)
[2017-04-23] MEDS: SERTRALINE HCL 100 MG TAB PO SCH (08:50)
[2017-04-23] MEDS: PANTOPRAZOLE SOD 20 MG DELAYED RELEASE TAB PO SCH (08:50)
[2017-04-23] MEDS: DOCUSATE SODIUM 50 MG/SENNA 8.6 MG TAB PO SCH ×2 (08:50→21:01)
[2017-04-23] MEDS: SEVELAMER CARBONATE 800 MG TAB PO SCH ×3 (08:51→17:08)
[2017-04-23] MEDS: VITAMIN B CMPLX/VITC/FOLIC AC CAP PO SCH (08:51)
[2017-04-23] MEDS: CALCITRIOL 0.25 MCG CAP PO SCH (08:51)
[2017-04-23] MEDS: GABAPENTIN 100 MG CAP PO SCH ×2 (08:51→21:00)
[2017-04-23] MEDS: guaiFENesin E.R. 600 MG TAB PO SCH ×2 (08:51→21:00)
[2017-04-23] MEDS: METOPROLOL SUCCINATE 50 MG EXTENDED RELEASE TAB PO SCH (08:51)
[2017-04-23] MEDS: DILTIAZEM-CD 120 MG CAP ER PO SCH (08:51)
[2017-04-23] MEDS: ISOSORBIDE MONONITRATE 60 MG TAB PO SCH (08:51)
[2017-04-23] MEDS: CEFEPIME INJ 1,000 MG in SODIUM CHLORIDE 0.9% INJ 100 ML IV SCH (08:52)
[2017-04-23] MEDS: SODIUM CHLORIDE 0.9% FLUSH 10 ML FLUSH IV FLUSH SCH ×2 (08:52→21:00)
[2017-04-23 08:54] LABS: CREATININE 10.45 MG/DL (0.50-1.00)
[2017-04-23] MEDS: RESP: ALBUTEROL 2.5 MG/IPRATROPIUM 0.5 MG NEB (SCH) NEB ×3 (09:08→16:25)
--- NOTE | 2017-04-23 09:40 | HHI.PR ---
Subjective Remarks in no acute distress. sob improving. no fever. denies pain. d/w the RN. Objective Vitals Vital Signs Date Time Temp Pulse Resp B/P (MAP) Pulse Ox O2 Delivery O2 Flow Rate FiO2 04/23/17 04:00 97.4 94 16 144/81 (102) 98 04/23/17 04:00 Nasal Cannula 2.00 04/23/17 04:00 94 04/23/17 00:00 98.2 87 18 147/85 (105) 97 04/23/17 00:00 98 04/23/17 00:00 Nasal Cannula 2.00 04/22/17 20:00 98 04/22/17 20:00 Nasal Cannula 2.00 04/22/17 20:00 97.9 105 16 141/79 (99) 97 04/22/17 16:06 94 Nasal Cannula 2.00 04/22/17 16:00 97.6 90 20 121/78 (92) 97 04/22/17 12:00 97.7 104 20 123/75 (91) 94 I/O 04/22/17 04/22/17 04/22/17 04/23/17 04/23/17 04/23/17 07:00 15:00 23:00 07:00 15:00 23:00 Intake Total 280 ml 480 ml Output Total 1249 ml 1824 ml Balance 280 ml -1249 ml 480 ml -1824 ml Intake Oral 280 ml 480 ml Peritoneal Fluid 1824 ml Hemodialysis 1249 ml # Voids 4 3 # Bowel Movements 1 2 Result Diagram: 04/23/17 0628 04/23/17 0628 Imaging Last Impressions Chest X-Ray 04/20/17 0000 Signed Impressions: Service Date/Time: Thursday, April 20, 2017 15:02 - CONCLUSION: Stable chest Teddy Rm MD Objective Remarks GENERAL: This is a well-nourished, well-developed patient, in no apparent distress. CARDIOVASCULAR: Regular rate and regular rhythm without murmurs, gallops, or rubs. RESPIRATORY: Clear to auscultation. Breath sounds equal bilaterally. No wheezes , rales, or rhonchi. GASTROINTESTINAL: Abdomen soft, non-tender, nondistended. Normal, active bowel sounds MUSCULOSKELETAL: Extremities without clubbing, cyanosis, or edema. NEURO: Alert & Oriented x4 to person, place, time, situation. Moves all ext x4 Procedures none Medications and IVs Inpatient Medications Acetaminophen (Tylenol) 650 mg Q6H PRN PO FEVER/PAIN SCALE 1 TO 2; Start at 01:30 Acetaminophen/ Hydrocodone Bitart ([place] 5-325 Mg) 1 tab Q4H PRN PO PAIN SCALE 3 TO 5; Start 04/18/17 at 01:30 Albuterol/ Ipratropium (Duoneb Neb) 1 ampule QID NEB NEB Last administered on 04/23/17at 09:08; Start 04/19/17 at 20:00 Aspirin (Aspirin Chew) 81 mg HS CHEW Last administered on 04/22/17at 20:49; Start 04/18/17 at 21:00 Azithromycin 500 mg/Sodium Chloride 250 ml @ 250 mls/hr Q24H IV Last administered on 04/22/17at 17:13; Start 04/20/17 at 16:00 Bisacodyl (Dulcolax Supp) 10 mg DAILY PRN RECTAL SEVERE CONSITIPATION; Start at 01:30 Calcitriol (Rocaltrol) 0.5 mcg DAILY PO Last administered on 04/23/17at 08:51; Start 04/18/17 at 09:00 Cefepime HCl 1000 mg/Sodium Chloride 100 ml @ 200 mls/hr DAILY IV Last administered on 04/23/17at 08:52; Start 04/20/17 at 14:30 Ceftriaxone Sodium 1000 mg/ Sodium Chloride 100 ml @ 200 mls/hr ONCE ONCE IV Last administered on 04/18/17at 01:59; Start 04/18/17 at 01:00; Stop 04/18/17 at 01:29; Status DC Clonazepam (KlonoPIN) 0.5 mg HS PO Last administered on 04/22/17at 20:49; Start 04/18/17 at 21:00 Diltiazem HCl (Cardizem Cd) 120 mg DAILY PO Last administered on 04/23/17at 08: 51; Start 04/18/17 at 09:00 Furosemide (Lasix Inj) 40 mg ONCE ONCE IV PUSH Last administered on 04/20/17at 12:15; Start 04/20/17 at 12:15; Stop 04/20/17 at 12:16; Status DC Gabapentin (Neurontin) 100 mg BID PO Last administered on 04/23/17at 08:51; Start 04/18/17 at 09:00 Guaifenesin (Mucinex Er) 1,200 mg BID PO Last administered on 04/23/17at 08:51; Start 04/18/17 at 09:00 Heparin Sodium (Porcine) (Heparin Inj) 1,000 units WITH DIALYSIS PRN XX SEE LABEL COMMENTS; Start 04/18/17 at 14:15 Isosorbide Mononitrate (Imdur) 60 mg DAILY PO Last administered on 04/23/17at 08 :51; Start 04/18/17 at 09:00 Lactulose (Lactulose Liq) 30 ml DAILY PRN PO SEVERE CONSITIPATION; Start at 01:30 Levothyroxine Sodium (Synthroid) 50 mcg DAILY@0600 PO Last administered on 04/23at 06:06; Start 04/18/17 at 06:00 Losartan Potassium (Cozaar) 100 mg DAILY PO Last administered on 04/23/17at 08: 50; Start 04/18/17 at 09:00 Magnesium Hydroxide (Milk Of Magnesia Liq) 30 ml Q12H PRN PO Mild constipation ; Start 04/18/17 at 01:30 Methylprednisolone Sodium Succinate (SoluMEDROL INJ) 40 mg Q6HR IV PUSH Last administered on 04/23/17at 06:06; Start 04/23/17 at 00:00 Metoprolol Succinate (Toprol Xl) 100 mg DAILY PO Last administered on at 08:51; Start 04/18/17 at 09:00 Morphine Sulfate (Morphine Inj) 2 mg Q3H PRN IV PUSH Pain 6-10; Start 04/18/17 at 01:30 Ondansetron HCl (Zofran Inj) 4 mg Q6H PRN IVP NAUSEA OR VOMITING; Start at 01:30 Pantoprazole Sodium (Protonix) 20 mg DAILY PO Last administered on 04/23/17at 08 :50; Start 04/18/17 at 09:00 Senna/Docusate Sodium (Di-Colace) 1 tab BID PO Last administered on at 08:50; Start 04/18/17 at 09:00 Sennosides (Senokot) 17.2 mg Q12H PRN PO Moderate constipation; Start 04/18/17 at 01:30 Sertraline HCl (Zoloft) 100 mg DAILY PO Last administered on 04/23/17at 08:50; Start 04/18/17 at 09:00 Sevelamer Carbonate (Renvela) 800 mg TIDAC PO ; Start 04/21/17 at 12:00; Stop at 12:00; Status DC Sodium Chloride (NS Flush) 10 ml UNSCH PRN IV FLUSH SEE LABEL COMMENTS; Start 04/18/17 at 14:15 Vitamin B Complex/ Vit C/Folic Acid (Nephrocaps) 1 cap DAILY PO Last administered on 04/23/17at 08:51; Start 04/18/17 at 09:00 Zolpidem Tartrate (Ambien) 10 mg HS PRN PO INSOMNIA Last administered on at 23:23; Start 04/18/17 at 01:30 A/P Problem List: (1) Sepsis ICD Code: A41.9 - Sepsis, unspecified organism (2) PNA (pneumonia) ICD Code: J18.9 - Pneumonia, unspecified organism (3) Elevated troponin ICD Code: R74.8 - Abnormal levels of other serum enzymes (4) CHF (congestive heart failure) ICD Code: I50.9 - Heart failure, unspecified Status: Chronic (5) ESRD on peritoneal dialysis ICD Code: N18.6 - End stage renal disease; Z99.2 - Dependence on renal dialysis (6) Reactive airway disease ICD Code: J45.909 - Unspecified asthma, uncomplicated Status: Acute Assessment and Plan A/P 1. Sepsis: Temp 100.4, HR 112, Source-PNA. continue with IV antibiotics- will taper down the IV steroids- blood and sputum cultures negative so far. 2. Elevated Trop: Trop 0.06, no c/o chest pain, possibly secondary to renal failure. Elevated troponin likely in the setting of renal failure. Patient is chest pain free. 3. CHF: Acute on Chronic. Systolic. Echo 11/05/15 w/ EF 20-25%. Monitor I/O. 4. ESRD on PD: Follows w/ Dr. Green as outpatient. nephrology following. PD as per nephrology. 5. DVT Prophylaxis: SCD/Teds. Discharge Planning IV steroids is being tapered down. dc home tomorrow if stable. Problem Qualifiers (1) CHF (congestive heart failure): (2) Reactive airway disease: Qualified Codes: J45.41 - Moderate persistent asthma with (acute) exacerbation Evin Atkinson MD Apr 23, 2017 09:40
[2017-04-23] MEDS: AZITHROMYCIN INJ 500 MG in SODIUM CHLOR 0.9% 250 ML INJ 250 ML IV SCH (15:35)
[2017-04-23] MEDS: ASPIRIN 81 MG CHEW TAB CHEW SCH (21:00)
[2017-04-23] MEDS: clonazePAM 0.5 MG TAB PO SCH (21:02)
[2017-04-23] MEDS: ZOLPIDEM TARTRATE 10 MG TAB PO PRN (23:48)
[2017-04-24] VITALS: PULSE 93
[2017-04-24 04:00] VITALS: BP 158/84; PULSE 88; RESP 16; TEMP 97.8; O2SAT 97
[2017-04-24] MEDS: methylPREDNISolone SOD SUCC 40 MG/1 ML VIAL IV PUSH SCH (05:38)
[2017-04-24] MEDS: LEVOTHYROXINE SODIUM 50 MCG TAB PO SCH (05:38)
[2017-04-24 08:00] VITALS: BP 149/88; PULSE 92; PULSE 93; RESP 18; TEMP 97.8; O2SAT 98
[2017-04-24] MEDS: SEVELAMER CARBONATE 800 MG TAB PO SCH (09:04)
[2017-04-24] MEDS: guaiFENesin E.R. 600 MG TAB PO SCH (09:05)
[2017-04-24] MEDS: DOCUSATE SODIUM 50 MG/SENNA 8.6 MG TAB PO SCH (09:05)
[2017-04-24] MEDS: SERTRALINE HCL 100 MG TAB PO SCH (09:05)
[2017-04-24] MEDS: ISOSORBIDE MONONITRATE 60 MG TAB PO SCH (09:05)
[2017-04-24] MEDS: CALCITRIOL 0.25 MCG CAP PO SCH (09:05)
[2017-04-24] MEDS: LOSARTAN 50 MG TAB PO SCH (09:05)
[2017-04-24] MEDS: PANTOPRAZOLE SOD 20 MG DELAYED RELEASE TAB PO SCH (09:05)
[2017-04-24] MEDS: DILTIAZEM-CD 120 MG CAP ER PO SCH (09:05)
[2017-04-24] MEDS: CEFEPIME INJ 1,000 MG in SODIUM CHLORIDE 0.9% INJ 100 ML IV SCH (09:06)
[2017-04-24] MEDS: VITAMIN B CMPLX/VITC/FOLIC AC CAP PO SCH (09:06)
[2017-04-24] MEDS: SODIUM CHLORIDE 0.9% FLUSH 10 ML FLUSH IV FLUSH SCH (09:06)
[2017-04-24] MEDS: GABAPENTIN 100 MG CAP PO SCH (09:06)
[2017-04-24] MEDS: METOPROLOL SUCCINATE 50 MG EXTENDED RELEASE TAB PO SCH (09:06)
--- NOTE | 2017-04-24 09:51 | HHI.PR ---
Subjective Remarks in no acute distress. afebrile. no sob or wheezing. no new complaints. Objective Vitals Vital Signs Date Time Temp Pulse Resp B/P (MAP) Pulse Ox O2 Delivery O2 Flow Rate FiO2 04/24/17 08:00 97.8 93 18 149/88 (108) 98 04/24/17 07:00 Nasal Cannula 2.00 04/24/17 04:00 88 04/24/17 04:00 Nasal Cannula 2.00 04/24/17 04:00 97.8 88 16 158/84 (108) 97 04/24/17 00:00 93 04/24/17 00:00 Nasal Cannula 2.00 04/23/17 20:00 94 04/23/17 20:00 98.2 95 16 137/86 (103) 100 04/23/17 20:00 Nasal Cannula 2.00 04/23/17 16:28 98 04/23/17 16:00 92 04/23/17 16:00 97.8 100 20 104/73 (83) 99 04/23/17 12:23 99 Nasal Cannula 2.00 04/23/17 12:00 95 04/23/17 12:00 98.4 97 20 129/75 (93) 98 I/O 04/23/17 04/23/17 04/23/17 04/24/17 04/24/17 04/24/17 07:00 15:00 23:00 07:00 15:00 23:00 Intake Total 100 ml 1200 ml Output Total 1824 ml 1540 ml Balance -1724 ml 1200 ml -1540 ml Intake Oral 600 ml IV Total 100 ml 600 ml Peritoneal Fluid 1824 ml 1540 ml # Voids 2 3 # Bowel Movements 1 Result Diagram: 04/23/17 0628 04/23/17 0628 Imaging Last Impressions Chest X-Ray 04/20/17 0000 Signed Impressions: Service Date/Time: Thursday, April 20, 2017 15:02 - CONCLUSION: Stable chest Teddy Rm MD Objective Remarks GENERAL: This is a well-nourished, well-developed patient, in no apparent distress. CARDIOVASCULAR: Regular rate and regular rhythm without murmurs, gallops, or rubs. RESPIRATORY: Clear to auscultation. Breath sounds equal bilaterally. No wheezes , rales, or rhonchi. GASTROINTESTINAL: Abdomen soft, non-tender, nondistended. Normal, active bowel sounds MUSCULOSKELETAL: Extremities without clubbing, cyanosis, or edema. NEURO: Alert & Oriented x4 to person, place, time, situation. Moves all ext x4 Procedures none Medications and IVs Inpatient Medications Acetaminophen (Tylenol) 650 mg Q6H PRN PO FEVER/PAIN SCALE 1 TO 2; Start at 01:30 Acetaminophen/ Hydrocodone Bitart (Baring 5-325 Mg) 1 tab Q4H PRN PO PAIN SCALE 3 TO 5; Start 04/18/17 at 01:30 Albuterol/ Ipratropium (Duoneb Neb) 1 ampule QID NEB NEB Last administered on 04/23/17at 16:25; Start 04/19/17 at 20:00; Stop 04/23/17 at 19:59; Status DC Aspirin (Aspirin Chew) 81 mg HS CHEW Last administered on 04/23/17at 21:00; Start 04/18/17 at 21:00 Azithromycin 500 mg/Sodium Chloride 250 ml @ 250 mls/hr Q24H IV Last administered on 04/23/17at 15:35; Start 04/20/17 at 16:00 Bisacodyl (Dulcolax Supp) 10 mg DAILY PRN RECTAL SEVERE CONSITIPATION; Start at 01:30 Calcitriol (Rocaltrol) 0.5 mcg DAILY PO Last administered on 04/24/17at 09:05; Start 04/18/17 at 09:00 Cefepime HCl 1000 mg/Sodium Chloride 100 ml @ 200 mls/hr DAILY IV Last administered on 04/24/17at 09:06; Start 04/20/17 at 14:30 Ceftriaxone Sodium 1000 mg/ Sodium Chloride 100 ml @ 200 mls/hr ONCE ONCE IV Last administered on 04/18/17at 01:59; Start 04/18/17 at 01:00; Stop 04/18/17 at 01:29; Status DC Clonazepam (KlonoPIN) 0.5 mg HS PO Last administered on 04/23/17at 21:02; Start 04/18/17 at 21:00 Diltiazem HCl (Cardizem Cd) 120 mg DAILY PO Last administered on 04/24/17at 09: 05; Start 04/18/17 at 09:00 Furosemide (Lasix Inj) 40 mg ONCE ONCE IV PUSH Last administered on 04/20/17at 12:15; Start 04/20/17 at 12:15; Stop 04/20/17 at 12:16; Status DC Gabapentin (Neurontin) 100 mg BID PO Last administered on 04/24/17at 09:06; Start 04/18/17 at 09:00 Guaifenesin (Mucinex Er) 1,200 mg BID PO Last administered on 04/24/17at 09:05; Start 04/18/17 at 09:00 Heparin Sodium (Porcine) (Heparin Inj) 1,000 units WITH DIALYSIS PRN XX SEE LABEL COMMENTS; Start 04/18/17 at 14:15 Isosorbide Mononitrate (Imdur) 60 mg DAILY PO Last administered on 04/24/17at 09 :05; Start 04/18/17 at 09:00 Lactulose (Lactulose Liq) 30 ml DAILY PRN PO SEVERE CONSITIPATION; Start at 01:30 Levothyroxine Sodium (Synthroid) 50 mcg DAILY@0600 PO Last administered on 04/24at 05:38; Start 04/18/17 at 06:00 Losartan Potassium (Cozaar) 100 mg DAILY PO Last administered on 04/24/17at 09: 05; Start 04/18/17 at 09:00 Magnesium Hydroxide (Milk Of Magnesia Liq) 30 ml Q12H PRN PO Mild constipation ; Start 04/18/17 at 01:30 Methylprednisolone Sodium Succinate (SoluMEDROL INJ) 40 mg Q8HR IV PUSH Last administered on 04/24/17at 05:38; Start 04/23/17 at 14:00 Metoprolol Succinate (Toprol Xl) 100 mg DAILY PO Last administered on at 09:06; Start 04/18/17 at 09:00 Morphine Sulfate (Morphine Inj) 2 mg Q3H PRN IV PUSH Pain 6-10; Start 04/18/17 at 01:30 Ondansetron HCl (Zofran Inj) 4 mg Q6H PRN IVP NAUSEA OR VOMITING; Start at 01:30 Pantoprazole Sodium (Protonix) 20 mg DAILY PO Last administered on 04/24/17at 09 :05; Start 04/18/17 at 09:00 Senna/Docusate Sodium (Di-Colace) 1 tab BID PO Last administered on at 09:05; Start 04/18/17 at 09:00 Sennosides (Senokot) 17.2 mg Q12H PRN PO Moderate constipation; Start 04/18/17 at 01:30 Sertraline HCl (Zoloft) 100 mg DAILY PO Last administered on 04/24/17at 09:05; Start 04/18/17 at 09:00 Sevelamer Carbonate (Renvela) 800 mg TIDAC PO ; Start 04/21/17 at 12:00; Stop at 12:00; Status DC Sodium Chloride (NS Flush) 10 ml UNSCH PRN IV FLUSH SEE LABEL COMMENTS; Start 04/18/17 at 14:15 Vitamin B Complex/ Vit C/Folic Acid (Nephrocaps) 1 cap DAILY PO Last administered on 04/24/17at 09:06; Start 04/18/17 at 09:00 Zolpidem Tartrate (Ambien) 10 mg HS PRN PO INSOMNIA Last administered on at 23:48; Start 04/18/17 at 01:30 A/P Problem List: (1) Sepsis ICD Code: A41.9 - Sepsis, unspecified organism (2) PNA (pneumonia) ICD Code: J18.9 - Pneumonia, unspecified organism (3) Elevated troponin ICD Code: R74.8 - Abnormal levels of other serum enzymes (4) CHF (congestive heart failure) ICD Code: I50.9 - Heart failure, unspecified Status: Chronic (5) ESRD on peritoneal dialysis ICD Code: N18.6 - End stage renal disease; Z99.2 - Dependence on renal dialysis (6) Reactive airway disease ICD Code: J45.909 - Unspecified asthma, uncomplicated Status: Acute Assessment and Plan A/P 1. Sepsis: Temp 100.4, HR 112, Source-PNA. continue with IV antibiotics- blood and sputum cultures negative so far. will switch to po antibiotics and steroid upon discharge. she's on home oxygen. 2. Elevated Trop: Trop 0.06, no c/o chest pain, possibly secondary to renal failure. Elevated troponin likely in the setting of renal failure. Patient is chest pain free. 3. CHF: Acute on Chronic. Systolic. Echo 11/05/15 w/ EF 20-25%. Monitor I/O. 4. ESRD on PD: Follows w/ Dr. Green as outpatient. nephrology following. PD as per nephrology. 5. DVT Prophylaxis: SCD/Teds. Discharge Planning dc home today if ok with nephrology. see med list. f/u; pcp and nephrology. d/w the patient and RN. Problem Qualifiers (1) CHF (congestive heart failure): (2) Reactive airway disease: Qualified Codes: J45.41 - Moderate persistent asthma with (acute) exacerbation Evin Atkinson MD Apr 24, 2017 09:51
[2017-04-24] MEDS ORDERED: PRED20 PO (09:58)
[2017-04-24] MEDS ORDERED: LEVA250T14 PO (09:58)
--- NOTE | 2017-04-24 10:01 | HHI.DS ---
Discharge Summary Admission Date Apr 18, 2017 at 01:16 Discharge Date: Apr 24, 2017 Admitting Diagnosis LLL infiltrate; chf; ESRD-peritoneal dialysis (1) Sepsis ICD Code: A41.9 - Sepsis, unspecified organism Diagnosis: Principal (2) PNA (pneumonia) ICD Code: J18.9 - Pneumonia, unspecified organism Diagnosis: Principal (3) Elevated troponin ICD Code: R74.8 - Abnormal levels of other serum enzymes Diagnosis: Secondary (4) CHF (congestive heart failure) ICD Code: I50.9 - Heart failure, unspecified Diagnosis: Secondary Status: Chronic (5) ESRD on peritoneal dialysis ICD Code: N18.6 - End stage renal disease; Z99.2 - Dependence on renal dialysis Diagnosis: Secondary (6) Reactive airway disease ICD Code: J45.909 - Unspecified asthma, uncomplicated Diagnosis: Secondary Status: Acute Procedures none Brief History - From Admission This is a 61-year-old female with a PMH of HTN, Hyperlipidemia, CHF (Echo w/ EF 20-25%), AICD, CAD, Fibromyalgia, PCKD, Chronic Pain and ESRD on PD who presented to the ER w/ complaints of SOB and cough x2-3 days. Notes productive cough w/ yellow-colored sputum. Denies fever, chills, chest pain or sick contacts. Reports SOB, intermittent, worse w/ exertion, moderate severity. On arrival, BP 162/106, HR 112, O2 sat 94% on RA, Temp 100.4. CBC unremarkable. Creatinine 11, producing 10.44 on 03/23/17. Lactic Acid normal. Troponin 0.06. BNP >5000. INR 1.1. CXR with persistent pulmonary vascular congestion, small bilateral pleural effusions and patchy left lung base opacity. S/p Blood Cultures, Rocephin/Zithro IV in ER. CBC/BMP: 04/23/17 0628 04/23/17 0628 Significant Findings Laboratory Tests Test 04/21/17 11:43 04/23/17 06:28 Blood Urea Nitrogen 45 MG/DL (7-18) 42 MG/DL (7-18) Creatinine 11.28 MG/DL (0.50-1.00) 10.45 MG/DL (0.50-1.00) Sodium Level 135 MEQ/L (136-145) 134 MEQ/L (136-145) Chloride Level 96 MEQ/L (98-107) 96 MEQ/L (98-107) Estimat Glomerular Filtration Rate 3 ML/MIN (>89) 4 ML/MIN (>89) Red Blood Count 3.44 MIL/MM3 (4.00-5.30) Hemoglobin 10.3 GM/DL (11.6-15.3) Hematocrit 30.8 % (35.0-46.0) Neutrophils (%) (Auto) 89.9 % (16.0-70.0) Lymphocytes (%) (Auto) 7.7 % (9.0-44.0) Lymphocytes # (Auto) 0.4 TH/MM3 (1.0-4.8) Random Glucose 128 MG/DL (74-106) Albumin 2.8 GM/DL (3.4-5.0) Aspartate Amino Transf (AST/SGOT) 11 U/L (15-37) Imaging Last Impressions Chest X-Ray 04/20/17 0000 Signed Impressions: Service Date/Time: Thursday, April 20, 2017 15:02 - CONCLUSION: Stable chest Teddy Rm MD PE at Discharge GENERAL: This is a well-nourished, well-developed patient, in no apparent distress. CARDIOVASCULAR: Regular rate and regular rhythm without murmurs, gallops, or rubs. RESPIRATORY: Clear to auscultation. Breath sounds equal bilaterally. No wheezes , rales, or rhonchi. GASTROINTESTINAL: Abdomen soft, non-tender, nondistended. Normal, active bowel sounds MUSCULOSKELETAL: Extremities without clubbing, cyanosis, or edema. NEURO: Alert & Oriented x4 to person, place, time, situation. Moves all ext x4 Hospital Course patient was admitted with sepsis and pneumonia. she was started on antibiotics and IV steroids. blood cultures remain negative. she's on peritoneal dialysis per nephrology. she 's on home oxygen. she will be discharged home with f/u by her PCP and nephrology. Pt Condition on Discharge: Fair Discharge Disposition: Discharge Home Discharge Time: <= 30 minutes Discharge Instructions DIET: Follow Instructions for: Renal Failure Diet Activities you can perform: Regular-No Restrictions Follow up Referrals: Nephrology PCP Follow-up New Medications: Albuterol 18 GM Inh (Ventolin Hfa 18 GM Inh) 90 Mcg/Act Aer 2 PUFF INH Q6H PRN for SHORTNESS OF BREATH, #1 INHALER 0 Refills Ipratropium-Albuterol Neb (Duoneb) 0.5-2.5 Mg/3 Ml Neb 1 NEBULE INH Q6HR NEB for Breathing Treatment, #120 NEBULE 0 Refills Levofloxacin (Levaquin) 250 Mg Tablet 250 MG PO EVERY OTHER DAY for Infection, #2 TAB 0 Refills Nebulizer (Nebulizer) 1 Mis Mis EA .ROUTE DIRECTED for Breathing Treatment, #1 0 Refills Prednisone (Prednisone) 20 Mg Tab 40 MG PO DAILY for Shortness of Breath for 5 Days, #10 TAB 0 Refills Take 40 mg (2 tablets) daily for 5 days Continued Medications: Aspirin (Aspirin) 81 Mg Chew 81 MG CHEW HS, TAB 0 Refills Calcitriol (Calcitriol) 0.5 Mcg Cap 0.5 MCG PO DAILY for Calcium Supplement, #30 CAP 0 Refills Clonazepam (Clonazepam) 0.5 Mg Tab 0.5 MG PO HS, #60 TAB 0 Refills Diltiazem ER 24 HR (Cartia Xt) 120 Mg Caper 120 MG PO DAILY, #30 CAP 0 Refills Gabapentin (Gabapentin) 100 Mg Cap 100 MG PO BID, #60 CAP 0 Refills Isosorbide Mononitrate ER (Isosorbide Mononitrate ER) 60 Mg Tab 60 MG PO DAILY for Prevent Chest Pain, #30 TAB 0 Refills Levothyroxine (Levothyroxine) 50 Mcg Tab 50 MCG PO DAILY for Thyroid, #30 TAB 0 Refills Losartan (Losartan) 100 Mg Tab 100 MG PO DAILY for Blood Pressure Management, #30 TAB 0 Refills Metoprolol Succinate ER 24 HR (Metoprolol Succinate ER 24 HR) 50 Mg Tab 100 MG PO DAILY for Blood Pressure Management, #30 TAB Omeprazole (Omeprazole) 20 Mg Cap 20 MG PO DAILY Ondansetron Odt (Zofran Odt) 4 Mg Tab 4 MG SL Q8HR PRN for Nausea/Vomiting, #30 TAB 0 Refills Sertraline (Sertraline) 100 Mg Tab 100 MG PO DAILY, #30 TAB 0 Refills Sevelamer Carbonate (Renvela) 800 Mg Tab 800 MG PO TID for Control phosphorous levels, #90 TAB 0 Refills Zolpidem (Ambien) 10 Mg Tab 10 MG PO HS PRN for INSOMNIA, TAB 0 Refills Evin Atkinson MD Apr 24, 2017 10:00
[2017-04-24] MEDS ORDERED: NEBULIZER1 MI1 (10:21)
[2017-04-24] MEDS ORDERED: IPRASOL INH (10:21)
[2017-04-24] MEDS ORDERED: VENTAER INH (10:24)
[2017-04-24 12:00] VITALS: BP 159/91; PULSE 90; RESP 18; TEMP 97.5; O2SAT 99
== END 2017-04-24 13:27 | disposition home or self-care (01) | DRG 871 ==
LOC: NEPC 18:24 → NEDA 04-18 01:16 → HCIS 04-18 02:29 → N04B 04-20 21:08
PROVIDERS: ADMIT Internal Medicine; ATTEND Internal Medicine
PROC: 3E1M39Z Irrigation of Peritoneal Cavity using Dialysate, Percutaneous Approach (ICD-10-PCS; principal; 2017-04-18)
DX: A41.9 Sepsis, unspecified organism (principal); J18.9 Pneumonia, unspecified organism; I50.23 Acute on chronic systolic (congestive) heart failure; N18.6 End stage renal disease; I42.0 Dilated cardiomyopathy; Q61.3 Polycystic kidney, unspecified; I13.2 Hypertensive heart and chronic kidney disease with heart failure and with stage 5 chronic kidney disease, or end stage renal disease; Z95.810 Presence of automatic (implantable) cardiac defibrillator; J38.00 Paralysis of vocal cords and larynx, unspecified; Z99.2 Dependence on renal dialysis; M79.7 Fibromyalgia; E78.5 Hyperlipidemia, unspecified; I25.10 Atherosclerotic heart disease of native coronary artery without angina pectoris; G89.29 Other chronic pain; E03.9 Hypothyroidism, unspecified; F32.9 Major depressive disorder, single episode, unspecified; D63.1 Anemia in chronic kidney disease; Z91.11 Patient's noncompliance with dietary regimen
CPT/HCPCS: 71046; 80048; 80053; 80069; 82550; 82552; 83605; 83735; 83880; 84100; 84484; 85025; 85610; 85730; 87040; 87070; 87205; 87804; 89051; 90935; 93005; 94640; 94664; 96374; J0456; J0692; J0696; J1940; J2920; J2930; J7050

== ENCOUNTER 2017-06-01 19:16 | Inpatient (IN) | payer MEDICARE, MEDICAID ==
[~2017-06-01] VITALS: Ht 160 cm; Wt 75.5 kg
[~2017-06-01 19:16] MED LIST changes: +IPRASOL INH; +LEVA250T14 PO; +NEBULIZER1 MI1; -POLYTRIM EACH EYE; +PRED20 PO; +VENTAER INH; -VITACAP7 PO
[2017-06-01 19:20] VITALS: BP 176/104; PULSE 119; RESP 28; TEMP 99.5; O2SAT 97
[2017-06-01] MEDS ORDERED: FUROSEMIDE 40 MG/4 ML VIAL IV PUSH ONE (20:30)
--- NOTE | 2017-06-01 20:35 | RADRPT ---
EXAM DATE/TIME: 06/01/2017 20:04 [facility] COMPARISON: CHEST SINGLE AP, March 21, 2017, 16:47. INDICATIONS : Chest pain. MEDICAL HISTORY : Hypertension. Hypertension. Chronic obstructive pulmonary disease. SURGICAL HISTORY : Pacemaker. Cardiac stent. ENCOUNTER: Initial ACUITY: 1 day PAIN SCORE: 5/10 LOCATION: Bilateral chest FINDINGS: A single view of the chest demonstrates cardiomegaly. Mild basilar airspace disease. Trace pleural fl uid. Pacer lead in right ventricle. CONCLUSION: 1. Cardiomegaly with small bilateral effusions and questionable minimal edema. Lazarus Cortez MD on June 01, 2017 at 20:32 Board Certified Radiologist. This report was verified electronically.
[2017-06-01] MEDS ORDERED: RESP: ALBUTEROL 2.5 MG/IPRATROPIUM 0.5 MG NEB (SCH) NEB ONE (21:30)
[2017-06-01 21:31] VITALS: BP 166/97; PULSE 115; RESP 18; O2SAT 100
[2017-06-01 22:25] LABS: AUTOMATED NEUTROPHIL # 4.2 TH/MM3 (1.8-7.7); BASOPHIL # 0.1 TH/MM3 (0-0.2); BASOPHIL % 0.9 % (0.0-2.0); EOSINOPHIL # 0.1 TH/MM3 (0-0.4); EOSINOPHIL % 2.1 % (0.0-4.0); HEMATOCRIT 30.1 % (35.0-46.0); HEMOGLOBIN 10.3 GM/DL (11.6-15.3); LYMPH % 11.5 % (9.0-44.0); LYMPHOCYTE # 0.7 TH/MM3 (1.0-4.8); MEAN CELL VOLUME 90.8 FL (80.0-100.0); MEAN CORPUSCULAR HGB CONC 34.1 % (32.0-36.0); MEAN PLATELET VOLUME 8.5 FL (7.0-11.0); MONO % 16.6 % (0.0-8.0); NEUT % 68.9 % (16.0-70.0); PLATELET COUNT 215 TH/MM3 (150-450); RED BLOOD COUNT 3.32 MIL/MM3 (4.00-5.30); RED CELL DISTRIBUTION WIDTH 17.7 % (11.6-17.2); WHITE BLOOD COUNT 6.2 TH/MM3 (4.0-11.0)
--- NOTE | 2017-06-01 22:28 | PD ---
HPI Chief Complaint: Respiratory Symptoms Time Seen by Provider: 20:23 Travel History International Travel<30 days: No Contact w/Intl Traveler<30days: No Traveled to known affect area: No History of Present Illness HPI 62-year-old female presents to the emergency department from home for complaint of progressively worsening shortness of breath over the past few days. Patient was hospitalized in April with exacerbation of CHF and pneumonia. Patient has end-stage renal disease and is followed by Dr. Green and undergoes peritoneal dialysis daily. Patient states she is already infused the back of her dialysate this evening. Patient states she has noticed progressively worsening shortness of breath at rest as well as orthopnea. No fever or chills. Patient denies any abdominal pain. Patient's had no productive cough. Patient denies any lower extremity pain or swelling. PFSH Past Medical History Narrative Medical CHF with EF of 15%, cardiomegaly/cardiomyopathy, reactive airways disease, end- stage renal disease with peritoneal dialysis, pneumonia, fibromyalgia, dyslipidemia, hypertension; AICD/pacemaker, PD catheter; no tobacco use alcohol use; nursing notes reviewed Hx Anticoagulant Therapy: Yes (ASA) Asthma: No Blood Disorders: No Anxiety: No Depression: Yes Heart Rhythm Problems: Yes (defib) Cancer: No Cardiovascular Problems: Yes High Cholesterol: Yes Chemotherapy: No Chest Pain: No Congestive Heart Failure: No COPD: No Diabetes: No Dialysis: Yes (PERITONEAL DIALYSIS) Diminished Hearing: No Endocrine: Yes Gastrointestinal Disorders: Yes (GERD) GERD: Yes Hepatitis: No Hiatal Hernia: No Hypertension: Yes Immune Disorder: Yes (FIBROMYALGIA) Implanted Vascular Access Dvce: Yes Kidney Stones: Yes (POLYCYSTIC KIDNEY DISEASE) Musculoskeletal: Yes (CHRONIC PAIN, FIBROMYALGIA) Neurologic: No Psychiatric: Yes (CLAUSTROPHOBIA) Reproductive: No Respiratory: Yes Immunizations Current: Yes Radiation Therapy: No Renal Failure: Yes (on PD dialysis) Sickle Cell Disease: No Sleep Apnea: No Thyroid Disease: Yes Menopausal: Yes : 2 Para: 2 Past Surgical History Abdominal Surgery: Yes (PERITONEAL DIALYSIS CATH) AICD: Yes (BIOTRONIK) Body Medical Devices: AICD, STENT, DIALYSIS CATH Cardiac Surgery: Yes (AICD, 1 CARDIAC STENT) Cholecystectomy: Yes Joint Replacement: No Oral Surgery: Yes (SINUS SURGERY) Pacemaker: Yes Tonsillectomy: Yes Other Surgery: Yes (CHIN RECONSTRUCTION) Social History Alcohol Use: No Tobacco Use: No Substance Use: No Allergies-Medications (Allergen,Severity, Reaction): Coded Allergies: No Known Allergies (Verified Adverse Reaction, Unknown, 06/01/17) Reported Meds & Prescriptions Reported Meds & Active Scripts Active Ventolin Hfa 18 GM Inh (Albuterol Sulfate) 90 Mcg/Act Aer 2 Puff INH Q6H PRN Duoneb (Ipratropium-Albuterol Neb) 0.5-2.5 Mg/3 Ml Neb 1 Nebule INH Q6HR NEB Nebulizer 1 Mis Mis Ea .ROUTE DIRECTED Metoprolol Succinate ER 24 HR (Metoprolol Succinate) 50 Mg Tab 100 Mg PO DAILY Reported Ambien (Zolpidem Tartrate) 10 Mg Tab 10 Mg PO HS PRN Renvela (Sevelamer Carbonate) 800 Mg Tab 800 Mg PO TID Cartia Xt (Diltiazem ER 24 HR) 120 Mg Caper 120 Mg PO DAILY Aspirin 81 Mg Chew 81 Mg CHEW HS Sertraline (Sertraline HCl) 100 Mg Tab 100 Mg PO DAILY Omeprazole 20 Mg Cap 20 Mg PO DAILY Losartan (Losartan Potassium) 100 Mg Tab 100 Mg PO DAILY Levothyroxine (Levothyroxine Sodium) 50 Mcg Tab 50 Mcg PO DAILY Isosorbide Mononitrate ER (Isosorbide Mononitrate) 60 Mg Tab 60 Mg PO DAILY Gabapentin 100 Mg Cap 100 Mg PO BID Clonazepam 0.5 Mg Tab 0.5 Mg PO HS Calcitriol 0.5 Mcg Cap 0.5 Mcg PO DAILY Review of Systems Except as stated in HPI: all other systems reviewed are Neg Physical Exam Narrative GENERAL: Well-developed well-nourished female no acute distress mild respiratory distress SKIN: Warm and dry. HEAD: Normocephalic. EYES: No scleral icterus. No injection or drainage. NECK: Supple, trachea midline. No JVD or lymphadenopathy. CARDIOVASCULAR: Increased regular rate and rhythm without murmurs, gallops, or rubs. RESPIRATORY: Breath sounds equal bilaterally. No accessory muscle use. GASTROINTESTINAL: Abdomen soft, non-tender, nondistended. MUSCULOSKELETAL: No cyanosis, or edema. BACK: Nontender without obvious deformity. No CVA tenderness. Data Data Last Documented VS Vital Signs Date Time Temp Pulse Resp B/P (MAP) Pulse Ox O2 Delivery O2 Flow Rate FiO2 06/01/17 23:40 115 16 154/88 (110) 100 Nasal Cannula 2.00 06/01/17 19:20 99.5 Orders Orders Electrocardiogram (06/01/17 19:22) Basic Metabolic Panel (Bmp) (06/01/17 19:22) B-Type Natriuretic Peptide (06/01/17 19:22) Ckmb (Isoenzyme) Profile (06/01/17 19:22) Complete Blood Count With Diff (06/01/17 19:22) Magnesium (Mg) (06/01/17 19:22) Prothrombin Time / Inr (Pt) (06/01/17 19:22) Act Partial Throm Time (Ptt) (06/01/17 19:22) Troponin I (06/01/17 19:22) Chest, Single Ap (06/01/17 19:22) Furosemide Inj (Lasix Inj) (06/01/17 20:30) Albuterol-Ipratropium Neb (Duoneb Neb) (06/01/17 21:30) CKMB (06/01/17 21:58) CKMB% (06/01/17 21:58) Admit Order (Ed Use Only) (06/02/17 ) Buggy Ladle Tender / Telemetry JOESPH.Q8H (06/02/17 00:07) Diet Renal (06/02/17 Breakfast) Activity Oob With Assistance (06/02/17 00:07) Notify Dr: Other (06/02/17 00:07) Labs Laboratory Tests Test 06/01/17 21:58 White Blood Count 6.2 TH/MM3 Red Blood Count 3.32 MIL/MM3 Hemoglobin 10.3 GM/DL Hematocrit 30.1 % Mean Corpuscular Volume 90.8 FL Mean Corpuscular Hemoglobin 31.0 PG Mean Corpuscular Hemoglobin Concent 34.1 % Red Cell Distribution Width 17.7 % Platelet Count 215 TH/MM3 Mean Platelet Volume 8.5 FL Neutrophils (%) (Auto) 68.9 % Lymphocytes (%) (Auto) 11.5 % Monocytes (%) (Auto) 16.6 % Eosinophils (%) (Auto) 2.1 % Basophils (%) (Auto) 0.9 % Neutrophils # (Auto) 4.2 TH/MM3 Lymphocytes # (Auto) 0.7 TH/MM3 Monocytes # (Auto) 1.0 TH/MM3 Eosinophils # (Auto) 0.1 TH/MM3 Basophils # (Auto) 0.1 TH/MM3 CBC Comment DIFF FINAL Differential Comment Prothrombin Time 11.0 SEC Prothromb Time International Ratio 1.1 RATIO Activated Partial Thromboplast Time 26.1 SEC Blood Urea Nitrogen 45 MG/DL Creatinine 10.96 MG/DL Random Glucose 76 MG/DL Calcium Level 9.6 MG/DL Magnesium Level 1.7 MG/DL Sodium Level 134 MEQ/L Potassium Level 5.0 MEQ/L Chloride Level 96 MEQ/L Carbon Dioxide Level 30.1 MEQ/L Anion Gap 8 MEQ/L Estimat Glomerular Filtration Rate 4 ML/MIN Total Creatine Kinase 102 U/L Creatine Kinase MB 2.7 NG/ML Troponin I 0.03 NG/ML B-Type Natriuretic Peptide 4747 PG/ML MDM Medical Decision Making Medical Screen Exam Complete: Yes Emergency Medical Condition: Yes Medical Record Reviewed: Yes Interpretation(s) EKG sinus tachycardia occasional PAC ST segment depression for lateral ischemia no acute ST elevation Differential Diagnosis Dyspnea CHF COPD pneumonia PE ACS FL anemia Narrative Course Patient placed on monitor worker IV access obtained specimens collected and sent for resulting; patient administered Lasix 40 mg IV and DuoNeb updraft 1 Patient resting comfortably after updraft treatment and Lasix Patient noted to have increasing heart rate and repeat EKG performed showing her to be in atrial fibrillation with RVR Cardizem administered Patient's case discussed with medicine service for admission and discussed with her audio/video engineer for peritoneal dialysis Dialysis nurse notified with plan to come in and dialyze patient Patient markedly improved after rate control of atrial fibrillation resting comfortably patient is aware of plan for admission for volume overload CHF atrial fibrillation with RVR and dialysis. Critical Care Narrative Aggregate critical care time was 35 minutes. Time to perform other separately billable procedures was not included in the critical care time. My time did not include minutes spent treating any other patients simultaneously or on activities that did not directly contribute to the patient's treatment. The services I provided to this patient were to treat and/or prevent clinically significant deterioration that could result in: Respiratory failure cardiogenic shock I provided critical care services requiring my management, as noted below: Chart data review, documentation time, medication orders and management, vital sign assessments/reviewing monitor data, ordering and reviewing lab tests, ordering and interpreting/reviewing x-rays and diagnostic studies, care of the patient and discussion of the patient with the admitting physicians. Physician Communication Physician Communication patient discussed with Dr Rodriguez; patient discussed with Dr Green --hydrographer Diagnosis Primary Impression: CHF (congestive heart failure) Additional Impressions: ESRD (end stage renal disease) on dialysis Atrial fibrillation with RVR Admitting Information Admitting Physician Requests: Admit Sade Cummins MD Jun 01, 2017 22:28
[2017-06-01 22:42] LABS: INTERNATIONAL NORMALIZED RATIO 1.1 RATIO
[2017-06-01 22:54] LABS: BICARBONATE 30.1 MEQ/L (21.0-32.0); BLOOD UREA NITROGEN 45 MG/DL (7-18); CALCIUM 9.6 MG/DL (8.5-10.1); CHLORIDE 96 MEQ/L (98-107); GLOMERULAR FILTRATION RATE 4 ML/MIN (>89); GLUCOSE,RANDOM 76 MG/DL (74-106); MAGNESIUM 1.7 MG/DL (1.5-2.5); SODIUM (NA) 134 MEQ/L (136-145); TROPONIN I 0.03 NG/ML (0.02-0.05)
[2017-06-01 23:13] LABS: CREATININE 10.96 MG/DL (0.50-1.00)
[2017-06-01 23:40] VITALS: BP 154/88; PULSE 115; RESP 16; O2SAT 100
[2017-06-02] VITALS (30 sets, daily range): BP systolic 121–156; BP diastolic 65–98; PULSE 86–156; RESP 16–21; TEMP 98–98.9; O2SAT 95–100
[2017-06-02] MEDS ORDERED: MAGNESIUM HYDROXIDE SUSP 30 ML CUP PO PRN (00:30)
[2017-06-02] MEDS ORDERED: SODIUM CHLORIDE 0.9% FLUSH 10 ML FLUSH IV FLUSH PRN ×3 (00:30→02:00)
[2017-06-02] MEDS ORDERED: LACTULOSE SYRUP 20 GM/30 ML CUP PO PRN (00:30)
[2017-06-02] MEDS ORDERED: ONDANSETRON HCL 4 MG/2 ML VIAL IVP PRN (00:30)
[2017-06-02] MEDS ORDERED: NALOXONE HCL 0.4 MG/ML AMP IV PUSH PRN (00:30)
[2017-06-02] MEDS ORDERED: ACETAMINOPHEN 325 MG TAB PO PRN (00:30)
[2017-06-02] MEDS ORDERED: BISACODYL 10 MG SUPP RECTAL PRN (00:30)
[2017-06-02] MEDS ORDERED: SENNOSIDES 8.6 MG TAB PO PRN (00:30)
[2017-06-02] MEDS ORDERED: FUROSEMIDE 40 MG/4 ML VIAL IV PUSH ONE (01:15)
[2017-06-02] MEDS ORDERED: HEPARIN SODIUM - IV 10,000 UNITS/10 ML VIAL XX PRN (01:30)
[2017-06-02] MEDS ORDERED: NITROGLYCERIN 2% OINT 1 GM PACKET TOPICAL ONE ×2 (01:30→01:45)
--- NOTE | 2017-06-02 01:50 | HHI.HP ---
[facility] Primary [facility] Physician Snow Capone M.D. Admission Diagnosis dyspnea/chf; CRF w/ peritoneal dialysis Diagnoses: Travel History International Travel<30 Days: No Contact w/Intl Traveler <30 Da: No Traveled to Known Affected Are: No History of Present Illness 62-year-old female with a past medical history significant for end-stage renal disease on peritoneal dialysis, coronary artery disease, CHF (EF 15%), hypertension, COPD presents to the emergency department for increasing shortness of breath. Patient was recently treated for pneumonia. She states that she was doing well until 3 days ago when she started to have a cough productive of yellow sputum. She reports paroxysmal nocturnal dyspnea and dyspnea on exertion. She also complains of chest pain that is worse with a cough. Vital signs: Temperature 99.5, pulse 119, respirations 28, blood pressure 176/104, pulse ox 97% on room air. Patient denies nausea/vomiting/ diarrhea. No fatigue or dizziness. No lateralizing signs/symptoms. Review of Systems Except as stated in HPI: all other systems reviewed are Neg Past Family Social History Past Medical History end-stage renal disease on peritoneal dialysis, coronary artery disease, CHF ( EF 15%), hypertension, COPD Past Surgical History AICD placement Stent 1 Cholecystectomy Unspecified chin surgery PD catheter placement Reported Medications Reported Meds & Active Scripts Active Ventolin Hfa 18 GM Inh (Albuterol Sulfate) 90 Mcg/Act Aer 2 Puff INH Q6H PRN Duoneb (Ipratropium-Albuterol Neb) 0.5-2.5 Mg/3 Ml Neb 1 Nebule INH Q6HR NEB Nebulizer 1 Mis Mis Ea .ROUTE DIRECTED Metoprolol Succinate ER 24 HR (Metoprolol Succinate) 50 Mg Tab 100 Mg PO DAILY Reported Ambien (Zolpidem Tartrate) 10 Mg Tab 10 Mg PO HS PRN Renvela (Sevelamer Carbonate) 800 Mg Tab 800 Mg PO TID Cartia Xt (Diltiazem ER 24 HR) 120 Mg Caper 120 Mg PO DAILY Aspirin 81 Mg Chew 81 Mg CHEW HS Sertraline (Sertraline HCl) 100 Mg Tab 100 Mg PO DAILY Omeprazole 20 Mg Cap 20 Mg PO DAILY Losartan (Losartan Potassium) 100 Mg Tab 100 Mg PO DAILY Levothyroxine (Levothyroxine Sodium) 50 Mcg Tab 50 Mcg PO DAILY Isosorbide Mononitrate ER (Isosorbide Mononitrate) 60 Mg Tab 60 Mg PO DAILY Gabapentin 100 Mg Cap 100 Mg PO BID Clonazepam 0.5 Mg Tab 0.5 Mg PO HS Calcitriol 0.5 Mcg Cap 0.5 Mcg PO DAILY Allergies: Coded Allergies: No Known Allergies (Verified Adverse Reaction, Unknown, 06/01/17) Family History Mother with diabetes mellitus Social History Denies alcohol, tobacco and illicit drugs Physical Exam Vital Signs Vital Signs Date Time Temp Pulse Resp B/P (MAP) Pulse Ox O2 Delivery O2 Flow Rate FiO2 06/02/17 00:55 99 Nasal Cannula 2.00 06/01/17 23:40 115 16 154/88 (110) 100 Nasal Cannula 2.00 06/01/17 21:31 115 18 166/97 (120) 100 Nasal Cannula 2.00 06/01/17 20:31 19 06/01/17 19:20 99.5 119 28 176/104 (128) 97 Physical Exam GENERAL: female sitting up in bed in mild distress SKIN: No rashes, ecchymoses or lesions. Cool and dry. HEAD: Atraumatic. Normocephalic. No temporal or scalp tenderness. EYES: Pupils equal round and reactive. Extraocular motions intact. No scleral icterus. No injection or drainage. ENT: Nose without bleeding, purulent drainage or septal hematoma. Throat without erythema, tonsillar hypertrophy or exudate. Uvula midline. Airway patent. NECK: Trachea midline. No JVD or lymphadenopathy. Supple, nontender, no meningeal signs. CARDIOVASCULAR: Regular rate and rhythm without murmurs, gallops, or rubs. RESPIRATORY: Bilateral wheezes and crackles throughout GASTROINTESTINAL: Abdomen soft, non-tender, nondistended. No hepato-splenomegaly , or palpable masses. No guarding. MUSCULOSKELETAL: Extremities without clubbing, cyanosis, or edema. No joint tenderness, effusion, or edema noted. No calf tenderness. NEUROLOGICAL: Awake and alert. Cranial nerves II through XII intact. Motor and sensory grossly within normal limits. Normal speech. Laboratory Laboratory Tests Test 06/01/17 21:58 White Blood Count 6.2 Red Blood Count 3.32 Hemoglobin 10.3 Hematocrit 30.1 Mean Corpuscular Volume 90.8 Mean Corpuscular Hemoglobin 31.0 Mean Corpuscular Hemoglobin Concent 34.1 Red Cell Distribution Width 17.7 Platelet Count 215 Mean Platelet Volume 8.5 Neutrophils (%) (Auto) 68.9 Lymphocytes (%) (Auto) 11.5 Monocytes (%) (Auto) 16.6 Eosinophils (%) (Auto) 2.1 Basophils (%) (Auto) 0.9 Neutrophils # (Auto) 4.2 Lymphocytes # (Auto) 0.7 Monocytes # (Auto) 1.0 Eosinophils # (Auto) 0.1 Basophils # (Auto) 0.1 CBC Comment DIFF FINAL Differential Comment Prothrombin Time 11.0 Prothromb Time International Ratio 1.1 Activated Partial Thromboplast Time 26.1 Blood Urea Nitrogen 45 Creatinine 10.96 Random Glucose 76 Calcium Level 9.6 Magnesium Level 1.7 Sodium Level 134 Potassium Level 5.0 Chloride Level 96 Carbon Dioxide Level 30.1 Anion Gap 8 Estimat Glomerular Filtration Rate 4 Total Creatine Kinase 102 Creatine Kinase MB 2.7 Troponin I 0.03 B-Type Natriuretic Peptide 4747 Result Diagram: 06/01/17215706/01/172157 Caprini VTE Risk Assessment Caprini VTE Risk Assessment: Mod/High Risk (score >= 2) Caprini Risk Assessment Model Point Value = 1 Point Value = 2 Point Value = 3 Point Value = 5 Age 41-60 Minor surgery BMI > 25 kg/m2 Swollen legs Varicose veins or History of unexplained or recurrent spontaneous Oral contraceptives or hormone replacement Sepsis (< 1 month) Serious lung disease, including pneumonia (< 1 month) Abnormal pulmonary function Acute myocardial infarction Congestive heart failure (< 1 month) History of inflammatory bowel disease Medical patient at bed rest Age 61-74 Arthroscopic surgery Major open surgery (> 45 min) Laparoscopic surgery (> 45 min) Malignancy Confined to bed (> 72 hours) Immobilizing plaster cast Central venous access Age >= 75 History of VTE Family history of VTE Factor V Leiden Prothrombin [id number] Lupus anticoagulant Anticardiolipin antibodies Elevated serum homocysteine Heparin-induced thrombocytopenia Other congenital or acquired thrombophilia Stroke (< 1 month) Elective arthroplasty Hip, pelvis, or leg fracture Acute spinal cord injury (< 1 month) Prophylaxis Regimen Total Risk Factor Score Risk Level Prophylaxis Regimen 0-1 Low Early ambulation 2 Moderate Order ONE of the following: *Sequential Compression Device (SCD) *Heparin 5000 units SQ BID 3-4 Higher Order ONE of the following medications: *Heparin 5000 units SQ TID *Enoxaparin/Lovenox 40 mg SQ daily (WT < 150 kg, CrCl > 30 mL/min) *Enoxaparin/Lovenox 30 mg SQ daily (WT < 150 kg, CrCl > 10-29 mL/min) *Enoxaparin/Lovenox 30 mg SQ BID (WT < 150 kg, CrCl > 30 mL/min) AND/OR *Sequential Compression Device (SCD) 5 or more Highest Order ONE of the following medications: *Heparin 5000 units SQ TID (Preferred with Epidurals) *Enoxaparin/Lovenox 40 mg SQ daily (WT < 150 kg, CrCl > 30 mL/min) *Enoxaparin/Lovenox 30 mg SQ daily (WT < 150 kg, CrCl > 10-29 mL/min) *Enoxaparin/Lovenox 30 mg SQ BID (WT < 150 kg, CrCl > 30 mL/min) AND *Sequential Compression Device (SCD) Assessment and Plan Assessment and Plan Assessment/plan: 1. CHF exacerbation/shortness of breath/chest pain Patient with crackles on exam Chest x-ray significant for cardiomegaly with small bilateral effusions and mild pulmonary edema, personally reviewed BNP 4747 Peritoneal dialysis pending - shortness of breath likely secondary to volume overload VQ scan pending to rule out PE ACS rule out pending; serial ultrasounds/EKGs 2. ESRD on PD Last dialyzed last night Patient's ctc operator, Dr. 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 Appreciate recommendations 3. HypertensionCOPD/CAD Continue home medications FEN Renal diet Hyperkalemia, dialysis pending Heparin Lisa Rodriguez MD Jun 02, 2017 01:50
[2017-06-02] MEDS ORDERED: DILTIAZEM HCL 25 MG/5 ML VIAL IV PUSH ONE (02:00)
[2017-06-02] MEDS ORDERED: DILTIAZEM INJ 125 MG in SODIUM CHLORIDE 0.9% INJ 100 ML IV PRN (02:00)
--- NOTE | 2017-06-02 04:18 | RADRPT ---
EXAM DATE/TIME: 06/02/2017 02:39 [place] COMPARISON: CHEST SINGLE AP, June 01, 2017, 20:04. INDICATIONS : Shortness of breath for three days. DOSE: 8.8 mCi Tc99m MAA IV 1.1 mCi Tc99m DTPA aerosol MEDICAL HISTORY : Renal disease, end stage. Hypertension. Cardiovascular disease SURGICAL HISTORY : Coronary artery stent. Cholecystectomy. Pacemaker. ENCOUNTER: Initial ACUITY: 3 days PAIN SCALE: 2/10 LOCATION: chest TECHNIQUE: Following five minutes of tidal breathing of DTPA aerosol, planar images of the lungs were performed in eight projections. The patient was then injected with MAA, and eight-view perfusion scan was perf ormed. FINDINGS: There is a homogeneous pattern of aerosol delivery to the periphery of both lungs. No focal ventilat ory defects are seen. The perfusion lung scan demonstrates a homogenous pattern of uptake in both lungs. No segmental or s ubsegmental defects are seen. CONCLUSION: 1. Normal V/Q scan. Art Fraire MD on June 02, 2017 at 4:15 Board Certified Radiologist. This report was verified electronically.
[2017-06-02 05:21] LABS: TROPONIN I 0.05 NG/ML (0.02-0.05)
[2017-06-02] MEDS: LEVOTHYROXINE SODIUM 50 MCG TAB PO SCH (06:00)
[2017-06-02] MEDS: HEPARIN SODIUM - SQ 10,000 UNITS/ML VIAL SQ SCH ×3 (06:04→20:27)
[2017-06-02] MEDS: PANTOPRAZOLE SOD 20 MG DELAYED RELEASE TAB PO SCH (09:44)
[2017-06-02] MEDS: ISOSORBIDE MONONITRATE 60 MG CR TAB (IMDUR) PO SCH (09:44)
[2017-06-02] MEDS: LOSARTAN 50 MG TAB PO SCH (09:44)
[2017-06-02] MEDS: DOCUSATE SODIUM 50 MG/SENNA 8.6 MG TAB PO SCH ×2 (09:44→20:26)
[2017-06-02] MEDS: SEVELAMER CARBONATE 800 MG TAB PO SCH ×3 (09:45→17:32)
[2017-06-02] MEDS: GABAPENTIN 100 MG CAP PO SCH ×2 (09:45→20:26)
[2017-06-02] MEDS: DILTIAZEM-CD 120 MG CAP ER PO SCH (09:45)
[2017-06-02] MEDS: METOPROLOL SUCCINATE 50 MG EXTENDED RELEASE TAB PO SCH (09:45)
[2017-06-02] MEDS: SODIUM CHLORIDE 0.9% FLUSH 10 ML FLUSH IV FLUSH SCH ×2 (09:45→20:27)
[2017-06-02] MEDS: CALCITRIOL 0.25 MCG CAP PO SCH (09:59)
[2017-06-02] MEDS: SERTRALINE HCL 100 MG TAB PO SCH (09:59)
[2017-06-02 10:46] LABS: PERITONEAL HISTIOCYTES 30 %; PERITONEAL LYMPHS 70 %; PERITONEAL POLYS(SEGS) 0 %; PERITONEAL RBC 105 /MM3 (0-0)
[2017-06-02] MEDS ORDERED: VANCOMYCIN HCL 1000 MG VIAL IP SCH (12:00)
--- NOTE | 2017-06-02 12:33 | PD.CONS ---
[facility] Service Nephrology Consult Requested By Dr. Rodriguez Reason for Consult ESRD on PD. Known to our services Primary Care Physician Snow Capone M.D. History of Present Illness The patient is a 62 yo [place] female with a complicated PMHx of ESRD on PD, CAD, cardiomyopathy s/p AICD placement, HTN, recent PNA, and COPD presented to the ED last evening with complaints of acute SOB. States she has been compliant with her home dialysis. Has been on Vanomycin IP for the past week as she contaminated her system. Denies any fever, nausea, vomiting. Has had productive cough and wheezing for the past 2 days. Uses albuterol inhaler at home, but says she cannot afford prescribed nebulizer medications. Does follow with pulmo as outpatient. Noted that she was in A. fib RVR on admission and was on IV Cardizem that has now been converted to po. PD started this AM. (Sada Izaguirre) Review of Systems Respiratory: COMPLAINS OF: Cough, Sputum production, Shortness of breath ( Sada Izaguirre) Past Family Social History Allergies: Coded Allergies: No Known Allergies (Verified Adverse Reaction, Unknown, 06/01/17) Past Medical History End-stage renal disease with patient being on peritoneal dialysis. Pancreatitis in the past. Coronary disease. Hypertension. Hypothyroidism. Depression. Anemia renal disease. Intrinsic pulmonary disease. Paralyzed vocal cord. Severe nonischemic cardiomyopathy. Echocardiogram dated September 13, 2016 indicated an ejection fraction of less than 20%. Past Surgical History AICD placement Placement of a peritoneal dialysis catheter. Cholecystectomy and tonsillectomy per records. Reported Medications Ventolin Hfa 18 GM Inh (Albuterol Sulfate) 90 Mcg/Act Aer 2 Puff INH Q6H PRN Duoneb (Ipratropium-Albuterol Neb) 0.5-2.5 Mg/3 Ml Neb 1 Nebule INH Q6HR NEB Nebulizer 1 Mis Mis Ea .ROUTE DIRECTED Metoprolol Succinate ER 24 HR (Metoprolol Succinate) 50 Mg Tab 100 Mg PO DAILY Ambien (Zolpidem Tartrate) 10 Mg Tab 10 Mg PO HS PRN Renvela (Sevelamer Carbonate) 800 Mg Tab 800 Mg PO TID Cartia Xt (Diltiazem ER 24 HR) 120 Mg Caper 120 Mg PO DAILY Aspirin 81 Mg Chew 81 Mg CHEW HS Sertraline (Sertraline HCl) 100 Mg Tab 100 Mg PO DAILY Omeprazole 20 Mg Cap 20 Mg PO DAILY Losartan (Losartan Potassium) 100 Mg Tab 100 Mg PO DAILY Levothyroxine (Levothyroxine Sodium) 50 Mcg Tab 50 Mcg PO DAILY Isosorbide Mononitrate ER (Isosorbide Mononitrate) 60 Mg Tab 60 Mg PO DAILY Gabapentin 100 Mg Cap 100 Mg PO BID Clonazepam 0.5 Mg Tab 0.5 Mg PO HS Calcitriol 0.5 Mcg Cap 0.5 Mcg PO DAILY Active Ordered Medications Current Medications Medications (Trade) Dose Ordered Sig/Emma Route Start Time Stop Time Status Last Admin (NS Flush) 2 ml UNSCH PRN IV FLUSH 06/02/17 00:30 (NS Flush) 2 ml BID IV FLUSH 06/02/17 09:00 06/02/17 09:45 (Tylenol) 650 mg Q4H PRN PO 06/02/17 00:30 (Zofran Inj) 4 mg Q6H PRN IVP 06/02/17 00:30 (Heparin Inj) 5,000 units Q8HR SQ 06/02/17 06:00 06/02/17 06:04 (Narcan Inj) 0.4 mg UNSCH PRN IV PUSH 06/02/17 00:30 (Di-Colace) 1 tab BID PO 06/02/17 09:00 06/02/17 09:44 (Milk Of Magnesia Liq) 30 ml Q12H PRN PO 06/02/17 00:30 (Senokot) 17.2 mg Q12H PRN PO 06/02/17 00:30 (Dulcolax Supp) 10 mg DAILY PRN RECTAL 06/02/17 00:30 (Lactulose Liq) 30 ml DAILY PRN PO 06/02/17 00:30 (Duoneb Neb) 1 ampule Q4HR NEB PRN NEB 06/02/17 00:30 (Aspirin Chew) 81 mg HS CHEW 06/02/17 21:00 (Rocaltrol) 0.5 mcg DAILY PO 06/02/17 09:00 06/02/17 09:59 (KlonoPIN) 0.5 mg HS PO 06/02/17 21:00 (Cardizem Cd) 120 mg DAILY PO 06/02/17 09:00 06/02/17 09:45 (Neurontin) 100 mg BID PO 06/02/17 09:00 06/02/17 09:45 (Imdur) 60 mg DAILY PO 06/02/17 09:00 06/02/17 09:44 (Synthroid) 50 mcg DAILY@0600 PO 06/02/17 06:00 06/02/17 06:00 (Cozaar) 100 mg DAILY PO 06/02/17 09:00 06/02/17 09:44 (Toprol Xl) 100 mg DAILY PO 06/02/17 09:00 06/02/17 09:45 (Zoloft) 100 mg DAILY PO 06/02/17 09:00 06/02/17 09:59 (Renvela) 800 mg TID PO 06/02/17 09:00 06/02/17 09:45 (Ambien) 10 mg HS PRN PO 06/02/17 00:45 (Protonix) 20 mg DAILY PO 06/02/17 09:00 06/02/17 09:44 (Heparin Inj) 1,000 units WITH DIALYSIS PRN XX 06/02/17 01:30 (NS Flush) 10 ml UNSCH PRN IV FLUSH 06/02/17 01:30 (NS Flush) 2 ml UNSCH PRN IV FLUSH 06/02/17 02:00 Family History NC Social History Denies tobacco use, no EtOH, no illicits (Sada Izaguirre) Physical Exam Vital Signs Vital Signs Date Time Temp Pulse Resp B/P (MAP) Pulse Ox O2 Delivery O2 Flow Rate FiO2 06/02/17 11:35 98.1 95 20 130/79 (96) 98 06/02/17 11:35 100 Nasal Cannula 2.00 06/02/17 11:00 96 06/02/17 10:00 100 06/02/17 09:00 90 06/02/17 08:23 100 Nasal Cannula 2.00 06/02/17 08:23 98.0 103 20 150/86 (107) 100 06/02/17 08:05 97 20 133/72 (92) 100 Nasal Cannula 2.00 06/02/17 08:00 102 06/02/17 07:29 98.1 97 20 133/72 (92) 100 Nasal Cannula 2.00 06/02/17 07:15 97 20 100 Nasal Cannula 2.00 06/02/17 06:52 100 16 121/69 (86) 98 Nasal Cannula 2.00 06/02/17 06:19 99 16 146/86 (106) 100 Nasal Cannula 2.00 06/02/17 05:49 106 135/73 06/02/17 04:47 103 16 136/81 (99) 100 Nasal Cannula 2.00 06/02/17 03:28 116 19 136/81 (99) 98 Nasal Cannula 2.00 06/02/17 02:13 119 16 150/96 (114) 06/02/17 01:45 156 19 156/98 (117) 98 Nasal Cannula 2.00 06/02/17 00:55 99 Nasal Cannula 2.00 06/01/17 23:40 115 16 154/88 (110) 100 Nasal Cannula 2.00 06/01/17 21:31 115 18 166/97 (120) 100 Nasal Cannula 2.00 06/01/17 20:31 19 06/01/17 19:20 99.5 119 28 176/104 (128) 97 Physical Exam GENERAL: Laying in bed on PD. NAD, but notable SOB SKIN: Warm and dry. HEAD: Atraumatic. Normocephalic. EYES: Pupils equal and round. No scleral icterus. No injection or drainage. ENT: No nasal bleeding or discharge. Mucous membranes pink and moist. NECK: Trachea midline. No JVD. CARDIOVASCULAR: Mild tachycardia, murmur RESPIRATORY: Mild tachypnea. Exp wheezing throughout and diminished bases. No crackles or rales. GASTROINTESTINAL: Abdomen soft, non-tender, nondistended. MUSCULOSKELETAL: Extremities without clubbing, cyanosis, trace edema bilat ankles R>L NEUROLOGICAL: Awake and alert. No obvious cranial nerve deficits. Normal speech. PSYCHIATRIC: Appropriate mood and affect; insight and judgment normal. Laboratory Laboratory Tests Test 06/01/17 21:58 06/02/17 04:07 06/02/17 07:30 White Blood Count 6.2 Red Blood Count 3.32 Hemoglobin 10.3 Hematocrit 30.1 Mean Corpuscular Volume 90.8 Mean Corpuscular Hemoglobin 31.0 Mean Corpuscular Hemoglobin Concent 34.1 Red Cell Distribution Width 17.7 Platelet Count 215 Mean Platelet Volume 8.5 Neutrophils (%) (Auto) 68.9 Lymphocytes (%) (Auto) 11.5 Monocytes (%) (Auto) 16.6 Eosinophils (%) (Auto) 2.1 Basophils (%) (Auto) 0.9 Neutrophils # (Auto) 4.2 Lymphocytes # (Auto) 0.7 Monocytes # (Auto) 1.0 Eosinophils # (Auto) 0.1 Basophils # (Auto) 0.1 CBC Comment DIFF FINAL Differential Comment Prothrombin Time 11.0 Prothromb Time International Ratio 1.1 Activated Partial Thromboplast Time 26.1 Blood Urea Nitrogen 45 Creatinine 10.96 Random Glucose 76 Calcium Level 9.6 Magnesium Level 1.7 Sodium Level 134 Potassium Level 5.0 Chloride Level 96 Carbon Dioxide Level 30.1 Anion Gap 8 Estimat Glomerular Filtration Rate 4 Total Creatine Kinase 102 52 Creatine Kinase MB 2.7 Troponin I 0.03 0.05 B-Type Natriuretic Peptide 4747 Peritoneal Fluid WBC 115 Peritoneal Fluid RBC 105 Peritoneal Fluid Neutrophils 0 Peritoneal Fluid Lymphocytes 70 Peritoneal Fluid Histiocytes 30 Date/Time Source Procedure Growth Status 06/02/17 07:30 Fluid Peritoneal Fluid Gram Stain Pending Received 06/02/17 07:30 Fluid Peritoneal Fluid Body Fluid Culture Pending Received (Sada Izaguirre) Result Diagram: 06/01/17215706/01/172157 Imaging Last Impressions Lung Scan-VQ Nuclear Medicine 06/02/17 0000 Signed Impressions: Service Date/Time: Friday, June 02, 2017 02:39 - CONCLUSION: 1. Normal V/Q scan. Art Fraire MD Chest X-Ray 06/01/17 192 Signed Impressions: Service Date/Time: Thursday, June 01, 2017 20:04 - CONCLUSION: 1. Cardiomegaly with small bilateral effusions and questionable minimal edema. Lazarus Cortez MD (Sada Izaguirre) Assessment and Plan Problem List: (1) ESRD (end stage renal disease) on dialysis ICD Codes: N18.6 - End stage renal failure on dialysis; Z99.2 - Dependence on renal dialysis Status: Chronic Plan: Pt seen during dialysis. Will use all 4.25% solutions today with last fill of icodextrin to improve ultrafiltration. Will continue on Vancomycin IP x3 more doses (06/02, 06/05, and 06/08). Cx with gram stain ordered. Medications should be adjusted for ESRD. Avoid gadolinium. (2) CHF (congestive heart failure) ICD Codes: I50.9 - Heart failure, unspecified Status: Chronic Plan: No overt CHF on CXR and edema not indicative of fluid overload. Will ultrafiltrate to improve dyspnea. (3) COPD (chronic obstructive pulmonary disease) ICD Codes: J44.9 - Chronic obstructive pulmonary disease, unspecified Status: Chronic Plan: Suspected some degree of COPD exacerbation contributing to her dyspnea. Management as per primary (4) Atrial fibrillation with RVR ICD Codes: I48.91 - Unspecified atrial fibrillation Status: Acute Plan: Noted A fib RVR on admission that improved with Cardizem. Management as per primary (5) HTN (hypertension) ICD Codes: I10 - Essential (primary) hypertension Status: Chronic Plan: Continue on home regimen (Sada Izaguirre) Assessment and Plan The exam, history, and the medical decision-making described in the above note were completed with the assistance of the PA-C. I reviewed and agree with the findings presented. I attest that I had a [id number] encounter with the patient . (Chandni Green MD) Sada Izaguirre Jun 02, 2017 12:33 Chandni Green MD Jun 03, 2017 09:24
[2017-06-02 12:59] LABS: TROPONIN I 0.05 NG/ML (0.02-0.05)
[2017-06-02] MEDS: guaiFENesin SOLUTION 200 MG/10 ML CUP PO PRN (17:43)
[2017-06-02] MEDS: ASPIRIN 81 MG CHEW TAB CHEW SCH (20:26)
[2017-06-02] MEDS: ZOLPIDEM TARTRATE 10 MG TAB PO PRN (20:26)
[2017-06-02] MEDS: clonazePAM 0.5 MG TAB PO SCH (20:26)
--- NOTE | 2017-06-02 22:13 | EKG ---
Date Performed: 06/02/2017 Time Performed: 01:58:54 PTAGE: 62 years EKG: ATRIAL FIBRILLATION WITH RAPID VENTRICULAR RESPONSE MARKED LEFT AXIS DEVIATION ST DEVIATION AND MODERATE T-WAVE ABNORMALITY ABNORMAL ECG PREVIOUS TRACING : 06/01/2017 19.49 Compared to prior tracing, Aleida Pitt RVR PRESENT DOCTOR: Fidelina Aguilar Interpretating Date/Time 06/02/2017 22:12:31
--- NOTE | 2017-06-02 22:36 | EKG ---
Date Performed: 06/01/2017 Time Performed: 19:49:08 PTAGE: 62 years EKG: SINUS TACHYCARDIA WITH OCCASIONAL SUPRAVENTRICULAR PREMATURE COMPLEXES ST DEVIATION AND MOD ERATE T-WAVE ABNORMALITY ABNORMAL ECG PREVIOUS TRACING : 04/18/2017 17.17 Since the prior tracing, there has been no significant malagon DOCTOR: Fidelina Aguilar Interpretating Date/Time 06/02/2017 22:33:58
[2017-06-03] VITALS (31 sets, daily range): BP systolic 118–151; BP diastolic 66–78; PULSE 81–104; RESP 16–25; TEMP 98.2–99.1; O2SAT 96–100
[2017-06-03 05:37] LABS: AUTOMATED NEUTROPHIL # 2.9 TH/MM3 (1.8-7.7); BASOPHIL # 0.1 TH/MM3 (0-0.2); BASOPHIL % 1.1 % (0.0-2.0); EOSINOPHIL # 0.3 TH/MM3 (0-0.4); EOSINOPHIL % 5.7 % (0.0-4.0); HEMOGLOBIN 9.4 GM/DL (11.6-15.3); LYMPH % 13.9 % (9.0-44.0); LYMPHOCYTE # 0.7 TH/MM3 (1.0-4.8); MEAN CELL VOLUME 90.5 FL (80.0-100.0); MEAN CORPUSCULAR HEMOGLOBIN 30.3 PG (27.0-34.0); MEAN CORPUSCULAR HGB CONC 33.4 % (32.0-36.0); MEAN PLATELET VOLUME 8.1 FL (7.0-11.0); MONO % 18.9 % (0.0-8.0); MONOCYTE # 0.9 TH/MM3 (0-0.9); NEUT % 60.4 % (16.0-70.0); PLATELET COUNT 168 TH/MM3 (150-450); RED BLOOD COUNT 3.09 MIL/MM3 (4.00-5.30); RED CELL DISTRIBUTION WIDTH 17.2 % (11.6-17.2); WHITE BLOOD COUNT 4.8 TH/MM3 (4.0-11.0)
[2017-06-03] MEDS: HEPARIN SODIUM - SQ 10,000 UNITS/ML VIAL SQ SCH ×3 (05:57→21:00)
[2017-06-03] MEDS: LEVOTHYROXINE SODIUM 50 MCG TAB PO SCH (05:57)
[2017-06-03 05:58] LABS: BICARBONATE 30.5 MEQ/L (21.0-32.0); CALCIUM 9.2 MG/DL (8.5-10.1)
[2017-06-03] MEDS: RESP: ALBUTEROL 2.5 MG/IPRATROPIUM 0.5 MG NEB (PRN) NEB (06:06)
[2017-06-03] MEDS: guaiFENesin SOLUTION 200 MG/10 ML CUP PO PRN ×2 (06:12→14:47)
[2017-06-03 06:17] LABS: CREATININE 10.89 MG/DL (0.50-1.00)
[2017-06-03 06:32] LABS: ALBUMIN 2.6 GM/DL (3.4-5.0); PHOSPHORUS 5.6 MG/DL (2.5-4.9)
[2017-06-03] MEDS: CALCITRIOL 0.25 MCG CAP PO SCH (09:12)
[2017-06-03] MEDS: GABAPENTIN 100 MG CAP PO SCH ×2 (09:12→20:59)
[2017-06-03] MEDS: DOCUSATE SODIUM 50 MG/SENNA 8.6 MG TAB PO SCH ×2 (09:12→21:00)
[2017-06-03] MEDS: SERTRALINE HCL 100 MG TAB PO SCH (09:13)
[2017-06-03] MEDS: DILTIAZEM-CD 120 MG CAP ER PO SCH (09:13)
[2017-06-03] MEDS: ISOSORBIDE MONONITRATE 60 MG CR TAB (IMDUR) PO SCH (09:13)
[2017-06-03] MEDS: PANTOPRAZOLE SOD 20 MG DELAYED RELEASE TAB PO SCH (09:13)
[2017-06-03] MEDS: LOSARTAN 50 MG TAB PO SCH (09:14)
[2017-06-03] MEDS: SEVELAMER CARBONATE 800 MG TAB PO SCH ×3 (09:14→17:39)
[2017-06-03] MEDS: FUROSEMIDE 40 MG/4 ML VIAL IV PUSH SCH (09:15)
[2017-06-03] MEDS: SODIUM CHLORIDE 0.9% FLUSH 10 ML FLUSH IV FLUSH SCH ×2 (09:16→21:00)
[2017-06-03] MEDS: METOPROLOL SUCCINATE 50 MG EXTENDED RELEASE TAB PO SCH (09:18)
--- NOTE | 2017-06-03 09:29 | HHI.NPPN ---
Subjective History of Present Illness The patient is a 62 yo [place] female with a complicated PMHx of ESRD on PD, CAD, cardiomyopathy s/p AICD placement, HTN, recent PNA, and COPD presented to the ED last evening with complaints of acute SOB. States she has been compliant with her home dialysis. Has been on Vanomycin IP for the past week as she contaminated her system. Denies any fever, nausea, vomiting. Has had productive cough and wheezing for the past 2 days. Uses albuterol inhaler at home, but says she cannot afford prescribed nebulizer medications. Does follow with pulmo as outpatient. Noted that she was in A. fib RVR on admission and was on IV Cardizem that has now been converted to po. PD started this AM. Interval History Patient indicating shortness of breath has improved but still has significant wheezing. Review of Systems General Constitutional: Fatigue Respiratory Lungs: SOB, Cough, Wheeze Objective Data Data Vital Signs Date Time Temp Pulse Resp B/P (MAP) Pulse Ox O2 Delivery O2 Flow Rate FiO2 06/03/17 09:00 90 06/03/17 08:00 85 06/03/17 08:00 84 06/03/17 07:15 98.2 85 25 131/73 (92) 99 06/03/17 07:13 100 Nasal Cannula 2.00 06/03/17 07:00 87 06/03/17 07:00 88 06/03/17 07:00 98.7 87 18 146/77 (100) 99 06/03/17 06:19 83 06/03/17 05:06 81 06/03/17 04:15 81 06/03/17 03:51 100 Nasal Cannula 2.00 06/03/17 03:51 81 06/03/17 03:51 98.5 84 21 118/66 (83) 96 06/03/17 02:20 81 06/03/17 01:23 85 06/03/17 00:13 83 06/02/17 23:34 89 06/02/17 23:34 98.3 90 21 122/65 (84) 98 06/02/17 23:34 100 Nasal Cannula 2.00 06/02/17 22:20 88 06/02/17 21:55 87 06/02/17 20:12 95 Nasal Cannula 2.00 06/02/17 20:00 86 06/02/17 19:20 87 06/02/17 19:20 98.4 95 19 146/86 (106) 100 06/02/17 19:20 100 Nasal Cannula 2.00 06/02/17 18:00 87 06/02/17 17:00 88 06/02/17 16:24 95 Nasal Cannula 2.00 06/02/17 16:00 90 06/02/17 15:12 98.9 90 20 146/84 (104) 100 06/02/17 15:12 100 Nasal Cannula 2.00 06/02/17 15:00 88 06/02/17 14:00 93 06/02/17 13:00 95 06/02/17 12:00 94 06/02/17 11:35 98.1 95 20 130/79 (96) 98 06/02/17 11:35 100 Nasal Cannula 2.00 06/02/17 11:00 96 06/02/17 10:00 100 -: 06/03/17 0411 06/03/17 0411 Tubes & Lines: Tenckhoff Catheter Physical Exam General Appearance: Well Developed, Well Nourished, No Acute Distress Eyes Eye Exam: Sclera White Pulmonary Resp Exam: Breath Sounds Equal Resp Remarks No rales or rhonchi however bilateral expiratory wheezing. Cardiology CV Exam: Regular Gastrointestinal/Abdomen GI Exam: Soft, Non-Tender Neurologic Neuro Exam: Alert, Awake Psychiatric Psych Exam: Appropriate Responses Assessment/Plan Discussed Condition With: Patient Problem List: (1) ESRD (end stage renal disease) on dialysis ICD Codes: N18.6 - End stage renal failure on dialysis; Z99.2 - Dependence on renal dialysis Status: Chronic Plan: Patient's shortness of breath appears to be primarily related to exacerbation of intrinsic pulmonary disease with some degree of fluid retention on presentation improved with dialysis. The patient has a history of a severe cardiomyopathy combined with significant intrinsic pulmonary disease making management difficult. Patient has not yet received an outpatient nebulizer but also indicating the expense of albuterol solution is a difficulty for her. Will continue using 4.25% solutions for the present. Medications should be adjusted for ESRD. Avoid gadolinium. (2) CHF (congestive heart failure) ICD Codes: I50.9 - Heart failure, unspecified Status: Chronic Plan: Volume status has improved since admission. (3) COPD (chronic obstructive pulmonary disease) ICD Codes: J44.9 - Chronic obstructive pulmonary disease, unspecified Status: Chronic Plan: Believe primary issue at this point in time is related to the patient's COPD in intrinsic pulmonary disease. Would recommend pulmonary consultation while in house. Placed consultation if okay with primary care physician. (4) Atrial fibrillation with RVR ICD Codes: I48.91 - Unspecified atrial fibrillation Status: Acute Plan: Noted A fib RVR on admission that improved with Cardizem. Management as per primary (5) HTN (hypertension) ICD Codes: I10 - Essential (primary) hypertension Status: Chronic Plan: Continue on home regimen Chandni Green MD Jun 03, 2017 09:29
[2017-06-03] MEDS ORDERED: EPOETIN ALFA 10,000 UNITS/ML VIAL SQ ONE (09:30)
[2017-06-03] MEDS: RESP: ALBUTEROL 2.5 MG/IPRATROPIUM 0.5 MG NEB (SCH) NEB ×3 (11:08→21:44)
--- NOTE | 2017-06-03 11:36 | EKG ---
Date Performed: 06/02/2017 Time Performed: 10:19:06 PTAGE: 62 years EKG: Sinus rhythm Lateral T wave changes are nonspecific Poor R wave progression, cannot rule out old inferior myocard ial infarction Borderline ECG Since the prior tracing, there has been no significant change DOCTOR: Brian Roman Interpretating Date/Time 06/03/2017 12:01:58
--- NOTE | 2017-06-03 15:53 | HHI.PR ---
Subjective Remarks Patient says she is feeling a little better today, however shortness of breath continues. Denies any chest pain. Objective Vital Signs Date Time Temp Pulse Resp B/P (MAP) Pulse Ox O2 Delivery O2 Flow Rate FiO2 06/03/17 15:02 98 Nasal Cannula 2.00 06/03/17 15:01 98.6 93 18 140/77 (98) 98 06/03/17 15:00 90 06/03/17 14:00 90 06/03/17 13:00 91 06/03/17 12:00 95 06/03/17 12:00 97 06/03/17 11:02 98.2 94 18 146/78 (100) 100 06/03/17 11:01 100 Nasal Cannula 2.00 06/03/17 11:00 93 06/03/17 10:57 94 06/03/17 10:53 98.2 94 16 146/78 (100) 98 06/03/17 10:00 87 06/03/17 10:00 87 06/03/17 09:00 90 06/03/17 08:00 85 06/03/17 08:00 84 06/03/17 07:46 97 Nasal Cannula 2.00 06/03/17 07:15 98.2 85 25 131/73 (92) 99 06/03/17 07:13 100 Nasal Cannula 2.00 06/03/17 07:00 87 06/03/17 07:00 88 06/03/17 07:00 98.7 87 18 146/77 (100) 99 06/03/17 06:19 83 06/03/17 05:06 81 06/03/17 04:15 81 06/03/17 03:51 100 Nasal Cannula 2.00 06/03/17 03:51 81 06/03/17 03:51 98.5 84 21 118/66 (83) 96 06/03/17 02:20 81 06/03/17 01:23 85 06/03/17 00:13 83 06/02/17 23:34 89 06/02/17 23:34 98.3 90 21 122/65 (84) 98 06/02/17 23:34 100 Nasal Cannula 2.00 06/02/17 22:20 88 06/02/17 21:55 87 06/02/17 20:12 95 Nasal Cannula 2.00 06/02/17 20:00 86 06/02/17 19:20 87 06/02/17 19:20 98.4 95 19 146/86 (106) 100 06/02/17 19:20 100 Nasal Cannula 2.00 06/02/17 18:00 87 06/02/17 17:00 88 06/02/17 16:24 95 Nasal Cannula 2.00 06/02/17 16:00 90 I/O 06/02/17 06/02/17 06/02/17 06/03/17 06/03/17 06/03/17 07:00 15:00 23:00 07:00 15:00 23:00 Intake Total 720 ml 240 ml Balance 720 ml 240 ml Intake Oral 720 ml 240 ml # Voids 1 0 # Bowel Movements 1 Result Diagram: 06/03/1741006/03/17410 Objective Remarks GENERAL: Chair at bedside. SKIN: Warm and dry. HEAD: Normocephalic. EYES: No scleral icterus. No injection or drainage. NECK: Supple, trachea midline. JVD assessment difficult secondary to body habitus. CARDIOVASCULAR: Regular rate and rhythm without murmurs, gallops, or rubs. RESPIRATORY: Breath sounds equal bilaterally. No accessory muscle use. Patient has crackles bilaterally. GASTROINTESTINAL: Abdomen soft, non-tender, nondistended. MUSCULOSKELETAL: No cyanosis. Trace bilateral lower extremity edema. BACK: Nontender without obvious deformity. No CVA tenderness. A/P Assessment and Plan Assessment/plan: // CHF exacerbation/shortness of breath/chest pain Patient with crackles on exam Chest x-ray significant for cardiomegaly with small bilateral effusions and mild pulmonary edema, personally reviewed BNP 4747 Peritoneal dialysis pending - shortness of breath likely secondary to volume overload VQ scan pending to rule out PE= negative ACS rule out pending; serial ultrasounds/EKGs = Improving CHF exacerbation with increased diuresis from peritoneal dialysis. Troponin negative at 0.05. Will order echocardiogram and cardiology consult //ESRD on PD Last dialyzed last night Patient's railroad accountant, Dr. 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 Appreciate recommendations = Appreciate nephrology assistance. Continue peritoneal dialysis as ordered. // HypertensionCOPD/CAD Continue home medications FEN Renal diet. Have added fluid restrictions of 1500 mL. Heparin Discharge Planning Pending cardiology evaluation Pending further improvement in CHF exacerbation. Garrett Witt MD Jun 03, 2017 15:53
--- NOTE | 2017-06-03 19:17 | MB ---
cc: Lee Guerra MD DATE OF CONSULT: Anne Marie is a very pleasant 62-year-old lady followed by Dr. Tavares, previously had PCI with stent placement, past history of congestive heart failure, presents with chief complaint of shortness of breath occurring for several days prior to admission. She has a history of end-stage renal failure, followed by Dr. Green. Currently, she states she feels better since admission. She otherwise denies any fevers, chills, cough, GI or bleeding, PND, orthopnea, syncope or dizziness. PAST MEDICAL HISTORY: As per history of present illness. She has an EF of 15%, cardiomegaly, cardiomyopathy, history of reactive airway disease, on peritoneal dialysis, history of pneumonia, fibromyalgia, dyslipidemia, hypertension, status post ICD pacemaker placement, history of depression, hyperlipidemia, polycystic kidney disease, claustrophobia, cholecystectomy, sinus surgery. SOCIAL HISTORY: Denies tobacco, alcohol use. ALLERGIES: NONE. MEDICATIONS PRIOR TO ADMISSION: Ventolin, DuoNeb nebulizer, metoprolol extended release 50 mg daily, Ambien, Renvela, Cardizem 120, aspirin 81 mg a day, sertraline, omeprazole 20 daily, losartan 100 daily, levothyroxine, isosorbide extended release 60 daily, gabapentin, clonazepam, calcitriol. MEDICATIONS IN THE HOSPITAL: Albuterol, Lasix 40 IV daily, aspirin 81 mg daily, clonazepam, guaifenesin, vancomycin 1000 with dialysis, Cardizem CD 120, Rocaltrol, gabapentin 100 b.i.d., isosorbide 60 daily, losartan 100 daily, Toprol XL 100 daily, Zoloft 100 daily, Renvela 20 daily, heparin 5000 q. 8 hours subcutaneous, levothyroxine 50 mcg daily. PHYSICAL EXAMINATION: Pulse 95, blood pressure 140/77, respiratory rate 18, temperature 98.6, sat 98% on nasal cannula. GENERAL: She is alert and oriented x 3, in no acute distress. NECK: Supple, no JVD, no bruits. CARDIOVASCULAR: S1, S2, no murmurs, rubs or gallops. LUNGS: Notable for decreased air movement bilaterally. Decreased breath sounds at the bases. ABDOMEN: Soft, nontender, nondistended with positive bowel sounds. EXTREMITIES: Warm with 2+ lower extremity edema. Chest x-ray shows cardiomegaly with small bilateral effusion, questionable minimal edema. V/Q scan is normal. EKG on admission, sinus tachycardia at 115 beats per minute, anterolateral ischemia. Repeat EKG shows AFib at a rate of 148 beats per minute with anterolateral ischemic changes and third EKG shows normal sinus rhythm at 98 beats per minute, late R-wave transition. LABORATORIES: White count , hemoglobin 9.4, hematocrit 28.0, platelet count 168. Sodium 136, potassium 3.6, chloride 95, BUN 43, creatinine 10.89, phosphorus . Troponin is 0.05 x 2. Albumin 2.6. INR is 1.1. FINAL DIAGNOSES: 1. Paroxysmal atrial fibrillation. 2. Cardiomyopathy. 3. Coronary artery disease. 4. Status post implantable cardioverter defibrillator. 5. Congestive heart failure exacerbation. 6. End-stage renal failure. 7. Pleural effusion. 8. Hypoalbuminemia. 9. Anemia. DISCUSSION: The patient's CHADS-VASc score is 2. She should be on Coumadin or novel oral anticoagulant agent. She is currently on subcutaneous heparin. Will discuss risks and benefits of Coumadin or novel oral anticoagulant agent with the patient tomorrow. Agree with diuresis. Although the EKG appears ischemic, the troponins are negative and I think given the profoundly low ejection fraction, left heart catheterization would be high risk. Therefore, recommend medical management. She appears to be on optimal medical therapy with Toprol and losartan, which I will continue. Further recommendations pending patient's decision regarding anticoagulation, heart rate and rhythm and response to Lasix. MD JULIAN Montez/SB , 06:33 PM , 07:15 PM
[2017-06-03] MEDS: ASPIRIN 81 MG CHEW TAB CHEW SCH (20:59)
[2017-06-03] MEDS: clonazePAM 0.5 MG TAB PO SCH (20:59)
[2017-06-03] MEDS: ZOLPIDEM TARTRATE 10 MG TAB PO PRN (22:08)
[2017-06-04] VITALS (29 sets, daily range): BP systolic 111–157; BP diastolic 60–79; PULSE 87–104; RESP 22–26; TEMP 98.3–99.4; O2SAT 94–100
[2017-06-04] MEDS: RESP: ALBUTEROL 2.5 MG/IPRATROPIUM 0.5 MG NEB (SCH) NEB ×4 (03:00→19:48)
[2017-06-04] MEDS: HEPARIN SODIUM - SQ 10,000 UNITS/ML VIAL SQ SCH (05:09)
[2017-06-04] MEDS: LEVOTHYROXINE SODIUM 50 MCG TAB PO SCH (05:09)
[2017-06-04 05:14] LABS: CALCIUM 8.9 MG/DL (8.5-10.1)
[2017-06-04 05:15] LABS: CREATININE 10.35 MG/DL (0.50-1.00)
[2017-06-04] MEDS: GABAPENTIN 100 MG CAP PO SCH ×2 (09:29→20:47)
[2017-06-04] MEDS: FUROSEMIDE 40 MG/4 ML VIAL IV PUSH SCH (09:29)
[2017-06-04] MEDS: SERTRALINE HCL 100 MG TAB PO SCH (09:29)
[2017-06-04] MEDS: SODIUM CHLORIDE 0.9% FLUSH 10 ML FLUSH IV FLUSH SCH ×2 (09:29→20:48)
[2017-06-04] MEDS: DOCUSATE SODIUM 50 MG/SENNA 8.6 MG TAB PO SCH ×2 (09:30→20:48)
[2017-06-04] MEDS: DILTIAZEM-CD 120 MG CAP ER PO SCH (09:31)
[2017-06-04] MEDS: PANTOPRAZOLE SOD 20 MG DELAYED RELEASE TAB PO SCH (09:31)
[2017-06-04] MEDS: METOPROLOL SUCCINATE 50 MG EXTENDED RELEASE TAB PO SCH (09:31)
[2017-06-04] MEDS: ISOSORBIDE MONONITRATE 60 MG CR TAB (IMDUR) PO SCH (09:31)
[2017-06-04] MEDS: SEVELAMER CARBONATE 800 MG TAB PO SCH ×3 (09:31→17:18)
[2017-06-04] MEDS: LOSARTAN 50 MG TAB PO SCH (09:31)
[2017-06-04] MEDS: CALCITRIOL 0.25 MCG CAP PO SCH (09:31)
--- NOTE | 2017-06-04 10:57 | HHI.PR ---
Subjective Remarks The patient had some shortness of breath. She said she was going to see a lung doctor. She also mentioned she was going to see the metropolitan editor. She had no acute complaints. Discussed with nursing at the bedside. Objective Vitals Vital Signs Date Time Temp Pulse Resp B/P (MAP) Pulse Ox O2 Delivery O2 Flow Rate FiO2 06/04/17 10:00 95 06/04/17 09:00 103 06/04/17 08:47 99 Nasal Cannula 3.00 06/04/17 08:00 93 06/04/17 07:00 95 Nasal Cannula 2.00 06/04/17 07:00 98.5 92 22 111/60 (77) 95 06/04/17 07:00 102 06/04/17 06:16 99 06/04/17 05:25 100 06/04/17 04:18 99 06/04/17 03:25 99.4 100 23 157/77 (103) 98 06/04/17 03:25 98 Nasal Cannula 2.00 06/04/17 03:09 101 06/04/17 02:05 104 06/04/17 01:02 100 06/04/17 00:47 104 06/04/17 00:46 99.2 104 25 149/79 (102) 98 06/04/17 00:46 98 Nasal Cannula 2.00 06/03/17 23:06 104 06/03/17 22:37 100 06/03/17 21:44 98 Nasal Cannula 3.00 06/03/17 21:10 99 06/03/17 20:15 98 06/03/17 19:20 95 06/03/17 19:20 98 Nasal Cannula 2.00 06/03/17 19:20 99.1 98 22 151/77 (101) 98 06/03/17 18:00 95 06/03/17 17:00 92 06/03/17 16:00 95 06/03/17 15:02 98 Nasal Cannula 2.00 06/03/17 15:01 98.6 93 18 140/77 (98) 98 06/03/17 15:00 90 06/03/17 14:00 90 06/03/17 13:00 91 06/03/17 12:00 95 06/03/17 12:00 97 06/03/17 11:02 98.2 94 18 146/78 (100) 100 06/03/17 11:01 100 Nasal Cannula 2.00 06/03/17 11:00 93 06/03/17 10:57 94 06/03/17 10:53 98.2 94 16 146/78 (100) 98 I/O 06/03/17 06/03/17 06/03/17 06/04/17 06/04/17 06/04/17 07:00 15:00 23:00 07:00 15:00 23:00 Intake Total 240 ml 480 ml 360 ml Output Total 200 ml 0 ml 1362 ml Balance 240 ml 280 ml 360 ml -1362 ml Intake Oral 240 ml 480 ml 360 ml Output Urine Total 200 ml 0 ml Peritoneal Fluid 1362 ml # Voids 0 # Bowel Movements 1 Result Diagram: 06/03/17 0411 06/04/17 0433 Imaging Last Impressions Lung Scan-VQ Nuclear Medicine 06/02/17 0000 Signed Impressions: Service Date/Time: Friday, June 02, 2017 02:39 - CONCLUSION: 1. Normal V/Q scan. Art Fraire MD Chest X-Ray 06/01/171921 Signed Impressions: Service Date/Time: Thursday, June 01, 2017 20:04 - CONCLUSION: 1. Cardiomegaly with small bilateral effusions and questionable minimal edema. Lazarus Cortez MD Objective Remarks GENERAL: Resting comfortably. SKIN: Warm and dry. HEAD: Normocephalic. EYES: No scleral icterus. No injection or drainage. NECK: Supple, trachea midline. JVD assessment difficult secondary to body habitus. CARDIOVASCULAR: Tachycardic without murmurs, gallops, or rubs. RESPIRATORY: Diffuse wheezing. GASTROINTESTINAL: Abdomen soft, non-tender, nondistended. MUSCULOSKELETAL: No cyanosis. Trace bilateral lower extremity edema. BACK: Nontender without obvious deformity. No CVA tenderness. PSYCH: Mood and affect appropriate. Medications and IVs Current Medications Medications (Trade) Dose Ordered Sig/Emma Route Start Time Stop Time Status Last Admin (NS Flush) 2 ml UNSCH PRN IV FLUSH 06/02/17 00:30 (NS Flush) 2 ml BID IV FLUSH 06/02/17 09:00 06/04/17 09:29 (Tylenol) 650 mg Q4H PRN PO 06/02/17 00:30 (Zofran Inj) 4 mg Q6H PRN IVP 06/02/17 00:30 (Heparin Inj) 5,000 units Q8HR SQ 06/02/17 06:00 06/04/17 05:09 (Narcan Inj) 0.4 mg UNSCH PRN IV PUSH 06/02/17 00:30 (Di-Colace) 1 tab BID PO 06/02/17 09:00 06/04/17 09:30 (Milk Of Magnesia Liq) 30 ml Q12H PRN PO 06/02/17 00:30 (Senokot) 17.2 mg Q12H PRN PO 06/02/17 00:30 (Dulcolax Supp) 10 mg DAILY PRN RECTAL 06/02/17 00:30 (Lactulose Liq) 30 ml DAILY PRN PO 06/02/17 00:30 (Duoneb Neb) 1 ampule Q4HR NEB PRN NEB 06/02/17 00:30 06/03/17 06:06 (Aspirin Chew) 81 mg HS CHEW 06/02/17 21:00 06/03/17 20:59 (Rocaltrol) 0.5 mcg DAILY PO 06/02/17 09:00 06/04/17 09:31 (KlonoPIN) 0.5 mg HS PO 06/02/17 21:00 06/03/17 20:59 (Cardizem Cd) 120 mg DAILY PO 06/02/17 09:00 06/04/17 09:31 (Neurontin) 100 mg BID PO 06/02/17 09:00 06/04/17 09:29 (Imdur) 60 mg DAILY PO 06/02/17 09:00 06/04/17 09:31 (Synthroid) 50 mcg DAILY@0600 PO 06/02/17 06:00 06/04/17 05:09 (Cozaar) 100 mg DAILY PO 06/02/17 09:00 06/04/17 09:31 (Toprol Xl) 100 mg DAILY PO 06/02/17 09:00 06/04/17 09:31 (Zoloft) 100 mg DAILY PO 06/02/17 09:00 06/04/17 09:29 (Renvela) 800 mg TID PO 2/27/18 09:00 3/1/18 09:31 (Ambien) 10 mg HS PRN PO 06/02/17 00:45 06/03/17 22:08 (Protonix) 20 mg DAILY PO 06/02/17 09:00 06/04/17 09:31 (Heparin Inj) 1,000 units WITH DIALYSIS PRN XX 06/02/17 01:30 (NS Flush) 10 ml UNSCH PRN IV FLUSH 06/02/17 01:30 (NS Flush) 2 ml UNSCH PRN IV FLUSH 06/02/17 02:00 (Vancomycin Inj) 1,000 mg WITH DIALYSIS IP 06/02/17 12:00 (Lasix Inj) 40 mg DAILY IV PUSH 06/03/17 09:00 06/04/17 09:29 (Robitussin Liq) 200 mg Q4H PRN PO 06/02/17 16:15 06/03/17 14:47 (Duoneb Neb) 1 ampule Q6HR NEB NEB 06/03/17 10:00 06/04/17 08:47 A/P Assessment and Plan Acute on chronic systolic CHF exacerbation/ Shortness of breath/ COPD Chest x-ray significant for cardiomegaly with small bilateral effusions and mild pulmonary edema. BNP 4747. VQ scan pending to rule out PE= negative. Cardiology consult appreciated. - continue cardiac regimen. - follow up with cardiology. - dialysis for volume management. - pulmonology consult pending. - oxygen and nebs as needed. - continue Lasix. ESRD on PD Patient's network systems consultant, Dr. 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 Appreciate recommendations - Continue peritoneal dialysis as ordered. Hypertension Well controlled at this time. - Continue home medications. PPx: Heparin Ernie Rawls DO Jun 04, 2017 10:57
[2017-06-04] MEDS ORDERED: POTASSIUM CHLORIDE 25 MEQ EFFERVESCENT TAB PO ONE (11:00)
[2017-06-04] MEDS ORDERED: HEPARIN SODIUM - IV 10,000 UNITS/10 ML VIAL IV ONE (14:30)
[2017-06-04] MEDS ORDERED: HEPARIN 25,000 UNITS-D5W 250 ML - PREMIX IV PRN (14:30)
--- NOTE | 2017-06-04 17:43 | ECHRPT ---
Indication: HEART FAILURE CONCLUSIONS Mildly dilated left ventricle. Wall thickness is normal. The left ventricular systolic function is bqfvrxgc-fg-kyjnaru reduced with an estimated ejection fra ction in the range of 35-40%. The left atrial size is mcdkzmli-wf-ugaycjeq dilated. The right atrial size is vpyf-rx-sryhfwjavn dilated. A possible atrial level shunt is demonstrated by color flow Doppler interrogation, clinical correlat ion recommended. mild to Moderate mitral valve regurgitation. Mild mitral annular calcification. Aortic valve sclerosis is present. There is mild to moderate tricuspid valve regurgitation. The estimated pulmonary arterial pressure is 52.5 mmHg. Mild pulmonary valve regurgitation. A right sided pleural effusion is present. BP: 157 / 77 HR: 100 Rhythm: Sinus MEASUREMENTS (Male / Female) Normal Values Technical Quality:Fair 2D ECHO LV Diastolic Diameter PLAX 6.5 cm 4.2 - 5.9 / 3.9 - 5.3 cm LV Systolic Diameter PLAX 5.6 cm IVS Diastolic Thickness 0.8 cm 0.6 - 1.0 / 0.6 - 0.9 cm LVPW Diastolic Thickness 0.8 cm 0.6 - 1.0 / 0.6 - 0.9 cm LV Relative Wall Thickness 0.3 RV Internal Dim ED PLAX 3.0 cm LVOT Diameter 1.9 cm Aortic Root Diameter 3.0 cm LA Systolic Diameter LX 4.5 cm 3.0 - 4.0 / 2.7 - 3.8 cm M-MODE AV Cusp Separation MM 1.9 cm DOPPLER AV Peak Velocity 158.0 cm/s AV Peak Gradient 10.0 mmHg AV Mean Gradient 6.0 mmHg AV Velocity Time Integral 28.5 cm LVOT Peak Velocity 67.7 cm/s LVOT Peak Gradient 1.8 mmHg LVOT Velocity Time Integral 11.1 cm AV Area Cont Eq vti 1.1 cm AV Area Cont Eq pk 1.2 cm Mitral E Point Velocity 79.5 cm/s TR Peak Velocity 326.0 cm/s TR Peak Gradient 42.5 mmHg Right Atrial Pressure 10.0 mmHg Pulmonary Artery Systolic Pressu 52.5 mmHg Right Ventricular Systolic Press 52.5 mmHg PV Peak Velocity 80.5 cm/s PV Peak Gradient 2.6 mmHg FINDINGS LEFT VENTRICLE Mildly dilated left ventricle. Wall thickness is normal. The left ventricular systolic function is udvvizlg-hw-cxmtjeb reduced with an estimated ejection fra ction in the range of 35-40%. RIGHT VENTRICLE Normal right ventricular size and systolic function. LEFT ATRIUM The left atrial size is urksmheg-qa-bzjuqeoc dilated. RIGHT ATRIUM The right atrial size is krio-az-nqqwcbgusr dilated. ATRIAL SEPTUM A possible atrial level shunt is demonstrated by color flow Doppler interrogation, clinical correlat ion recommended. AORTA The aortic root and proximal ascending aorta are normal in size on limited imaging. MITRAL VALVE Moderate mitral valve regurgitation. Mild mitral annular calcification. AORTIC VALVE Aortic valve sclerosis is present. TRICUSPID VALVE There is mild to moderate tricuspid valve regurgitation. The estimated pulmonary arterial pressure is 52.5 mmHg. PULMONARY VALVE Mild pulmonary valve regurgitation. VESSELS The inferior vena cava is normal in size. PERICARDIUM A right sided pleural effusion is present. Lee Guerra MD, FACC, FSCAI (Electronically Signed) Final Date:04 June 2017 17:42
--- NOTE | 2017-06-04 18:30 | HHI.NPPN ---
Subjective History of Present Illness The patient is a 62 yo [place] female with a complicated PMHx of ESRD on PD, CAD, cardiomyopathy s/p AICD placement, HTN, recent PNA, and COPD presented to the ED last evening with complaints of acute SOB. States she has been compliant with her home dialysis. Has been on Vanomycin IP for the past week as she contaminated her system. Denies any fever, nausea, vomiting. Has had productive cough and wheezing for the past 2 days. Uses albuterol inhaler at home, but says she cannot afford prescribed nebulizer medications. Does follow with pulmo as outpatient. Noted that she was in A. fib RVR on admission and was on IV Cardizem that has now been converted to po. PD started this AM. Interval History Patient still having some shortness of breath and wheezing. Review of Systems General Constitutional: Fatigue Respiratory Lungs: SOB, Cough, Wheeze Objective Data Data 06/04/17 06/05/17 19:00 07:00 Intake Total 750 ml Output Total 1362 ml Balance -612 ml Intake Oral 720 ml IV Total 30 ml Peritoneal Fluid 1362 ml # Voids 3 Vital Signs Date Time Temp Pulse Resp B/P (MAP) Pulse Ox O2 Delivery O2 Flow Rate FiO2 06/04/17 18:00 95 06/04/17 17:00 90 06/04/17 16:00 87 06/04/17 15:00 98.8 90 26 130/70 (90) 100 06/04/17 15:00 88 06/04/17 15:00 100 Nasal Cannula 2.00 06/04/17 14:00 89 06/04/17 13:00 89 06/04/17 12:00 101 06/04/17 11:00 93 06/04/17 11:00 99 Nasal Cannula 2.00 06/04/17 11:00 99.1 96 26 116/70 (85) 99 06/04/17 10:00 95 06/04/17 09:00 103 06/04/17 08:47 99 Nasal Cannula 3.00 06/04/17 08:00 93 06/04/17 07:00 95 Nasal Cannula 2.00 06/04/17 07:00 98.5 92 22 111/60 (77) 95 06/04/17 07:00 102 06/04/17 06:16 99 06/04/17 05:25 100 06/04/17 04:18 99 06/04/17 03:25 99.4 100 23 157/77 (103) 98 06/04/17 03:25 98 Nasal Cannula 2.00 06/04/17 03:09 101 06/04/17 02:05 104 06/04/17 01:02 100 06/04/17 00:47 104 06/04/17 00:46 99.2 104 25 149/79 (102) 98 06/04/17 00:46 98 Nasal Cannula 2.00 06/03/17 23:06 104 06/03/17 22:37 100 06/03/17 21:44 98 Nasal Cannula 3.00 06/03/17 21:10 99 06/03/17 20:15 98 06/03/17 19:20 95 06/03/17 19:20 98 Nasal Cannula 2.00 06/03/17 19:20 99.1 98 22 151/77 (101) 98 -: 06/03/17 0411 06/04/17 0433 Tubes & Lines: Tenckhoff Catheter Physical Exam General Appearance: Well Developed, Well Nourished, No Acute Distress Eyes Eye Exam: Sclera White Pulmonary Resp Exam: Breath Sounds Equal Resp Remarks No rales or rhonchi however bilateral expiratory wheezing. Cardiology CV Exam: Regular Gastrointestinal/Abdomen GI Exam: Soft, Non-Tender Neurologic Neuro Exam: Alert, Awake Psychiatric Psych Exam: Appropriate Responses Assessment/Plan Discussed Condition With: Patient Problem List: (1) ESRD (end stage renal disease) on dialysis ICD Codes: N18.6 - End stage renal failure on dialysis; Z99.2 - Dependence on renal dialysis Status: Chronic Plan: Patient's volume status is much improved with no peripheral edema yet she still has significant wheezing. Believe that dyspnea at this point in time is primarily related to intrinsic pulmonary disease. Continue nebulizer treatments. Appreciate pulmonary consultation. Will continue using 4.25% solutions for the present. Medications should be adjusted for ESRD. Avoid gadolinium. (2) CHF (congestive heart failure) ICD Codes: I50.9 - Heart failure, unspecified Status: Chronic Plan: Ejection fraction appears to be somewhat improved by echocardiogram this admission. Noted cardiology recommending anticoagulation. Defer the patient in cardiology regarding which anticoagulant will be considered i.e. Coumadin versus Eliquis. (3) COPD (chronic obstructive pulmonary disease) ICD Codes: J44.9 - Chronic obstructive pulmonary disease, unspecified Status: Chronic Plan: Believe primary issue at this point in time is related to the patient's COPD in intrinsic pulmonary disease. Would recommend pulmonary consultation while in house. Placed consultation if okay with primary care physician. (4) Atrial fibrillation with RVR ICD Codes: I48.91 - Unspecified atrial fibrillation Status: Acute Plan: Noted A fib RVR on admission that improved with Cardizem. Management as per primary (5) HTN (hypertension) ICD Codes: I10 - Essential (primary) hypertension Status: Chronic Plan: Continue on home regimen Chandni Green MD Jun 04, 2017 18:30
--- NOTE | 2017-06-04 18:32 | PD.CARD.PN ---
Subjective Subjective Remarks alert in nad Objective Medications Current Medications Medications (Trade) Dose Ordered Sig/Emma Route Start Time Stop Time Status Last Admin (NS Flush) 2 ml UNSCH PRN IV FLUSH 06/02/17 00:30 (NS Flush) 2 ml BID IV FLUSH 06/02/17 09:00 06/04/17 09:29 (Tylenol) 650 mg Q4H PRN PO 06/02/17 00:30 (Zofran Inj) 4 mg Q6H PRN IVP 06/02/17 00:30 (Narcan Inj) 0.4 mg UNSCH PRN IV PUSH 06/02/17 00:30 (Di-Colace) 1 tab BID PO 06/02/17 09:00 06/04/17 09:30 (Milk Of Magnesia Liq) 30 ml Q12H PRN PO 06/02/17 00:30 (Senokot) 17.2 mg Q12H PRN PO 06/02/17 00:30 (Dulcolax Supp) 10 mg DAILY PRN RECTAL 06/02/17 00:30 (Lactulose Liq) 30 ml DAILY PRN PO 06/02/17 00:30 (Duoneb Neb) 1 ampule Q4HR NEB PRN NEB 06/02/17 00:30 06/03/17 06:06 (Aspirin Chew) 81 mg HS CHEW 06/02/17 21:00 06/03/17 20:59 (Rocaltrol) 0.5 mcg DAILY PO 06/02/17 09:00 06/04/17 09:31 (KlonoPIN) 0.5 mg HS PO 06/02/17 21:00 06/03/17 20:59 (Cardizem Cd) 120 mg DAILY PO 06/02/17 09:00 06/04/17 09:31 (Neurontin) 100 mg BID PO 06/02/17 09:00 06/04/17 09:29 (Imdur) 60 mg DAILY PO 06/02/17 09:00 06/04/17 09:31 (Synthroid) 50 mcg DAILY@0600 PO 06/02/17 06:00 06/04/17 05:09 (Cozaar) 100 mg DAILY PO 06/02/17 09:00 06/04/17 09:31 (Toprol Xl) 100 mg DAILY PO 06/02/17 09:00 06/04/17 09:31 (Zoloft) 100 mg DAILY PO 06/02/17 09:00 06/04/17 09:29 (Renvela) 800 mg TID PO 06/02/17 09:00 06/04/17 17:18 (Ambien) 10 mg HS PRN PO 06/02/17 00:45 06/03/17 22:08 (Protonix) 20 mg DAILY PO 06/02/17 09:00 06/04/17 09:31 (Heparin Inj) 1,000 units WITH DIALYSIS PRN XX 06/02/17 01:30 (NS Flush) 10 ml UNSCH PRN IV FLUSH 06/02/17 01:30 (NS Flush) 2 ml UNSCH PRN IV FLUSH 06/02/17 02:00 (Vancomycin Inj) 1,000 mg WITH DIALYSIS IP 06/02/17 12:00 (Lasix Inj) 40 mg DAILY IV PUSH 06/03/17 09:00 06/04/17 09:29 (Robitussin Liq) 200 mg Q4H PRN PO 06/02/17 16:15 06/03/17 14:47 (Duoneb Neb) 1 ampule Q6HR NEB NEB 06/03/17 10:00 06/04/17 14:34 Heparin Sodium/ Dextrose 250 ml @ 14 mls/hr TITRATE PRN IV 06/04/17 14:30 06/04/17 14:42 Vital Signs / I&O Vital Signs Date Time Temp Pulse Resp B/P (MAP) Pulse Ox O2 Delivery O2 Flow Rate FiO2 06/04/17 18:00 95 06/04/17 17:00 90 06/04/17 16:00 87 06/04/17 15:00 98.8 90 26 130/70 (90) 100 06/04/17 15:00 88 06/04/17 15:00 100 Nasal Cannula 2.00 06/04/17 14:00 89 06/04/17 13:00 89 06/04/17 12:00 101 06/04/17 11:00 93 06/04/17 11:00 99 Nasal Cannula 2.00 06/04/17 11:00 99.1 96 26 116/70 (85) 99 06/04/17 10:00 95 06/04/17 09:00 103 06/04/17 08:47 99 Nasal Cannula 3.00 06/04/17 08:00 93 06/04/17 07:00 95 Nasal Cannula 2.00 06/04/17 07:00 98.5 92 22 111/60 (77) 95 06/04/17 07:00 102 06/04/17 06:16 99 06/04/17 05:25 100 06/04/17 04:18 99 06/04/17 03:25 99.4 100 23 157/77 (103) 98 06/04/17 03:25 98 Nasal Cannula 2.00 06/04/17 03:09 101 06/04/17 02:05 104 06/04/17 01:02 100 06/04/17 00:47 104 06/04/17 00:46 99.2 104 25 149/79 (102) 98 06/04/17 00:46 98 Nasal Cannula 2.00 06/03/17 23:06 104 06/03/17 22:37 100 06/03/17 21:44 98 Nasal Cannula 3.00 06/03/17 21:10 99 06/03/17 20:15 98 06/03/17 19:20 95 06/03/17 19:20 98 Nasal Cannula 2.00 06/03/17 19:20 99.1 98 22 151/77 (101) 98 I/O 06/03/17 06/03/17 06/03/17 06/04/17 06/04/17 06/04/17 07:00 15:00 23:00 07:00 15:00 23:00 Intake Total 240 ml 480 ml 360 ml 750 ml Output Total 200 ml 0 ml 1362 ml Balance 240 ml 280 ml 360 ml -1362 ml 750 ml Intake Oral 240 ml 480 ml 360 ml 720 ml IV Total 30 ml Output Urine Total 200 ml 0 ml Peritoneal Fluid 1362 ml # Voids 0 3 # Bowel Movements 1 Laboratory GENERAL: SKIN: Warm and dry. HEAD: Normocephalic. EYES: No scleral icterus. No injection or drainage. NECK: Supple, trachea midline. No JVD or lymphadenopathy. CARDIOVASCULAR: Regular rate and rhythm without murmurs, gallops, or rubs. RESPIRATORY: Breath sounds equal bilaterally. No accessory muscle use. GASTROINTESTINAL: Abdomen soft, non-tender, nondistended. MUSCULOSKELETAL: No cyanosis, or edema. BACK: Nontender without obvious deformity. No CVA tenderness. Laboratory Tests Test 06/04/17 04:33 06/04/17 10:54 Blood Urea Nitrogen 37 MG/DL Creatinine 10.35 MG/DL Random Glucose 109 MG/DL Calcium Level 8.9 MG/DL Sodium Level 137 MEQ/L Potassium Level 3.3 MEQ/L Chloride Level 97 MEQ/L Carbon Dioxide Level 29.0 MEQ/L Anion Gap 11 MEQ/L Estimat Glomerular Filtration Rate 4 ML/MIN B-Type Natriuretic Peptide 2931 PG/ML Assessment and Plan Problem List: (1) CAD (coronary artery disease) ICD Codes: I25.10 - Atherosclerotic heart disease of [place] coronary artery without angina pectoris (2) End stage renal disease ICD Codes: N18.6 - End stage renal disease Status: Acute (3) Cardiomyopathy, dilated, nonischemic ICD Codes: I42.9 - Cardiomyopathy, unspecified Status: Chronic (4) Shortness of breath ICD Codes: R06.02 - Shortness of breath Status: Acute (5) Dyspnea ICD Codes: R06.00 - Dyspnea, unspecified Status: Acute (6) Anemia of renal disease ICD Codes: D63.1 - Anemia in chronic kidney disease Status: Chronic (7) Atrial fibrillation with RVR ICD Codes: I48.91 - Unspecified atrial fibrillation Status: Acute (8) HTN (hypertension) ICD Codes: I10 - Essential (primary) hypertension Status: Chronic Assessment and Plan 1.) Cardiomyopathy - on omt, ef=35-40% on echo, may need more fluid removed with dialysis, f/u bnp 2.) PAF - [id number] score =3, i advised her take coumadin or noac to lower risk of cva, she is undecided, will start heparin bolus and drip, f/u cbc 3.) CAD - continue aspirin, statin Lee Guerra MD Jun 04, 2017 18:32
[2017-06-04] MEDS: guaiFENesin SOLUTION 200 MG/10 ML CUP PO PRN (20:47)
[2017-06-04] MEDS: clonazePAM 0.5 MG TAB PO SCH (20:48)
[2017-06-04] MEDS: ASPIRIN 81 MG CHEW TAB CHEW SCH (20:48)
[2017-06-04] MEDS: ZOLPIDEM TARTRATE 10 MG TAB PO PRN (20:52)
[2017-06-05] VITALS (29 sets, daily range): BP systolic 118–154; BP diastolic 61–87; PULSE 76–102; RESP 18–22; TEMP 97.5–98.6; O2SAT 94–100
[2017-06-05] MEDS: RESP: ALBUTEROL 2.5 MG/IPRATROPIUM 0.5 MG NEB (SCH) NEB ×4 (03:48→20:10)
[2017-06-05 06:07] LABS: HEMATOCRIT 28.1 % (35.0-46.0); HEMOGLOBIN 9.6 GM/DL (11.6-15.3); MEAN CORPUSCULAR HEMOGLOBIN 30.4 PG (27.0-34.0); MEAN CORPUSCULAR HGB CONC 34.1 % (32.0-36.0); MEAN PLATELET VOLUME 8.1 FL (7.0-11.0); PLATELET COUNT 172 TH/MM3 (150-450); RED BLOOD COUNT 3.16 MIL/MM3 (4.00-5.30); RED CELL DISTRIBUTION WIDTH 17.5 % (11.6-17.2); WHITE BLOOD COUNT 4.1 TH/MM3 (4.0-11.0)
[2017-06-05 06:32] LABS: ALBUMIN 2.3 GM/DL (3.4-5.0); BICARBONATE 28.3 MEQ/L (21.0-32.0); CALCIUM 9.1 MG/DL (8.5-10.1); CREATININE 10.46 MG/DL (0.50-1.00); MAGNESIUM 1.8 MG/DL (1.5-2.5)
[2017-06-05 06:33] LABS: DIRECT BILIRUBIN ADULT 0.1 MG/DL (0.0-0.2)
[2017-06-05 06:35] LABS: CHOLESTEROL/ HDL RATIO 3.45 RATIO; HDL CHOLESTEROL 41.1 MG/DL (40.0-60.0); INDIRECT BILIRUBIN 0.4 MG/DL (0.0-0.8); TOTAL BILIRUBIN ADULT 0.5 MG/DL (0.2-1.0); TOTAL PROTEIN 5.8 GM/DL (6.4-8.2)
[2017-06-05] MEDS: LEVOTHYROXINE SODIUM 50 MCG TAB PO SCH (06:37)
[2017-06-05] MEDS: SODIUM CHLORIDE 0.9% FLUSH 10 ML FLUSH IV FLUSH SCH ×2 (09:00→20:58)
--- NOTE | 2017-06-05 09:49 | HHI.PR ---
Subjective Remarks The patient was complaining of shortness of breath. She said she had 9 hours of dialysis yesterday. She has not had much of an appetite. She has not been ambulating that much. Objective Vitals Vital Signs Date Time Temp Pulse Resp B/P (MAP) Pulse Ox O2 Delivery O2 Flow Rate FiO2 06/05/17 09:09 Nasal Cannula 2.00 06/05/17 06:00 92 06/05/17 05:00 97 06/05/17 04:00 86 06/05/17 03:00 95 Nasal Cannula 2.00 06/05/17 03:00 98.1 86 20 154/75 (101) 100 06/05/17 03:00 83 06/05/17 02:00 89 06/05/17 01:00 91 06/05/17 00:00 95 06/04/17 23:50 98.3 97 22 141/67 (91) 95 06/04/17 23:45 94 Nasal Cannula 2.00 06/04/17 23:00 97 06/04/17 22:00 91 06/04/17 21:00 97 06/04/17 20:00 98.3 93 22 136/78 (97) 94 06/04/17 20:00 93 06/04/17 19:51 97 Nasal Cannula 3.00 06/04/17 19:00 98 06/04/17 18:00 95 06/04/17 17:00 90 06/04/17 16:00 87 06/04/17 15:00 98.8 90 26 130/70 (90) 100 06/04/17 15:00 88 06/04/17 15:00 100 Nasal Cannula 2.00 06/04/17 14:00 89 06/04/17 13:00 89 06/04/17 12:00 101 06/04/17 11:00 93 06/04/17 11:00 99 Nasal Cannula 2.00 06/04/17 11:00 99.1 96 26 116/70 (85) 99 06/04/17 10:00 95 I/O 06/04/17 06/04/17 06/04/17 06/05/17 06/05/17 06/05/17 07:00 15:00 23:00 07:00 15:00 23:00 Intake Total 360 ml 750 ml 240 ml Output Total 0 ml 1362 ml 325 ml Balance 360 ml -1362 ml 750 ml -85 ml Intake Oral 360 ml 720 ml 240 ml IV Total 30 ml Output Urine Total 0 ml 325 ml Stool Total 0 ml Peritoneal Fluid 1362 ml # Voids 3 Result Diagram: 06/05/17 0424 06/05/17 0424 Imaging Last Impressions Lung Scan-VQ Nuclear Medicine 06/02/17 0000 Signed Impressions: Service Date/Time: Friday, June 02, 2017 02:39 - CONCLUSION: 1. Normal V/Q scan. Art Fraire MD Chest X-Ray 06/01/[id number] Signed Impressions: Service Date/Time: Thursday, June 01, 2017 20:04 - CONCLUSION: 1. Cardiomegaly with small bilateral effusions and questionable minimal edema. Lazarus Cortez MD Objective Remarks GENERAL: Resting comfortably. SKIN: Warm and dry. HEAD: Normocephalic. EYES: No scleral icterus. No injection or drainage. NECK: Supple, trachea midline. JVD assessment difficult secondary to body habitus. CARDIOVASCULAR: Tachycardic without murmurs, gallops, or rubs. RESPIRATORY: Diffuse wheezing. GASTROINTESTINAL: Abdomen soft, non-tender, nondistended. MUSCULOSKELETAL: No cyanosis. Trace bilateral lower extremity edema. BACK: Nontender without obvious deformity. No CVA tenderness. PSYCH: Mood and affect appropriate. Medications and IVs Current Medications Medications (Trade) Dose Ordered Sig/Emma Route Start Time Stop Time Status Last Admin (NS Flush) 2 ml UNSCH PRN IV FLUSH 06/02/17 00:30 (NS Flush) 2 ml BID IV FLUSH 06/02/17 09:00 06/04/17 09:29 (Tylenol) 650 mg Q4H PRN PO 06/02/17 00:30 (Zofran Inj) 4 mg Q6H PRN IVP 06/02/17 00:30 (Narcan Inj) 0.4 mg UNSCH PRN IV PUSH 06/02/17 00:30 (Di-Colace) 1 tab BID PO 06/02/17 09:00 06/04/17 09:30 (Milk Of Magnesia Liq) 30 ml Q12H PRN PO 06/02/17 00:30 (Senokot) 17.2 mg Q12H PRN PO 06/02/17 00:30 (Dulcolax Supp) 10 mg DAILY PRN RECTAL 06/02/17 00:30 (Lactulose Liq) 30 ml DAILY PRN PO 06/02/17 00:30 (Duoneb Neb) 1 ampule Q4HR NEB PRN NEB 06/02/17 00:30 06/03/17 06:06 (Aspirin Chew) 81 mg HS CHEW 06/02/17 21:00 06/04/17 20:48 (Rocaltrol) 0.5 mcg DAILY PO 06/02/17 09:00 06/04/17 09:31 (KlonoPIN) 0.5 mg HS PO 06/02/17 21:00 06/04/17 20:48 (Cardizem Cd) 120 mg DAILY PO 06/02/17 09:00 06/04/17 09:31 (Neurontin) 100 mg BID PO 06/02/17 09:00 06/04/17 20:47 (Imdur) 60 mg DAILY PO 06/02/17 09:00 06/04/17 09:31 (Synthroid) 50 mcg DAILY@0600 PO 06/02/17 06:00 06/05/17 06:37 (Cozaar) 100 mg DAILY PO 06/02/17 09:00 06/04/17 09:31 (Toprol Xl) 100 mg DAILY PO 06/02/17 09:00 06/04/17 09:31 (Zoloft) 100 mg DAILY PO 06/02/17 09:00 06/04/17 09:29 (Renvela) 800 mg TID PO 06/02/17 09:00 06/04/17 17:18 (Ambien) 10 mg HS PRN PO 06/02/17 00:45 06/04/17 20:52 (Protonix) 20 mg DAILY PO 06/02/17 09:00 06/04/17 09:31 (Heparin Inj) 1,000 units WITH DIALYSIS PRN XX 06/02/17 01:30 (NS Flush) 10 ml UNSCH PRN IV FLUSH 06/02/17 01:30 (NS Flush) 2 ml UNSCH PRN IV FLUSH 06/02/17 02:00 (Vancomycin Inj) 1,000 mg WITH DIALYSIS IP 06/02/17 12:00 (Lasix Inj) 40 mg DAILY IV PUSH 06/03/17 09:00 06/04/17 09:29 (Robitussin Liq) 200 mg Q4H PRN PO 06/02/17 16:15 06/04/17 20:47 (Duoneb Neb) 1 ampule Q6HR NEB NEB 06/03/17 10:00 06/05/17 09:09 Heparin Sodium/ Dextrose 250 ml @ 14 mls/hr TITRATE PRN IV 06/04/17 14:30 06/04/17 14:42 (SoluMEDROL INJ) 40 mg Q8HR IV PUSH 06/05/17 09:45 UNV A/P Assessment and Plan Acute on chronic systolic CHF exacerbation/ Shortness of breath/ COPD Chest x-ray significant for cardiomegaly with small bilateral effusions and mild pulmonary edema. BNP 4747. VQ scan pending to rule out PE= negative. Cardiology consult appreciated. - continue cardiac regimen. - follow up with cardiology. - dialysis for volume management. - pulmonology consult pending. - oxygen and nebs as needed. - Start IV Solu-Medrol. - Physical therapy. - Incentive spirometry. - Repeat chest x-ray. ESRD on PD Patient's damage inside adjuster, Dr. 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 Appreciate recommendations - Continue peritoneal dialysis as ordered. Hypertension Relatively well controlled at this time. - Continue home medications. PPx: Ernie Hutton DO Jun 05, 2017 09:49
[2017-06-05] MEDS: DILTIAZEM-CD 120 MG CAP ER PO SCH (09:52)
[2017-06-05] MEDS: GABAPENTIN 100 MG CAP PO SCH ×2 (09:53→20:57)
[2017-06-05] MEDS: ISOSORBIDE MONONITRATE 60 MG CR TAB (IMDUR) PO SCH (09:53)
[2017-06-05] MEDS: SEVELAMER CARBONATE 800 MG TAB PO SCH ×3 (09:54→17:46)
[2017-06-05] MEDS: LOSARTAN 50 MG TAB PO SCH (09:55)
[2017-06-05] MEDS: DOCUSATE SODIUM 50 MG/SENNA 8.6 MG TAB PO SCH ×2 (09:56→20:58)
[2017-06-05] MEDS: SERTRALINE HCL 100 MG TAB PO SCH (09:56)
[2017-06-05] MEDS: METOPROLOL SUCCINATE 50 MG EXTENDED RELEASE TAB PO SCH (09:56)
[2017-06-05] MEDS: PANTOPRAZOLE SOD 20 MG DELAYED RELEASE TAB PO SCH (09:56)
[2017-06-05] MEDS: CALCITRIOL 0.25 MCG CAP PO SCH (09:57)
[2017-06-05] MEDS: FUROSEMIDE 40 MG/4 ML VIAL IV PUSH SCH (10:45)
--- NOTE | 2017-06-05 11:10 | RADRPT ---
EXAM DATE/TIME: 06/05/2017 10:32 [facility] COMPARISON: CHEST SINGLE AP, June 01, 2017, 20:04. INDICATIONS : Short of breath. MEDICAL HISTORY : Renal disease, end stage. Hypertension Cardiovascular disease. SURGICAL HISTORY : Coronary artery stent. Cholecystectomy. Pacemaker. ENCOUNTER: Initial ACUITY: 4 - 6 days PAIN SCORE: 0/10 LOCATION: Bilateral chest FINDINGS: Cardiomegaly. Blunting of the right lateral costophrenic angle and left lateral aspect angle may burt jose small effusions. No consolidation. Aortic calcification. Pacing device from a left subclavian tr ansvenous approach. CONCLUSION: Blunting of bilateral costophrenic angles may represent small effusions. Mauricio Jc MD on June 05, 2017 at 11:08 Board Certified Radiologist. This report was verified electronically.
[2017-06-05] MEDS: methylPREDNISolone SOD SUCC 40 MG/1 ML VIAL IV PUSH SCH ×2 (11:26→17:47)
--- NOTE | 2017-06-05 11:30 | HHI.NPPN ---
Subjective History of Present Illness The patient is a 62 yo [place] female with a complicated PMHx of ESRD on PD, CAD, cardiomyopathy s/p AICD placement, HTN, recent PNA, and COPD presented to the ED last evening with complaints of acute SOB. States she has been compliant with her home dialysis. Has been on Vanomycin IP for the past week as she contaminated her system. Denies any fever, nausea, vomiting. Has had productive cough and wheezing for the past 2 days. Uses albuterol inhaler at home, but says she cannot afford prescribed nebulizer medications. Does follow with pulmo as outpatient. Noted that she was in A. fib RVR on admission and was on IV Cardizem that has now been converted to po. PD started this AM. Interval History Patient complaining of fatigue. Shortness of breath has improved overnight somewhat. Review of Systems General Constitutional: Fatigue Respiratory Lungs: SOB, Cough, Wheeze Objective Data Data Vital Signs Date Time Temp Pulse Resp B/P (MAP) Pulse Ox O2 Delivery O2 Flow Rate FiO2 06/05/17 09:42 98.0 102 18 145/85 (105) 97 06/05/17 09:42 97 Nasal Cannula 2.00 06/05/17 09:09 Nasal Cannula 2.00 06/05/17 07:00 93 06/05/17 06:00 92 06/05/17 05:00 97 06/05/17 04:00 86 06/05/17 03:00 95 Nasal Cannula 2.00 06/05/17 03:00 98.1 86 20 154/75 (101) 100 06/05/17 03:00 83 06/05/17 02:00 89 06/05/17 01:00 91 06/05/17 00:00 95 06/04/17 23:50 98.3 97 22 141/67 (91) 95 06/04/17 23:45 94 Nasal Cannula 2.00 06/04/17 23:00 97 06/04/17 22:00 91 06/04/17 21:00 97 06/04/17 20:00 98.3 93 22 136/78 (97) 94 06/04/17 20:00 93 06/04/17 19:51 97 Nasal Cannula 3.00 06/04/17 19:00 98 06/04/17 18:00 95 06/04/17 17:00 90 06/04/17 16:00 87 06/04/17 15:00 98.8 90 26 130/70 (90) 100 06/04/17 15:00 88 06/04/17 15:00 100 Nasal Cannula 2.00 06/04/17 14:00 89 06/04/17 13:00 89 06/04/17 12:00 101 -: 06/05/17 0424 06/05/17 0424 Tubes & Lines: Tenckhoff Catheter Physical Exam General Appearance: Well Developed, Well Nourished, No Acute Distress Eyes Eye Exam: Sclera White Pulmonary Resp Exam: Clear Bilaterally, Breath Sounds Equal Cardiology CV Exam: Regular Gastrointestinal/Abdomen GI Exam: Soft, Non-Tender Neurologic Neuro Exam: Alert, Awake Psychiatric Psych Exam: Appropriate Responses Assessment/Plan Discussed Condition With: Patient Problem List: (1) ESRD (end stage renal disease) on dialysis ICD Codes: N18.6 - End stage renal failure on dialysis; Z99.2 - Dependence on renal dialysis Status: Chronic Plan: Patient's volume status is much improved with no peripheral edema . Believe that dyspnea at this point in time is primarily related to intrinsic pulmonary disease. Continue nebulizer treatments. Discontinue dietary potassium restriction in view of hypokalemia yesterday. Will use 2.5% /4.25% solutions as the patient's volume status has improved and she appears to be clinically euvolemic presently. Medications should be adjusted for ESRD. Avoid gadolinium. (2) CHF (congestive heart failure) ICD Codes: I50.9 - Heart failure, unspecified Status: Chronic Plan: Ejection fraction appears to be somewhat improved by echocardiogram this admission. Noted cardiology recommending anticoagulation. Defer the patient in cardiology regarding which anticoagulant will be considered i.e. Coumadin versus Eliquis. (3) COPD (chronic obstructive pulmonary disease) ICD Codes: J44.9 - Chronic obstructive pulmonary disease, unspecified Status: Chronic Plan: Await input from pulmonary. Bronchospasm has improved significantly since yesterday. Chest x-ray reviewed. Appears clear but await report. (4) Atrial fibrillation with RVR ICD Codes: I48.91 - Unspecified atrial fibrillation Status: Acute Plan: Noted A fib RVR on admission that improved with Cardizem. Management as per primary (5) HTN (hypertension) ICD Codes: I10 - Essential (primary) hypertension Status: Chronic Plan: Continue on home regimen Chandni Green MD Jun 05, 2017 11:30
--- NOTE | 2017-06-05 18:48 | PD.CARD.PN ---
Subjective Subjective Remarks Still has cough. Painful around AICD. No bleeding Objective Medications Current Medications Medications (Trade) Dose Ordered Sig/Emma Route Start Time Stop Time Status Last Admin (NS Flush) 2 ml UNSCH PRN IV FLUSH 06/02/17 00:30 (NS Flush) 2 ml BID IV FLUSH 06/02/17 09:00 06/04/17 09:29 (Tylenol) 650 mg Q4H PRN PO 06/02/17 00:30 (Zofran Inj) 4 mg Q6H PRN IVP 06/02/17 00:30 (Narcan Inj) 0.4 mg UNSCH PRN IV PUSH 06/02/17 00:30 (Di-Colace) 1 tab BID PO 06/02/17 09:00 06/05/17 09:56 (Milk Of Magnesia Liq) 30 ml Q12H PRN PO 06/02/17 00:30 (Senokot) 17.2 mg Q12H PRN PO 06/02/17 00:30 (Dulcolax Supp) 10 mg DAILY PRN RECTAL 06/02/17 00:30 (Lactulose Liq) 30 ml DAILY PRN PO 06/02/17 00:30 (Duoneb Neb) 1 ampule Q4HR NEB PRN NEB 06/02/17 00:30 06/03/17 06:06 (Aspirin Chew) 81 mg HS CHEW 06/02/17 21:00 06/04/17 20:48 (Rocaltrol) 0.5 mcg DAILY PO 06/02/17 09:00 06/05/17 09:57 (KlonoPIN) 0.5 mg HS PO 06/02/17 21:00 06/04/17 20:48 (Cardizem Cd) 120 mg DAILY PO 06/02/17 09:00 06/05/17 09:52 (Neurontin) 100 mg BID PO 06/02/17 09:00 06/05/17 09:53 (Imdur) 60 mg DAILY PO 06/02/17 09:00 06/05/17 09:53 (Synthroid) 50 mcg DAILY@0600 PO 06/02/17 06:00 06/05/17 06:37 (Cozaar) 100 mg DAILY PO 06/02/17 09:00 06/05/17 09:55 (Toprol Xl) 100 mg DAILY PO 06/02/17 09:00 06/05/17 09:56 (Zoloft) 100 mg DAILY PO 06/02/17 09:00 06/05/17 09:56 (Renvela) 800 mg TID PO 06/02/17 09:00 06/05/17 17:46 (Ambien) 10 mg HS PRN PO 06/02/17 00:45 06/04/17 20:52 (Protonix) 20 mg DAILY PO 06/02/17 09:00 06/05/17 09:56 (Heparin Inj) 1,000 units WITH DIALYSIS PRN XX 06/02/17 01:30 (NS Flush) 10 ml UNSCH PRN IV FLUSH 06/02/17 01:30 (NS Flush) 2 ml UNSCH PRN IV FLUSH 06/02/17 02:00 (Vancomycin Inj) 1,000 mg WITH DIALYSIS IP 06/02/17 12:00 (Robitussin Liq) 200 mg Q4H PRN PO 06/02/17 16:15 06/04/17 20:47 (Duoneb Neb) 1 ampule Q6HR NEB NEB 06/03/17 10:00 06/05/17 16:25 Heparin Sodium/ Dextrose 250 ml @ 14 mls/hr TITRATE PRN IV 06/04/17 14:30 06/04/17 14:42 (SoluMEDROL INJ) 40 mg Q8H IV PUSH 06/05/17 10:00 06/05/17 17:47 Vital Signs / I&O Vital Signs Date Time Temp Pulse Resp B/P (MAP) Pulse Ox O2 Delivery O2 Flow Rate FiO2 06/05/17 18:00 95 06/05/17 17:00 94 06/05/17 16:00 97 06/05/17 15:21 98.2 93 21 146/87 (106) 96 06/05/17 15:21 96 Nasal Cannula 2.00 06/05/17 15:00 98 06/05/17 14:00 93 06/05/17 13:00 99 06/05/17 12:00 101 06/05/17 11:29 95 Room Air 06/05/17 11:28 98.0 91 20 131/69 (89) 95 06/05/17 11:00 91 06/05/17 10:00 101 06/05/17 09:42 98.0 102 18 145/85 (105) 97 06/05/17 09:42 97 Nasal Cannula 2.00 06/05/17 09:09 Nasal Cannula 2.00 06/05/17 09:00 93 06/05/17 08:00 95 06/05/17 07:00 93 06/05/17 06:00 92 06/05/17 05:00 97 06/05/17 04:00 86 06/05/17 03:00 95 Nasal Cannula 2.00 06/05/17 03:00 98.1 86 20 154/75 (101) 100 06/05/17 03:00 83 06/05/17 02:00 89 06/05/17 01:00 91 06/05/17 00:00 95 06/04/17 23:50 98.3 97 22 141/67 (91) 95 06/04/17 23:45 94 Nasal Cannula 2.00 06/04/17 23:00 97 06/04/17 22:00 91 06/04/17 21:00 97 06/04/17 20:00 98.3 93 22 136/78 (97) 94 06/04/17 20:00 93 06/04/17 19:51 97 Nasal Cannula 3.00 06/04/17 19:00 98 I/O 06/04/17 06/04/17 06/04/17 06/05/17 06/05/17 06/05/17 07:00 15:00 23:00 07:00 15:00 23:00 Intake Total 360 ml 750 ml 240 ml 600 ml Output Total 0 ml 1362 ml 325 ml 0 ml Balance 360 ml -1362 ml 750 ml -85 ml 600 ml Intake Oral 360 ml 720 ml 240 ml 600 ml IV Total 30 ml Output Urine Total 0 ml 325 ml 0 ml Stool Total 0 ml Peritoneal Fluid 1362 ml # Voids 3 Physical Exam Alert Chest Decreased BS at bases CV S1S2 RRR no edema. Varicose veins on left Laboratory Laboratory Tests Test 06/04/17 21:03 06/05/17 00:25 06/05/17 04:24 Activated Partial Thromboplast Time 106.9 SEC 56.2 SEC 57.2 SEC White Blood Count 4.1 TH/MM3 Red Blood Count 3.16 MIL/MM3 Hemoglobin 9.6 GM/DL Hematocrit 28.1 % Mean Corpuscular Volume 89.0 FL Mean Corpuscular Hemoglobin 30.4 PG Mean Corpuscular Hemoglobin Concent 34.1 % Red Cell Distribution Width 17.5 % Platelet Count 172 TH/MM3 Mean Platelet Volume 8.1 FL Blood Urea Nitrogen 35 MG/DL Creatinine 10.46 MG/DL Random Glucose 140 MG/DL Total Protein 5.8 GM/DL Albumin 2.3 GM/DL Calcium Level 9.1 MG/DL Magnesium Level 1.8 MG/DL Alkaline Phosphatase 94 U/L Aspartate Amino Transf (AST/SGOT) 8 U/L Alanine Aminotransferase (ALT/SGPT) 12 U/L Total Bilirubin 0.5 MG/DL Direct Bilirubin 0.1 MG/DL Sodium Level 137 MEQ/L Potassium Level 3.2 MEQ/L Chloride Level 96 MEQ/L Carbon Dioxide Level 28.3 MEQ/L Anion Gap 13 MEQ/L Estimat Glomerular Filtration Rate 4 ML/MIN Indirect Bilirubin 0.4 MG/DL B-Type Natriuretic Peptide 2662 PG/ML Triglycerides Level 75 MG/DL Cholesterol Level 142 MG/DL LDL Cholesterol 86 MG/DL HDL Cholesterol 41.1 MG/DL Cholesterol/HDL Ratio 3.45 RATIO Imaging Last 24 hours Impressions Chest X-Ray 06/05/17 0000 Signed Impressions: Service Date/Time: Monday, June 05, 2017 10:32 - CONCLUSION: Blunting of bilateral costophrenic angles may represent small effusions. Mauricio Jc MD Assessment and Plan Problem List: (1) CAD (coronary artery disease) ICD Codes: I25.10 - Atherosclerotic heart disease of [place] coronary artery without angina pectoris Plan: Cath 01/10/2017 showed 60% PDA lesion, other vessels OK (2) End stage renal disease ICD Codes: N18.6 - End stage renal disease Status: Acute (3) Cardiomyopathy, dilated, nonischemic ICD Codes: I42.9 - Cardiomyopathy, unspecified Status: Chronic Plan: needs more fluid taken off (4) Dyspnea ICD Codes: R06.00 - Dyspnea, unspecified Status: Acute (5) Anemia of renal disease ICD Codes: D63.1 - Anemia in chronic kidney disease Status: Chronic (6) HTN (hypertension) ICD Codes: I10 - Essential (primary) hypertension Status: Chronic (7) Paroxysmal atrial fibrillation with rapid ventricular response ICD Codes: I48.0 - Paroxysmal atrial fibrillation Plan: Recommend Eliquis. Assessment and Plan start Eliquis 5mg bid PO. Diogenes Linares MD Jun 05, 2017 18:48
[2017-06-05] MEDS: clonazePAM 0.5 MG TAB PO SCH (20:57)
[2017-06-05] MEDS: APIXABAN 5 MG TABLET PO SCH (20:57)
[2017-06-05] MEDS: ASPIRIN 81 MG CHEW TAB CHEW SCH (20:58)
[2017-06-05] MEDS: guaiFENesin SOLUTION 200 MG/10 ML CUP PO PRN (20:58)
[2017-06-05] MEDS: ZOLPIDEM TARTRATE 10 MG TAB PO PRN (23:10)
[2017-06-06] VITALS (31 sets, daily range): BP systolic 126–147; BP diastolic 61–82; PULSE 80–96; RESP 16–22; TEMP 97.6–98.6; O2SAT 92–100
[2017-06-06] MEDS: methylPREDNISolone SOD SUCC 40 MG/1 ML VIAL IV PUSH SCH ×2 (02:27→09:41)
[2017-06-06] MEDS: RESP: ALBUTEROL 2.5 MG/IPRATROPIUM 0.5 MG NEB (SCH) NEB ×4 (04:25→20:54)
[2017-06-06 05:33] LABS: HEMATOCRIT 30.1 % (35.0-46.0); HEMOGLOBIN 10.2 GM/DL (11.6-15.3); MEAN CELL VOLUME 89.6 FL (80.0-100.0); MEAN CORPUSCULAR HEMOGLOBIN 30.5 PG (27.0-34.0); MEAN PLATELET VOLUME 8.2 FL (7.0-11.0); PLATELET COUNT 215 TH/MM3 (150-450); RED BLOOD COUNT 3.36 MIL/MM3 (4.00-5.30); RED CELL DISTRIBUTION WIDTH 16.8 % (11.6-17.2); WHITE BLOOD COUNT 4.8 TH/MM3 (4.0-11.0)
[2017-06-06 05:57] LABS: BICARBONATE 27.7 MEQ/L (21.0-32.0); CALCIUM 9.4 MG/DL (8.5-10.1); MAGNESIUM 1.8 MG/DL (1.5-2.5)
[2017-06-06 06:06] LABS: CREATININE 10.69 MG/DL (0.50-1.00)
[2017-06-06] MEDS: LEVOTHYROXINE SODIUM 50 MCG TAB PO SCH (06:19)
[2017-06-06] MEDS: LOSARTAN 50 MG TAB PO SCH (09:40)
[2017-06-06] MEDS: SEVELAMER CARBONATE 800 MG TAB PO SCH ×3 (09:40→17:35)
[2017-06-06] MEDS: PANTOPRAZOLE SOD 20 MG DELAYED RELEASE TAB PO SCH (09:40)
[2017-06-06] MEDS: ISOSORBIDE MONONITRATE 60 MG CR TAB (IMDUR) PO SCH (09:40)
[2017-06-06] MEDS: DOCUSATE SODIUM 50 MG/SENNA 8.6 MG TAB PO SCH ×2 (09:40→20:48)
[2017-06-06] MEDS: GABAPENTIN 100 MG CAP PO SCH ×2 (09:40→20:48)
[2017-06-06] MEDS: METOPROLOL SUCCINATE 50 MG EXTENDED RELEASE TAB PO SCH (09:40)
[2017-06-06] MEDS: SERTRALINE HCL 100 MG TAB PO SCH (09:40)
[2017-06-06] MEDS: APIXABAN 5 MG TABLET PO SCH ×2 (09:40→20:48)
[2017-06-06] MEDS: DILTIAZEM-CD 120 MG CAP ER PO SCH (09:41)
[2017-06-06] MEDS: CALCITRIOL 0.25 MCG CAP PO SCH (09:41)
[2017-06-06] MEDS: SODIUM CHLORIDE 0.9% FLUSH 10 ML FLUSH IV FLUSH SCH ×2 (09:44→20:49)
--- NOTE | 2017-06-06 10:01 | HHI.PR ---
Subjective Remarks The patient feels a bit better today. She said she was started on a blood thinner. She said that she does have problems with her equilibrium and may fall up to once per month. She says she does not ambulate with a walker or a cane. She had questions about the blood thinner. She said dialysis went well. No acute complaints at this time. Objective Vitals Vital Signs Date Time Temp Pulse Resp B/P (MAP) Pulse Ox O2 Delivery O2 Flow Rate FiO2 06/06/17 08:17 97.8 92 16 146/72 (96) 92 06/06/17 08:17 92 Room Air 06/06/17 06:00 85 06/06/17 05:22 85 06/06/17 05:00 86 06/06/17 04:00 81 06/06/17 03:30 98.6 80 20 126/71 (89) 94 06/06/17 03:00 81 06/06/17 03:00 98 Nasal Cannula 2.00 06/06/17 02:00 82 06/06/17 01:00 81 06/06/17 00:00 92 06/05/17 23:00 97 Nasal Cannula 2.00 06/05/17 23:00 98.6 87 22 118/66 (83) 97 06/05/17 23:00 87 06/05/17 22:00 100 06/05/17 21:00 93 06/05/17 20:30 97.5 76 18 127/61 (83) 94 06/05/17 20:30 95 Nasal Cannula 2.00 06/05/17 20:13 98 Nasal Cannula 2.00 06/05/17 20:00 90 06/05/17 19:00 99 06/05/17 18:00 95 06/05/17 17:00 94 06/05/17 16:00 97 06/05/17 15:21 98.2 93 21 146/87 (106) 96 06/05/17 15:21 96 Nasal Cannula 2.00 06/05/17 15:00 98 06/05/17 14:00 93 06/05/17 13:00 99 06/05/17 12:00 101 06/05/17 11:29 95 Room Air 06/05/17 11:28 98.0 91 20 131/69 (89) 95 06/05/17 11:00 91 06/05/17 10:00 101 I/O 06/05/17 06/05/17 06/05/17 06/06/17 06/06/17 06/06/17 07:00 15:00 23:00 07:00 15:00 23:00 Intake Total 240 ml 600 ml 240 ml Output Total 325 ml 0 ml 225 ml Balance -85 ml 600 ml 15 ml Intake Oral 240 ml 600 ml 240 ml Output Urine Total 325 ml 0 ml 225 ml Stool Total 0 ml 0 ml Result Diagram: 06/06/17 0426 06/06/17 0426 Imaging Last Impressions Chest X-Ray 06/05/17 0000 Signed Impressions: Service Date/Time: Monday, June 05, 2017 10:32 - CONCLUSION: Blunting of bilateral costophrenic angles may represent small effusions. Mauricio Jc MD Lung Scan-VQ Nuclear Medicine 06/02/17 0000 Signed Impressions: Service Date/Time: Friday, June 02, 2017 02:39 - CONCLUSION: 1. Normal V/Q scan. Art Fraire MD Objective Remarks GENERAL: Resting comfortably. SKIN: Warm and dry. HEAD: Normocephalic. EYES: No scleral icterus. No injection or drainage. NECK: Supple, trachea midline. JVD assessment difficult secondary to body habitus. CARDIOVASCULAR: Regular rate and rhythm without murmurs, gallops, or rubs. RESPIRATORY: Mild wheezing. GASTROINTESTINAL: Abdomen soft, non-tender, nondistended. MUSCULOSKELETAL: No cyanosis. Trace bilateral lower extremity edema. BACK: Nontender without obvious deformity. No CVA tenderness. PSYCH: Mood and affect appropriate. Medications and IVs Current Medications Medications (Trade) Dose Ordered Sig/Emma Route Start Time Stop Time Status Last Admin (NS Flush) 2 ml UNSCH PRN IV FLUSH 06/02/17 00:30 (NS Flush) 2 ml BID IV FLUSH 06/02/17 09:00 06/06/17 09:44 (Tylenol) 650 mg Q4H PRN PO 06/02/17 00:30 (Zofran Inj) 4 mg Q6H PRN IVP 06/02/17 00:30 (Narcan Inj) 0.4 mg UNSCH PRN IV PUSH 06/02/17 00:30 (Di-Colace) 1 tab BID PO 06/02/17 09:00 06/06/17 09:40 (Milk Of Magnesia Liq) 30 ml Q12H PRN PO 06/02/17 00:30 (Senokot) 17.2 mg Q12H PRN PO 06/02/17 00:30 (Dulcolax Supp) 10 mg DAILY PRN RECTAL 06/02/17 00:30 (Lactulose Liq) 30 ml DAILY PRN PO 06/02/17 00:30 (Duoneb Neb) 1 ampule Q4HR NEB PRN NEB 06/02/17 00:30 06/03/17 06:06 (Aspirin Chew) 81 mg HS CHEW 06/02/17 21:00 06/05/17 20:58 (Rocaltrol) 0.5 mcg DAILY PO 06/02/17 09:00 06/06/17 09:41 (KlonoPIN) 0.5 mg HS PO 06/02/17 21:00 06/05/17 20:57 (Cardizem Cd) 120 mg DAILY PO 06/02/17 09:00 06/06/17 09:41 (Neurontin) 100 mg BID PO 06/02/17 09:00 06/06/17 09:40 (Imdur) 60 mg DAILY PO 06/02/17 09:00 06/06/17 09:40 (Synthroid) 50 mcg DAILY@0600 PO 06/02/17 06:00 06/06/17 06:19 (Cozaar) 100 mg DAILY PO 06/02/17 09:00 06/06/17 09:40 (Toprol Xl) 100 mg DAILY PO 06/02/17 09:00 06/06/17 09:40 (Zoloft) 100 mg DAILY PO 06/02/17 09:00 06/06/17 09:40 (Renvela) 800 mg TID PO 06/02/17 09:00 06/06/17 09:40 (Ambien) 10 mg HS PRN PO 06/02/17 00:45 06/05/17 23:10 (Protonix) 20 mg DAILY PO 06/02/17 09:00 06/06/17 09:40 (Heparin Inj) 1,000 units WITH DIALYSIS PRN XX 06/02/17 01:30 (NS Flush) 10 ml UNSCH PRN IV FLUSH 06/02/17 01:30 (NS Flush) 2 ml UNSCH PRN IV FLUSH 06/02/17 02:00 (Vancomycin Inj) 1,000 mg WITH DIALYSIS IP 06/02/17 12:00 (Robitussin Liq) 200 mg Q4H PRN PO 06/02/17 16:15 06/05/17 20:58 (Duoneb Neb) 1 ampule Q6HR NEB NEB 06/03/17 10:00 06/06/17 04:25 (SoluMEDROL INJ) 40 mg Q8H IV PUSH 06/05/17 10:00 06/06/17 09:41 (Eliquis) 5 mg BID PO 06/05/17 21:00 06/06/17 09:40 A/P Assessment and Plan Acute on chronic systolic CHF exacerbation/ Shortness of breath/ COPD Chest x-ray significant for cardiomegaly with small bilateral effusions and mild pulmonary edema. BNP 4747. VQ scan pending to rule out PE= negative. Cardiology consult appreciated. Repeat CXR with small effusions. - continue cardiac regimen. - follow up with cardiology. - dialysis for volume management. - pulmonology consult pending. - oxygen and nebs as needed. - change IV Solu-Medrol to PO prednisone. - Physical therapy. - Incentive spirometry. 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 Appreciate recommendations - Continue peritoneal dialysis as ordered. Hypertension Relatively well controlled at this time. - Continue home medications. A fib Started on Eliquis by cardiology. - continue Eliquis. PPx: Ernie Kinney DO Jun 06, 2017 10:01
--- NOTE | 2017-06-06 11:09 | MB ---
cc: Wood Rivera MD, Arjun D MD Duncan,Garrett Patricio MD DATE OF CONSULT: 06/05/2017 REQUESTING PHYSICIAN: Dr. Garrett Witt REASON FOR CONSULTATION: Respiratory insufficiency, chronic obstructive pulmonary disease exacerbation. HISTORY OF PRESENT ILLNESS: Ms. Mccord is a pleasant 62-year-old female with longstanding history of COPD, has coronary artery disease, cardiomyopathy status post AICD placement, hypertension, end-stage renal disease on peritoneal dialysis. She was recently treated for pneumonia. She came to the hospital with worsening of shortness of breath and feeling weak. She was also found to have atrial fibrillation with a rapid ventricular rate. She was started on Cardizem drip, now she on p.o. Cardizem. She had a workup done; however, her V/Q scan is negative. Chest x-ray shows blunting of the bilateral costophrenic angles. CBC shows white blood cell count 4.1, hemoglobin 9.6, hematocrit 28.1, MCV 80, platelet count 172. Sodium 137, potassium 3.2, chloride 96, CO2 of 28, BUN 35, creatinine 10.46. APTT 57.2. PAST MEDICAL HISTORY: Significant for history of chronic obstructive pulmonary disease. End-stage renal disease; she is on hemodialysis. Cardiomyopathy status post AICD placement, hypertension, recent pneumonia, anemia, paralyzed vocal cords, coronary artery disease. MEDICATIONS: She is currently taking Eliquis 5 mg b.i.d., Solu-Medrol 40 mg q. 8 hrs, heparin drip, Diltiazem 120 mg b.i.d., calcitriol 0.5 mcg a day, Neurontin 100 mg b.i.d., Imdur 60 mg a day, Cozaar 100 mg daily, metoprolol 100 mg daily, Zoloft 100 mg a day, Renvela 800 mg t.i.d., Protonix 20 mg a day, levothyroxine 50 mcg a day. ALLERGIES: NO KNOWN DRUG ALLERGIES. SOCIAL HISTORY: She is . No history of smoking. No alcohol abuse. 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 FAMILY HISTORY: She has two children. REVIEW OF SYSTEMS: Normally she is up, around and active. She is on peritoneal dialysis. No DVT or pulmonary embolism. She has had cholecystectomy. PHYSICAL EXAMINATION: GENERAL: Pleasant elderly female mildly short of breath not in any acute distress. VITAL SIGNS: Blood pressure 146/87, heart rate 97, respirations 16, temperature 98.2. HEENT: Pupils are equal and react to light. Oral mucosa and nasal mucosa normal. NECK: No JVD noted. LUNGS: Equal bilaterally. End expiratory rhonchi. CARDIOVASCULAR: S1, S2 normal. ABDOMEN: Benign. EXTREMITIES: No edema. IMPRESSION: 1. Chronic obstructive pulmonary disease with mild exacerbation. 2. Atrial fibrillation with rapid ventricular rate, now the rate is controlled. 3. End-stage renal disease on peritoneal dialysis. 4. Coronary artery disease. 5. Cardiomyopathy. 6. Automated implanted cardioverter defibrillator placement. PLAN: I discussed with patient we will given her aerosol treatment, IV Solu-Medrol. Monitor her electrolytes. She is on peritoneal dialysis. Supplement her oxygen. Once she gets better, we will check a pulmonary function study. Further treatment will depend on the course in the hospital. Thank you, Dr. Garrett Witt, for this consultation. MD MJ Abrams// , 07:40 PM , 12:07 AM
--- NOTE | 2017-06-06 15:54 | HHI.PR ---
Subjective Remarks 62 YOWF with ESRD, on PD,COPD exac, AF Breathing better Mild wheezing No CP or palpitation Objective Vital Signs Vital Signs Date Time Temp Pulse Resp B/P (MAP) Pulse Ox O2 Delivery O2 Flow Rate FiO2 06/06/17 15:31 97 Room Air 06/06/17 15:31 97.6 91 16 147/77 (100) 97 06/06/17 14:14 90 06/06/17 13:00 96 06/06/17 12:00 85 06/06/17 11:22 92 Room Air 06/06/17 11:22 98.1 86 16 142/74 (96) 100 06/06/17 11:04 99 Nasal Cannula 3.00 06/06/17 11:00 85 06/06/17 10:06 81 06/06/17 09:00 92 06/06/17 08:17 97.8 92 16 146/72 (96) 92 06/06/17 08:17 92 Room Air 06/06/17 08:00 88 06/06/17 07:00 85 06/06/17 06:00 85 06/06/17 05:22 85 06/06/17 05:00 86 06/06/17 04:00 81 06/06/17 03:30 98.6 80 20 126/71 (89) 94 06/06/17 03:00 81 06/06/17 03:00 98 Nasal Cannula 2.00 06/06/17 02:00 82 06/06/17 01:00 81 06/06/17 00:00 92 06/05/17 23:00 97 Nasal Cannula 2.00 06/05/17 23:00 98.6 87 22 118/66 (83) 97 06/05/17 23:00 87 06/05/17 22:00 100 06/05/17 21:00 93 06/05/17 20:30 97.5 76 18 127/61 (83) 94 06/05/17 20:30 95 Nasal Cannula 2.00 06/05/17 20:13 98 Nasal Cannula 2.00 06/05/17 20:00 90 06/05/17 19:00 99 06/05/17 18:00 95 06/05/17 17:00 94 06/05/17 16:00 97 I/O 3/2/18 306/05/17 06/06/17 06/06/17 06/06/17 07:00 15:00 23:00 07:00 15:00 23:00 Intake Total 240 ml 600 ml 240 ml Output Total 325 ml 0 ml 225 ml 952 ml Balance -85 ml 600 ml 15 ml -952 ml Intake Oral 240 ml 600 ml 240 ml Output Urine Total 325 ml 0 ml 225 ml Stool Total 0 ml 0 ml Peritoneal Fluid 952 ml Result Diagram: 06/06/1742506/06/17425 Objective Remarks GENERAL: MBMN WF,NAD SKIN: Warm and dry. HEAD: Normocephalic. EYES: No scleral icterus. No injection or drainage. NECK: Supple, trachea midline. No JVD or lymphadenopathy. CARDIOVASCULAR: Regular rate and rhythm without murmurs, gallops, or rubs. RESPIRATORY: Breath sounds equal bilaterally. No accessory muscle use. End exp rhonchi GASTROINTESTINAL: Abdomen soft, non-tender, nondistended. PD Cathetor MUSCULOSKELETAL: No cyanosis, or edema. BACK: Nontender without obvious deformity. No CVA tenderness. A/P Assessment and Plan COPD Exac ESRD AF CMP S/P AICD PLAN: Aerosol nebs Supplement 02 PO prednisone cardiazem for rate controll. Wood Rivera MD Jun 06, 2017 15:54
--- NOTE | 2017-06-06 16:48 | HHI.NPPN ---
Subjective History of Present Illness The patient is a 62 yo [place] female with a complicated PMHx of ESRD on PD, CAD, cardiomyopathy s/p AICD placement, HTN, recent PNA, and COPD presented to the ED last evening with complaints of acute SOB. States she has been compliant with her home dialysis. Has been on Vanomycin IP for the past week as she contaminated her system. Denies any fever, nausea, vomiting. Has had productive cough and wheezing for the past 2 days. Uses albuterol inhaler at home, but says she cannot afford prescribed nebulizer medications. Does follow with pulmo as outpatient. Noted that she was in A. fib RVR on admission and was on IV Cardizem that has now been converted to po. PD started this AM. Interval History Patient indicating that she has less shortness of breath today. Review of Systems General Constitutional: Fatigue Respiratory Lungs: SOB, Cough, Wheeze Objective Data Data 06/06/17 06/07/17 18:59 06:59 Output Total 952 ml Balance -952 ml Peritoneal Fluid 952 ml Vital Signs Date Time Temp Pulse Resp B/P (MAP) Pulse Ox O2 Delivery O2 Flow Rate FiO2 06/06/17 16:04 87 06/06/17 15:31 97 Room Air 06/06/17 15:31 97.6 91 16 147/77 (100) 97 06/06/17 15:00 91 06/06/17 14:14 90 06/06/17 13:00 96 06/06/17 12:00 85 06/06/17 11:22 92 Room Air 06/06/17 11:22 98.1 86 16 142/74 (96) 100 06/06/17 11:04 99 Nasal Cannula 3.00 06/06/17 11:00 85 06/06/17 10:06 81 06/06/17 09:00 92 06/06/17 08:17 97.8 92 16 146/72 (96) 92 06/06/17 08:17 92 Room Air 06/06/17 08:00 88 06/06/17 07:00 85 06/06/17 06:00 85 06/06/17 05:22 85 06/06/17 05:00 86 06/06/17 04:00 81 06/06/17 03:30 98.6 80 20 126/71 (89) 94 06/06/17 03:00 81 06/06/17 03:00 98 Nasal Cannula 2.00 06/06/17 02:00 82 06/06/17 01:00 81 06/06/17 00:00 92 06/05/17 23:00 97 Nasal Cannula 2.00 06/05/17 23:00 98.6 87 22 118/66 (83) 97 06/05/17 23:00 87 06/05/17 22:00 100 06/05/17 21:00 93 06/05/17 20:30 97.5 76 18 127/61 (83) 94 06/05/17 20:30 95 Nasal Cannula 2.00 06/05/17 20:13 98 Nasal Cannula 2.00 06/05/17 20:00 90 06/05/17 19:00 99 06/05/17 18:00 95 06/05/17 17:00 94 -: 06/06/17 0426 06/06/17 0426 Tubes & Lines: Tenckhoff Catheter Physical Exam General Appearance: Well Developed, Well Nourished, No Acute Distress Eyes Eye Exam: Sclera White Pulmonary Resp Exam: Clear Bilaterally, Breath Sounds Equal Cardiology CV Exam: Regular Gastrointestinal/Abdomen GI Exam: Soft, Non-Tender Neurologic Neuro Exam: Alert, Awake Psychiatric Psych Exam: Appropriate Responses Assessment/Plan Discussed Condition With: Patient Problem List: (1) ESRD (end stage renal disease) on dialysis ICD Codes: N18.6 - End stage renal failure on dialysis; Z99.2 - Dependence on renal dialysis Status: Chronic Plan: Patient appears to be euvolemic clinically. Continue 2.5% /4.25% solutions. Potassium supplementation as ordered with repeat potassium level tomorrow. Dietary potassium restriction was discontinued yesterday. Medications should be adjusted for ESRD. Avoid gadolinium. (2) CHF (congestive heart failure) ICD Codes: I50.9 - Heart failure, unspecified Status: Chronic Plan: Ejection fraction appears to be somewhat improved by echocardiogram this admission. Noted cardiology recommending anticoagulation. Defer the patient in cardiology regarding which anticoagulant will be considered i.e. Coumadin versus Eliquis. (3) COPD (chronic obstructive pulmonary disease) ICD Codes: J44.9 - Chronic obstructive pulmonary disease, unspecified Status: Chronic Plan: Bronchospasm improving significantly. Pulmonary consultation appreciated. (4) Atrial fibrillation with RVR ICD Codes: I48.91 - Unspecified atrial fibrillation Status: Acute Plan: Noted A fib RVR on admission that improved with Cardizem. Management as per primary (5) HTN (hypertension) ICD Codes: I10 - Essential (primary) hypertension Status: Chronic Plan: Continue on home regimen Plan I will defer discharge planning to pulmonary and primary care physician. Patient to follow-up in the outpatient dialysis facility post discharge. Problem Qualifiers (1) COPD (chronic obstructive pulmonary disease): Qualified Codes: J44.1 - Chronic obstructive pulmonary disease with (acute) exacerbation Chandni Green MD Jun 06, 2017 16:48
[2017-06-06] MEDS ORDERED: POTASSIUM CHLORIDE 10 MEQ CONTROLLED RELEASE TAB PO ONE (17:00)
[2017-06-06] MEDS: guaiFENesin SOLUTION 200 MG/10 ML CUP PO PRN (20:47)
[2017-06-06] MEDS: ASPIRIN 81 MG CHEW TAB CHEW SCH (20:48)
[2017-06-06] MEDS: predniSONE 20 MG TAB PO SCH (20:49)
[2017-06-06] MEDS: clonazePAM 0.5 MG TAB PO SCH (20:49)
[2017-06-07] VITALS (30 sets, daily range): BP systolic 121–153; BP diastolic 65–85; PULSE 73–102; RESP 19–20; TEMP 98–98.4; O2SAT 96–100
[2017-06-07] MEDS: ZOLPIDEM TARTRATE 10 MG TAB PO PRN ×2 (01:01→21:11)
[2017-06-07] MEDS: RESP: ALBUTEROL 2.5 MG/IPRATROPIUM 0.5 MG NEB (SCH) NEB (03:33)
[2017-06-07] MEDS: LEVOTHYROXINE SODIUM 50 MCG TAB PO SCH (05:35)
[2017-06-07 06:05] LABS: BICARBONATE 27.3 MEQ/L (21.0-32.0); CALCIUM 9.4 MG/DL (8.5-10.1)
[2017-06-07 06:07] LABS: CREATININE 10.28 MG/DL (0.50-1.00)
[2017-06-07] MEDS: SODIUM CHLORIDE 0.9% FLUSH 10 ML FLUSH IV FLUSH SCH ×2 (08:54→21:12)
[2017-06-07] MEDS: DILTIAZEM-CD 120 MG CAP ER PO SCH (08:54)
[2017-06-07] MEDS: SEVELAMER CARBONATE 800 MG TAB PO SCH ×3 (08:54→17:17)
[2017-06-07] MEDS: GABAPENTIN 100 MG CAP PO SCH ×2 (08:55→21:11)
[2017-06-07] MEDS: DOCUSATE SODIUM 50 MG/SENNA 8.6 MG TAB PO SCH ×2 (08:55→21:00)
[2017-06-07] MEDS: METOPROLOL SUCCINATE 50 MG EXTENDED RELEASE TAB PO SCH (08:55)
[2017-06-07] MEDS: APIXABAN 5 MG TABLET PO SCH ×2 (08:55→21:11)
[2017-06-07] MEDS: SERTRALINE HCL 100 MG TAB PO SCH (08:55)
[2017-06-07] MEDS: ISOSORBIDE MONONITRATE 60 MG CR TAB (IMDUR) PO SCH (08:55)
[2017-06-07] MEDS: PANTOPRAZOLE SOD 20 MG DELAYED RELEASE TAB PO SCH (08:55)
[2017-06-07] MEDS: predniSONE 20 MG TAB PO SCH (08:56)
[2017-06-07] MEDS: LOSARTAN 50 MG TAB PO SCH (08:59)
[2017-06-07] MEDS: CALCITRIOL 0.25 MCG CAP PO SCH (09:35)
--- NOTE | 2017-06-07 09:39 | HHI.PR ---
Subjective Remarks The patient was sitting up in bed. She said she wanted to work with physical therapy. She wanted to be sure she wouldn't fall down when she goes home. Discussed with nursing. Objective Vitals Vital Signs Date Time Temp Pulse Resp B/P (MAP) Pulse Ox O2 Delivery O2 Flow Rate FiO2 06/07/17 08:48 102 06/07/17 07:26 98.2 94 20 137/69 (91) 96 06/07/17 07:26 96 Nasal Cannula 2.00 06/07/17 07:00 94 06/07/17 06:12 95 06/07/17 05:11 98 06/07/17 04:26 91 06/07/17 03:33 99 Nasal Cannula 2.00 06/07/17 03:31 98.4 85 20 124/74 (91) 98 06/07/17 03:31 82 06/07/17 03:31 98 Nasal Cannula 2.00 06/07/17 02:19 86 06/07/17 01:30 83 06/07/17 00:57 86 06/06/17 23:56 98.3 87 21 135/82 (99) 97 06/06/17 23:56 86 06/06/17 23:56 96 Room Air 06/06/17 22:04 91 06/06/17 21:48 87 06/06/17 20:58 98 Nasal Cannula 2.00 06/06/17 20:20 91 06/06/17 19:30 95 06/06/17 19:30 96 Nasal Cannula 2.00 06/06/17 19:30 98.4 90 22 127/61 (83) 95 06/06/17 18:18 89 06/06/17 17:00 93 06/06/17 16:04 87 06/06/17 15:31 97 Room Air 06/06/17 15:31 97.6 91 16 147/77 (100) 97 06/06/17 15:00 91 06/06/17 14:14 90 06/06/17 13:00 96 06/06/17 12:00 85 06/06/17 11:22 92 Room Air 06/06/17 11:22 98.1 86 16 142/74 (96) 100 06/06/17 11:04 99 Nasal Cannula 3.00 06/06/17 11:00 85 06/06/17 10:06 81 I/O 06/06/17 06/06/17 06/06/17 06/07/17 06/07/17 06/07/17 07:00 15:00 23:00 07:00 15:00 23:00 Intake Total 240 ml 480 ml Output Total 225 ml 952 ml 960 ml Balance 15 ml -952 ml -960 ml 480 ml Intake Oral 240 ml 480 ml Output Urine Total 225 ml 960 ml Stool Total 0 ml 0 ml Peritoneal Fluid 952 ml # Voids 2 Result Diagram: 06/06/17 0426 06/07/17 0538 Imaging Last Impressions Chest X-Ray 06/05/17 0000 Signed Impressions: Service Date/Time: Monday, June 05, 2017 10:32 - CONCLUSION: Blunting of bilateral costophrenic angles may represent small effusions. Mauricio Jc MD Lung Scan-VQ Nuclear Medicine 06/02/17 0000 Signed Impressions: Service Date/Time: Friday, June 02, 2017 02:39 - CONCLUSION: 1. Normal V/Q scan. Art Fraire MD Objective Remarks GENERAL: Resting comfortably. SKIN: Warm and dry. HEAD: Normocephalic. EYES: No scleral icterus. No injection or drainage. NECK: Supple, trachea midline. JVD assessment difficult secondary to body habitus. CARDIOVASCULAR: Regular rate and rhythm without murmurs, gallops, or rubs. RESPIRATORY: CTAB. GASTROINTESTINAL: Abdomen soft, non-tender, nondistended. MUSCULOSKELETAL: No cyanosis. Trace bilateral lower extremity edema. BACK: Nontender without obvious deformity. No CVA tenderness. PSYCH: Mood and affect appropriate. Medications and IVs Current Medications Medications (Trade) Dose Ordered Sig/Emma Route Start Time Stop Time Status Last Admin (NS Flush) 2 ml UNSCH PRN IV FLUSH 06/02/17 00:30 (NS Flush) 2 ml BID IV FLUSH 06/02/17 09:00 06/07/17 08:54 (Tylenol) 650 mg Q4H PRN PO 06/02/17 00:30 (Zofran Inj) 4 mg Q6H PRN IVP 06/02/17 00:30 (Narcan Inj) 0.4 mg UNSCH PRN IV PUSH 06/02/17 00:30 (Di-Colace) 1 tab BID PO 06/02/17 09:00 06/07/17 08:55 (Milk Of Magnesia Liq) 30 ml Q12H PRN PO 06/02/17 00:30 (Senokot) 17.2 mg Q12H PRN PO 06/02/17 00:30 (Dulcolax Supp) 10 mg DAILY PRN RECTAL 06/02/17 00:30 (Lactulose Liq) 30 ml DAILY PRN PO 06/02/17 00:30 (Duoneb Neb) 1 ampule Q4HR NEB PRN NEB 06/02/17 00:30 06/03/17 06:06 (Aspirin Chew) 81 mg HS CHEW 06/02/17 21:00 06/06/17 20:48 (Rocaltrol) 0.5 mcg DAILY PO 06/02/17 09:00 06/06/17 09:41 (KlonoPIN) 0.5 mg HS PO 06/02/17 21:00 06/06/17 20:49 (Cardizem Cd) 120 mg DAILY PO 06/02/17 09:00 06/07/17 08:54 (Neurontin) 100 mg BID PO 06/02/17 09:00 06/07/17 08:55 (Imdur) 60 mg DAILY PO 06/02/17 09:00 06/07/17 08:55 (Synthroid) 50 mcg DAILY@0600 PO 06/02/17 06:00 06/07/17 05:35 (Cozaar) 100 mg DAILY PO 06/02/17 09:00 06/07/17 08:59 (Toprol Xl) 100 mg DAILY PO 06/02/17 09:00 06/07/17 08:55 (Zoloft) 100 mg DAILY PO 06/02/17 09:00 06/07/17 08:55 (Renvela) 800 mg TID PO 06/02/17 09:00 06/07/17 08:54 (Ambien) 10 mg HS PRN PO 06/02/17 00:45 06/07/17 01:01 (Protonix) 20 mg DAILY PO 06/02/17 09:00 06/07/17 08:55 (Heparin Inj) 1,000 units WITH DIALYSIS PRN XX 06/02/17 01:30 (NS Flush) 10 ml UNSCH PRN IV FLUSH 06/02/17 01:30 (NS Flush) 2 ml UNSCH PRN IV FLUSH 06/02/17 02:00 (Vancomycin Inj) 1,000 mg WITH DIALYSIS IP 06/02/17 12:00 (Robitussin Liq) 200 mg Q4H PRN PO 06/02/17 16:15 06/06/17 20:47 (Duoneb Neb) 1 ampule Q6HR NEB NEB 06/03/17 10:00 06/07/17 03:33 (Eliquis) 5 mg BID PO 06/05/17 21:00 06/07/17 08:55 (Deltasone) 20 mg BID PO 06/06/17 21:00 06/07/17 08:56 A/P Assessment and Plan Acute on chronic systolic CHF exacerbation/ Shortness of breath/ COPD Chest x-ray significant for cardiomegaly with small bilateral effusions and mild pulmonary edema. BNP 4747. VQ scan pending to rule out PE= negative. Cardiology consult appreciated. Repeat CXR with small effusions. Pulmonology consult appreciated. - continue cardiac regimen. - follow up with cardiology. - dialysis for volume management. - oxygen and nebs as needed. On 2L NC at home. - change IV Solu-Medrol to PO prednisone and taper over next few days. - Physical therapy. - Incentive spirometry. ESRD on PD Patient's oracle applications analyst, Dr. 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 Appreciate recommendations - Continue peritoneal dialysis as ordered. It is set-up as an outpt. Hypertension Relatively well controlled at this time. - Continue home medications. A fib Started on Eliquis by cardiology. - continue Eliquis. PPx: Eliquis Discharge Planning D/c home in 1-2 days with [facility] when feeling stronger Ernie Rawls DO Jun 07, 2017 09:39
--- NOTE | 2017-06-07 10:51 | PD.CARD.PN ---
Subjective Subjective Remarks No complaints Objective Medications Current Medications Medications (Trade) Dose Ordered Sig/Emma Route Start Time Stop Time Status Last Admin (NS Flush) 2 ml UNSCH PRN IV FLUSH 06/02/17 00:30 (NS Flush) 2 ml BID IV FLUSH 06/02/17 09:00 06/07/17 08:54 (Tylenol) 650 mg Q4H PRN PO 06/02/17 00:30 (Zofran Inj) 4 mg Q6H PRN IVP 06/02/17 00:30 (Narcan Inj) 0.4 mg UNSCH PRN IV PUSH 06/02/17 00:30 (Di-Colace) 1 tab BID PO 06/02/17 09:00 06/07/17 08:55 (Milk Of Magnesia Liq) 30 ml Q12H PRN PO 06/02/17 00:30 (Senokot) 17.2 mg Q12H PRN PO 06/02/17 00:30 (Dulcolax Supp) 10 mg DAILY PRN RECTAL 06/02/17 00:30 (Lactulose Liq) 30 ml DAILY PRN PO 06/02/17 00:30 (Duoneb Neb) 1 ampule Q4HR NEB PRN NEB 06/02/17 00:30 06/03/17 06:06 (Aspirin Chew) 81 mg HS CHEW 06/02/17 21:00 06/06/17 20:48 (Rocaltrol) 0.5 mcg DAILY PO 06/02/17 09:00 06/07/17 09:35 (KlonoPIN) 0.5 mg HS PO 06/02/17 21:00 06/06/17 20:49 (Cardizem Cd) 120 mg DAILY PO 06/02/17 09:00 06/07/17 08:54 (Neurontin) 100 mg BID PO 06/02/17 09:00 06/07/17 08:55 (Imdur) 60 mg DAILY PO 06/02/17 09:00 06/07/17 08:55 (Synthroid) 50 mcg DAILY@0600 PO 06/02/17 06:00 06/07/17 05:35 (Cozaar) 100 mg DAILY PO 06/02/17 09:00 06/07/17 08:59 (Toprol Xl) 100 mg DAILY PO 06/02/17 09:00 06/07/17 08:55 (Zoloft) 100 mg DAILY PO 06/02/17 09:00 06/07/17 08:55 (Renvela) 800 mg TID PO 06/02/17 09:00 06/07/17 08:54 (Ambien) 10 mg HS PRN PO 06/02/17 00:45 06/07/17 01:01 (Protonix) 20 mg DAILY PO 06/02/17 09:00 06/07/17 08:55 (Heparin Inj) 1,000 units WITH DIALYSIS PRN XX 06/02/17 01:30 (NS Flush) 10 ml UNSCH PRN IV FLUSH 06/02/17 01:30 (NS Flush) 2 ml UNSCH PRN IV FLUSH 06/02/17 02:00 (Vancomycin Inj) 1,000 mg WITH DIALYSIS IP 06/02/17 12:00 (Robitussin Liq) 200 mg Q4H PRN PO 06/02/17 16:15 06/06/17 20:47 (Eliquis) 5 mg BID PO 06/05/17 21:00 06/07/17 08:55 (Deltasone) 20 mg DAILY PO 06/08/17 09:00 06/09/17 09:00 Vital Signs / I&O Vital Signs Date Time Temp Pulse Resp B/P (MAP) Pulse Ox O2 Delivery O2 Flow Rate FiO2 06/07/17 08:48 102 06/07/17 07:26 98.2 94 20 137/69 (91) 96 06/07/17 07:26 96 Nasal Cannula 2.00 06/07/17 07:00 94 06/07/17 06:12 95 06/07/17 05:11 98 06/07/17 04:26 91 06/07/17 03:33 99 Nasal Cannula 2.00 06/07/17 03:31 98.4 85 20 124/74 (91) 98 06/07/17 03:31 82 06/07/17 03:31 98 Nasal Cannula 2.00 06/07/17 02:19 86 06/07/17 01:30 83 06/07/17 00:57 86 06/06/17 23:56 98.3 87 21 135/82 (99) 97 06/06/17 23:56 86 06/06/17 23:56 96 Room Air 06/06/17 22:04 91 06/06/17 21:48 87 06/06/17 20:58 98 Nasal Cannula 2.00 06/06/17 20:20 91 06/06/17 19:30 95 06/06/17 19:30 96 Nasal Cannula 2.00 06/06/17 19:30 98.4 90 22 127/61 (83) 95 06/06/17 18:18 89 06/06/17 17:00 93 06/06/17 16:04 87 06/06/17 15:31 97 Room Air 06/06/17 15:31 97.6 91 16 147/77 (100) 97 06/06/17 15:00 91 06/06/17 14:14 90 06/06/17 13:00 96 06/06/17 12:00 85 06/06/17 11:22 92 Room Air 06/06/17 11:22 98.1 86 16 142/74 (96) 100 06/06/17 11:04 99 Nasal Cannula 3.00 06/06/17 11:00 85 I/O 06/06/17 06/06/17 06/06/17 06/07/17 06/07/17 06/07/17 07:00 15:00 23:00 07:00 15:00 23:00 Intake Total 240 ml 480 ml Output Total 225 ml 952 ml 960 ml Balance 15 ml -952 ml -960 ml 480 ml Intake Oral 240 ml 480 ml Output Urine Total 225 ml 960 ml Stool Total 0 ml 0 ml Peritoneal Fluid 952 ml # Voids 2 Physical Exam Alert Chest Decreased BS at bases CV S1S2 RRR no edema. Varicose veins on left Laboratory Laboratory Tests Test 06/07/17 05:38 Blood Urea Nitrogen 51 MG/DL Creatinine 10.28 MG/DL Random Glucose 123 MG/DL Calcium Level 9.4 MG/DL Magnesium Level 2.0 MG/DL Sodium Level 134 MEQ/L Potassium Level 3.7 MEQ/L Chloride Level 96 MEQ/L Carbon Dioxide Level 27.3 MEQ/L Anion Gap 11 MEQ/L Estimat Glomerular Filtration Rate 4 ML/MIN Assessment and Plan Problem List: (1) CAD (coronary artery disease) ICD Codes: I25.10 - Atherosclerotic heart disease of [place] coronary artery without angina pectoris (2) End stage renal disease ICD Codes: N18.6 - End stage renal disease Status: Acute (3) Cardiomyopathy, dilated, nonischemic ICD Codes: I42.9 - Cardiomyopathy, unspecified Status: Chronic (4) Dyspnea ICD Codes: R06.00 - Dyspnea, unspecified Status: Acute Plan: improving (5) Anemia of renal disease ICD Codes: D63.1 - Anemia in chronic kidney disease Status: Chronic (6) HTN (hypertension) ICD Codes: I10 - Essential (primary) hypertension Status: Chronic (7) Paroxysmal atrial fibrillation with rapid ventricular response ICD Codes: I48.0 - Paroxysmal atrial fibrillation Assessment and Plan I will see prn. Please call if questions. Diogenes Linares MD Jun 07, 2017 10:51
[2017-06-07] MEDS: RESP: ALBUTEROL 2.5 MG/IPRATROPIUM 0.5 MG NEB (PRN) NEB (11:43)
--- NOTE | 2017-06-07 17:47 | HHI.PR ---
Subjective Remarks 62 YOWF with ESRD, on PD,COPD exac, AF Breathing better Mild wheezing No CP or palpitation On PO steroids Objective Vital Signs Vital Signs Date Time Temp Pulse Resp B/P (MAP) Pulse Ox O2 Delivery O2 Flow Rate FiO2 06/07/17 17:08 90 06/07/17 15:32 85 06/07/17 15:24 Nasal Cannula 2.00 06/07/17 15:24 98.4 87 19 121/65 (83) 97 06/07/17 14:21 84 06/07/17 13:00 84 06/07/17 12:00 86 06/07/17 11:45 98 Nasal Cannula 2.00 06/07/17 11:12 98 Nasal Cannula 2.00 06/07/17 11:12 98.2 86 19 142/85 (104) 98 06/07/17 11:00 95 06/07/17 10:00 97 06/07/17 09:00 101 06/07/17 08:48 102 06/07/17 07:26 98.2 94 20 137/69 (91) 96 06/07/17 07:26 96 Nasal Cannula 2.00 06/07/17 07:00 94 06/07/17 06:12 95 06/07/17 05:11 98 06/07/17 04:26 91 06/07/17 03:33 99 Nasal Cannula 2.00 06/07/17 03:31 98.4 85 20 124/74 (91) 98 06/07/17 03:31 82 06/07/17 03:31 98 Nasal Cannula 2.00 06/07/17 02:19 86 06/07/17 01:30 83 06/07/17 00:57 86 06/06/17 23:56 98.3 87 21 135/82 (99) 97 06/06/17 23:56 86 06/06/17 23:56 96 Room Air 06/06/17 22:04 91 06/06/17 21:48 87 06/06/17 20:58 98 Nasal Cannula 2.00 06/06/17 20:20 91 06/06/17 19:30 95 06/06/17 19:30 96 Nasal Cannula 2.00 06/06/17 19:30 98.4 90 22 127/61 (83) 95 06/06/17 18:18 89 I/O 06/06/17 06/06/17 06/06/17 06/07/17 06/07/17 06/07/17 07:00 15:00 23:00 07:00 15:00 23:00 Intake Total 240 ml 480 ml 680 ml Output Total 225 ml 952 ml 960 ml 1024 ml 101 ml Balance 15 ml -952 ml -960 ml 480 ml -1024 ml 579 ml Intake Oral 240 ml 480 ml 680 ml Output Urine Total 225 ml 960 ml 100 ml Stool Total 0 ml 0 ml 1 ml Peritoneal Fluid 952 ml 1024 ml # Voids 2 1 Result Diagram: 06/06/17 0426 06/07/17 0538 Objective Remarks GENERAL: MBMN WF,NAD SKIN: Warm and dry. HEAD: Normocephalic. EYES: No scleral icterus. No injection or drainage. NECK: Supple, trachea midline. No JVD or lymphadenopathy. CARDIOVASCULAR: Regular rate and rhythm without murmurs, gallops, or rubs. RESPIRATORY: Breath sounds equal bilaterally. No accessory muscle use. End exp rhonchi GASTROINTESTINAL: Abdomen soft, non-tender, nondistended. PD Cathetor MUSCULOSKELETAL: No cyanosis, or edema. BACK: Nontender without obvious deformity. No CVA tenderness. A/P Assessment and Plan COPD Exac ESRD AF CMP S/P AICD PLAN: Aerosol nebs Supplement 02 PO prednisone 20 mg daily cardiazem for rate controll. Wean 02 to keep sat >90% Wood Rivera MD Jun 07, 2017 17:47
[2017-06-07] MEDS: clonazePAM 0.5 MG TAB PO SCH (21:11)
[2017-06-07] MEDS: ASPIRIN 81 MG CHEW TAB CHEW SCH (21:11)
[2017-06-07] MEDS: guaiFENesin SOLUTION 200 MG/10 ML CUP PO PRN (21:11)
[2017-06-08] VITALS (28 sets, daily range): BP systolic 126–165; BP diastolic 77–89; PULSE 69–80; RESP 18–20; TEMP 98.1–98.6; O2SAT 97–100
[2017-06-08] MEDS: LEVOTHYROXINE SODIUM 50 MCG TAB PO SCH (06:01)
[2017-06-08] MEDS: SODIUM CHLORIDE 0.9% FLUSH 10 ML FLUSH IV FLUSH SCH ×2 (08:50→20:53)
[2017-06-08] MEDS: APIXABAN 5 MG TABLET PO SCH ×2 (08:50→20:49)
[2017-06-08] MEDS: GABAPENTIN 100 MG CAP PO SCH ×2 (08:50→20:50)
[2017-06-08] MEDS: PANTOPRAZOLE SOD 20 MG DELAYED RELEASE TAB PO SCH (08:50)
[2017-06-08] MEDS: CALCITRIOL 0.25 MCG CAP PO SCH (08:50)
[2017-06-08] MEDS: SEVELAMER CARBONATE 800 MG TAB PO SCH ×3 (08:50→17:48)
[2017-06-08] MEDS: DOCUSATE SODIUM 50 MG/SENNA 8.6 MG TAB PO SCH ×2 (08:50→20:49)
[2017-06-08] MEDS: METOPROLOL SUCCINATE 50 MG EXTENDED RELEASE TAB PO SCH (08:51)
[2017-06-08] MEDS: SERTRALINE HCL 100 MG TAB PO SCH (08:51)
[2017-06-08] MEDS: LOSARTAN 50 MG TAB PO SCH (08:51)
[2017-06-08] MEDS: DILTIAZEM-CD 120 MG CAP ER PO SCH (08:51)
[2017-06-08] MEDS: ISOSORBIDE MONONITRATE 60 MG CR TAB (IMDUR) PO SCH (08:51)
[2017-06-08] MEDS ORDERED: predniSONE 20 MG TAB PO SCH (09:00)
[2017-06-08] MEDS ORDERED: BENZONATATE 100 MG CAP PO ONE (10:30)
--- NOTE | 2017-06-08 10:55 | HHI.PR ---
Subjective Remarks The patient said she hasn't worked with physical therapy for a few days. She does not feel strong enough to go home at this time. She said dialysis has been going well. She says she is getting a little bit more shortness of breath. Discussed with nursing. Objective Vitals Vital Signs Date Time Temp Pulse Resp B/P (MAP) Pulse Ox O2 Delivery O2 Flow Rate FiO2 06/08/17 09:16 80 06/08/17 08:39 98.1 79 20 145/89 (107) 97 06/08/17 08:09 99 Nasal Cannula 2.00 06/08/17 08:00 80 06/08/17 07:00 79 06/08/17 07:00 98 Nasal Cannula 2.00 06/08/17 06:21 77 06/08/17 05:15 79 06/08/17 04:45 76 06/08/17 03:17 98.4 78 20 139/78 (98) 100 06/08/17 03:17 100 Nasal Cannula 2.00 06/08/17 03:17 80 06/08/17 02:00 75 06/08/17 01:43 80 06/08/17 00:31 75 06/07/17 23:52 100 Nasal Cannula 2.00 06/07/17 23:52 98.2 77 19 141/85 (103) 100 06/07/17 23:51 76 06/07/17 22:00 73 06/07/17 21:26 76 06/07/17 20:19 80 06/07/17 19:30 98.0 81 20 153/85 (107) 100 06/07/17 19:30 100 Nasal Cannula 2.00 06/07/17 19:00 82 06/07/17 18:14 82 06/07/17 17:08 90 06/07/17 15:32 85 06/07/17 15:24 Nasal Cannula 2.00 06/07/17 15:24 98.4 87 19 121/65 (83) 97 06/07/17 14:21 84 06/07/17 13:00 84 06/07/17 12:00 86 06/07/17 11:45 98 Nasal Cannula 2.00 06/07/17 11:12 98 Nasal Cannula 2.00 06/07/17 11:12 98.2 86 19 142/85 (104) 98 06/07/17 11:00 95 I/O 06/07/17 06/07/17 06/07/17 06/08/17 06/08/17 06/08/17 07:00 15:00 23:00 07:00 15:00 23:00 Intake Total 480 ml 680 ml 480 ml Output Total 1024 ml 101 ml 999 ml Balance 480 ml -1024 ml 579 ml 480 ml -999 ml Intake Oral 480 ml 680 ml 480 ml Output Urine Total 100 ml Stool Total 1 ml Peritoneal Fluid 1024 ml 999 ml # Voids 2 1 1 Result Diagram: 06/06/17 0426 06/07/17 0538 Imaging Last Impressions Chest X-Ray 06/05/17 0000 Signed Impressions: Service Date/Time: Monday, June 05, 2017 10:32 - CONCLUSION: Blunting of bilateral costophrenic angles may represent small effusions. Mauricio Jc MD Lung Scan-VQ Nuclear Medicine 06/02/17 0000 Signed Impressions: Service Date/Time: Friday, June 02, 2017 02:39 - CONCLUSION: 1. Normal V/Q scan. Art Fraire MD Objective Remarks GENERAL: Resting comfortably. SKIN: Warm and dry. HEAD: Normocephalic. EYES: No scleral icterus. No injection or drainage. NECK: Supple, trachea midline. JVD assessment difficult secondary to body habitus. CARDIOVASCULAR: Regular rate and rhythm without murmurs, gallops, or rubs. RESPIRATORY: Mild wheezing. GASTROINTESTINAL: Abdomen soft, non-tender, nondistended. MUSCULOSKELETAL: No cyanosis. Trace bilateral lower extremity edema. BACK: Nontender without obvious deformity. No CVA tenderness. PSYCH: Mood and affect appropriate. Medications and IVs Current Medications Medications (Trade) Dose Ordered Sig/Emma Route Start Time Stop Time Status Last Admin (NS Flush) 2 ml UNSCH PRN IV FLUSH 06/02/17 00:30 (NS Flush) 2 ml BID IV FLUSH 06/02/17 09:00 06/08/17 08:50 (Tylenol) 650 mg Q4H PRN PO 06/02/17 00:30 (Zofran Inj) 4 mg Q6H PRN IVP 06/02/17 00:30 (Narcan Inj) 0.4 mg UNSCH PRN IV PUSH 06/02/17 00:30 (Di-Colace) 1 tab BID PO 06/02/17 09:00 06/08/17 08:50 (Milk Of Magnesia Liq) 30 ml Q12H PRN PO 06/02/17 00:30 (Senokot) 17.2 mg Q12H PRN PO 06/02/17 00:30 (Dulcolax Supp) 10 mg DAILY PRN RECTAL 06/02/17 00:30 (Lactulose Liq) 30 ml DAILY PRN PO 06/02/17 00:30 (Duoneb Neb) 1 ampule Q4HR NEB PRN NEB 06/02/17 00:30 06/07/17 11:43 (Aspirin Chew) 81 mg HS CHEW 06/02/17 21:00 06/07/17 21:11 (Rocaltrol) 0.5 mcg DAILY PO 06/02/17 09:00 06/08/17 08:50 (KlonoPIN) 0.5 mg HS PO 06/02/17 21:00 06/07/17 21:11 (Cardizem Cd) 120 mg DAILY PO 06/02/17 09:00 06/08/17 08:51 (Neurontin) 100 mg BID PO 06/02/17 09:00 06/08/17 08:50 (Imdur) 60 mg DAILY PO 06/02/17 09:00 06/08/17 08:51 (Synthroid) 50 mcg DAILY@0600 PO 06/02/17 06:00 06/08/17 06:01 (Cozaar) 100 mg DAILY PO 06/02/17 09:00 06/08/17 08:51 (Toprol Xl) 100 mg DAILY PO 06/02/17 09:00 06/08/17 08:51 (Zoloft) 100 mg DAILY PO 06/02/17 09:00 06/08/17 08:51 (Renvela) 800 mg TID PO 06/02/17 09:00 06/08/17 08:50 (Ambien) 10 mg HS PRN PO 06/02/17 00:45 06/07/17 21:11 (Protonix) 20 mg DAILY PO 06/02/17 09:00 06/08/17 08:50 (Heparin Inj) 1,000 units WITH DIALYSIS PRN XX 06/02/17 01:30 (NS Flush) 10 ml UNSCH PRN IV FLUSH 06/02/17 01:30 (NS Flush) 2 ml UNSCH PRN IV FLUSH 06/02/17 02:00 (Vancomycin Inj) 1,000 mg WITH DIALYSIS IP 06/02/17 12:00 (Robitussin Liq) 200 mg Q4H PRN PO 06/02/17 16:15 06/07/17 21:11 (Eliquis) 5 mg BID PO 06/05/17 21:00 06/08/17 08:50 (Deltasone) 20 mg DAILY PO 06/08/17 09:00 06/09/17 09:00 06/08/17 08:51 (Tessalon) 100 mg TID PRN PO 06/08/17 09:45 A/P Assessment and Plan Acute on chronic systolic CHF exacerbation/ Shortness of breath/ COPD Chest x-ray significant for cardiomegaly with small bilateral effusions and mild pulmonary edema. BNP 4747. VQ scan pending to rule out PE= negative. Cardiology consult appreciated. Repeat CXR with small effusions. Pulmonology consult appreciated. - continue cardiac regimen. - follow up with cardiology. - dialysis for volume management. - oxygen and nebs as needed. On 2L NC at home. - change IV Solu-Medrol to PO prednisone and taper over next few days. Currently on 20 mg BID. - Physical therapy. The pt still feels too weak to go home at this time. - Incentive spirometry. 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 Appreciate recommendations - Continue peritoneal dialysis as ordered. It is set-up as an outpt. Hypertension Relatively well controlled at this time. - Continue home medications. A fib Started on Eliquis by cardiology. - continue Eliquis. PPx: Eliquis Discharge Planning D/c home in 1-2 days with [facility] when feeling stronger Ernie Rawls DO Jun 08, 2017 10:55
--- NOTE | 2017-06-08 12:31 | HHI.NPPN ---
Subjective History of Present Illness The patient is a 62 yo [place] female with a complicated PMHx of ESRD on PD, CAD, cardiomyopathy s/p AICD placement, HTN, recent PNA, and COPD presented to the ED last evening with complaints of acute SOB. States she has been compliant with her home dialysis. Has been on Vanomycin IP for the past week as she contaminated her system. Denies any fever, nausea, vomiting. Has had productive cough and wheezing for the past 2 days. Uses albuterol inhaler at home, but says she cannot afford prescribed nebulizer medications. Does follow with pulmo as outpatient. Noted that she was in A. fib RVR on admission and was on IV Cardizem that has now been converted to po. PD started this AM. Interval History Having some dyspnea today with a cough. Otherwise no verbal complaints. Review of Systems General Constitutional: Fatigue Respiratory Lungs: SOB, Cough, Wheeze Objective Data Data 06/08/17 06/09/17 18:59 06:59 Output Total 999 ml Balance -999 ml Peritoneal Fluid 999 ml Vital Signs Date Time Temp Pulse Resp B/P (MAP) Pulse Ox O2 Delivery O2 Flow Rate FiO2 06/08/17 11:49 98.2 77 19 137/77 (97) 98 06/08/17 11:49 98 Nasal Cannula 2.00 06/08/17 09:16 80 06/08/17 08:39 98.1 79 20 145/89 (107) 97 06/08/17 08:09 99 Nasal Cannula 2.00 06/08/17 08:00 80 06/08/17 07:00 79 06/08/17 07:00 98 Nasal Cannula 2.00 06/08/17 06:21 77 06/08/17 05:15 79 06/08/17 04:45 76 06/08/17 03:17 98.4 78 20 139/78 (98) 100 06/08/17 03:17 100 Nasal Cannula 2.00 06/08/17 03:17 80 06/08/17 02:00 75 06/08/17 01:43 80 06/08/17 00:31 75 06/07/17 23:52 100 Nasal Cannula 2.00 06/07/17 23:52 98.2 77 19 141/85 (103) 100 06/07/17 23:51 76 06/07/17 22:00 73 06/07/17 21:26 76 06/07/17 20:19 80 06/07/17 19:30 98.0 81 20 153/85 (107) 100 06/07/17 19:30 100 Nasal Cannula 2.00 06/07/17 19:00 82 06/07/17 18:14 82 06/07/17 17:08 90 06/07/17 15:32 85 06/07/17 15:24 Nasal Cannula 2.00 06/07/17 15:24 98.4 87 19 121/65 (83) 97 06/07/17 14:21 84 06/07/17 13:00 84 -: 06/06/17 0426 06/07/17 0538 Tubes & Lines: Tenckhoff Catheter Physical Exam General Appearance: Well Developed, Well Nourished, No Acute Distress Eyes Eye Exam: Sclera White Pulmonary Resp Exam: Clear Bilaterally, Breath Sounds Equal Cardiology CV Exam: Regular Gastrointestinal/Abdomen GI Exam: Soft, Non-Tender Neurologic Neuro Exam: Alert, Awake Psychiatric Psych Exam: Appropriate Responses Assessment/Plan Discussed Condition With: Patient Problem List: (1) ESRD (end stage renal disease) on dialysis ICD Codes: N18.6 - End stage renal failure on dialysis; Z99.2 - Dependence on renal dialysis Status: Chronic Plan: Ultrafiltration with dialysis somewhat marginal. Will use all 4.25% solutions again tonight. Medications should be adjusted for ESRD. Avoid gadolinium. (2) CHF (congestive heart failure) ICD Codes: I50.9 - Heart failure, unspecified Status: Chronic Plan: Ejection fraction appears to be somewhat improved by echocardiogram this admission. Noted cardiology recommending anticoagulation. (3) COPD (chronic obstructive pulmonary disease) ICD Codes: J44.9 - Chronic obstructive pulmonary disease, unspecified Status: Chronic Plan: Bronchospasm improving significantly. Pulmonary consultation appreciated. (4) Atrial fibrillation with RVR ICD Codes: I48.91 - Unspecified atrial fibrillation Status: Acute Plan: Noted A fib RVR on admission that improved with Cardizem. Management as per primary (5) HTN (hypertension) ICD Codes: I10 - Essential (primary) hypertension Status: Chronic Plan: Continue on home regimen Plan I will defer discharge planning to pulmonary and primary care physician. Patient to follow-up in the outpatient dialysis facility post discharge. Problem Qualifiers (1) COPD (chronic obstructive pulmonary disease): Qualified Codes: J44.1 - Chronic obstructive pulmonary disease with (acute) exacerbation Chandni Green MD Jun 08, 2017 12:31
--- NOTE | 2017-06-08 19:06 | HHI.PR ---
Subjective Remarks 62 YOWF with ESRD, on PD,COPD exac, AF Breathing better Mild wheezing No CP or palpitation On PO steroids Has home 02 Objective Vital Signs Vital Signs Date Time Temp Pulse Resp B/P (MAP) Pulse Ox O2 Delivery O2 Flow Rate FiO2 06/08/17 18:13 72 06/08/17 17:00 75 06/08/17 16:25 73 06/08/17 15:41 98 Nasal Cannula 2.00 06/08/17 15:41 98.2 74 18 141/88 (105) 98 06/08/17 15:00 73 06/08/17 14:32 77 06/08/17 13:17 73 06/08/17 12:00 75 06/08/17 11:49 98.2 77 19 137/77 (97) 98 06/08/17 11:49 98 Nasal Cannula 2.00 06/08/17 11:00 70 06/08/17 10:00 72 06/08/17 09:16 80 06/08/17 08:39 98.1 79 20 145/89 (107) 97 06/08/17 08:09 99 Nasal Cannula 2.00 06/08/17 08:00 80 06/08/17 07:00 79 06/08/17 07:00 98 Nasal Cannula 2.00 06/08/17 06:21 77 06/08/17 05:15 79 06/08/17 04:45 76 06/08/17 03:17 98.4 78 20 139/78 (98) 100 06/08/17 03:17 100 Nasal Cannula 2.00 06/08/17 03:17 80 06/08/17 02:00 75 06/08/17 01:43 80 06/08/17 00:31 75 06/07/17 23:52 100 Nasal Cannula 2.00 06/07/17 23:52 98.2 77 19 141/85 (103) 100 06/07/17 23:51 76 06/07/17 22:00 73 06/07/17 21:26 76 06/07/17 20:19 80 06/07/17 19:30 98.0 81 20 153/85 (107) 100 06/07/17 19:30 100 Nasal Cannula 2.00 I/O 06/07/17 06/07/17 06/07/17 06/08/1718 3/5/18 07:00 15:00 23:00 07:00 15:00 23:00 Intake Total 480 ml 680 ml 480 ml 600 ml Output Total 1024 ml 101 ml 999 ml 91 ml Balance 480 ml -1024 ml 579 ml 480 ml -999 ml 509 ml Intake Oral 480 ml 680 ml 480 ml 600 ml Output Urine Total 100 ml 90 ml Stool Total 1 ml 1 ml Peritoneal Fluid 1024 ml 999 ml # Voids 2 1 1 Result Diagram: 06/06/17 0426 06/07/17 0538 Objective Remarks GENERAL: MBMN WF,NAD SKIN: Warm and dry. HEAD: Normocephalic. EYES: No scleral icterus. No injection or drainage. NECK: Supple, trachea midline. No JVD or lymphadenopathy. CARDIOVASCULAR: Regular rate and rhythm without murmurs, gallops, or rubs. RESPIRATORY: Breath sounds equal bilaterally. No accessory muscle use. End exp rhonchi GASTROINTESTINAL: Abdomen soft, non-tender, nondistended. PD Cathetor MUSCULOSKELETAL: No cyanosis, or edema. BACK: Nontender without obvious deformity. No CVA tenderness. A/P Assessment and Plan COPD Exac ESRD AF CMP S/P AICD PLAN: Aerosol nebs Supplement 02 PO prednisone 20 mg daily cardiazem for rate controll. Has home 02 DC plans underway. Wood Rivera MD Jun 08, 2017 19:06
[2017-06-08] MEDS: ZOLPIDEM TARTRATE 10 MG TAB PO PRN (20:49)
[2017-06-08] MEDS: ASPIRIN 81 MG CHEW TAB CHEW SCH (20:50)
[2017-06-08] MEDS: predniSONE 20 MG TAB PO SCH (20:50)
[2017-06-08] MEDS: clonazePAM 0.5 MG TAB PO SCH (20:50)
[2017-06-08] MEDS: BENZONATATE 100 MG CAP PO PRN (20:50)
[2017-06-09] VITALS (30 sets, daily range): BP systolic 110–158; BP diastolic 58–87; PULSE 64–143; RESP 20; TEMP 97.7–98.4; O2SAT 97–100
[2017-06-09 05:14] LABS: HEMOGLOBIN 10.9 GM/DL (11.6-15.3); MEAN CELL VOLUME 88.8 FL (80.0-100.0); MEAN CORPUSCULAR HEMOGLOBIN 30.3 PG (27.0-34.0); MEAN CORPUSCULAR HGB CONC 34.1 % (32.0-36.0); MEAN PLATELET VOLUME 8.2 FL (7.0-11.0); PLATELET COUNT 248 TH/MM3 (150-450); RED CELL DISTRIBUTION WIDTH 17.1 % (11.6-17.2); WHITE BLOOD COUNT 8.5 TH/MM3 (4.0-11.0)
[2017-06-09 05:30] LABS: BICARBONATE 28.1 MEQ/L (21.0-32.0); CALCIUM 9.6 MG/DL (8.5-10.1); MAGNESIUM 2.1 MG/DL (1.5-2.5)
[2017-06-09 05:45] LABS: CREATININE 10.39 MG/DL (0.50-1.00)
[2017-06-09] MEDS: LEVOTHYROXINE SODIUM 50 MCG TAB PO SCH (06:36)
[2017-06-09] MEDS ORDERED: POTASSIUM CHLORIDE 10 MEQ CONTROLLED RELEASE TAB PO ONE (07:45)
[2017-06-09] MEDS: DILTIAZEM-CD 120 MG CAP ER PO SCH (07:53)
--- NOTE | 2017-06-09 07:53 | HHI.PR ---
Subjective Remarks no complains patient went back to a fib earlier this am around 3 am- rate 110-130s- asymptomatic patient up sitting- having breakfast- asymptomatic Objective Vitals Vital Signs Date Time Temp Pulse Resp B/P (MAP) Pulse Ox O2 Delivery O2 Flow Rate FiO2 06/09/17 06:03 108 06/09/17 05:05 92 06/09/17 04:00 115 06/09/17 03:00 104 06/09/17 03:00 97.8 115 113/85 (94) 100 06/09/17 02:00 64 06/09/17 01:00 65 06/09/17 00:17 Nasal Cannula 2.00 06/09/17 00:00 67 06/08/17 23:00 71 06/08/17 23:00 98.6 72 126/81 (96) 98 06/08/17 22:00 69 06/08/17 21:00 74 06/08/17 20:00 72 06/08/17 19:00 99 Nasal Cannula 2.00 06/08/17 19:00 74 06/08/17 19:00 98.2 72 165/87 (113) 99 06/08/17 18:13 72 06/08/17 17:00 75 06/08/17 16:25 73 06/08/17 15:41 98 Nasal Cannula 2.00 06/08/17 15:41 98.2 74 18 141/88 (105) 98 06/08/17 15:00 73 06/08/17 14:32 77 06/08/17 13:17 73 06/08/17 12:00 75 06/08/17 11:49 98.2 77 19 137/77 (97) 98 06/08/17 11:49 98 Nasal Cannula 2.00 06/08/17 11:00 70 06/08/17 10:00 72 06/08/17 09:16 80 06/08/17 08:39 98.1 79 20 145/89 (107) 97 06/08/17 08:09 99 Nasal Cannula 2.00 06/08/17 08:00 80 I/O 06/08/17 06/08/17 06/08/17 06/09/17 06/09/17 06/09/17 07:00 15:00 23:00 07:00 15:00 23:00 Intake Total 480 ml 600 ml 240 ml Output Total 999 ml 91 ml 100 ml Balance 480 ml -999 ml 509 ml 140 ml Intake Oral 480 ml 600 ml 240 ml Output Urine Total 90 ml 100 ml Stool Total 1 ml Peritoneal Fluid 999 ml # Voids 1 # Bowel Movements 1 Result Diagram: 06/09/17 0345 06/09/17 0345 Imaging Last Impressions Chest X-Ray 06/05/17 0000 Signed Impressions: Service Date/Time: Monday, June 05, 2017 10:32 - CONCLUSION: Blunting of bilateral costophrenic angles may represent small effusions. Mauricio Jc MD Lung Scan-VQ Nuclear Medicine 06/02/17 0000 Signed Impressions: Service Date/Time: Friday, June 02, 2017 02:39 - CONCLUSION: 1. Normal V/Q scan. Art Fraire MD Objective Remarks anicteric, oriented x 3 no nuchal rigidity lungs- decreased breath sounds- bases, no wheezes, no rales irregularly irregular rhythm- HR 120s abdomen- distended but soft, PD catheter in place extremities no edema neuro exam- unremarkable A/P Assessment and Plan 62 years old female Acute on chronic systolic CHF exacerbation- NOn ischemic CMP- - in no distress Paroxysmal a trial fibrillation- was in SR x 2 days- went back to a fib RVR 06/09 this am - dialysis for volume management.Dr. Green ff - cardiology ff-- informed Dr. Linares- Cardiology- - currently on Cardizem CD 120 mg daily, Metoprolol 100 mg daily - Incentive spirometry. - continue on Eliquis - replace K. 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 - Continue peritoneal dialysis per nephrology - KCL 30 meq po x 1 Hypertension - Continue current regimen PT daily PPx: Francesca Ennis MD Jun 09, 2017 07:53
[2017-06-09] MEDS: GABAPENTIN 100 MG CAP PO SCH ×2 (07:56→21:53)
[2017-06-09] MEDS: ISOSORBIDE MONONITRATE 60 MG CR TAB (IMDUR) PO SCH (07:56)
[2017-06-09] MEDS: predniSONE 20 MG TAB PO SCH ×2 (07:56→21:53)
[2017-06-09] MEDS: METOPROLOL SUCCINATE 50 MG EXTENDED RELEASE TAB PO SCH (07:56)
[2017-06-09] MEDS: SEVELAMER CARBONATE 800 MG TAB PO SCH ×3 (07:56→16:58)
[2017-06-09] MEDS: PANTOPRAZOLE SOD 20 MG DELAYED RELEASE TAB PO SCH (07:57)
[2017-06-09] MEDS: DOCUSATE SODIUM 50 MG/SENNA 8.6 MG TAB PO SCH ×2 (07:57→21:00)
[2017-06-09] MEDS: CALCITRIOL 0.25 MCG CAP PO SCH (07:57)
[2017-06-09] MEDS: LOSARTAN 50 MG TAB PO SCH (07:57)
[2017-06-09] MEDS: SERTRALINE HCL 100 MG TAB PO SCH (07:58)
[2017-06-09] MEDS: APIXABAN 5 MG TABLET PO SCH ×2 (07:58→21:53)
[2017-06-09] MEDS: SODIUM CHLORIDE 0.9% FLUSH 10 ML FLUSH IV FLUSH SCH ×2 (08:05→21:00)
[2017-06-09] MEDS ORDERED: DILTIAZEM HCL 25 MG/5 ML (Bolus) IV PUSH ONE (11:00)
[2017-06-09] MEDS ORDERED: DILTIAZEM 125 MG/NS 100 ML IV PRN ×2 (12:00)
--- NOTE | 2017-06-09 12:05 | HHI.NPPN ---
Subjective History of Present Illness The patient is a 62 yo [place] female with a complicated PMHx of ESRD on PD, CAD, cardiomyopathy s/p AICD placement, HTN, recent PNA, and COPD presented to the ED last evening with complaints of acute SOB. States she has been compliant with her home dialysis. Has been on Vanomycin IP for the past week as she contaminated her system. Denies any fever, nausea, vomiting. Has had productive cough and wheezing for the past 2 days. Uses albuterol inhaler at home, but says she cannot afford prescribed nebulizer medications. Does follow with pulmo as outpatient. Noted that she was in A. fib RVR on admission and was on IV Cardizem that has now been converted to po. PD started this AM. Interval History Patient indicating that she is back in atrial fibrillation. Somewhat more dyspneic today. Review of Systems General Constitutional: Fatigue Respiratory Lungs: SOB, Cough, Wheeze Objective Data Data Vital Signs Date Time Temp Pulse Resp B/P (MAP) Pulse Ox O2 Delivery O2 Flow Rate FiO2 06/09/17 12:00 76 06/09/17 11:56 97 Nasal Cannula 1.00 06/09/17 11:56 98.4 77 20 123/76 (92) 97 06/09/17 11:19 77 115/63 06/09/17 11:00 124 06/09/17 10:00 117 06/09/17 09:00 143 06/09/17 08:44 98 Nasal Cannula 2.00 06/09/17 08:06 98.2 126 20 131/85 (100) 98 06/09/17 08:06 98 Nasal Cannula 1.00 06/09/17 08:00 133 06/09/17 07:00 110 06/09/17 06:03 108 06/09/17 05:05 92 06/09/17 04:00 115 06/09/17 03:00 104 06/09/17 03:00 97.8 115 113/85 (94) 100 06/09/17 02:00 64 06/09/17 01:00 65 06/09/17 00:17 Nasal Cannula 2.00 06/09/17 00:00 67 06/08/17 23:00 71 06/08/17 23:00 98.6 72 126/81 (96) 98 06/08/17 22:00 69 06/08/17 21:00 74 06/08/17 20:00 72 06/08/17 19:00 99 Nasal Cannula 2.00 06/08/17 19:00 74 06/08/17 19:00 98.2 72 165/87 (113) 99 06/08/17 18:13 72 06/08/17 17:00 75 06/08/17 16:25 73 06/08/17 15:41 98 Nasal Cannula 2.00 06/08/17 15:41 98.2 74 18 141/88 (105) 98 06/08/17 15:00 73 06/08/17 14:32 77 06/08/17 13:17 73 -: 06/09/17 0345 06/09/17 0345 Tubes & Lines: Tenckhoff Catheter Physical Exam General Appearance: Well Developed, Well Nourished, No Acute Distress Eyes Eye Exam: Sclera White Pulmonary Resp Exam: Clear Bilaterally, Breath Sounds Equal Cardiology CV Exam: Regular Gastrointestinal/Abdomen GI Exam: Soft, Non-Tender Neurologic Neuro Exam: Alert, Awake Psychiatric Psych Exam: Appropriate Responses Assessment/Plan Discussed Condition With: Patient Problem List: (1) ESRD (end stage renal disease) on dialysis ICD Codes: N18.6 - End stage renal failure on dialysis; Z99.2 - Dependence on renal dialysis Status: Chronic Plan: Patient appears to be clinically euvolemic at this time. She is requiring using 4.25% solutions to maintain ultrafiltration. Appears that she is developing ultrafiltration failure and this may have implications later on regarding management. May have to consider converting patient to hemodialysis in the future. His was discussed with her. Patient encouraged to improve her dietary intake particularly of potassium Medications should be adjusted for ESRD. Avoid gadolinium. (2) CHF (congestive heart failure) ICD Codes: I50.9 - Heart failure, unspecified Status: Chronic Plan: Ejection fraction appears to be somewhat improved by echocardiogram this admission. Noted cardiology recommending anticoagulation. (3) COPD (chronic obstructive pulmonary disease) ICD Codes: J44.9 - Chronic obstructive pulmonary disease, unspecified Status: Chronic Plan: Bronchospasm improving significantly. Pulmonary consultation appreciated. (4) Atrial fibrillation with RVR ICD Codes: I48.91 - Unspecified atrial fibrillation Status: Acute Plan: Noted A fib RVR on admission that improved with Cardizem. Management as per primary (5) HTN (hypertension) ICD Codes: I10 - Essential (primary) hypertension Status: Chronic Plan: Continue on home regimen Problem Qualifiers (1) COPD (chronic obstructive pulmonary disease): Qualified Codes: J44.1 - Chronic obstructive pulmonary disease with (acute) exacerbation Chandni Green MD Jun 09, 2017 12:05
--- NOTE | 2017-06-09 18:19 | HHI.PR ---
Subjective Remarks 62 YOWF with ESRD, on PD,COPD exac, AF Breathing better Mild wheezing On PO steroids Has home 02 Went in AF with RVR this AM Objective Vital Signs Vital Signs Date Time Temp Pulse Resp B/P (MAP) Pulse Ox O2 Delivery O2 Flow Rate FiO2 06/09/17 15:00 98 Nasal Cannula 1.00 06/09/17 15:00 98.4 76 20 117/75 (89) 98 06/09/17 12:00 76 06/09/17 11:56 97 Nasal Cannula 1.00 06/09/17 11:56 98.4 77 20 123/76 (92) 97 06/09/17 11:30 76 111/63 (79) 06/09/17 11:19 77 115/63 06/09/17 11:15 76 115/63 (80) 06/09/17 11:05 123 110/58 (75) 06/09/17 11:00 124 06/09/17 10:00 117 06/09/17 09:00 143 06/09/17 08:44 98 Nasal Cannula 2.00 06/09/17 08:06 98.2 126 20 131/85 (100) 98 06/09/17 08:06 98 Nasal Cannula 1.00 06/09/17 08:00 133 06/09/17 07:00 110 06/09/17 06:03 108 06/09/17 05:05 92 06/09/17 04:00 115 06/09/17 03:00 104 06/09/17 03:00 97.8 115 113/85 (94) 100 06/09/17 02:00 64 06/09/17 01:00 65 06/09/17 00:17 Nasal Cannula 2.00 06/09/17 00:00 67 06/08/17 23:00 71 06/08/17 23:00 98.6 72 126/81 (96) 98 06/08/17 22:00 69 06/08/17 21:00 74 06/08/17 20:00 72 06/08/17 19:00 99 Nasal Cannula 2.00 06/08/17 19:00 74 06/08/17 19:00 98.2 72 165/87 (113) 99 I/O 06/08/17 06/08/17 06/08/17 06/09/17 06/09/176/18 07:00 15:00 23:00 07:00 15:00 23:00 Intake Total 480 ml 600 ml 240 ml 580 ml Output Total 999 ml 91 ml 100 ml 80 ml Balance 480 ml -999 ml 509 ml 140 ml 500 ml Intake Oral 480 ml 600 ml 240 ml 580 ml Output Urine Total 90 ml 100 ml 80 ml Stool Total 1 ml Peritoneal Fluid 999 ml # Voids 1 # Bowel Movements 1 Result Diagram: 06/09/17 0345 06/09/17 034 Objective Remarks GENERAL: MBMN WF,NAD SKIN: Warm and dry. HEAD: Normocephalic. EYES: No scleral icterus. No injection or drainage. NECK: Supple, trachea midline. No JVD or lymphadenopathy. CARDIOVASCULAR: Regular rate and rhythm without murmurs, gallops, or rubs. RESPIRATORY: Breath sounds equal bilaterally. No accessory muscle use. End exp rhonchi GASTROINTESTINAL: Abdomen soft, non-tender, nondistended. PD Cathetor MUSCULOSKELETAL: No cyanosis, or edema. BACK: Nontender without obvious deformity. No CVA tenderness. A/P Assessment and Plan COPD Exac ESRD AF CMP S/P AICD PLAN: Aerosol nebs Supplement 02 PO Prednisone 20 mg daily cardiazem for rate controll. Has home 02 Wood Rivera MD Jun 09, 2017 18:19
[2017-06-09] MEDS: ASPIRIN 81 MG CHEW TAB CHEW SCH (21:53)
[2017-06-09] MEDS: ZOLPIDEM TARTRATE 10 MG TAB PO PRN (21:53)
[2017-06-09] MEDS: BENZONATATE 100 MG CAP PO PRN (21:53)
[2017-06-09] MEDS: clonazePAM 0.5 MG TAB PO SCH (21:54)
[2017-06-10] VITALS (31 sets, daily range): BP systolic 115–151; BP diastolic 69–86; PULSE 76–124; RESP 18; TEMP 97.6–97.9; O2SAT 95–100
[2017-06-10 04:31] LABS: BICARBONATE 28.5 MEQ/L (21.0-32.0); CALCIUM 9.8 MG/DL (8.5-10.1)
[2017-06-10 04:38] LABS: CREATININE 10.34 MG/DL (0.50-1.00)
[2017-06-10] MEDS: LEVOTHYROXINE SODIUM 50 MCG TAB PO SCH (06:06)
--- NOTE | 2017-06-10 07:43 | HHI.PR ---
Subjective Remarks slept good overnight denies any pain or shortness of breath no abdominal pain telemetry - still in a fib rhythm- rate controlled on Cardizem 5 mg/hr Objective Vitals Vital Signs Date Time Temp Pulse Resp B/P (MAP) Pulse Ox O2 Delivery O2 Flow Rate FiO2 06/10/17 06:03 80 06/10/17 05:00 80 06/10/17 04:00 81 06/10/17 03:00 79 06/10/17 03:00 97.9 79 132/73 (92) 99 06/10/17 02:00 76 06/10/17 01:00 79 06/10/17 00:00 76 06/09/17 23:00 97.7 79 118/78 (91) 99 06/09/17 23:00 77 06/09/17 22:00 80 06/09/17 21:00 81 06/09/17 20:00 80 06/09/17 19:17 Nasal Cannula 2.00 06/09/17 19:00 97.7 80 158/87 (110) 99 06/09/17 19:00 99 Nasal Cannula 1.00 06/09/17 19:00 76 06/09/17 18:00 76 06/09/17 17:00 80 06/09/17 16:00 77 06/09/17 15:00 79 06/09/17 15:00 98 Nasal Cannula 1.00 06/09/17 15:00 98.4 76 20 117/75 (89) 98 06/09/17 14:00 74 06/09/17 13:00 74 06/09/17 12:00 76 06/09/17 11:56 97 Nasal Cannula 1.00 06/09/17 11:56 98.4 77 20 123/76 (92) 97 06/09/17 11:30 76 111/63 (79) 06/09/17 11:19 77 115/63 06/09/17 11:15 76 115/63 (80) 06/09/17 11:05 123 110/58 (75) 06/09/17 11:00 124 06/09/17 10:00 117 06/09/17 09:00 143 06/09/17 08:44 98 Nasal Cannula 2.00 06/09/17 08:06 98.2 126 20 131/85 (100) 98 06/09/17 08:06 98 Nasal Cannula 1.00 06/09/17 08:00 133 I/O 06/09/17 06/09/17 06/09/17 06/10/17 06/10/17 06/10/17 07:00 15:00 23:00 07:00 15:00 23:00 Intake Total 240 ml 580 ml 328 ml Output Total 100 ml 80 ml 50 ml 1462 ml Balance 140 ml 500 ml 278 ml -1462 ml Intake Oral 240 ml 580 ml 240 ml IV Total 88 ml Output Urine Total 100 ml 80 ml 50 ml Peritoneal Fluid 1462 ml # Bowel Movements 1 1 Result Diagram: 06/09/17 0345 06/10/17 0325 Imaging Last Impressions Chest X-Ray 06/05/17 0000 Signed Impressions: Service Date/Time: Monday, June 05, 2017 10:32 - CONCLUSION: Blunting of bilateral costophrenic angles may represent small effusions. Mauricio Jc MD Lung Scan-VQ Nuclear Medicine 06/02/17 0000 Signed Impressions: Service Date/Time: Friday, June 02, 2017 02:39 - CONCLUSION: 1. Normal V/Q scan. Art Fraire MD Objective Remarks anicteric, oriented x 3 no nuchal rigidity lungs- decreased breath sounds- bases, no wheezes, no rales irregularly irregular rhythm- - rate 70s abdomen- nontender, no guarding, soft, PD catheter in place extremities no edema neuro exam- unremarkable A/P Assessment and Plan 62 years old female Acute on chronic systolic CHF exacerbation- in no distress Paroxysmal atrial fibrillation- was in SR x 2 days- went back to a fib RVR 06/09 - now remained in Afib overnight Non ischemic cardiomyopathy HYpertension - dialysis for volume management.Dr. Green ff - on Toprol XL 100 mg daily - Increase po Cardizem to 180 mg daily then DC Cardizem drip - continue on Cozaar 100 mg daily - Incentive spirometry. - continue on Eliquis - Dr. Hollingsworth consulted HYpokalemia - replace K- po and IV. Mg 2.1 COPD- 02 dependent - on Prednisone 20 mg po bid- taper to once daily q am - MDIs ESRD on PD Hypokalemia Patient's hospital liaison, Dr. 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 - Continue peritoneal dialysis per nephrology- with KCL in dialysate HYpothyroidism -on synthroid PT daily CM - DC planning PPx: Francesca Ennis MD Jun 10, 2017 07:43
[2017-06-10] MEDS ORDERED: POTASSIUM CHLOR 10 MEQ PREMIX 100 ML IV ONE (07:45)
[2017-06-10] MEDS ORDERED: POTASSIUM CHLORIDE 10 MEQ CONTROLLED RELEASE TAB PO ONE ×2 (07:45→16:00)
[2017-06-10] MEDS: METOPROLOL SUCCINATE 50 MG EXTENDED RELEASE TAB PO SCH (08:44)
[2017-06-10] MEDS: CALCITRIOL 0.25 MCG CAP PO SCH (08:44)
[2017-06-10] MEDS: SEVELAMER CARBONATE 800 MG TAB PO SCH ×3 (08:44→17:11)
[2017-06-10] MEDS: DOCUSATE SODIUM 50 MG/SENNA 8.6 MG TAB PO SCH ×2 (08:45→21:07)
[2017-06-10] MEDS: APIXABAN 5 MG TABLET PO SCH ×2 (08:45→21:07)
[2017-06-10] MEDS: SERTRALINE HCL 100 MG TAB PO SCH (08:45)
[2017-06-10] MEDS: predniSONE 20 MG TAB PO SCH (08:45)
[2017-06-10] MEDS: GABAPENTIN 100 MG CAP PO SCH ×2 (08:45→21:07)
[2017-06-10] MEDS: PANTOPRAZOLE SOD 20 MG DELAYED RELEASE TAB PO SCH (08:45)
[2017-06-10] MEDS: ISOSORBIDE MONONITRATE 60 MG CR TAB (IMDUR) PO SCH (08:45)
[2017-06-10] MEDS: LOSARTAN 50 MG TAB PO SCH (08:45)
[2017-06-10] MEDS: SODIUM CHLORIDE 0.9% FLUSH 10 ML FLUSH IV FLUSH SCH ×2 (08:45→21:00)
[2017-06-10] MEDS ORDERED: DILTIAZEM-CD 180 MG CAP ER PO SCH (09:00)
[2017-06-10] MEDS ORDERED: predniSONE 10 MG TAB PO SCH (09:00)
--- NOTE | 2017-06-10 15:00 | HHI.NPPN ---
Subjective History of Present Illness The patient is a 62 yo [place] female with a complicated PMHx of ESRD on PD, CAD, cardiomyopathy s/p AICD placement, HTN, recent PNA, and COPD presented to the ED last evening with complaints of acute SOB. States she has been compliant with her home dialysis. Has been on Vanomycin IP for the past week as she contaminated her system. Denies any fever, nausea, vomiting. Has had productive cough and wheezing for the past 2 days. Uses albuterol inhaler at home, but says she cannot afford prescribed nebulizer medications. Does follow with pulmo as outpatient. Noted that she was in A. fib RVR on admission and was on IV Cardizem that has now been converted to po. PD started this AM. Interval History Pt having recurrent A fib RVR Dr. Hollingsworth has been consulted Pt overall feeling better, but still wheezing (Sada Izaguirre) Review of Systems General Constitutional: Fatigue (Sada Izaguirre) Respiratory Lungs: SOB, Cough, Wheeze (Sada Izaguirre) Objective Data Data 06/10/17 06/11/17 19:00 07:00 Output Total 1462 ml Balance -1462 ml Peritoneal Fluid 1462 ml Vital Signs Date Time Temp Pulse Resp B/P (MAP) Pulse Ox O2 Delivery O2 Flow Rate FiO2 06/10/17 12:01 88 06/10/17 11:45 97.7 86 18 139/69 (92) 95 06/10/17 11:00 83 06/10/17 10:00 83 06/10/17 09:00 83 06/10/17 08:45 99 Nasal Cannula 1.00 06/10/17 08:45 97.8 82 18 140/77 (98) 99 06/10/17 08:30 98 Nasal Cannula 2.00 06/10/17 08:00 79 06/10/17 07:01 81 06/10/17 06:03 80 06/10/17 05:00 80 06/10/17 04:00 81 06/10/17 03:00 79 06/10/17 03:00 97.9 79 132/73 (92) 99 06/10/17 02:00 76 06/10/17 01:00 79 06/10/17 00:00 76 06/09/17 23:00 97.7 79 118/78 (91) 99 06/09/17 23:00 77 06/09/17 22:00 80 06/09/17 21:00 81 06/09/17 20:00 80 06/09/17 19:17 Nasal Cannula 2.00 06/09/17 19:00 97.7 80 158/87 (110) 99 06/09/17 19:00 99 Nasal Cannula 1.00 06/09/17 19:00 76 06/09/17 18:00 76 06/09/17 17:00 80 06/09/17 16:00 77 06/09/17 15:00 79 06/09/17 15:00 98 Nasal Cannula 1.00 06/09/17 15:00 98.4 76 20 117/75 (89) 98 (Sada Izaguirre) -: 06/09/17 0345 06/10/17 0325 Imaging Last Impressions Chest X-Ray 06/05/17 0000 Signed Impressions: Service Date/Time: Monday, June 05, 2017 10:32 - CONCLUSION: Blunting of bilateral costophrenic angles may represent small effusions. Mauricio Jc MD Lung Scan-VQ Nuclear Medicine 06/02/17 0000 Signed Impressions: Service Date/Time: Friday, June 02, 2017 02:39 - CONCLUSION: 1. Normal V/Q scan. Art Fraire MD Tubes & Lines: Tenckhoff Catheter Medication Review Current Medications Medications (Trade) Dose Ordered Sig/Emma Route Start Time Stop Time Status Last Admin (NS Flush) 2 ml UNSCH PRN IV FLUSH 06/02/17 00:30 (NS Flush) 2 ml BID IV FLUSH 06/02/17 09:00 06/10/17 08:45 (Tylenol) 650 mg Q4H PRN PO 06/02/17 00:30 (Zofran Inj) 4 mg Q6H PRN IVP 06/02/17 00:30 (Narcan Inj) 0.4 mg UNSCH PRN IV PUSH 06/02/17 00:30 (Di-Colace) 1 tab BID PO 06/02/17 09:00 06/10/17 08:45 (Milk Of Magnesia Liq) 30 ml Q12H PRN PO 06/02/17 00:30 (Senokot) 17.2 mg Q12H PRN PO 06/02/17 00:30 (Dulcolax Supp) 10 mg DAILY PRN RECTAL 06/02/17 00:30 (Lactulose Liq) 30 ml DAILY PRN PO 06/02/17 00:30 (Duoneb Neb) 1 ampule Q4HR NEB PRN NEB 06/02/17 00:30 06/07/17 11:43 (Aspirin Chew) 81 mg HS CHEW 06/02/17 21:00 06/09/17 21:53 (Rocaltrol) 0.5 mcg DAILY PO 06/02/17 09:00 06/10/17 08:44 (KlonoPIN) 0.5 mg HS PO 06/02/17 21:00 06/09/17 21:54 (Neurontin) 100 mg BID PO 06/02/17 09:00 06/10/17 08:45 (Imdur) 60 mg DAILY PO 06/02/17 09:00 06/10/17 08:45 (Synthroid) 50 mcg DAILY@0600 PO 06/02/17 06:00 06/10/17 06:06 (Cozaar) 100 mg DAILY PO 06/02/17 09:00 06/10/17 08:45 (Toprol Xl) 100 mg DAILY PO 06/02/17 09:00 06/10/17 08:44 (Zoloft) 100 mg DAILY PO 06/02/17 09:00 06/10/17 08:45 (Renvela) 800 mg TID PO 06/02/17 09:00 06/10/17 13:00 (Ambien) 10 mg HS PRN PO 06/02/17 00:45 06/09/17 21:53 (Protonix) 20 mg DAILY PO 06/02/17 09:00 06/10/17 08:45 (Heparin Inj) 1,000 units WITH DIALYSIS PRN XX 06/02/17 01:30 (NS Flush) 10 ml UNSCH PRN IV FLUSH 06/02/17 01:30 (NS Flush) 2 ml UNSCH PRN IV FLUSH 06/02/17 02:00 (Vancomycin Inj) 1,000 mg WITH DIALYSIS IP 06/02/17 12:00 06/08/17 16:36 (Robitussin Liq) 200 mg Q4H PRN PO 06/02/17 16:15 06/07/17 21:11 (Eliquis) 5 mg BID PO 06/05/17 21:00 06/10/17 08:45 (Tessalon) 100 mg TID PRN PO 06/08/17 09:45 06/09/17 21:53 (Cardizem Cd) 180 mg DAILY PO 06/10/17 09:00 06/10/17 09:46 (Deltasone) 20 mg DAILY PO 06/10/17 09:00 06/10/17 08:45 (Sada Izaguirre) Physical Exam General Appearance: Well Developed, Well Nourished, No Acute Distress (Sada Izaguirre) Eyes Eye Exam: Sclera White (Sada Izaguirre) Pulmonary Resp Exam: Breath Sounds Equal Resp Remarks bilat wheezing throughout (Sada Izaguirre) Cardiology CV Exam: Irregular, Tachycardia (Sada Izaguirre) Gastrointestinal/Abdomen GI Exam: Soft, Non-Tender (Sada Izaguirre) Extremeties Extremities Exam: Trace Edema (Sada Izaguirre) Neurologic Neuro Exam: Alert, Awake (Sada Izaguirre) Psychiatric Psych Exam: Appropriate Responses (Sada Izaguirre) Assessment/Plan Discussed Condition With: Patient Problem List: (1) ESRD (end stage renal disease) on dialysis ICD Codes: N18.6 - End stage renal failure on dialysis; Z99.2 - Dependence on renal dialysis Status: Chronic Plan: Patient appears to be clinically euvolemic at this time. Will try to utilize 2.5% & 4.25% solutions tonight. As discussed with the patient, we may have to go back to all 4.25% to maintain an adequate ultrafiltration. She was advised that in the future she may need to be converted to hemodialysis if not able to be ultrafiltrated properly. Patient encouraged to improve her dietary intake particularly of potassium Medications should be adjusted for ESRD. Avoid gadolinium. (2) CHF (congestive heart failure) ICD Codes: I50.9 - Heart failure, unspecified Status: Chronic Plan: Ejection fraction appears to be somewhat improved by echocardiogram this admission. Noted cardiology recommending anticoagulation. (3) COPD (chronic obstructive pulmonary disease) ICD Codes: J44.9 - Chronic obstructive pulmonary disease, unspecified Status: Chronic Plan: Bronchospasm improving significantly. Pulmonary consultation appreciated. (4) Atrial fibrillation with RVR ICD Codes: I48.91 - Unspecified atrial fibrillation Status: Acute Plan: Noted A fib RVR on admission that improved with Cardizem. Management as per primary Pending consult with Dr. Hollingsworth. (5) HTN (hypertension) ICD Codes: I10 - Essential (primary) hypertension Status: Chronic Plan: Continue on home regimen (Sada Izaguirre) Plan The exam, history, and the medical decision-making described in the above note were completed with the assistance of the PA-C. I reviewed and agree with the findings presented. (Chandni Green MD) Problem Qualifiers (1) COPD (chronic obstructive pulmonary disease): Qualified Codes: J44.1 - Chronic obstructive pulmonary disease with (acute) exacerbation Sada Izaguirre Jun 10, 2017 14:59 Chandni Green MD Jun 11, 2017 15:46
--- NOTE | 2017-06-10 19:15 | HHI.PR ---
Subjective Remarks 62 YOWF with ESRD, on PD,COPD exac, AF Breathing better Mild wheezing On PO steroids Has home 02 On PO cardizem has cough, sleeps well Objective Vital Signs Vital Signs Date Time Temp Pulse Resp B/P (MAP) Pulse Ox O2 Delivery O2 Flow Rate FiO2 06/10/17 18:01 82 06/10/17 17:29 99 Nasal Cannula 2.00 06/10/17 17:00 81 06/10/17 16:01 80 06/10/17 15:30 97.8 80 18 151/85 (107) 99 06/10/17 15:00 80 06/10/17 14:00 87 06/10/17 13:00 124 06/10/17 12:01 88 06/10/17 11:45 97.7 86 18 139/69 (92) 95 06/10/17 11:00 83 06/10/17 10:00 83 06/10/17 09:00 83 06/10/17 08:45 99 Nasal Cannula 1.00 06/10/17 08:45 97.8 82 18 140/77 (98) 99 06/10/17 08:30 98 Nasal Cannula 2.00 06/10/17 08:00 79 06/10/17 07:01 81 06/10/17 06:03 80 06/10/17 05:00 80 06/10/17 04:00 81 06/10/17 03:00 79 06/10/17 03:00 97.9 79 132/73 (92) 99 06/10/17 02:00 76 06/10/17 01:00 79 06/10/17 00:00 76 06/09/17 23:00 97.7 79 118/78 (91) 99 06/09/17 23:00 77 06/09/17 22:00 80 06/09/17 21:00 81 06/09/17 20:00 80 06/09/17 19:17 Nasal Cannula 2.00 I/O 06/09/17 06/09/17 06/09/17 06/10/17 06/10/17 06/10/17 07:00 15:00 23:00 07:00 15:00 23:00 Intake Total 240 ml 580 ml 328 ml 225 ml 600 ml Output Total 100 ml 80 ml 50 ml 1462 ml 0 ml Balance 140 ml 500 ml 278 ml -1237 ml 600 ml Intake Oral 240 ml 580 ml 240 ml 600 ml IV Total 88 ml 225 ml Output Urine Total 100 ml 80 ml 50 ml 0 ml Peritoneal Fluid 1462 ml # Voids 0 # Bowel Movements 1 1 0 Result Diagram: 06/09/17 0345 06/10/17 0325 Objective Remarks GENERAL: MBMN WF,NAD SKIN: Warm and dry. HEAD: Normocephalic. EYES: No scleral icterus. No injection or drainage. NECK: Supple, trachea midline. No JVD or lymphadenopathy. CARDIOVASCULAR: Regular rate and rhythm without murmurs, gallops, or rubs. RESPIRATORY: Breath sounds equal bilaterally. No accessory muscle use. End exp rhonchi GASTROINTESTINAL: Abdomen soft, non-tender, nondistended. PD Cathetor MUSCULOSKELETAL: No cyanosis, or edema. BACK: Nontender without obvious deformity. No CVA tenderness. A/P Assessment and Plan COPD Exac ESRD AF CMP S/P AICD PLAN: Aerosol nebs Supplement 02 PO Prednisone 20 mg daily cardiazem for rate controll. Has home 02 Tessalon 200 mg q 8 hr prn cough Wood Rivera MD Jun 10, 2017 19:15
[2017-06-10] MEDS: clonazePAM 0.5 MG TAB PO SCH (21:07)
[2017-06-10] MEDS: ASPIRIN 81 MG CHEW TAB CHEW SCH (21:07)
[2017-06-10] MEDS: ZOLPIDEM TARTRATE 10 MG TAB PO PRN (21:10)
[2017-06-10] MEDS: BENZONATATE 100 MG CAP PO PRN (21:10)
[2017-06-11] VITALS (31 sets, daily range): BP systolic 130–169; BP diastolic 78–91; PULSE 53–96; RESP 18–20; TEMP 97.7–98.1; O2SAT 97–99
[2017-06-11 04:15] LABS: HEMATOCRIT 31.5 % (35.0-46.0); HEMOGLOBIN 10.9 GM/DL (11.6-15.3); MEAN CELL VOLUME 88.7 FL (80.0-100.0); MEAN CORPUSCULAR HEMOGLOBIN 30.6 PG (27.0-34.0); MEAN CORPUSCULAR HGB CONC 34.5 % (32.0-36.0); MEAN PLATELET VOLUME 8.1 FL (7.0-11.0); PLATELET COUNT 207 TH/MM3 (150-450); RED BLOOD COUNT 3.55 MIL/MM3 (4.00-5.30); WHITE BLOOD COUNT 10.9 TH/MM3 (4.0-11.0)
[2017-06-11 04:43] LABS: BICARBONATE 26.4 MEQ/L (21.0-32.0); CALCIUM 9.7 MG/DL (8.5-10.1)
[2017-06-11 04:57] LABS: CREATININE 10.21 MG/DL (0.50-1.00)
[2017-06-11] MEDS: LEVOTHYROXINE SODIUM 50 MCG TAB PO SCH (06:08)
--- NOTE | 2017-06-11 07:28 | HHI.PR ---
Subjective Remarks telemetry- in a fib- rate 80s no complains - feeling better Objective Vitals Vital Signs Date Time Temp Pulse Resp B/P (MAP) Pulse Ox O2 Delivery O2 Flow Rate FiO2 06/11/17 06:04 85 06/11/17 05:11 96 06/11/17 04:05 86 06/11/17 03:36 97.7 86 18 137/82 (100) 99 06/11/17 03:00 84 06/11/17 02:00 83 06/11/17 01:00 83 06/11/17 00:00 84 06/10/17 23:20 97.6 92 18 134/86 (102) 97 06/10/17 23:00 101 06/10/17 22:00 87 06/10/17 21:00 93 06/10/17 20:55 100 Nasal Cannula 1.00 06/10/17 20:55 97.7 88 18 115/82 (93) 100 06/10/17 20:00 100 06/10/17 19:00 85 06/10/17 18:01 82 06/10/17 17:29 99 Nasal Cannula 2.00 06/10/17 17:00 81 06/10/17 16:01 80 06/10/17 15:30 97.8 80 18 151/85 (107) 99 06/10/17 15:00 80 06/10/17 14:00 87 06/10/17 13:00 124 06/10/17 12:01 88 06/10/17 11:45 97.7 86 18 139/69 (92) 95 06/10/17 11:00 83 06/10/17 10:00 83 06/10/17 09:00 83 06/10/17 08:45 99 Nasal Cannula 1.00 06/10/17 08:45 97.8 82 18 140/77 (98) 99 06/10/17 08:30 98 Nasal Cannula 2.00 06/10/17 08:00 79 I/O 06/10/17 06/10/17 06/10/17 06/11/17 06/11/17 06/11/17 07:00 15:00 23:00 07:00 15:00 23:00 Intake Total 328 ml 225 ml 600 ml 240 ml Output Total 50 ml 1462 ml 0 ml 100 ml Balance 278 ml -1237 ml 600 ml 140 ml Intake Oral 240 ml 600 ml 240 ml IV Total 88 ml 225 ml Output Urine Total 50 ml 0 ml 100 ml Peritoneal Fluid 1462 ml # Voids 0 # Bowel Movements 1 0 Result Diagram: 06/11/17 0320 06/11/17 0320 Imaging Last Impressions Chest X-Ray 06/05/17 0000 Signed Impressions: Service Date/Time: Monday, June 05, 2017 10:32 - CONCLUSION: Blunting of bilateral costophrenic angles may represent small effusions. Mauricio Jc MD Lung Scan-VQ Nuclear Medicine 06/02/17 0000 Signed Impressions: Service Date/Time: Friday, June 02, 2017 02:39 - CONCLUSION: 1. Normal V/Q scan. Art Fraire MD Objective Remarks anicteric, oriented x 3 no nuchal rigidity lungs-no wheezes, no rales irregularly irregular rhythm- - rate 70s abdomen- nontender, no guarding, soft, PD catheter in place extremities no edema neuro exam- unremarkable A/P Assessment and Plan 62 years old female Acute on chronic systolic CHF exacerbation- NOn ischemic CMP- - in no distress Atrial fibrillation- - rate controlled HYpertension - on PD - dialysis for volume management.Dr. Green ff - Cardiology ff - Cardizem up to 240 mg daily, continue toprol XL 100 mg daily. Cozaar 100 mg daily. Imdur - Incentive spirometry. - continue on Eliquis - ff electrolytes COPD- 02 dependent - on Prednisone 20 mg po daily - MDIs/nebulization ESRD on PD Hypokalemia- now 3.5 Patient's cost estimating manager, Dr. Green ff - Continue peritoneal dialysis per nephrology - KCL20 meq po x 1 PT eval Encourage out of bed PPx: Francesca Ennis MD Jun 11, 2017 07:28
[2017-06-11] MEDS ORDERED: POTASSIUM CHLORIDE 20 MEQ CONTROLLED RELEASE TAB PO ONE (07:30)
[2017-06-11] MEDS: DOCUSATE SODIUM 50 MG/SENNA 8.6 MG TAB PO SCH ×2 (08:55→21:14)
[2017-06-11] MEDS: CALCITRIOL 0.25 MCG CAP PO SCH (08:55)
[2017-06-11] MEDS: DILTIAZEM-CD 180 MG CAP ER PO SCH (08:55)
[2017-06-11] MEDS: GABAPENTIN 100 MG CAP PO SCH ×2 (08:55→21:14)
[2017-06-11] MEDS: APIXABAN 5 MG TABLET PO SCH ×2 (08:56→21:15)
[2017-06-11] MEDS: METOPROLOL SUCCINATE 50 MG EXTENDED RELEASE TAB PO SCH (08:56)
[2017-06-11] MEDS: SERTRALINE HCL 100 MG TAB PO SCH (08:56)
[2017-06-11] MEDS: ISOSORBIDE MONONITRATE 60 MG CR TAB (IMDUR) PO SCH (08:56)
[2017-06-11] MEDS: PANTOPRAZOLE SOD 20 MG DELAYED RELEASE TAB PO SCH (08:56)
[2017-06-11] MEDS: predniSONE 20 MG TAB PO SCH (08:56)
[2017-06-11] MEDS: SODIUM CHLORIDE 0.9% FLUSH 10 ML FLUSH IV FLUSH SCH ×2 (08:57→21:15)
[2017-06-11] MEDS: SEVELAMER CARBONATE 800 MG TAB PO SCH ×3 (08:57→17:13)
[2017-06-11] MEDS: LOSARTAN 50 MG TAB PO SCH (08:57)
--- NOTE | 2017-06-11 11:08 | HHI.FF ---
Face to Face Verification Diagnosis: (1) Physical deconditioning (2) Cardiomyopathy (3) ESRD on peritoneal dialysis Physical Therapy Order: Evaluate and Treat, Improve ambulation Home Health Nursing Order: Medical education Signs/symptoms of disease process Diabetic education Oxygen administration education Medication education-adverse effect Nursing assessment with vital signs Certified Wellness Program Coordinator Order: To Evaluate: Living conditions/environment, Support services I have seen patient Anne Marie Mccord on 06/11/17. My clinical findings support the need for the requested home health care services because: Patient has SOB Deconditioned w/ increased weakness Limited ability to care for self Need for psychosocial assistance I certify that my clinical findings support that this patient is homebound because: Need for psychosocial assistance Poor cardiac reserve Francesca Oviedo MD Jun 11, 2017 11:08
--- NOTE | 2017-06-11 12:50 | MB ---
cc: Sarahi Hollingsworth MD DATE OF CONSULT: 06/10/2017 REASON FOR CONSULTATION: Atrial fibrillation management. I was called by Dr. Linares about Mrs. Mccord. HISTORY OF PRESENT ILLNESS: This is a 62-year-old female with history of high blood pressure, coronary artery disease, previous ____ stent, endstage kidney disease on peritoneal dialysis, atrial fibrillation. The patient has a previous defibrillator inserted, ejection fraction was around 15% to 20%. Heart rate was very difficult to control. I was consulted for evaluation and management. The chart was reviewed. The patient was evaluated. ALLERGIES: NONE. SOCIAL HISTORY: The patient denied smoking and drinking. FAMILY HISTORY: Non-contributory to her current medical condition. MEDICATIONS: The patient is on Eliquis 5 mg twice a day, aspirin. She is on Cardizem 180 mg a day. She is on Neurontin. She is on Imdur 6 mg a day, Levoxyl 50 mcg a day, losartan 100 mg a day, metoprolol 100 mg a day, is on Zoloft and vancomycin. REVIEW OF SYSTEMS: Currently she is feeling better, no chest pain, no discomfort. No fever. PHYSICAL EXAMINATION: GENERAL: Alert, fully oriented. VITAL SIGNS: Her blood pressure earlier was 151/85, pulse 80, respiratory rate 20. LUNGS: Ventilated. CARDIOVASCULAR: S1, S2, irregular, no gallop. ABDOMEN: Soft, no masses. EXTREMITIES: No edema. Electrocardiogram: Atrial fibrillation. Telemetry showed controlled heart rate. LABORATORY DATA: Hemoglobin 10.9, white blood cells 8.5. Potassium is 3.3, creatinine is 10.34. INR 1.1. ASSESSMENT AND RECOMMENDATIONS: Mrs. Mccord'tariq heart rate is doing better. She is currently controlled. She has longstanding atrial fibrillation. She as heart failure. She is being managed also by pulmonary. She has endstage renal disease on peritoneal dialysis. At this point my recommendation is medical management. Blood pressure is adequate. I will increase the Cardizem in the morning to 240 mg a day. Continue metoprolol. If the patient is stable, she can be discharged home and managed as an outpatient if necessary. Case extensively discussed with her. I will monitor her during hospitalization. Sarahi Hollingsworth MD HS/rt , 11:20 PM , 12:36 AM
--- NOTE | 2017-06-11 16:16 | HHI.NPPN ---
Subjective History of Present Illness The patient is a 62 yo [place] female with a complicated PMHx of ESRD on PD, CAD, cardiomyopathy s/p AICD placement, HTN, recent PNA, and COPD presented to the ED last evening with complaints of acute SOB. States she has been compliant with her home dialysis. Has been on Vanomycin IP for the past week as she contaminated her system. Denies any fever, nausea, vomiting. Has had productive cough and wheezing for the past 2 days. Uses albuterol inhaler at home, but says she cannot afford prescribed nebulizer medications. Does follow with pulmo as outpatient. Noted that she was in A. fib RVR on admission and was on IV Cardizem that has now been converted to po. PD started this AM. Interval History Patient indicating she is feeling better. No wheezing today. Shortness of breath has improved. Review of Systems General Constitutional: Fatigue Respiratory Lungs: SOB, Cough, Wheeze Objective Data Data 06/11/17 06/12/17 19:00 07:00 Output Total 934 ml Balance -934 ml Peritoneal Fluid 934 ml Vital Signs Date Time Temp Pulse Resp B/P (MAP) Pulse Ox O2 Delivery O2 Flow Rate FiO2 06/11/17 15:45 98.1 66 18 130/80 (97) 98 06/11/17 13:01 66 06/11/17 12:01 88 06/11/17 11:45 97.7 88 18 148/78 (101) 98 06/11/17 11:00 84 06/11/17 10:00 85 06/11/17 09:47 98 Nasal Cannula 2.00 06/11/17 09:00 85 06/11/17 08:45 97.7 85 18 140/80 (100) 99 06/11/17 08:45 99 Nasal Cannula 1.00 06/11/17 08:00 85 06/11/17 07:01 93 06/11/17 06:04 85 06/11/17 05:11 96 06/11/17 04:05 86 06/11/17 03:36 97.7 86 18 137/82 (100) 99 06/11/17 03:00 84 06/11/17 02:00 83 06/11/17 01:00 83 06/11/17 00:00 84 06/10/17 23:20 97.6 92 18 134/86 (102) 97 06/10/17 23:00 101 06/10/17 22:00 87 06/10/17 21:00 93 06/10/17 20:55 100 Nasal Cannula 1.00 06/10/17 20:55 97.7 88 18 115/82 (93) 100 06/10/17 20:00 100 06/10/17 19:00 85 06/10/17 18:01 82 06/10/17 17:29 99 Nasal Cannula 2.00 06/10/17 17:00 81 -: 06/11/17 0320 06/11/17 0320 Tubes & Lines: Tenckhoff Catheter Physical Exam General Appearance: Well Developed, Well Nourished, No Acute Distress Eyes Eye Exam: Sclera White Pulmonary Resp Exam: Breath Sounds Equal Cardiology CV Exam: Irregular, Tachycardia Gastrointestinal/Abdomen GI Exam: Soft, Non-Tender Extremeties Extremities Exam: Trace Edema Neurologic Neuro Exam: Alert, Awake Psychiatric Psych Exam: Appropriate Responses Assessment/Plan Discussed Condition With: Patient Problem List: (1) ESRD (end stage renal disease) on dialysis ICD Codes: N18.6 - End stage renal failure on dialysis; Z99.2 - Dependence on renal dialysis Status: Chronic Plan: Volume status much improved. Continue utilizing 2.5% and 4.25% dialysis solutions for dialysis. Patient stable from a renal point of view. Discharge planning per cardiology and primary care physician. Patient encouraged to improve her dietary intake particularly of potassium Medications should be adjusted for ESRD. Avoid gadolinium. (2) CHF (congestive heart failure) ICD Codes: I50.9 - Heart failure, unspecified Status: Chronic Plan: Ejection fraction appears to be somewhat improved by echocardiogram this admission. Noted cardiology recommending anticoagulation. (3) COPD (chronic obstructive pulmonary disease) ICD Codes: J44.9 - Chronic obstructive pulmonary disease, unspecified Status: Chronic Plan: Much improved. (4) Atrial fibrillation with RVR ICD Codes: I48.91 - Unspecified atrial fibrillation Status: Acute Plan: Noted A fib RVR on admission that improved with Cardizem. Management as per primary Pending consult with Dr. Hollingsworth. (5) HTN (hypertension) ICD Codes: I10 - Essential (primary) hypertension Status: Chronic Plan: Continue on home regimen Plan The exam, history, and the medical decision-making described in the above note were completed with the assistance of the OSWALDO Guerrero reviewed and agree with the findings presented. Problem Qualifiers (1) COPD (chronic obstructive pulmonary disease): Qualified Codes: J44.1 - Chronic obstructive pulmonary disease with (acute) exacerbation Chandni Green MD Jun 11, 2017 16:16
--- NOTE | 2017-06-11 18:14 | HHI.PR ---
Subjective Remarks 62 YOWF with ESRD, on PD,COPD exac, AF Breathing better Mild wheezing On PO steroids Has home 02 Cardizem dose increased Objective Vital Signs Vital Signs Date Time Temp Pulse Resp B/P (MAP) Pulse Ox O2 Delivery O2 Flow Rate FiO2 06/11/17 16:01 67 06/11/17 15:45 98.1 66 18 130/80 (97) 98 06/11/17 15:00 59 06/11/17 14:00 71 06/11/17 13:01 66 06/11/17 12:01 88 06/11/17 11:45 97.7 88 18 148/78 (101) 98 06/11/17 11:00 84 06/11/17 10:00 85 06/11/17 09:47 98 Nasal Cannula 2.00 06/11/17 09:00 85 06/11/17 08:45 97.7 85 18 140/80 (100) 99 06/11/17 08:45 99 Nasal Cannula 1.00 06/11/17 08:00 85 06/11/17 07:01 93 06/11/17 06:04 85 06/11/17 05:11 96 06/11/17 04:05 86 06/11/17 03:36 97.7 86 18 137/82 (100) 99 06/11/17 03:00 84 06/11/17 02:00 83 06/11/17 01:00 83 06/11/17 00:00 84 06/10/17 23:20 97.6 92 18 134/86 (102) 97 06/10/17 23:00 101 06/10/17 22:00 87 06/10/17 21:00 93 06/10/17 20:55 100 Nasal Cannula 1.00 06/10/17 20:55 97.7 88 18 115/82 (93) 100 06/10/17 20:00 100 06/10/17 19:00 85 I/O 06/10/17 06/10/17 06/10/17 06/11/17 06/11/17 06/11/17 07:00 15:00 23:00 07:00 15:00 23:00 Intake Total 328 ml 225 ml 600 ml 240 ml Output Total 50 ml 1462 ml 0 ml 100 ml 934 ml Balance 278 ml -1237 ml 600 ml 140 ml -934 ml Intake Oral 240 ml 600 ml 240 ml IV Total 88 ml 225 ml Output Urine Total 50 ml 0 ml 100 ml Peritoneal Fluid 1462 ml 934 ml # Voids 0 # Bowel Movements 1 0 Result Diagram: 06/11/1731906/11/17 032 Objective Remarks GENERAL: MBMN WF,NAD SKIN: Warm and dry. HEAD: Normocephalic. EYES: No scleral icterus. No injection or drainage. NECK: Supple, trachea midline. No JVD or lymphadenopathy. CARDIOVASCULAR: Regular rate and rhythm without murmurs, gallops, or rubs. RESPIRATORY: Breath sounds equal bilaterally. No accessory muscle use. End exp rhonchi GASTROINTESTINAL: Abdomen soft, non-tender, nondistended. PD Cathetor MUSCULOSKELETAL: No cyanosis, or edema. BACK: Nontender without obvious deformity. No CVA tenderness. A/P Assessment and Plan COPD Exac ESRD AF CMP S/P AICD PLAN: Aerosol nebs Supplement 02 PO Prednisone 20 mg daily cardiazem for rate controll. Has home 02 Tessalon 200 mg q 8 hr prn cough stable from pulm standpoint Wood Rivera MD Jun 11, 2017 18:14
[2017-06-11] MEDS: ZOLPIDEM TARTRATE 10 MG TAB PO PRN (21:14)
[2017-06-11] MEDS: ASPIRIN 81 MG CHEW TAB CHEW SCH (21:14)
[2017-06-11] MEDS: clonazePAM 0.5 MG TAB PO SCH (21:14)
[2017-06-12] VITALS (14 sets, daily range): BP systolic 135–152; BP diastolic 75–88; PULSE 53–83; RESP 18; TEMP 98.5–98.6; O2SAT 98–99
[2017-06-12] MEDS: LEVOTHYROXINE SODIUM 50 MCG TAB PO SCH ×2 (06:00→08:38)
--- NOTE | 2017-06-12 07:51 | HHI.PR ---
Subjective Remarks feels great, no chest pains or shortness of breath, no palpitations telemetry- in atrial fibrillation- rate controlled Objective Vitals Vital Signs Date Time Temp Pulse Resp B/P (MAP) Pulse Ox O2 Delivery O2 Flow Rate FiO2 06/11/17 23:00 97.9 82 20 157/83 (107) 99 06/11/17 20:30 98 Room Air 06/11/17 20:05 157/87 (110) 06/11/17 20:04 97 Nasal Cannula 2.00 06/11/17 20:00 97.9 81 20 169/91 (117) 98 06/11/17 16:01 67 06/11/17 15:45 98.1 66 18 130/80 (97) 98 06/11/17 15:00 59 06/11/17 14:00 71 06/11/17 13:01 66 06/11/17 12:01 88 06/11/17 11:45 97.7 88 18 148/78 (101) 98 06/11/17 11:00 84 06/11/17 10:00 85 06/11/17 09:47 98 Nasal Cannula 2.00 06/11/17 09:00 85 06/11/17 08:45 97.7 85 18 140/80 (100) 99 06/11/17 08:45 99 Nasal Cannula 1.00 06/11/17 08:00 85 I/O 06/11/17 06/11/17 06/11/17 06/12/17 06/12/17 06/12/17 07:00 15:00 23:00 07:00 15:00 23:00 Intake Total 240 ml 800 ml Output Total 100 ml 934 ml 0 ml Balance 140 ml -934 ml 800 ml Intake Oral 240 ml 800 ml Output Urine Total 100 ml 0 ml Peritoneal Fluid 934 ml # Bowel Movements 1 Result Diagram: 06/11/17 0320 06/11/17 0320 Imaging Last Impressions Chest X-Ray 06/05/17 0000 Signed Impressions: Service Date/Time: Monday, June 05, 2017 10:32 - CONCLUSION: Blunting of bilateral costophrenic angles may represent small effusions. Mauricio Jc MD Lung Scan-V Nuclear Medicine 06/02/17 0000 Signed Impressions: Service Date/Time: Friday, June 02, 2017 02:39 - CONCLUSION: 1. Normal V/Q scan. Art Fraire MD Objective Remarks anicteric, oriented x 3 , interactive no nuchal rigidity lungs-no wheezes, no rales irregularly irregular rhythm- - rate 70s abdomen- nontender, no guarding, soft, PD catheter in place extremities no edema neuro exam- unremarkable A/P Assessment and Plan 62 years old female Acute on chronic systolic CHF exacerbation- NOn ischemic CMP- - in no distress Chronic Atrial fibrillation- - rate controlled HYpertension - on PD - dialysis for volume management.Dr. Green ff - Cardiology ff - Cardizem up to 240 mg daily, continue toprol XL 100 mg daily. Cozaar 100 mg daily. Imdur - Incentive spirometry. 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
[2017-06-12] MEDS ORDERED: CARD180C5 PO (07:59)
[2017-06-12] MEDS ORDERED: APIX5TAB PO (08:02)
[2017-06-12] MEDS ORDERED: PRED5TAB PO (08:06)
--- NOTE | 2017-06-12 08:15 | HHI.DS ---
Discharge Summary Admission Date Jun 02, 2017 at 02:42 Discharge Date: Jun 12, 2017 Admitting Diagnosis dyspnea/chf; CRF w/ peritoneal dialysis (1) ESRD (end stage renal disease) on dialysis ICD Code: N18.6 - End stage renal failure on dialysis; Z99.2 - Dependence on renal dialysis Diagnosis: Principal Status: Chronic (2) CHF (congestive heart failure) ICD Code: I50.9 - Heart failure, unspecified Diagnosis: Principal Status: Chronic Procedures hemodialysis Brief History - From Admission 62-year-old female with a past medical history significant for end-stage renal disease on peritoneal dialysis, coronary artery disease, CHF (EF 15%), hypertension, COPD presents to the emergency department for increasing shortness of breath. Patient was recently treated for pneumonia. She states that she was doing well until 3 days ago when she started to have a cough productive of yellow sputum. She reports paroxysmal nocturnal dyspnea and dyspnea on exertion. She also complains of chest pain that is worse with a cough. Vital signs: Temperature 99.5, pulse 119, respirations 28, blood pressure 176/104, pulse ox 97% on room air. Patient denies nausea/vomiting/ diarrhea. No fatigue or dizziness. No lateralizing signs/symptoms. CBC/BMP: 06/11/17 0320 06/11/17 0320 Significant Findings Laboratory Tests Test 06/10/17 03:25 06/11/17 03:20 06/12/17 06:49 Blood Urea Nitrogen 68 MG/DL (7-18) 73 MG/DL (7-18) Creatinine 10.34 MG/DL (0.50-1.00) 10.21 MG/DL (0.50-1.00) Random Glucose 199 MG/DL (74-106) 141 MG/DL (74-106) Sodium Level 134 MEQ/L (136-145) 135 MEQ/L (136-145) Potassium Level 3.3 MEQ/L (3.5-5.1) Chloride Level 96 MEQ/L (98-107) 97 MEQ/L (98-107) Estimat Glomerular Filtration Rate 4 ML/MIN (>89) 4 ML/MIN (>89) Red Blood Count 3.55 MIL/MM3 (4.00-5.30) Hemoglobin 10.9 GM/DL (11.6-15.3) Hematocrit 31.5 % (35.0-46.0) Imaging Last Impressions Chest X-Ray 06/05/17 0000 Signed Impressions: Service Date/Time: Monday, June 05, 2017 10:32 - CONCLUSION: Blunting of bilateral costophrenic angles may represent small effusions. Mauricio Jc MD Lung Scan-VQ Nuclear Medicine 06/02/17 0000 Signed Impressions: Service Date/Time: Friday, June 02, 2017 02:39 - CONCLUSION: 1. Normal V/Q scan. Art Fraire MD PE at Discharge anicteric, oriented x 3 , interactive no nuchal rigidity lungs-no wheezes, no rales irregularly irregular rhythm- - rate 70s abdomen- nontender, no guarding, soft, PD catheter in place extremities no edema neuro exam- unremarkable Pt update on day of discharge awake and alert, no distress no leg swelling no wheezing Hospital Course 62 years old female Acute on chronic systolic CHF exacerbation- NOn ischemic CMP- - in no distress Chronic Atrial fibrillation- - rate controlled HYpertension - on PD - dialysis for volume management.Dr. Green ff - Cardiology ff - Cardizem up to 240 mg daily, continue toprol XL 100 mg daily. Cozaar 100 mg daily. Imdur - Incentive spirometry. 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 - Continue peritoneal dialysis per nephrology - replaced PT eval Encourage out of bed DC home today [facility] arranged OP ff up with PCP, Nephrology, Pt Condition on Discharge: Stable Discharge Disposition: Disch w/ Home Health Serv Discharge Time: > 30 minutes Discharge Instructions DIET: Follow Instructions for: Heart Healthy Diet, Renal Failure Diet Speech Therapy-Diet Recommends: Regular Activities you can perform: Weight Bearing as Tim Activities to Avoid: Prolonged Standing, Strenuous Activity Follow up Referrals: Cardiology - 2 Weeks with Diogenes Linares MD Nephrology - 3-5 Days with Brain PCP Follow-up - 1 Week New Medications: Prednisone (Prednisone) 5 Mg Tab 5 MG PO DAILY for COPD for 5 Days, #7 TAB 0 Refills 2 tabs daily x 2 days then 1 tab po daily x 3 days them DC Apixaban (Eliquis) 5 Mg Tab 5 MG PO BID for afib for 30 Days, #60 TAB 6 Refills Diltiazem CD 24 HR (Cardizem CD 24 HR) 180 Mg Caper 240 MG PO DAILY for afib for 30 Days, #39 CAP Continued Medications: Albuterol 18 GM Inh (Ventolin Hfa 18 GM Inh) 90 Mcg/Act Aer 2 PUFF INH Q6H PRN for SHORTNESS OF BREATH, #1 INHALER 0 Refills Aspirin (Aspirin) 81 Mg Chew 81 MG CHEW HS, TAB 0 Refills Calcitriol (Calcitriol) 0.5 Mcg Cap 0.5 MCG PO DAILY for Calcium Supplement, #30 CAP 0 Refills Clonazepam (Clonazepam) 0.5 Mg Tab 0.5 MG PO HS, #60 TAB 0 Refills Gabapentin (Gabapentin) 100 Mg Cap 100 MG PO BID, #60 CAP 0 Refills Ipratropium-Albuterol Neb (Duoneb) 0.5-2.5 Mg/3 Ml Neb 1 NEBULE INH Q6HR NEB for Breathing Treatment, #120 NEBULE 0 Refills Isosorbide Mononitrate ER (Isosorbide Mononitrate ER) 60 Mg Tab 60 MG PO DAILY for Prevent Chest Pain, #30 TAB 0 Refills Levothyroxine (Levothyroxine) 50 Mcg Tab 50 MCG PO DAILY for Thyroid, #30 TAB 0 Refills Losartan (Losartan) 100 Mg Tab 100 MG PO DAILY for Blood Pressure Management, #30 TAB 0 Refills Metoprolol Succinate ER 24 HR (Metoprolol Succinate ER 24 HR) 50 Mg Tab 100 MG PO DAILY for Blood Pressure Management, #30 TAB Nebulizer (Nebulizer) 1 Mis Mis EA .ROUTE DIRECTED for Breathing Treatment, #1 0 Refills Omeprazole (Omeprazole) 20 Mg Cap 20 MG PO DAILY Sertraline (Sertraline) 100 Mg Tab 100 MG PO DAILY, #30 TAB 0 Refills Sevelamer Carbonate (Renvela) 800 Mg Tab 800 MG PO TID for Control phosphorous levels, #90 TAB 0 Refills Zolpidem (Ambien) 10 Mg Tab 10 MG PO HS PRN for INSOMNIA, TAB 0 Refills Discontinued Medications: Diltiazem ER 24 HR (Cartia Xt) 120 Mg Caper 120 MG PO DAILY, #30 CAP 0 Refills Francesca Oviedo MD Jun 12, 2017 08:15
[2017-06-12 08:37] LABS: BICARBONATE 25.6 MEQ/L (21.0-32.0); CALCIUM 9.5 MG/DL (8.5-10.1)
[2017-06-12] MEDS: SERTRALINE HCL 100 MG TAB PO SCH (08:37)
[2017-06-12] MEDS: SEVELAMER CARBONATE 800 MG TAB PO SCH (08:37)
[2017-06-12] MEDS: DILTIAZEM-CD 180 MG CAP ER PO SCH (08:37)
[2017-06-12] MEDS: PANTOPRAZOLE SOD 20 MG DELAYED RELEASE TAB PO SCH (08:37)
[2017-06-12] MEDS: DOCUSATE SODIUM 50 MG/SENNA 8.6 MG TAB PO SCH (08:37)
[2017-06-12] MEDS: METOPROLOL SUCCINATE 50 MG EXTENDED RELEASE TAB PO SCH (08:37)
[2017-06-12] MEDS: GABAPENTIN 100 MG CAP PO SCH (08:37)
[2017-06-12] MEDS: APIXABAN 5 MG TABLET PO SCH (08:38)
[2017-06-12] MEDS: LOSARTAN 50 MG TAB PO SCH (08:38)
[2017-06-12] MEDS: SODIUM CHLORIDE 0.9% FLUSH 10 ML FLUSH IV FLUSH SCH (08:38)
[2017-06-12 08:52] LABS: CREATININE 10.25 MG/DL (0.50-1.00)
[2017-06-12] MEDS ORDERED: predniSONE 10 MG TAB PO SCH (09:00)
[2017-06-12] MEDS: ISOSORBIDE MONONITRATE 60 MG CR TAB (IMDUR) PO SCH (10:32)
[2017-06-12] MEDS: CALCITRIOL 0.25 MCG CAP PO SCH (10:32)
== END 2017-06-12 11:20 | disposition home health service (06) | DRG 291 ==
LOC: NEPC 19:16 → NEDA 06-02 00:10 → OBSVTOIN 06-02 02:42 → NEDH 06-02 06:31 → HCPC 06-02 08:19
PROVIDERS: ADMIT Internal Medicine; ATTEND Internal Medicine
PROC: 3E1M39Z Irrigation of Peritoneal Cavity using Dialysate, Percutaneous Approach (ICD-10-PCS; principal; 2017-06-02)
DX: I13.2 Hypertensive heart and chronic kidney disease with heart failure and with stage 5 chronic kidney disease, or end stage renal disease (principal); I50.23 Acute on chronic systolic (congestive) heart failure; N18.6 End stage renal disease; I42.0 Dilated cardiomyopathy; Q61.3 Polycystic kidney, unspecified; J44.1 Chronic obstructive pulmonary disease with (acute) exacerbation; I48.0 Paroxysmal atrial fibrillation; I25.10 Atherosclerotic heart disease of native coronary artery without angina pectoris; E87.6 Hypokalemia; E03.9 Hypothyroidism, unspecified; F32.9 Major depressive disorder, single episode, unspecified; E88.09 Other disorders of plasma-protein metabolism, not elsewhere classified; D63.1 Anemia in chronic kidney disease; E78.5 Hyperlipidemia, unspecified; F40.240 Claustrophobia; K21.9 Gastro-esophageal reflux disease without esophagitis; M79.7 Fibromyalgia; G89.29 Other chronic pain; R53.1 Weakness; Z99.81 Dependence on supplemental oxygen; Z95.5 Presence of coronary angioplasty implant and graft; Z95.810 Presence of automatic (implantable) cardiac defibrillator; Z99.2 Dependence on renal dialysis; Z79.82 Long term (current) use of aspirin
CPT/HCPCS: 71045; 78582; 80048; 80061; 80076; 82040; 82550; 82552; 83735; 83880; 84100; 84484; 85025; 85027; 85610; 85730; 87070; 87205; 89051; 90935; 93005; 93306; 94150; 94640; 94664; 96374; A9540; A9567; J1644; J1940; J2920; J3370; J3480; J7512; Q4081

== ENCOUNTER 2017-06-22 19:53 | Emergency (ER) | payer MEDICAID, MEDICARE ==
[~2017-06-22 19:53] MED LIST changes: +APIX5TAB PO; +CARD180C5 PO; -CART120C PO; -LEVA250T14 PO; -PRED20 PO; +PRED5TAB PO; -ZOFR4TAB3 SL
[2017-06-22 20:08] VITALS: BP 141/65; PULSE 115; RESP 18; TEMP 98.7; O2SAT 99
--- NOTE | 2017-06-22 22:41 | PD ---
HPI Chief Complaint: Bleeding Time Seen by Provider: 22:35 Travel History International Travel<30 days: No Contact w/Intl Traveler<30days: No Traveled to known affect area: No History of Present Illness HPI The patient is a 62 year old female who presents to the [facility] emergency department with a history of reportedly having bleeding that is difficult to control from a scratch from her dog that she acquired earlier today. She reports that she had a home health nurse come out today and a bandage was applied, however it is leaking through. She reports that over the last month she has also had problems with nosebleeds out of bilateral nares worse on the right compared to the left. She reports that this was attributed to having dry nostrils from being in the hospital on supplemental oxygen, however it has continued in spite of being off of home oxygen. She was however recently started on Eliquis for anticoagulation due to atrial fibrillation during her last hospitalization. Otherwise on review of systems, the patient denies having any recent fevers, worsening cough or congestion, neck pain, chest pain, shortness of breath, abdominal pain, vomiting, diarrhea, urinary symptoms, or neurologic symptoms. She reports that she has been doing her peritoneal dialysis regularly. She did not last night. She reports that the fluid has been unchanged in color and without odor. [facility] Past Medical History Narrative Medical The patient's past medical history is significant for congestive heart failure, hypertension, chronic renal failure on peritoneal dialysis, history of pancreatitis, depression, hypothyroid disorder, anemia, coronary artery disease , history of having a paralyzed vocal cord, severe nonischemic cardiomyopathy with an ejection fraction less than 20%, history of atrial fibrillation chronically anticoagulated on Eliquis. Hx Anticoagulant Therapy: Yes (ELOQUIS) Asthma: No Blood Disorders: No Anxiety: No Depression: Yes Heart Rhythm Problems: Yes (defib) Cancer: No Cardiovascular Problems: Yes (AFIB) High Cholesterol: Yes Chemotherapy: No Chest Pain: No Congestive Heart Failure: No COPD: No Diabetes: No Dialysis: Yes (PERITONEAL DIALYSIS) Diminished Hearing: No Endocrine: Yes Gastrointestinal Disorders: Yes (GERD) GERD: Yes Hepatitis: No Hiatal Hernia: No Hypertension: Yes Immune Disorder: Yes (FIBROMYALGIA) Implanted Vascular Access Dvce: Yes Kidney Stones: Yes (POLYCYSTIC KIDNEY DISEASE) Musculoskeletal: Yes (CHRONIC PAIN, FIBROMYALGIA) Neurologic: No Psychiatric: Yes (CLAUSTROPHOBIA) Reproductive: No Respiratory: Yes Immunizations Current: Yes Radiation Therapy: No Renal Failure: Yes (on PD dialysis) Sickle Cell Disease: No Sleep Apnea: No Thyroid Disease: Yes Menopausal: Yes : 2 Para: 2 Past Surgical History Narrative Surgical The patient's past surgical history is significant for an AICD placement, peritoneal dialysis catheter placement, cholecystectomy and tonsillectomy. Abdominal Surgery: Yes (PERITONEAL DIALYSIS CATH) AICD: Yes (BIOTRONIK) Body Medical Devices: AICD, STENT, DIALYSIS CATH Cardiac Surgery: Yes (AICD, 1 CARDIAC STENT) Cholecystectomy: Yes Joint Replacement: No Oral Surgery: Yes (SINUS SURGERY) Pacemaker: Yes Tonsillectomy: Yes Other Surgery: Yes (CHIN RECONSTRUCTION) Social History Alcohol Use: No Tobacco Use: No Substance Use: No Allergies-Medications (Allergen,Severity, Reaction): Coded Allergies: No Known Allergies (Verified Adverse Reaction, Unknown, 06/01/17) Reported Meds & Prescriptions Reported Meds & Active Scripts Active Prednisone 5 Mg Tab 5 Mg PO DAILY 5 Days 2 tabs daily x 2 days then 1 tab po daily x 3 days them DC Eliquis (Apixaban) 5 Mg Tab 5 Mg PO BID 30 Days Cardizem CD 24 HR (Diltiazem CD 24 HR) 180 Mg Caper 240 Mg PO DAILY 30 Days Ventolin Hfa 18 GM Inh (Albuterol Sulfate) 90 Mcg/Act Aer 2 Puff INH Q6H PRN Duoneb (Ipratropium-Albuterol Neb) 0.5-2.5 Mg/3 Ml Neb 1 Nebule INH Q6HR NEB Nebulizer 1 Mis Mis Ea .ROUTE DIRECTED Metoprolol Succinate ER 24 HR (Metoprolol Succinate) 50 Mg Tab 100 Mg PO DAILY Reported Ambien (Zolpidem Tartrate) 10 Mg Tab 10 Mg PO HS PRN Renvela (Sevelamer Carbonate) 800 Mg Tab 800 Mg PO TID Aspirin 81 Mg Chew 81 Mg CHEW HS Sertraline (Sertraline HCl) 100 Mg Tab 100 Mg PO DAILY Omeprazole 20 Mg Cap 20 Mg PO DAILY Losartan (Losartan Potassium) 100 Mg Tab 100 Mg PO DAILY Levothyroxine (Levothyroxine Sodium) 50 Mcg Tab 50 Mcg PO DAILY Isosorbide Mononitrate ER (Isosorbide Mononitrate) 60 Mg Tab 60 Mg PO DAILY Gabapentin 100 Mg Cap 100 Mg PO BID Clonazepam 0.5 Mg Tab 0.5 Mg PO HS Calcitriol 0.5 Mcg Cap 0.5 Mcg PO DAILY Review of Systems Except as stated in HPI: all other systems reviewed are Neg General / Constitutional: No: Fever Eyes: No: Visual changes HENT: No: Headaches Cardiovascular: No: Chest Pain or Discomfort Respiratory: No: Shortness of Breath Gastrointestinal: No: Abdominal Pain Genitourinary: No: Dysuria Musculoskeletal: No: Pain Skin: No Rash Neurologic: No: Weakness Psychiatric: No: Depression Endocrine: No: Polydipsia Hematologic/Lymphatic: No: Easy Bruising Physical Exam Narrative General: The patient is a well-developed well-nourished female in no acute distress peer Head and Neck exam: Head is normocephalic atraumatic. Eyes: EOMI, pupils are equal round and reactive to light. Nose: Midline septum with pink mucous membranes. The patient has dried blood present and both nares worse on the left compared to the right. No active signs of bleeding. Mouth: Dentition unremarkable. Moist mucus membranes. Posterior oropharynx is not erythematous. No tonsillar hypertrophy. Uvula midline. Airway patent. Neck: No palpable lymphadenopathy. No nuchal rigidity. No thyromegaly. Cardiovascular: Irregularly irregular with rate control without murmurs, gallops, or rubs. Lungs: Clear to auscultation bilaterally. No wheezes, rhonchi, or rales. Abdomen: Soft, without tenderness to palpation in all 4 quadrants of the abdomen. No guarding, rebound, or rigidity. Normal bowel sounds are audible. No tenderness on palpation of McBurney's point. The patient has a peritoneal dialysis catheter in place that appears to be in good repair without any surrounding erythema, drainage, or tenderness. Extremities: No clubbing, cyanosis, or edema. 2+ pulses in all 4 extremities. No calf tenderness on palpation. Back: No costovertebral angle tenderness to palpation. Neurologic Exam: Grossly nonfocal. Skin Exam: On examination of the left arm a bandage is in place. The patient had the bandage gently removed. The patient is noted to have a superficial skin tear that is approximately 3 cm along the dorsal aspect of the forearm left side. The bandage was removed a small amount of oozing was noted. No josué bleeding. Patient also has an approximately 4 mm skin tear just lateral to this. Bleeding is controlled at that site. Intact skin that is warm and dry. Data Data Last Documented VS Vital Signs Date Time Temp Pulse Resp B/P (MAP) Pulse Ox O2 Delivery O2 Flow Rate FiO2 06/22/17 20:08 98.7 115 18 141/65 (90) 99 Orders Orders Complete Blood Count With Diff (06/22/17 20:10) Comprehensive Metabolic Panel (06/22/17 20:10) Coag Profile (06/22/17 20:10) Iv Access Insert/Monitor (06/22/17 22:37) Ecg Monitoring (06/22/17 22:37) Oximetry (06/22/17 22:37) Labs Laboratory Tests Test 06/23/17 00:02 White Blood Count 8.8 TH/MM3 Red Blood Count 2.91 MIL/MM3 Hemoglobin 9.0 GM/DL Hematocrit 26.6 % Mean Corpuscular Volume 91.3 FL Mean Corpuscular Hemoglobin 30.8 PG Mean Corpuscular Hemoglobin Concent 33.8 % Red Cell Distribution Width 19.9 % Platelet Count 73 TH/MM3 Mean Platelet Volume 9.0 FL Neutrophils (%) (Auto) 68.7 % Lymphocytes (%) (Auto) 15.0 % Monocytes (%) (Auto) 9.8 % Eosinophils (%) (Auto) 4.9 % Basophils (%) (Auto) 1.6 % Neutrophils # (Auto) 6.0 TH/MM3 Lymphocytes # (Auto) 1.3 TH/MM3 Monocytes # (Auto) 0.9 TH/MM3 Eosinophils # (Auto) 0.4 TH/MM3 Basophils # (Auto) 0.1 TH/MM3 CBC Comment AUTO DIFF Differential Comment AUTO DIFF CONFIRMED Platelet Estimate LOW Platelet Morphology Comment NORMAL Prothrombin Time 10.7 SEC Prothromb Time International Ratio 1.1 RATIO Activated Partial Thromboplast Time 25.2 SEC Blood Urea Nitrogen 56 MG/DL Creatinine 11.32 MG/DL Random Glucose 96 MG/DL Total Protein 6.3 GM/DL Albumin 2.6 GM/DL Calcium Level 9.8 MG/DL Alkaline Phosphatase 103 U/L Aspartate Amino Transf (AST/SGOT) 9 U/L Alanine Aminotransferase (ALT/SGPT) 29 U/L Total Bilirubin 0.4 MG/DL Sodium Level 137 MEQ/L Potassium Level 4.4 MEQ/L Chloride Level 93 MEQ/L Carbon Dioxide Level 31.6 MEQ/L Anion Gap 12 MEQ/L Estimat Glomerular Filtration Rate 3 ML/MIN MDM Medical Decision Making Medical Screen Exam Complete: Yes Emergency Medical Condition: Yes Medical Record Reviewed: Yes Differential Diagnosis Medication side effects from newly starting Eliquis, versus thrombocytopenia, versus other coagulopathy Narrative Course During the course of the patient's emergency department visit, the patient's history, examination, and differential diagnosis were reviewed with the patient. The patient was placed on a cardiac care unit nurse with oximetry and frequent blood pressure monitoring. The patient had IV access obtained and blood work sent for analysis. The patient was initially provided a nonstick dressing with pressure wrap to the left forearm. The patient's laboratory studies were reviewed and remarkable for a white count of 8.8, hemoglobin 9.0 which is compared to previous evaluations in the hospital which is ranged from 8-10, CMP is remarkable for a chloride of 93, BUN 56, creatinine 11.32, AST 9, total protein 6.3, PT 10.7, PTT 25.2. The patient's bleeding has been controlled with a left forearm graft. The patient was instructed regarding the recurrent nosebleeds to follow up with an director of early childhood. The patient is given the name of the director of early childhood on-call, Dr. Tobar for a follow-up appointment. She is instructed to call in the morning to schedule an appointment. The patient is resting comfortably and feels better, is alert and in no distress. The patient's results and examination findings were discussed with the patient. The repeat examination is unremarkable and benign. The history, exam, diagnostic testing, and current condition do not suggest any significant pathology to warrant further testing, continued ED treatment, admission, or surgical evaluation at this point. The vital signs have been stable. The patient does not have uncontrollable pain, intractable vomiting, or other significant symptoms. The patient's condition is stable and appropriate for discharge. The patient will pursue further outpatient evaluation with a primary care physician or other designated or consulting physician as indicated in the discharge instructions. The patient expressed understanding and was agreeable with this plan. Diagnosis Primary Impression: Dog scratch Additional Impressions: Bleeding from wound Epistaxis, recurrent Referrals: Miguel Tobar MD call for appointment Primary Care Physician 2 days Patient Instructions: General Instructions, Nosebleed (ED), Skin Tear (ED) Med/Other Pt SpecificInfo: No Change to Meds Disposition: 01 DISCHARGE HOME Condition: Stable Stephanie Linares MD Jun 22, 2017 22:41
[2017-06-23] VITALS: BP 138/80; PULSE 84; RESP 18; O2SAT 99
[2017-06-23 00:30] VITALS: BP 126/69; PULSE 80; RESP 16; O2SAT 99
[2017-06-23 00:30] LABS: BASOPHIL # 0.1 TH/MM3 (0-0.2); BASOPHIL % 1.6 % (0.0-2.0); EOSINOPHIL # 0.4 TH/MM3 (0-0.4); EOSINOPHIL % 4.9 % (0.0-4.0); HEMATOCRIT 26.6 % (35.0-46.0); LYMPHOCYTE # 1.3 TH/MM3 (1.0-4.8); MEAN CELL VOLUME 91.3 FL (80.0-100.0); MEAN CORPUSCULAR HEMOGLOBIN 30.8 PG (27.0-34.0); MEAN CORPUSCULAR HGB CONC 33.8 % (32.0-36.0); MONO % 9.8 % (0.0-8.0); MONOCYTE # 0.9 TH/MM3 (0-0.9); NEUT % 68.7 % (16.0-70.0); PLATELET COUNT 73 TH/MM3 (150-450); RED BLOOD COUNT 2.91 MIL/MM3 (4.00-5.30); RED CELL DISTRIBUTION WIDTH 19.9 % (11.6-17.2); WHITE BLOOD COUNT 8.8 TH/MM3 (4.0-11.0)
[2017-06-23 00:37] LABS: INTERNATIONAL NORMALIZED RATIO 1.1 RATIO; PROTHROMBIN TIME - PATIENT 10.7 SEC (9.8-11.6)
[2017-06-23 00:49] LABS: ALBUMIN 2.6 GM/DL (3.4-5.0); ALT (GPT) 29 U/L (10-53); AST (GOT) 9 U/L (15-37); BICARBONATE 31.6 MEQ/L (21.0-32.0); BLOOD UREA NITROGEN 56 MG/DL (7-18); CALCIUM 9.8 MG/DL (8.5-10.1); CHLORIDE 93 MEQ/L (98-107); GLOMERULAR FILTRATION RATE 3 ML/MIN (>89); GLUCOSE,RANDOM 96 MG/DL (74-106); SODIUM (NA) 137 MEQ/L (136-145)
[2017-06-23 00:52] LABS: ALKALINE PHOSPHATASE 103 U/L (45-117); TOTAL BILIRUBIN ADULT 0.4 MG/DL (0.2-1.0); TOTAL PROTEIN 6.3 GM/DL (6.4-8.2)
[2017-06-23 00:59] LABS: CREATININE 11.32 MG/DL (0.50-1.00)
[2017-06-23 02:45] VITALS: BP 133/82
== END 2017-06-23 02:52 | disposition home or self-care (01) ==
LOC: NED 19:53 → NEPC 06-23 02:52
DX: R04.0 Epistaxis (principal); S50.812A Abrasion of left forearm, initial encounter; I13.0 Hypertensive heart and chronic kidney disease with heart failure and stage 1 through stage 4 chronic kidney disease, or unspecified chronic kidney disease; I50.9 Heart failure, unspecified; N18.9 Chronic kidney disease, unspecified; E03.9 Hypothyroidism, unspecified; M79.7 Fibromyalgia; Y93.K9 Activity, other involving animal care; Z87.19 Personal history of other diseases of the digestive system
CPT/HCPCS: 80053; 85025; 85610; 85730; 99283

== ENCOUNTER 2017-07-10 14:46 | Inpatient (IN) | END 2017-07-26 18:15 | disposition home health service (06) | DRG 981 | DX: T85.71XA Infection and inflammatory reaction due to peritoneal dialysis catheter, initial encounter (principal); N18.6 End stage renal disease; K65.0 Generalized (acute) peritonitis; I13.2 Hypertensive heart and chronic kidney disease with heart failure and with stage 5 chronic kidney disease, or end stage renal disease; A41.9 Sepsis, unspecified organism; A04.72 Enterocolitis due to Clostridium difficile, not specified as recurrent; I42.0 Dilated cardiomyopathy; E87.1 Hypo-osmolality and hyponatremia; Q61.2 Polycystic kidney, adult type; I48.0 Paroxysmal atrial fibrillation; I50.9 Heart failure, unspecified; Y83.8 Other surgical procedures as the cause of abnormal reaction of the patient, or of later complication, without mention of misadventure at the time of the procedure; J44.9 Chronic obstructive pulmonary disease, unspecified; F32.9 Major depressive disorder, single episode, unspecified; E78.5 Hyperlipidemia, unspecified; K21.9 Gastro-esophageal reflux disease without esophagitis; M79.7 Fibromyalgia; F40.240 Claustrophobia; E03.9 Hypothyroidism, unspecified; I25.10 Atherosclerotic heart disease of native coronary artery without angina pectoris; D63.8 Anemia in other chronic diseases classified elsewhere; K76.89 Other specified diseases of liver; N20.0 Calculus of kidney; E86.9 Volume depletion, unspecified; D69.6 Thrombocytopenia, unspecified; Z95.810 Presence of automatic (implantable) cardiac defibrillator; Z95.5 Presence of coronary angioplasty implant and graft; Z79.01 Long term (current) use of anticoagulants; Z99.2 Dependence on renal dialysis ==